=== PATIENT | male | born 1970 | race African-American/Black ===

== ENCOUNTER 2016-03-27 07:00 | Emergency (ER) | payer OTHER ==
[2016-03-27 07:17] VITALS: TEMP 98.2; BMI 45.4
--- NOTE | 2016-03-27 08:16 | PDOC ---
History of Present Illness - General Chief Complaint: Edema Stated Complaint: SWOLLEN FOOT Time Seen by Provider: 03/27/16 07:53 History Source: Patient Exam Limitations: No Limitations - History of Present Illness Initial Comments: 03/27/16 08:10 Patient is a 55 year old obese male with PMH of HTN, Asthma & sleep apnea who presents to ED with complaints of right lower extremity tenderness & swelling for 2 days. Patient's mother is at bedside. He states he had a cold about a week ago and has been extremely sedentary, lying in bed for most of the day since then. The cold symptoms have improved and the patient states he started to notice increased swelling in his lower extremities up to the knee, notably his right lower extremity. The swelling was followed by tenderness to palpation from the right calf down to the plantar portion of his right foot. The region is also mildly erythematous. Denies shortness of breath, chest pain, fever or chills. Denies nausea, vomiting, diarrhea, constipation, visual changes. No recent travel or pets in the home. Past History - Travel Traveled outside of the country in the last 30 days: No Close contact w/someone who was outside of country & ill: No - Past Medical History Allergies/Adverse Reactions: Allergies Allergy/AdvReac Type Severity Reaction Status Date / Time Penicillins Allergy Verified 03/27/16 07:13 STRAWBERRY AdvReac Intermediate Uncoded 03/27/16 07:13 PEANUTS AdvReac Uncoded 03/27/16 07:13 TOMATOES AdvReac Uncoded 03/27/16 07:13 Home Medications: Ambulatory Orders Lisinopril [Prinivil -] 40 mg PO DAILY 03/27/16 Sulfamethoxazole/Trimethoprim [Bactrim Ds -] 1 tab PO BID #14 tablet 03/27/16 Asthma: Yes GI Disorders: Yes (GERD) HTN: Yes Seizures: Yes (as a child) Other medical history: sleep apnea - Surgical History Other Surgical History: 03/27/16 08:14 "sleep apnea surgery" - Family Disease History Family Disease History: Diabetes: Grandparents, Father, Mother, Heart Disease: Father, Mother - Immunization History Immunization Up to Date: Yes - Psycho/Social/Smoking Cessation Hx Anxiety: No Suicidal Ideation: No Smoking History: Former smoker Have you smoked in the past 12 months: No Number of Cigarettes Smoked Daily: 3 Information on smoking cessation initiated: No Hx Alcohol Use: No Drug/Substance Use Hx: No Substance Use Type: None Hx Substance Use Treatment: No Review of Systems - Review of Systems Able to Perform ROS?: Yes Is the patient limited Malawian proficient: No Musculoskeletal: Yes: Other (right foot tenderness) All Other Systems: Reviewed and Negative *Physical Exam - Vital Signs Last Vital Signs Temp Pulse Resp BP Pulse Ox 98.2 F 76 19 129/86 96 03/27/16 07:13 03/27/16 07:13 03/27/16 07:13 03/27/16 07:13 03/27/16 07:13 - Physical Exam General Appearance: Yes: Nourished, Appropriately Dressed, Obese HEENT: positive: EOMI, SHERON, Pharynx Normal Neck: positive: Trachea midline, Supple, Other (scar from previous surgery) Respiratory/Chest: positive: Lungs Clear, Normal Breath Sounds Cardiovascular: positive: Regular Rhythm, Regular Rate, S1, S2 Gastrointestinal/Abdominal: positive: Normal Bowel Sounds, Flat, Soft Musculoskeletal: positive: Normal Inspection Extremity: positive: Normal Inspection, Calf Tenderness (right calf moderately tender to palpation & mildly erythematous) Integumentary: positive: Dry, Warm Neurologic: positive: Fully Oriented, Alert, Normal Mood/Affect, Motor Strength 5/5 ED Treatment Course - LABORATORY CBC & Chemistry Diagram: 03/27/16 08:19 03/27/16 08:19 - RADIOLOGY Radiology Studies Ordered: Category Date Time Status DUPLEX VASCUL US-2LEGS [US] Stat Ultrasound 03/27/16 08:09 Ordered Medical Decision Making - Medical Decision Making 03/27/16 08:19 Need to rule out DVT with bilateral LE ultrasound (patient is high risk given his extremely sedentary lifestyle). Ordered CBC, CMP, BNP to assess for cardiac or cellulitic component as well. 03/27/16 09:12 US (-) for DVT in both lower extremities. BNP shows no sign of CHF. Minimally elevated WBC count at 10.4. Will send patient home on Bactrim for uncomplicated Cellulitis. Patient told to keep legs clean and followup with PCP in 2-3 days. *DC/Admit/Observation/Transfer Diagnosis at time of Disposition: Cellulitis - Discharge Dispostion Admit: No - Prescriptions Prescriptions: Sulfamethoxazole/Trimethoprim [Bactrim Ds -] 1 tab PO BID #14 tablet - Referrals Referrals: Tyrel Shepard MD [Primary Care Provider] - - Patient Instructions Printed Discharge Instructions: DI for Cellulitis -- Adult Additional Instructions: Followup with Dr Barillas within 1 week for followup visit. If pain worsens or swelling increases, return to ED IMMEDIATELY.
[2016-03-27 08:31] LABS: BASOPHIL 0.5 % (0-2.0); EOSINOPHIL 0.4 % (0-4.5); MCH 29.1 pg (25.7-33.7); MCHC 31.8 g/dl (32.0-35.9); MEAN CELL VOLUME 91.6 fl (80-96); MEAN PLT VOLUME 7.7 fl (7.5-11.1); NEUTROPHILS 81.2 % (42.8-82.8); PLATELET COUNT 225 K/MM3 (134-434); RDW 13.4 % (11.9-15.9); WHITE BLOOD COUNT 10.2 K/mm3 (4.0-10.0)
[2016-03-27 09:00] LABS: ALBUMIN 3.5 g/dl (3.4-5.0); ANION GAP 10 (8-16); BILIRUBIN,TOTAL 0.4 mg/dL (0.2-1.0); CALCIUM 8.6 mg/dL (8.5-10.1); CO2 30 mmol/L (21-32); CREATININE 1.1 mg/dL (0.7-1.3); GLUCOSE,RANDOM 95 mg/dL (74-106); SGOT/AST 16 U/L (15-37); SGPT/ALT 21 U/L (12-78)
[2016-03-27 09:03] LABS: ALK PHOS 55 U/L (45-117)
[2016-03-27 09:30] VITALS: BP 131/70; PULSE 70
== END 2016-03-27 09:30 | disposition home or self-care (01) ==
LOC: JER 07:00
DX: L03.116 Cellulitis of left lower limb (principal); L03.115 Cellulitis of right lower limb; I10 Essential (primary) hypertension; J45.909 Unspecified asthma, uncomplicated; G47.39 Other sleep apnea
CPT/HCPCS: 36415; 80053; 83880; 85025; 93970-TC; 99282-25

== ENCOUNTER 2016-10-07 21:05 | Emergency (ER) | payer OTHER ==
[2016-10-07 21:24] VITALS: BP 160/94; PULSE 95; TEMP 98.6; BMI 46.3
[2016-10-07] MEDS ORDERED: KETOROLAC TROMETHAMINE 60 MG/2 ML VIAL IM ONE (22:59)
[2016-10-07] MEDS ORDERED: KETOROLAC TROMETHAMINE 60 MG/2 ML VIAL ONE (23:05)
--- NOTE | 2016-10-07 23:16 | PDOC ---
History of Present Illness - General Chief Complaint: Chronic pain Stated Complaint: RIGHT KNEE Time Seen by Provider: 10/07/16 22:15 - History of Present Illness Initial Comments: 10/07/16 23:03 CHIEF COMPLAINT: HISTORY OF PRESENT ILLNESS: 46 yo M presents to ED with chronic R knee pain. Patient reports that he was diagnosed with a hairline fracture and that he has an orthopedic surgeon who is supposed to operate on the knee in 11 days. P No recent travel or sick contacts. PAST MEDICAL HISTORY: Denies past medical history FAMILY HISTORY: Denies SOCIAL HISTORY: Denies tobacco, alcohol, illicit drug use. SURGICAL HISTORY: Denies ALLERGIES: No known drug allergies REVIEW OF SYSTEMS General/Constitutional: Denies fever or chills. Denies weakness, weight change. HEENT: Denies change in vision. Denies ear pain or discharge. Denies sore throat. Cardiovascular: Denies chest pain or shortness of breath. Respiratory: Denies cough, wheezing, or hemoptysis. Gastrointestinal: Denies nausea, vomiting, diarrhea or constipation. Denies rectal bleeding. Genitourinary: Denies dysuria, frequency, or change in urination. Musculoskeletal: R knee pain. Denies joint or muscle swelling or pain. Denies neck or back pain. Skin and breasts: Denies rash or easy bruising. PHYSICAL EXAM General Appearance: Well-appearing, appropriately dressed. No apparent distress , no intoxication. HEENT: EOMI, PERRLA, normal ENT inspection, normal voice, TMs normal, pharynx normal. No conjunctival pallor. No photophobia, scleral icterus. Neck: Supple. Trachea midline. No tenderness, rigidity, carotid bruit, stridor , lymphadenopathy, or thyromegaly. Respiratory/Chest: Lungs CTAB. No shortness of breath, chest tenderness, respiratory distress, accessory muscle use. No crackles, rales, rhonchi, stridor , wheezing, dullness Cardiovascular: RRR. S1, S2. No JVD, murmur, bradycardia, tachycardia. Vascular Pulses: Dorsalis-Pedis (R): 2+, Dorsalis-Pedis (L): 2+ Gastrointestinal/Abdominal: Normal bowel sounds. Abdomen soft, non-distended. No tenderness or rebound tenderness. No organomegaly, pulsatile mass, guarding , hernia, hepatomegaly, splenomegaly. Lymphatic: No adenopathy, tenderness. Musculoskeletal/Extremities: Normal inspection. FROM of all extremities, normal capillary refill. Pelvis Stable. No CVA tenderness. No tenderness to extremities, pedal edema, swelling, erythema or deformity. Integumentary: Appropriate color, dry, warm. No cyanosis, erythema, jaundice or rash Neurologic: air quality engineer II-XII intact. Fully oriented, alert. Appropriate mood/affect. Motor strength 5/5. No appreciable EOM palsy, facial droop or sensory deficit. Past History - Past Medical History Allergies/Adverse Reactions: Allergies Allergy/AdvReac Type Severity Reaction Status Date / Time Penicillins Allergy Verified 10/07/16 21:23 STRAWBERRY AdvReac Intermediate Uncoded 10/07/16 21:23 PEANUTS AdvReac Uncoded 10/07/16 21:23 TOMATOES AdvReac Uncoded 10/07/16 21:23 Home Medications: Ambulatory Orders Lisinopril [Prinivil -] 40 mg PO DAILY 03/27/16 Sulfamethoxazole/Trimethoprim [Bactrim Ds -] 1 tab PO BID #14 tablet 03/27/16 Naproxen [Naprosyn -] 500 mg PO BID #14 tablet 10/07/16 Oxycodone HCl/Acetaminophen [Percocet 5-325 mg Tablet] 1 tab PO Q6H PRN #12 tablet MDD 4 10/07/16 Asthma: Yes GI Disorders: Yes (GERD) HTN: Yes Seizures: Yes (as a child) Other medical history: obesity - Family Disease History Family Disease History: Diabetes: Grandparents, Father, Mother, Heart Disease: Father, Mother - Immunization History Immunization Up to Date: Yes - Psycho/Social/Smoking Cessation Hx Anxiety: No Suicidal Ideation: No Smoking History: Former smoker Have you smoked in the past 12 months: No Number of Cigarettes Smoked Daily: 3 Information on smoking cessation initiated: No Hx Alcohol Use: No Drug/Substance Use Hx: No Substance Use Type: None Hx Substance Use Treatment: No *Physical Exam - Vital Signs Last Vital Signs Temp Pulse Resp BP Pulse Ox 98.6 F 95 H 18 160/94 100 10/07/16 21:21 10/07/16 21:21 10/07/16 21:21 10/07/16 21:21 10/07/16 21:21 *DC/Admit/Observation/Transfer Diagnosis at time of Disposition: Knee pain, right Qualifiers: Chronicity: chronic Qualified Code(s): M25.561 - Pain in right knee; G89.29 - Other chronic pain - Discharge Dispostion Disposition: HOME Condition at time of disposition: Stable Admit: No - Prescriptions Prescriptions: Naproxen [Naprosyn -] 500 mg PO BID #14 tablet Oxycodone HCl/Acetaminophen [Percocet 5-325 mg Tablet] 1 tab PO Q6H PRN #12 tablet MDD 4 PRN Reason: Pain - Referrals Referrals: Tyrel Shepard MD [Primary Care Provider] - - Patient Instructions Printed Discharge Instructions: DI for Knee Pain Additional Instructions: Please take medications as prescribed; do NOT drive or operate machinery while taking the Percocet. Please follow up with your orthopedics surgeon as planned. If you experience any numbness, tingling, or loss of sensation to your leg, worsening pain, or any new or worsening symptoms please return to the ER.
== END 2016-10-07 23:33 | disposition home or self-care (01) ==
LOC: JERFT 21:05 → JER 21:05
PROC: 3E0333Z Introduction of Anti-inflammatory into Peripheral Vein, Percutaneous Approach (ICD-10-PCS; principal; 2016-10-07)
DX: M25.561 Pain in right knee (principal); G89.29 Other chronic pain; I10 Essential (primary) hypertension; J45.909 Unspecified asthma, uncomplicated; K21.9 Gastro-esophageal reflux disease without esophagitis; Z88.0 Allergy status to penicillin; Z91.010 Allergy to peanuts; Z91.018 Allergy to other foods; Z87.891 Personal history of nicotine dependence; Z86.69 Personal history of other diseases of the nervous system and sense organs; E66.9 Obesity, unspecified; Z68.42 Body mass index [BMI] 45.0-49.9, adult
CPT/HCPCS: 99282-25

== ENCOUNTER 2016-10-31 07:52 | Inpatient (IN) | payer OTHER ==
[2016-10-23 10:39] VITALS: BMI 46.0
[2016-10-31] MEDS ORDERED: BUPIVACAINE HCL/PF 2.5 MG/ML - 30 ML VIAL IJ ONE (09:10)
[2016-10-31] MEDS ORDERED: PROPOFOL 20 ML ONE ×2 (09:39→09:45)
[2016-10-31] MEDS ORDERED: SUCCINYLCHOLINE CHLORIDE 200 MG/10 ML VIAL ONE (09:45)
[2016-10-31] MEDS ORDERED: CLINDAMYCIN PHOSPHATE 600 MG/4 ML VIAL ONE ×2 (09:56→09:57)
[2016-10-31] MEDS ORDERED: BUPIVACAINE HCL/PF 0.25% (2.5MG/ML) 10 ML VIAL IJ ONE (10:08)
[2016-10-31] MEDS ORDERED: DEXAMETHASONE SOD PHOSPHATE 4 MG/1 ML VIAL ONE (10:09)
[2016-10-31] MEDS ORDERED: ONDANSETRON 4 MG/2 ML VIAL ONE (10:09)
[2016-10-31] MEDS ORDERED: ALBUTEROL SO4 6.7 GM HFA INHALER IH ONE (10:21)
[2016-10-31] MEDS ORDERED: IPRATROPIUM BR 0.02% 0.5 MG/2.5 ML VIAL.NEB. NEB ONE (11:04)
[2016-10-31] MEDS ORDERED: ALBUTEROL SO4 0.083% IH SOL 2.5 MG/3 ML VIAL.NEB. NEB ONE (11:04)
[2016-10-31] MEDS ORDERED: ACETAMINOPHEN 1000 MG/100 ML VIAL (NON FORMULARY) IVPB ONE (11:20)
[2016-10-31] MEDS ORDERED: ONDANSETRON 4 MG/2 ML VIAL IVPUSH PRN (11:20)
[2016-10-31] MEDS ORDERED: ALBUTEROL SO4 0.083% IH SOL 2.5 MG/3 ML VIAL.NEB. NEB PRN (11:22)
[2016-10-31] MEDS ORDERED: LACTATED RINGERS SOLUTION 1,000 ML IV SCH (11:30)
[2016-10-31 17:56] LABS: ARTERIAL BLOOD GAS pH 7.36 (7.35-7.45)
[2016-10-31 17:57] LABS: ALLENS TEST POSITIVE; ART PUNCT SITE RIGHT RADIAL; ARTERIAL BLD GAS O2 SATURATION 97.4 % (90-98.9); ARTERIAL BLOOD GAS BASE EXCESS 4.5 meq/l (-2-2); ARTERIAL BLOOD GAS HCO3 31.2 meq/L (22-26); ARTERIAL BLOOD GAS PO2 99.4 mmHg (80-100); LPM/O2% 50%; PT. ON O2? YES; TYPE OF O2 BIPAP
[2016-10-31 17:58] LABS: VENT RATE 12; VT/PRESS IPAP 14/EPAP 8
[2016-10-31] MEDS ORDERED: FUROSEMIDE 40 MG/4 ML INJECTABLE VIAL IVPB ONE ×2 (19:40→19:44)
--- NOTE | 2016-10-31 19:52 | CONSULT ---
Consultation: REQUESTING PROVIDER: CONSULT REQUEST: We have been asked to medically evaluate this patient for ( pulm critical). HISTORY OF PRESENT ILLNESS: 46 y/o male with PMH of sleep apnea, asthma, GERD, HTN was sent from [facility] because of shortness of breath. Patient got right knee surgery( arthroscopy for meniscal tear) this morning under [facility]. Post op surgery patient was getting a IV fluid when he started complaining of SOB. He was started on venture mask but unable to maintain saturation than was started on BIPAP of 50% and his Spo2 increased upto 90. Now feels better but still tired. . Sleeps without pillow in home before use to sleep with 3 pillows , able to walk without shortness of breath but now due to knee problem unable to walk. Denies orthopnea and paroxysmal dyspnea. Patient denies chest pain, palpitations, diaphoresis, trauma to cheat, cough( has chronic cough but no recent change), fever, no recent travel. Denies any increase swelling in legs. Denies lightheadedness, dizziness. Patient also states that he has was supposed to use BIPAP in home but he never used it. PMH: htn, gerd, asthma, sleep apnea, obesity PSH: surgery for sleep apnea, right knee surgery Allergies : penicillin, strawberry, tomatoes, peanuts Social: former smoker stopped 2 years ago, smoked for 10 years, occasional alcoholic. REVIEW OF SYSTEMS: CONSTITUTIONAL: Absent: fever, chills, diaphoresis, generalized weakness, malaise, loss of appetite, gained weight in last one year. HEENT: Absent: rhinorrhea, nasal congestion, throat pain, throat swelling, visual changes CARDIOVASCULAR: Absent: chest pain, syncope, palpitations, irregular heart rate, lightheadedness , peripheral edema RESPIRATORY: present chronic cough Absent: shortness of breath, dyspnea with exertion, orthopnea, wheezing, stridor, hemoptysis GASTROINTESTINAL: Absent: abdominal pain, abdominal distension, nausea, vomiting, diarrhea, constipation, GENITOURINARY: Absent: dysuria, frequency, urgency, hesitancy, hematuria, flank pain, genital pain SKIN: Absent: rash, itching, pallor HEMATOLOGIC/IMMUNOLOGIC: Absent: easy bleeding, easy bruising, ENDOCRINE: Absent: weight gain, unexplained weight loss, heat intolerance, cold intolerance NEUROLOGIC: Absent: headache, focal weakness or paresthesias, dizziness, unsteady gait, seizure, mental status changes, PHYSICAL EXAMINATION Vital Signs - 24 hr 10/31/16 10/31/16 10/31/16 08:15 11:00 11:05 Temperature 98.6 F 97.8 F Pulse Rate 88 112 H 95 H Respiratory 18 24 20 Rate Blood Pressure 142/97 186/85 171/81 O2 Sat by Pulse 96 78 L 94 L Oximetry (%) 10/31/16 10/31/16 10/31/16 11:10 11:15 11:30 Temperature Pulse Rate 94 H 94 H 94 H Respiratory 20 20 18 Rate Blood Pressure 152/87 172/97 122/84 O2 Sat by Pulse 96 92 L 96 Oximetry (%) 10/31/16 10/31/16 10/31/16 11:45 12:00 12:15 Temperature Pulse Rate 91 H 93 H 93 H Respiratory 18 18 18 Rate Blood Pressure 160/99 126/74 O2 Sat by Pulse 97 93 L 95 Oximetry (%) 10/31/16 10/31/16 10/31/16 12:21 12:30 12:40 Temperature Pulse Rate 89 94 H 96 H Respiratory 18 18 Rate Blood Pressure 136/85 148/92 O2 Sat by Pulse 95 93 L 99 Oximetry (%) 10/31/16 10/31/16 10/31/16 12:41 12:55 13:00 Temperature 98.1 F Pulse Rate 96 H 90 Respiratory 18 20 Rate Blood Pressure 148/92 124/91 O2 Sat by Pulse 94 L 95 Oximetry (%) 10/31/16 10/31/16 10/31/16 13:25 13:55 14:25 Temperature Pulse Rate 86 88 92 H Respiratory 18 18 18 Rate Blood Pressure 155/92 157/90 140/94 O2 Sat by Pulse 98 98 93 L Oximetry (%) 10/31/16 10/31/16 10/31/16 14:26 14:55 15:16 Temperature Pulse Rate 90 Respiratory 16 Rate Blood Pressure 128/66 O2 Sat by Pulse 96 94 L 96 Oximetry (%) 10/31/16 10/31/16 10/31/16 16:03 17:15 18:25 Temperature Pulse Rate 91 H 94 H Respiratory 18 Rate Blood Pressure 181/104 O2 Sat by Pulse 96 97 96 Oximetry (%) 10/31/16 19:33 Temperature Pulse Rate Respiratory Rate Blood Pressure O2 Sat by Pulse 94 L Oximetry (%) GENERAL: Awake, alert, and fully oriented, HEAD: Normal with no signs of trauma. EYES: Pupils equal, round and reactive to light, extraocular movements intact, EARS, NOSE, THROAT: oropharynx clear without exudates. Moist mucous membranes. NECK: Normal range of motion, no JVD, acanthosis nigrans. LUNGS: Breath sounds equal,b/l crackles in bases, decrease air entry in bases. No accessory muscle use. no wheez, no acessory muscle use HEART: s1s2 normal regular ABDOMEN: Soft, nontender, not distended, normoactive bowel sounds, no guarding, no rebound, no masses. scar present on abdomen from fall ( no surgery) UPPER EXTREMITIES: 2+ pulses, warm, well-perfused. No cyanosis. No clubbing. LOWER EXTREMITIES: warm, No calf tenderness. No peripheral edema. SKIN: Warm, dry, Laboratory Results - last 24 hr 10/31/16 17:45 Anticoagulation Therapy Y Puncture Site Right radial ABG pH 7.36 ABG pCO2 at Pt Temp 57.2 H ABG pO2 at Pt Temp 99.4 ABG HCO3 31.2 H ABG O2 Sat (Measured) 97.4 ABG O2 Content 19.9 ABG Base Excess 4.5 H Usman Test Positive O2 Delivery Device Bipap Oxygen Flow Rate 50% Vent Mode Y Vent Rate 12 Mechanical Rate Y Pressure Support Vent Ipap 14/epap 8 Active Medications Generic Name Dose Route Start Last Admin Trade Name Freq PRN Reason Stop Dose Admin Albuterol Sulfate 1 amp 10/31/16 11:22 10/31/16 15:38 Ventolin 0.083% Nebulizer Soln - NEB 1 amp Q4H PRN Administration SHORT OF BREATH/WHEEZING Chlorhexidine Gluconate 1 applic 10/31/16 22:00 Hibiclens For Decolonization - TP HS ARABELLA Enoxaparin Sodium 40 mg 11/01/16 10:00 Lovenox - SQ DAILY ARABELLA Furosemide 40 mg 10/31/16 19:44 Lasix Injection - IVPB 10/31/16 19:45 ONCE ONE Lactated Ringer's 1,000 mls @ 75 mls/hr 10/31/16 11:30 Lactated Ringers Solution IV ASDIR ARABELLA Lisinopril 40 mg 11/01/16 10:00 Prinivil PO DAILY ARABELLA Mupirocin 1 applic 10/31/16 22:00 Bactroban Ointment (For Decolonization) - NS 11/05/16 21:59 BID ARABELLA Pantoprazole Sodium 40 mg 10/31/16 22:00 Protonix - PO BID ARABELLA ECHO 10/16: normal LV function 10/16 normal myocardial perfusian scan ASSESSMENT/PLAN: Post op hypoxic with hypercapnic respiratory failure continue with bipap on I/e 13/10 rr14 fio2 50. keep spo2>90 CXr looks congested with b/l crackels at base, Lasix 40 mg IV once. Repeat CXR in morning. daily weight monitor intake and output low salt diet. ECHO from 10/16: normal LV function keep head end elevated. repeat abg cardiac monitoring EKG avoid opioid for pain for now. HTN continue with lisinopril monitor bp GERD continue with omeprazol 40mg bid h/o Asthma not active on prn albuterol in home. continue with duoneb prn chronic Sleep apnea keep on bipap keep head end elevated keep spo2>90 previous sleep studies show restrictive lung ds Fluid: avoid IV fluid electrolytes: labs pending nutrition: start low salt diet from morning, once conscious level improves GI pro: on omeprazole DVt pro : on lovenox Dispo: We will continue to follow the patient. Thank you for this consultative opportunity. Visit type - Emergency Visit Emergency Visit: No - New Patient This patient is new to me today: Yes Date on this admission: 10/31/16 - Critical Care Critical Care patient: Yes Total Critical Care Time (in minutes): 45 Critical Care Statement: The care of this patient involved high complexity decision making to prevent further life threatening deterioration of the patient 's condition and/or to evaluate & treat vital organ system(s) failure or risk of failure.
--- NOTE | 2016-10-31 19:52 | HP ---
<Chuck Cardona - Last Filed: 10/31/16 19:52> CHIEF COMPLAINT: PCP: HISTORY OF PRESENT ILLNESS: ER course was notable for: (1) (2) (3) Recent Travel: PAST MEDICAL HISTORY: PAST SURGICAL HISTORY: Social History: Smoking: Alcohol: Drugs: Family History: Allergies Penicillins Allergy (Severe, Verified 10/23/16 10:40) SWELLING,HIVES STRAWBERRY Allergy (Intermediate, Uncoded 10/23/16 10:40) SWELLING,HIVES TOMATOES Allergy (Intermediate, Uncoded 10/23/16 10:40) SWELLING , HIVES PEANUTS Adverse Reaction (Intermediate, Uncoded 10/23/16 10:40) SWELLING, HIVES HOME MEDICATIONS: Home Medications Medication Instructions Recorded Lisinopril [Prinivil -] 40 mg PO DAILY 03/27/16 Naproxen [Naprosyn -] 500 mg PO BID #14 tablet 10/07/16 Oxycodone HCl/Acetaminophen 1 tab PO Q6H PRN #12 tablet MDD 4 10/07/16 [Percocet 5-325 mg Tablet] Multivitamins [Tab-A-Vit -] 1 tab PO DAILY 10/23/16 Omeprazole 40 mg PO BID 10/23/16 REVIEW OF SYSTEMS CONSTITUTIONAL: Absent: fever, chills, diaphoresis, generalized weakness, malaise, loss of appetite, weight change HEENT: Absent: rhinorrhea, nasal congestion, throat pain, throat swelling, difficulty swallowing, mouth swelling, ear pain, eye pain, visual changes CARDIOVASCULAR: Absent: chest pain, syncope, palpitations, irregular heart rate, lightheadedness , peripheral edema RESPIRATORY: Absent: cough, shortness of breath, dyspnea with exertion, orthopnea, wheezing, stridor, hemoptysis GASTROINTESTINAL: Absent: abdominal pain, abdominal distension, nausea, vomiting, diarrhea, constipation, melena, hematochezia GENITOURINARY: Absent: dysuria, frequency, urgency, hesitancy, hematuria, flank pain, genital pain MUSCULOSKELETAL: Absent: myalgia, arthralgia, joint swelling, back pain, neck pain SKIN: Absent: rash, itching, pallor HEMATOLOGIC/IMMUNOLOGIC: Absent: easy bleeding, easy bruising, lymphadenopathy, frequent infections ENDOCRINE: Absent: unexplained weight gain, unexplained weight loss, heat intolerance, cold intolerance NEUROLOGIC: Absent: headache, focal weakness or paresthesias, dizziness, unsteady gait, seizure, mental status changes, bladder or bowel incontinence PSYCHIATRIC: Absent: anxiety, depression, suicidal or homicidal ideation, hallucinations. PHYSICAL EXAMINATION Vital Signs - 24 hr 10/31/16 10/31/16 10/31/16 08:15 11:00 11:05 Temperature 98.6 F 97.8 F Pulse Rate 88 112 H 95 H Respiratory 18 24 20 Rate Blood Pressure 142/97 186/85 171/81 O2 Sat by Pulse 96 78 L 94 L Oximetry (%) 10/31/16 10/31/16 10/31/16 11:10 11:15 11:30 Temperature Pulse Rate 94 H 94 H 94 H Respiratory 20 20 18 Rate Blood Pressure 152/87 172/97 122/84 O2 Sat by Pulse 96 92 L 96 Oximetry (%) 10/31/16 10/31/16 10/31/16 11:45 12:00 12:15 Temperature Pulse Rate 91 H 93 H 93 H Respiratory 18 18 18 Rate Blood Pressure 160/99 126/74 O2 Sat by Pulse 97 93 L 95 Oximetry (%) 10/31/16 10/31/16 10/31/16 12:21 12:30 12:40 Temperature Pulse Rate 89 94 H 96 H Respiratory 18 18 Rate Blood Pressure 136/85 148/92 O2 Sat by Pulse 95 93 L 99 Oximetry (%) 10/31/16 10/31/16 10/31/16 12:41 12:55 13:00 Temperature 98.1 F Pulse Rate 96 H 90 Respiratory 18 20 Rate Blood Pressure 148/92 124/91 O2 Sat by Pulse 94 L 95 Oximetry (%) 10/31/16 10/31/16 10/31/16 13:25 13:55 14:25 Temperature Pulse Rate 86 88 92 H Respiratory 18 18 18 Rate Blood Pressure 155/92 157/90 140/94 O2 Sat by Pulse 98 98 93 L Oximetry (%) 10/31/16 10/31/16 10/31/16 14:26 14:55 15:16 Temperature Pulse Rate 90 Respiratory 16 Rate Blood Pressure 128/66 O2 Sat by Pulse 96 94 L 96 Oximetry (%) 10/31/16 10/31/16 10/31/16 16:03 17:15 18:25 Temperature Pulse Rate 91 H 94 H Respiratory 18 Rate Blood Pressure 181/104 O2 Sat by Pulse 96 97 96 Oximetry (%) 10/31/16 19:33 Temperature Pulse Rate Respiratory Rate Blood Pressure O2 Sat by Pulse 94 L Oximetry (%) GENERAL: Awake, alert, and fully oriented, in no acute distress. HEAD: Normal with no signs of trauma. EYES: Pupils equal, round and reactive to light, extraocular movements intact, sclera anicteric, conjunctiva clear. No lid lag. EARS, NOSE, THROAT: Ears normal, nares patent, oropharynx clear without exudates. Moist mucous membranes. NECK: Normal range of motion, supple without lymphadenopathy, JVD, or masses. LUNGS: Breath sounds equal, clear to auscultation bilaterally. No wheezes, and no crackles. No accessory muscle use. HEART: Regular rate and rhythm, normal S1 and S2 without murmur, rub or gallop. ABDOMEN: Soft, nontender, not distended, normoactive bowel sounds, no guarding, no rebound, no masses. No hepatomegaly or splenomegaly. MUSCULOSKELETAL: Normal range of motion at all joints. No bony deformities or tenderness. No CVA tenderness. UPPER EXTREMITIES: 2+ pulses, warm, well-perfused. No cyanosis. No clubbing. No peripheral edema. LOWER EXTREMITIES: 2+ pulses, warm, well-perfused. No calf tenderness. No peripheral edema. NEUROLOGICAL: Cranial nerves II-XII intact. Normal speech. Normal gait. PSYCHIATRIC: Cooperative. Good eye contact. Appropriate mood and affect. SKIN: Warm, dry, normal turgor, no rashes or lesions noted, normal capillary refill. Laboratory Results - last 24 hr 10/31/16 17:45 Anticoagulation Therapy Y Puncture Site Right radial ABG pH 7.36 ABG pCO2 at Pt Temp 57.2 H ABG pO2 at Pt Temp 99.4 ABG HCO3 31.2 H ABG O2 Sat (Measured) 97.4 ABG O2 Content 19.9 ABG Base Excess 4.5 H Usman Test Positive O2 Delivery Device Bipap Oxygen Flow Rate 50% Vent Mode Y Vent Rate 12 Mechanical Rate Y Pressure Support Vent Ipap 14/epap 8 ASSESSMENT/PLAN: <Vazquez Leyva - Last Filed: 11/01/16 07:27> CHIEF COMPLAINT:Shortness of breath PCP:Eran HISTORY OF PRESENT ILLNESS: 46M history of obstructive sleep apnea, asthma, HTN, GERD, and morbid obesity who presents to the ICU for admission s/p right knee arthroscopy. Patient had a right knee meniscus tear and presented for ambulatory surgery. Post-operatively patient was in the PACU receiving IVF and started to complain of shortness of breath. He was then placed on venti mask 50% but his saturation remained around 90%. Patient was then placed on BiPAP and was saturating well. He denies nausea vomiting fevers chills chest pain or shortness of breath at this time. He denies pain. He denies travel or recent sick contacts. Denies any urinary symptoms or change in bowel habits. Patient had an Echo and stress test which did not show any abnormalities. He sees Dr. Fox for pulmonology. Denies orthopnea or recent change in exercise tolerance. Patient has had difficulty ambulating lately due to knee pain. Patient was somnolent during interview. History given by mother who is a retired telemetry nurse. Patient has had a surgery for some kind of stenting in the neck for obstructive sleep apnea. Suppoed to be sleeping with CPAP machine but is not compliant with it. Recent Travel:Denies PAST MEDICAL HISTORY:As above PAST SURGICAL HISTORY:as above Social History: Smoking:former smoker quit 2 years ago Alcohol:socially Drugs: denies Family History:Father has diabetes and HTN mother has borderline HTN Allergies Penicillins Allergy (Severe, Verified 10/23/16 10:40) SWELLING,HIVES STRAWBERRY Allergy (Intermediate, Uncoded 10/23/16 10:40) SWELLING,HIVES TOMATOES Allergy (Intermediate, Uncoded 10/23/16 10:40) SWELLING , HIVES PEANUTS Adverse Reaction (Intermediate, Uncoded 10/23/16 10:40) SWELLING, HIVES HOME MEDICATIONS: Home Medications Medication Instructions Recorded Lisinopril [Prinivil -] 40 mg PO DAILY 03/27/16 Naproxen [Naprosyn -] 500 mg PO BID #14 tablet 10/07/16 Oxycodone HCl/Acetaminophen 1 tab PO Q6H PRN #12 tablet MDD 4 10/07/16 [Percocet 5-325 mg Tablet] Multivitamins [Tab-A-Vit -] 1 tab PO DAILY 10/23/16 Omeprazole 40 mg PO BID 10/23/16 REVIEW OF SYSTEMS CONSTITUTIONAL: Absent: fever, chills, diaphoresis, generalized weakness, malaise, loss of appetite, weight change HEENT: Absent: rhinorrhea, nasal congestion, throat pain, throat swelling, difficulty swallowing, mouth swelling, ear pain, eye pain, visual changes CARDIOVASCULAR: Absent: chest pain, syncope, palpitations, irregular heart rate, lightheadedness , peripheral edema RESPIRATORY: Absent: , dyspnea with exertion, orthopnea, wheezing, stridor, hemoptysis Present: chronic cough from GERD, shortness of breath GASTROINTESTINAL: Absent: abdominal pain, abdominal distension, nausea, vomiting, diarrhea, constipation, melena, hematochezia GENITOURINARY: Absent: dysuria, frequency, urgency, hesitancy, hematuria, flank pain, genital pain MUSCULOSKELETAL: Absent: myalgia, arthralgia, joint swelling, back pain, neck pain Present: Knee pain SKIN: Absent: rash, itching, pallor HEMATOLOGIC/IMMUNOLOGIC: Absent: easy bleeding, easy bruising, lymphadenopathy, frequent infections ENDOCRINE: Absent: unexplained weight gain, unexplained weight loss, heat intolerance, cold intolerance NEUROLOGIC: Absent: headache, focal weakness or paresthesias, dizziness, unsteady gait, seizure, mental status changes, bladder or bowel incontinence PSYCHIATRIC: Absent: anxiety, depression, suicidal or homicidal ideation, hallucinations. PHYSICAL EXAMINATION Vital Signs - 24 hr 10/31/16 10/31/16 10/31/16 08:15 11:00 11:05 Temperature 98.6 F 97.8 F Pulse Rate 88 112 H 95 H Respiratory 18 24 20 Rate Blood Pressure 142/97 186/85 171/81 O2 Sat by Pulse 96 78 L 94 L Oximetry (%) 10/31/16 10/31/16 10/31/16 11:10 11:15 11:30 Temperature Pulse Rate 94 H 94 H 94 H Respiratory 20 20 18 Rate Blood Pressure 152/87 172/97 122/84 O2 Sat by Pulse 96 92 L 96 Oximetry (%) 10/31/16 10/31/16 10/31/16 11:45 12:00 12:15 Temperature Pulse Rate 91 H 93 H 93 H Respiratory 18 18 18 Rate Blood Pressure 160/99 126/74 O2 Sat by Pulse 97 93 L 95 Oximetry (%) 10/31/16 10/31/16 10/31/16 12:21 12:30 12:40 Temperature Pulse Rate 89 94 H 96 H Respiratory 18 18 Rate Blood Pressure 136/85 148/92 O2 Sat by Pulse 95 93 L 99 Oximetry (%) 10/31/16 10/31/16 10/31/16 12:41 12:55 13:00 Temperature 98.1 F Pulse Rate 96 H 90 Respiratory 18 20 Rate Blood Pressure 148/92 124/91 O2 Sat by Pulse 94 L 95 Oximetry (%) 10/31/16 10/31/16 10/31/16 13:25 13:55 14:25 Temperature Pulse Rate 86 88 92 H Respiratory 18 18 18 Rate Blood Pressure 155/92 157/90 140/94 O2 Sat by Pulse 98 98 93 L Oximetry (%) 10/31/16 10/31/16 10/31/16 14:26 14:55 15:16 Temperature Pulse Rate 90 Respiratory 16 Rate Blood Pressure 128/66 O2 Sat by Pulse 96 94 L 96 Oximetry (%) 10/31/16 10/31/16 10/31/16 16:03 17:15 18:25 Temperature Pulse Rate 91 H 94 H Respiratory 18 Rate Blood Pressure 181/104 O2 Sat by Pulse 96 97 96 Oximetry (%) 10/31/16 19:33 Temperature Pulse Rate Respiratory Rate Blood Pressure O2 Sat by Pulse 94 L Oximetry (%) GENERAL: Awake but somnolent. Responds to voice HEAD: Normal with no signs of trauma. EYES: Pupils equal, round and reactive to light, extraocular movements intact, sclera anicteric, conjunctiva clear. No lid lag. EARS, NOSE, THROAT: Moist mucous membranes. NECK:no JVD LUNGS: on BiPAP. Bibasilar fine crackles. no wheezing. No accessory muscle use. HEART: Regular rate and rhythm, normal S1 and S2 without murmur ABDOMEN: Soft, obese, nontender, not distended, normoactive bowel sounds, no guarding, no rebound UPPER EXTREMITIES: 2+ pulses, warm, well-perfused. No cyanosis. No clubbing. No peripheral edema. LOWER EXTREMITIES: 2+ DP pulses bilaterally, warm, well-perfused. No calf tenderness. No peripheral edema. right knee wrapped dressing C/D/I NEUROLOGICAL: Cranial nerves II-XII intact. Laboratory Results - last 24 hr 10/31/16 17:45 Anticoagulation Therapy Y Puncture Site Right radial ABG pH 7.36 ABG pCO2 at Pt Temp 57.2 H ABG pO2 at Pt Temp 99.4 ABG HCO3 31.2 H ABG O2 Sat (Measured) 97.4 ABG O2 Content 19.9 ABG Base Excess 4.5 H Usman Test Positive O2 Delivery Device Bipap Oxygen Flow Rate 50% Vent Mode Y Vent Rate 12 Mechanical Rate Y Pressure Support Vent Ipap 14/epap 8 Echo: from 10/16/16 Left and right ventricle WNL Nuclear stress test: from 10/16/16 WNL CXR: increase pulmonary vascular markings when compared to prior CXR ASSESSMENT/PLAN: 46M with history of [place] asthma GERD HTN and morbid obesity presents to the ICU from [facility] for shortness of breath. Acute hypoxic hypercarbic respiratory failure: acute CHF exacerbation vs exacerbation of [employer] vs asthma vs pulmonary embolism Patient has an expected A-a gradient of 15 and measured is 186. Admit to ICU bronchodilators BiPAP wean off BiPAP as tolerated Lasix 40mg IV push now STAT ABG CXR in AM EKG STAT labs CBC CMP Mg Phos Coags troponins D-Dimer would not be useful at this time due to recent surgery Will consider CTA of chest if he does not improve with lasix Hold narcotics keep HOB >45 degrees patient already had recent echo and stress test less than 2 weeks ago HTN: Restart home dose of lisinopril 40mg po daily Trend BP Currently well controlled GERD: Restart PPI Protonix 40mg PO BID Obstructive sleep apnea: Counselled patient on importance of sleeping with cpap at home outpatient follow up with Dr. Fox-pulmonology Morbid obesity: Counselled on weight loss and diet will consider outpatient bariatric follow up for possible surgery FEN: No IVF STAT labs and replete electrolytes PRN sodium conbtrolled diet when off BiPAP PPx: Lovenox protonix PT consult ICU care CCTime 50min Visit type - Emergency Visit Emergency Visit: No - New Patient This patient is new to me today: Yes Date on this admission: 11/01/16 - Critical Care Critical Care patient: Yes Total Critical Care Time (in minutes): 50 Critical Care Statement: The care of this patient involved high complexity decision making to prevent further life threatening deterioration of the patient 's condition and/or to evaluate & treat vital organ system(s) failure or risk of failure. <Prema Craig - Last Filed: 11/06/16 14:00>
--- NOTE | 2016-10-31 20:03 | PN ---
Teaching Attending Note Name of Resident: Vazquez Leyva ATTENDING PHYSICIAN STATEMENT I saw and evaluated the patient. I reviewed the resident's note and discussed the case with the resident. I agree with the resident's findings and plan as documented. SUBJECTIVE: 46-year-old maleS/p Right meniscus tear arthroscopy, referred for ICU admission after episode of desaturation postoperatively. Despite bala% Ventimask ated 90%, and therefore was placed on BiPAP. OBJECTIVE: Gen.: Arousable to verbal stimuli HEENT: NC, PERRLA, EOMI, MMM, no JVD Respiratory: On BiPAP, bibasilar crackles, no wheezing. CVS: RRR, S1, S2,no M/R/G Extremities: Right knee dressing status post surgery, equal bilater pulses appreciated Laboratory Results - last 24 hr 10/31/16 17:45 Anticoagulation Therapy Y Puncture Site Right radial ABG pH 7.36 ABG pCO2 at Pt Temp 57.2 H ABG pO2 at Pt Temp 99.4 ABG HCO3 31.2 H ABG O2 Sat (Measured) 97.4 ABG O2 Content 19.9 ABG Base Excess 4.5 H Usman Test Positive O2 Delivery Device Bipap Oxygen Flow Rate 50% Vent Mode Y Vent Rate 12 Mechanical Rate Y Pressure Support Vent Ipap 14/epap 8 ASSESSMENT AND PLAN: Somnolent secondary to Acute hypercapneic respiratory failure, with Acute respiratory acidosis, continue BiPAP Lasix given stat ,repeat ABG, repeat all labs and chest x-ray in morning. Intensivists consult.consider pulmonary consult. DVT prophylaxis Critical Care Total Critical Care Time (in minutes): 50 Critical Care Statement: The care of this patient involved high complexity decision making to prevent further life threatening deterioration of the patient 's condition and/or to evaluate & treat vital organ system(s) failure or risk of failure.
[2016-10-31 20:34] LABS: MCH 29.1 pg (25.7-33.7); MCHC 31.4 g/dl (32.0-35.9); MEAN CELL VOLUME 92.8 fl (80-96); MEAN PLT VOLUME 8.5 fl (7.5-11.1); PLATELET COUNT 234 K/MM3 (134-434); RDW 13.2 % (11.9-15.9); WHITE BLOOD COUNT 13.7 K/mm3 (4.0-10.0)
[2016-10-31 20:49] LABS: INR 1.13 (0.82-1.09); PROTHROMBIN TIME (PATIENT) 12.5 SEC (9.98-11.88)
[2016-10-31 21:04] LABS: ALBUMIN 3.3 g/dl (3.4-5.0); ANION GAP 9 (8-16); CO2 31 mmol/L (21-32); CREATININE 1.2 mg/dL (0.7-1.3); GLUCOSE,RANDOM 140 mg/dL (74-106); MAGNESIUM 1.9 mg/dL (1.8-2.4); SGOT/AST 16 U/L (15-37); SGPT/ALT 21 U/L (12-78)
[2016-10-31 21:08] LABS: ALK PHOS 62 U/L (45-117); BILIRUBIN,TOTAL 0.5 mg/dL (0.2-1.0); CPK 282 IU/L (39-308); TOT PROT 7.3 g/dl (6.4-8.2); TROPONIN I 0.06 ng/ml (0.00-0.05)
--- NOTE | 2016-10-31 21:46 | CONSULT ---
Consult Consult Specialty:: PULMONARY / CRITICAL CARE Referred by:: Dr Craig Reason for Consultation:: hypercapnic respiratory failure - History of Present Illness Chief Complaint: SOB History of Present Illness: 46 mobility obese male (BMI 46) with GERD, HTN, asthma and severe [place] documented by a sleep study. He underwent an ENT procedure in 2012 to help relieve obstruction. He was Rx a CPAP, but is non-compliant - unable to tolerate the full face mask. He also gained about 90lbs over the last 2 years after a in the family. He had a negative stress test this year, a recent echo that showed normal LV and RV function. He had PFTs recently (which wasn't a great study), but showed moderate restrictive disease (likely from obesity). He had a known stress fx of R knee and had a recent fall prompting the need for an arthroscopic procedure today. He was taken to the OR and placed under general anesthesia. A LMA was attempted but ventilation remained difficult so he was orally intubated with a glide scope. He was not given any NMBAs and only 100mcg of Fentanyl. After the procedure he was extubated and sent to recovery. In the PACU he was receiving IVFs, became SOB and more somnolent. He was given lasix and placed on NIPPV. An ABG was done showing acute on chronic respiratory failure - 7.. He was admitted to the ICU. - History Source History Provided By: Patient, Family Member, Transfer Record Limitations to Obtaining History: No Limitations - Past Medical History Cardio/Vascular: Yes: HTN Pulmonary: Yes: Asthma, Sleep Apnea - Past Surgical History Past Surgical History: Yes: Arthrosocopy, Tonsillectomy - Alcohol/Substance Use Hx Alcohol Use: No - Smoking History Smoking history: Former smoker Have you smoked in the past 12 months: No Aproximately how many cigarettes per day: 3 If you are a former smoker, when did you quit?: 2016 Home Medications - Allergies Allergies/Adverse Reactions: Allergies Allergy/AdvReac Type Severity Reaction Status Date / Time Penicillins Allergy Severe SWELLING,HI Verified 10/23/16 10:40 VES STRAWBERRY Allergy Intermediate SWELLING,HI Uncoded 10/23/16 10:40 VES TOMATOES Allergy Intermediate SWELLING , Uncoded 10/23/16 10:40 HIVES PEANUTS AdvReac Intermediate SWELLING, Uncoded 10/23/16 10:40 HIVES - Home Medications Home Medications: Ambulatory Orders Lisinopril [Prinivil -] 40 mg PO DAILY 03/27/16 Naproxen [Naprosyn -] 500 mg PO BID #14 tablet 10/07/16 Oxycodone HCl/Acetaminophen [Percocet 5-325 mg Tablet] 1 tab PO Q6H PRN #12 tablet MDD 4 10/07/16 Multivitamins [Tab-A-Vit -] 1 tab PO DAILY 10/23/16 Omeprazole 40 mg PO BID 10/23/16 Review of Systems - Review of Systems Constitutional: reports: No Symptoms Eyes: reports: No Symptoms HENT: reports: No Symptoms Neck: reports: No Symptoms Cardiovascular: reports: No Symptoms Respiratory: reports: No Symptoms Gastrointestinal: reports: No Symptoms Genitourinary: reports: No Symptoms Breasts: reports: No Symptoms Reported Musculoskeletal: reports: Joint Pain Integumentary: reports: No Symptoms Neurological: reports: No Symptoms Endocrine: reports: No Symptoms Hematology/Lymphatic: reports: No Symptoms Psychiatric: reports: No Symptoms Physical Exam Vital Signs: Vital Signs Temperature 98.1 F 10/31/16 12:55 Pulse Rate 88 10/31/16 19:21 Respiratory Rate 18 10/31/16 19:21 Blood Pressure 119/86 10/31/16 19:21 O2 Sat by Pulse Oximetry (%) 100 10/31/16 20:24 Constitutional: Yes: No Distress, Calm Eyes: Yes: WNL HENT: Yes: WNL Cardiovascular: Yes: WNL Respiratory: Yes: On BiPap Gastrointestinal: Yes: Abdomen, Obese Musculoskeletal: Yes: Joint Swelling Extremities: Yes: WNL Edema: No Peripheral Pulses WNL: Yes Integumentary: Yes: WNL Neurological: Yes: WNL ...Motor Strength: WNL Labs: CBC, BMP 10/31/16 20:00 10/31/16 20:00 Imaging - Results Chest X-ray: Report Reviewed, Image Reviewed Problem List - Problems (1) Acute hypercapnic respiratory failure due to obstructive sleep apnea Code(s): J96.02 - ACUTE RESPIRATORY FAILURE WITH HYPERCAPNIA G47.33 - OBSTRUCTIVE SLEEP APNEA (ADULT) (PEDIATRIC) (2) Hypertension Code(s): I10 - ESSENTIAL (PRIMARY) HYPERTENSION (3) GERD (gastroesophageal reflux disease) Code(s): K21.9 - GASTRO-ESOPHAGEAL REFLUX DISEASE WITHOUT ESOPHAGITIS (4) H/O arthroscopic knee surgery Code(s): Z98.890 - OTHER SPECIFIED POSTPROCEDURAL STATES Assessment/Plan Acute hypercapnic respiratory failure on chronic hypercapnia [place]/OSH HTN GERD s/p R knee arthroscopy -Continue NIPPV tonight - can lower settings to 10/5 -Follow mental status - no need to repeat ABG unless mental status changes -Avoid narcotics -Consider LE dopplers -Needs pulm outpatient follow up Transfer to the floor or home tomorrow. Thank you for this interesting consult Antonio Fierro Pulm/Critical Care [employer]OP[employer]
[2016-10-31] MEDS ORDERED: MUPIROCIN 2% TOPICAL OINTMENT FOR DECOLONIZATION NS SCH (22:00)
[2016-10-31] MEDS ORDERED: CHLORHEXIDINE GLUCONATE 4% CLEANSER FOR DECOLONIZATION TP SCH ×2 (22:00)
[2016-10-31] MEDS: MUPIROCIN 2% TOPICAL OINTMENT FOR DECOLONIZATION NS SCH (22:25)
[2016-10-31] MEDS: PANTOPRAZOLE 40 MG TABLET (FP) PO SCH (22:26)
[2016-10-31 22:39] LABS: PLATELET ESTIMATE ADEQUATE (NORMAL); TOTAL CELLS COUNTED 100
[2016-10-31 23:24] LABS: ALLENS TEST POSITIVE; ART PUNCT SITE RIGHT RADIAL; ARTERIAL BLD GAS O2 SATURATION 94.4 % (90-98.9); ARTERIAL BLOOD GAS BASE EXCESS 6.4 meq/l (-2-2); ARTERIAL BLOOD GAS HCO3 33.1 meq/L (22-26); ARTERIAL BLOOD GAS PO2 75.2 mmHg (80-100); ARTERIAL BLOOD GAS pH 7.37 (7.35-7.45); LPM/O2% 50; PT. ON O2? YES; TYPE OF O2 BIPAP
[2016-10-31 23:25] LABS: VENT RATE 14; VT/PRESS 14/8
[2016-11-01 06:50] LABS: MCH 28.9 pg (25.7-33.7); MCHC 31.2 g/dl (32.0-35.9); MEAN CELL VOLUME 92.8 fl (80-96); MEAN PLT VOLUME 8.5 fl (7.5-11.1); NEUTROPHILS 90.8 % (42.8-82.8); PLATELET COUNT 244 K/MM3 (134-434); RDW 13.4 % (11.9-15.9); WHITE BLOOD COUNT 14.4 K/mm3 (4.0-10.0)
[2016-11-01 07:11] LABS: ANION GAP 8 (8-16); CALCIUM 9.3 mg/dL (8.5-10.1); CO2 36 mmol/L (21-32); CREATININE 1.1 mg/dL (0.7-1.3); GLUCOSE,RANDOM 107 mg/dL (74-106); MAGNESIUM 2.1 mg/dL (1.8-2.4); PHOSPHOROUS 6.3 mg/dL (2.5-4.9)
[2016-11-01 07:20] LABS: TROPONIN I 0.07 ng/ml (0.00-0.05)
--- NOTE | 2016-11-01 09:26 | PN ---
Physical Exam: SUBJECTIVE: Patient seen and examined in ICU Patient is feeling better, with no acute distress. No shortness of breath, no nausea or vomiting. No headache.No fever or chills. Has hx of sleep apnea diagnosed as an outpatient. OBJECTIVE: Vital Signs Temperature 99 F 11/01/16 03:41 Pulse Rate 82 11/01/16 05:00 Respiratory Rate 22 11/01/16 05:00 Blood Pressure 135/81 11/01/16 05:00 O2 Sat by Pulse Oximetry (%) 93 L 11/01/16 06:45 GENERAL: The patient is awake, alert, and fully oriented, in no acute distress. HEAD: Normal with no signs of trauma. EYES: PERRL, extraocular movements intact, sclera anicteric, conjunctiva clear. ENT: Ears normal, oropharynx clear without exudates, moist mucous membranes. NECK: Trachea midline, full range of motion, supple. LUNGS: decreased Breath sounds at bases, otherwise clear to auscultation bilaterally, no wheezes, no crackles, no accessory muscle use. HEART: Regular rate and rhythm, S1, S2 without murmur, rub or gallop. ABDOMEN: Soft, nontender, large abdomen, normoactive bowel sounds, no rebound, no hepatosplenomegaly, no masses. EXTREMITIES: 2+ pulses, warm, well-perfused, Right knee arthroscopy, ice pack applied. positive for edema 1 plus bl. NEUROLOGICAL: Cranial nerves II through XII grossly intact. Normal speech, gait not observed. PSYCH: Normal mood, normal affect. SKIN: Warm, dry, normal turgor, no rashes or lesions noted CBCD WBC 14.4 K/mm3 (4.0-10.0) H 11/01/16 05:38 RBC 4.95 M/mm3 (4.00-5.60) 11/01/16 05:38 Hgb 14.3 GM/dL (11.7-16.9) 11/01/16 05:38 Hct 45.9 % (35.4-49) 11/01/16 05:38 MCV 92.8 fl (80-96) 11/01/16 05:38 MCHC 31.2 g/dl (32.0-35.9) L 11/01/16 05:38 RDW 13.4 % (11.9-15.9) 11/01/16 05:38 Plt Count 244 K/MM3 (134-434) 11/01/16 05:38 MPV 8.5 fl (7.5-11.1) 11/01/16 05:38 CMP Sodium 142 mmol/L (136-145) 11/01/16 05:38 Potassium 4.2 mmol/L (3.5-5.1) 11/01/16 05:38 Chloride 98 mmol/L (98-107) 11/01/16 05:38 Carbon Dioxide 36 mmol/L (21-32) H 11/01/16 05:38 Anion Gap 8 (8-16) 11/01/16 05:38 BUN 13 mg/dL (7-18) 11/01/16 05:38 Creatinine 1.1 mg/dL (0.7-1.3) 11/01/16 05:38 Creat Clearance w eGFR > 60 (>60) 10/31/16 20:00 Random Glucose 107 mg/dL (74-106) H D 11/01/16 05:38 Calcium 9.3 mg/dL (8.5-10.1) 11/01/16 05:38 Total Bilirubin 0.5 mg/dL (0.2-1.0) D 10/31/16 20:00 AST 16 U/L (15-37) 10/31/16 20:00 ALT 21 U/L (12-78) 10/31/16 20:00 Alkaline Phosphatase 62 U/L (45-117) 10/31/16 20:00 Total Protein 7.3 g/dl (6.4-8.2) 10/31/16 20:00 Albumin 3.3 g/dl (3.4-5.0) L 10/31/16 20:00 CARDIAC ENZYMES Creatine Kinase 326 IU/L (39-308) H 11/01/16 05:38 Troponin I 0.07 ng/ml (0.00-0.05) H 11/01/16 05:38 Active Medications Generic Name Dose Route Start Last Admin Trade Name Freq PRN Reason Stop Dose Admin Albuterol Sulfate 1 amp 10/31/16 11:22 10/31/16 15:38 Ventolin 0.083% Nebulizer Soln - NEB 1 amp Q4H PRN Administration SHORT OF BREATH/WHEEZING Chlorhexidine Gluconate 1 applic 10/31/16 22:00 10/31/16 22:26 Hibiclens For Decolonization - TP 1 applic HS ARABELLA Administration Enoxaparin Sodium 40 mg 11/01/16 10:00 Lovenox - SQ DAILY ARABELLA Lisinopril 40 mg 11/01/16 10:00 Prinivil PO DAILY ARABELLA Mupirocin 1 applic 10/31/16 22:00 10/31/16 22:25 Bactroban Ointment (For Decolonization) - NS 11/05/16 21:59 1 applic BID ARABELLA Administration Pantoprazole Sodium 40 mg 10/31/16 22:00 10/31/16 22:26 Protonix - PO 40 mg BID ARABELLA Administration Home Medications Medication Instructions Recorded Lisinopril [Prinivil -] 40 mg PO DAILY 03/27/16 Naproxen [Naprosyn -] 500 mg PO BID #14 tablet 10/07/16 Oxycodone HCl/Acetaminophen 1 tab PO Q6H PRN #12 tablet MDD 4 10/07/16 [Percocet 5-325 mg Tablet] Multivitamins [Tab-A-Vit -] 1 tab PO DAILY 10/23/16 Omeprazole 40 mg PO BID 10/23/16 Echo: from 10/16/16 Left and right ventricle WNL Nuclear stress test: from 10/16/16 WNL CXR: increase pulmonary vascular markings when compared to prior CXR ASSESSMENT/PLAN: Patient is a 46M with PMHx of [place],asthma,GERD, HTN and morbid obesity presents to the ICU from [facility] after having right knee arthroscopy due to having shortness of breath, with difficulty extubation. # Acute hypoxic hypercarbic respiratory failure: with hx of [place] and asthma, off Bipap now, on 2 liter NC, continue neb.tx prn, pulmonary on the case. # acute CHF exacerbation given one dose of Lasix as an outpatient, will give another 20mg of Lasix today , his teaching artist for consult. on Jaime- I continue. # Hx of HTN: On lisinopril 40mg po daily continue # hx Of GERD: continue his home PPI Protonix 40mg PO BID # Obstructive sleep apnea: will follow up with Pulmonary as an outpatient for Cpap #Morbid obesity: counselled on weight loss and diet and patient is considering outpatient bariatric surgery DVT PPx: Lovenox GI PX: protonix PT consult Tx to telemetry Visit type - Emergency Visit Emergency Visit: Yes ED Registration Date: 10/31/16 Care time: The patient presented to the Emergency Department on the above date and was hospitalized for further evaluation of their emergent condition. - New Patient This patient is new to me today: Yes Date on this admission: 11/01/16 - Critical Care Critical Care patient: No - Discharge Referral Referred to [facility] Med [facility] No
[2016-11-01] MEDS: MUPIROCIN 2% TOPICAL OINTMENT FOR DECOLONIZATION NS SCH (10:00)
[2016-11-01] MEDS ORDERED: ENOXAPARIN NA (PORCINE) 40 MG/0.4 ML DISP.SYRIN SQ SCH (10:00)
[2016-11-01] MEDS ORDERED: LISINOPRIL 20 MG TABLET (FP) PO SCH (10:00)
--- NOTE | 2016-11-01 10:02 | PN ---
Progress Note (short form) - Note Progress Note: PULMONARY/CCM Pt seen and examined in the ICU. Uneventful night. Denies shortness of breath or chest pain. c/o knee pain. Last Vital Signs Temp Pulse Resp BP Pulse Ox 99 F 82 22 135/81 93 L 11/01/16 03:41 11/01/16 05:00 11/01/16 05:00 11/01/16 05:00 11/01/16 06:45 Intake & Output 10/29/16 10/30/16 10/31/16 11/01/16 23:59 23:59 23:59 23:59 Intake Total 1150 400 Output Total 1500 Balance -350 400 Weight 294 lb 282 lb 3.067 oz Gen: NAD at rest Heart: RRR Lung: decreased breath sounds at the bases Abd: soft, nontender Ext: no edema CBC, BMP 11/01/16 05:38 11/01/16 05:38 Active Medications Albuterol Sulfate (Ventolin 0.083% Nebulizer Soln -) 1 amp NEB Q4H PRN PRN Reason: SHORT OF BREATH/WHEEZING Last Admin: 10/31/16 15:38 Dose: 1 amp Chlorhexidine Gluconate (Hibiclens For Decolonization -) 1 applic TP HS ARABELLA Last Admin: 10/31/16 22:26 Dose: 1 applic Enoxaparin Sodium (Lovenox -) 40 mg SQ DAILY ARABELLA Lisinopril (Prinivil) 40 mg PO DAILY ARABELLA Mupirocin (Bactroban Ointment (For Decolonization) -) 1 applic NS BID ARABELLA Stop: 11/05/16 21:59 Last Admin: 10/31/16 22:25 Dose: 1 applic Pantoprazole Sodium (Protonix -) 40 mg PO BID ARABELLA Last Admin: 10/31/16 22:26 Dose: 40 mg A/P Acute on Chronic Hypercapneic Respiratory Failure [place]/OSH HTN GERD s/p R knee arthroscopy - continue PAP at night - will need outpt CPAP titration study - outpt PFTs - encouraged weight loss - DVT prophylaxis - can monitor on floor
[2016-11-01] MEDS ORDERED: FUROSEMIDE 40 MG/4 ML INJECTABLE VIAL IVPB ONE (10:46)
[2016-11-01] MEDS: PANTOPRAZOLE 40 MG TABLET (FP) PO SCH ×2 (10:53→22:51)
--- NOTE | 2016-11-01 12:21 | EKG ---
Test Reason : Blood Pressure : / mmHG Vent. Rate : 090 BPM Atrial Rate : 090 BPM P-R Int : 174 ms QRS Dur : 102 ms QT Int : 370 ms P-R-T Axes : 041 010 043 degrees QTc Int : 452 ms SINUS RHYTHM WITH PREMATURE ATRIAL COMPLEXES OTHERWISE NORMAL ECG WHEN COMPARED WITH ECG OF 08-SEP-2016 12:18, PREMATURE ATRIAL COMPLEXES ARE NOW PRESENT NONSPECIFIC T WAVE ABNORMALITY HAS REPLACED INVERTED T WAVES IN LATERAL LEADS Confirmed by MARIA ELENA CARRERO MD ([id number]) on 11/01/2016 12:20:48 PM Referred By: Obdulio Grover Confirmed By:MARIA ELENA CARRERO MD
--- NOTE | 2016-11-01 13:56 | PN ---
Progress Note (short form) - Note Progress Note: Anesthesiology Post-op/Pain Management POD#1 s/p right knee arthroscopy under GA at [facility]. Pt. was transferred to [facility] yesterday, post-op for BiPAP therapy and monitoring due to hypercarbic respiratory failure in the setting of severe [place] and asthma. This afternoon he is OOB in chair,awake with nasal cannula. He c/o pain in the operative knee. Per RN he has only been receiving acetaminophen since he was quite somnolent since he arrived to the ICU. Today he is much more awake. I have ordered small doses of PO Oxycodone and d/w RN to call if she feels dose is inadequate. I did attempt to discuss with pt. the importance of trying to stay awake and OOB as much as possible during the day. Family present at bedside understands. Pt. is in for transfer to a monitored floor and will continue with BiPAP overnight and whenever supine/resting.
[2016-11-01] MEDS: oxyCODONE HCL 5 MG TABLET PO PRN ×2 (14:35→22:00)
[2016-11-01] MEDS: ACETAMINOPHEN 325 MG TABLET (FP) PO SCH (14:56)
[2016-11-01] MEDS ORDERED: ALBUTEROL SO4 0.083% IH SOL 2.5 MG/3 ML VIAL.NEB. NEB PRN (19:53)
[2016-11-02] MEDS: oxyCODONE HCL 5 MG TABLET PO PRN (05:56)
--- NOTE | 2016-11-02 09:31 | CON.CARD ---
Cardiology Consult (text) - Consultation Consultation Note: cc: here for elective knee surgery hpi: 46 m hx htn, kylah, asthma, gerd here for elective knee surgery. Had knee surgery then post op with resp distress likely from ivfs. Given lasix and now feeling better. No cp, sob, palps, dizzy, loc, pnd, orthopnea, le edema. No hx chf. Sees me for cardio. pmh: per hpi psh: knee surgery social: ex tob fam: no premature cad/scd ros: per hpi; no fever, nvd, cough, an, vision changes, rash, gib, hematuria, dysuria meds: Home Medications Medication Instructions Recorded Lisinopril [Prinivil -] 40 mg PO DAILY 03/27/16 Naproxen [Naprosyn -] 500 mg PO BID #14 tablet 10/07/16 Oxycodone HCl/Acetaminophen 1 tab PO Q6H PRN #12 tablet MDD 4 10/07/16 [Percocet 5-325 mg Tablet] Multivitamins [Tab-A-Vit -] 1 tab PO DAILY 10/23/16 Omeprazole 40 mg PO BID 10/23/16 pe: Vital Signs Period Temp Pulse Resp BP Sys/Ramon Pulse Ox Last 24 Hr 98 F-98.6 F 90-95 18-22 99-147/50-94 95-99 nad no jvd rrr s1s2 no mrg cta bl nl eff aaox3 no le e/c/c abd nt nd pos bs no jaundice diaphoresis +dp pt, no carotid bruits Laboratory Last Values WBC 14.4 K/mm3 (4.0-10.0) H 11/01/16 05:38 RBC 4.95 M/mm3 (4.00-5.60) 11/01/16 05:38 Hgb 14.3 GM/dL (11.7-16.9) 11/01/16 05:38 Hct 45.9 % (35.4-49) 11/01/16 05:38 MCV 92.8 fl (80-96) 11/01/16 05:38 MCH 28.9 pg (25.7-33.7) 11/01/16 05:38 MCHC 31.2 g/dl (32.0-35.9) L 11/01/16 05:38 RDW 13.4 % (11.9-15.9) 11/01/16 05:38 Plt Count 244 K/MM3 (134-434) 11/01/16 05:38 MPV 8.5 fl (7.5-11.1) 11/01/16 05:38 Total Counted 100 10/31/16 20:00 Neutrophils % 90.8 % (42.8-82.8) H 11/01/16 05:38 Neutrophils % (Manual) 98 % (42.8-82.8) H* 10/31/16 20:00 Lymphocytes % 4.3 % (8-40) L D 11/01/16 05:38 Lymphocytes % (Manual) 1 % (8-40) L 10/31/16 20:00 Monocytes % 4.9 % (3.8-10.2) 11/01/16 05:38 Monocytes % (Manual) 1 % (3.8-10.2) L 10/31/16 20:00 Eosinophils % 0.0 % (0-4.5) D 11/01/16 05:38 Basophils % 0.0 % (0-2.0) 11/01/16 05:38 Platelet Estimate Adequate (NORMAL) 10/31/16 20:00 RBC Morphology Appears normal 10/31/16 20:00 INR 1.13 (0.82-1.09) 10/31/16 20:00 Anticoagulation Therapy Y 10/31/16 23:00 Puncture Site Right radial 10/31/16 23:00 ABG pH 7.37 (7.35-7.45) 10/31/16 23:00 ABG pCO2 at Pt Temp 58.1 mmHg (35-45) H 10/31/16 23:00 ABG pO2 at Pt Temp 75.2 mmHg (80-100) L 10/31/16 23:00 ABG HCO3 33.1 meq/L (22-26) H 10/31/16 23:00 ABG O2 Sat (Measured) 94.4 % (90-98.9) 10/31/16 23:00 ABG O2 Content 18.7 % vol (15-22) 10/31/16 23:00 ABG Base Excess 6.4 meq/l (-2-2) H 10/31/16 23:00 Usman Test Positive 10/31/16 23:00 O2 Delivery Device Bipap 10/31/16 23:00 Oxygen Flow Rate 50 10/31/16 23:00 Vent Mode Y 10/31/16 23:00 Vent Rate 14 10/31/16 23:00 Mechanical Rate Y 10/31/16 23:00 PEEP 0.0 cmH2O 10/31/16 23:00 Pressure Support Vent 14/8 10/31/16 23:00 Sodium 142 mmol/L (136-145) 11/01/16 05:38 Potassium 4.2 mmol/L (3.5-5.1) 11/01/16 05:38 Chloride 98 mmol/L (98-107) 11/01/16 05:38 Carbon Dioxide 36 mmol/L (21-32) H 11/01/16 05:38 Anion Gap 8 (8-16) 11/01/16 05:38 BUN 13 mg/dL (7-18) 11/01/16 05:38 Creatinine 1.1 mg/dL (0.7-1.3) 11/01/16 05:38 Creat Clearance w eGFR > 60 (>60) 10/31/16 20:00 POC Glucometer 98 UNITS (()) 11/02/16 05:48 Random Glucose 107 mg/dL (74-106) H D 11/01/16 05:38 Hemoglobin A1c % 6.0 % (4.8-6.0) 11/01/16 05:38 Lactic Acid 2.5 mmol/L (0.4-2.0) H* 10/31/16 20:00 Calcium 9.3 mg/dL (8.5-10.1) 11/01/16 05:38 Phosphorus 6.3 mg/dL (2.5-4.9) H D 11/01/16 05:38 Magnesium 2.1 mg/dL (1.8-2.4) 11/01/16 05:38 Total Bilirubin 0.5 mg/dL (0.2-1.0) D 10/31/16 20:00 AST 16 U/L (15-37) 10/31/16 20:00 ALT 21 U/L (12-78) 10/31/16 20:00 Alkaline Phosphatase 62 U/L (45-117) 10/31/16 20:00 Creatine Kinase 326 IU/L (39-308) H 11/01/16 05:38 Creatine Kinase Index 1.0 % (0.0-5.0) 11/01/16 05:38 CK-MB (CK-2) 3.440 ng/mL (0.5-3.6) 11/01/16 05:38 Troponin I 0.07 ng/ml (0.00-0.05) H 11/01/16 05:38 B-Natriuretic Peptide 15.66 pg/ml (5-125) 10/31/16 20:00 Total Protein 7.3 g/dl (6.4-8.2) 10/31/16 20:00 Albumin 3.3 g/dl (3.4-5.0) L 10/31/16 20:00 cxr: congestive changes tele: sr, pvcs echo 09/2016: nl lv/rv, no sig valve path mibi 09/2016: nl mpi ecg 11/01/16: sr, nl intervals, no ischemic changes, pac a/p: 46 m hx htn, kylah, asthma, gerd here for elective knee surgery. resp distress, acute diastolic chf 2/2 ivfs: -pt has no hx chf, recent echo/mibi wnl. Likely developed pulm edema 2/2 ivfs in periop setting. After some iv lasix pt feeling better. Monitor for now off diuretic. -no signs acs, ce's unremarkable x2, ecg benign htn: -cont concha-i kylah: -on cpap
[2016-11-02] MEDS: PANTOPRAZOLE 40 MG TABLET (FP) PO SCH ×2 (09:52→22:04)
[2016-11-02] MEDS: LISINOPRIL 20 MG TABLET (FP) PO SCH (09:52)
[2016-11-02] MEDS: ENOXAPARIN NA (PORCINE) 40 MG/0.4 ML DISP.SYRIN SQ SCH (09:52)
--- NOTE | 2016-11-02 12:39 | PN ---
Progress Note (short form) - Note Progress Note: PULMONARY Denies shortness of breath or chest pain. c/o knee pain. Last Vital Signs Temp Pulse Resp BP Pulse Ox 98 F 95 H 20 117/64 100 11/02/16 06:00 11/02/16 06:00 11/02/16 06:00 11/02/16 06:00 11/02/16 11:27 Gen: NAD at rest Heart: RRR Lung: decreased breath sounds at the bases Abd: soft, nontender Ext: no edema CBC, BMP 11/01/16 05:38 11/01/16 05:38 Active Medications Acetaminophen (Tylenol -) 650 mg PO Q6H [facility] Stop: 11/04/16 13:44 Last Admin: 11/01/16 14:56 Dose: Not Given Albuterol Sulfate (Ventolin 0.083% Nebulizer Soln -) 1 amp NEB Q4H PRN PRN Reason: SHORT OF BREATH/WHEEZING Last Admin: 11/02/16 11:26 Dose: 1 amp Enoxaparin Sodium (Lovenox -) 40 mg SQ DAILY [facility] Last Admin: 11/02/16 09:52 Dose: 40 mg Lisinopril (Prinivil) 40 mg PO DAILY [facility] Last Admin: 11/02/16 09:52 Dose: 40 mg Oxycodone HCl (Roxicodone -) 5 mg PO Q3H PRN PRN Reason: PAIN LEVEL 1-5 Last Admin: 11/02/16 05:56 Dose: 5 mg Pantoprazole Sodium (Protonix -) 40 mg PO BID [facility] Last Admin: 11/02/16 09:52 Dose: 40 mg A/P Acute on Chronic Hypercapneic Respiratory Failure improving [place]/OSH HTN GERD s/p R knee arthroscopy - continue PAP at night while inpatient - will need outpt CPAP titration study - outpt PFTs - minimize narcotics for pain especially at night - check ABG to see if pt will qualify for BiPAP at home without sleep study - encouraged weight loss - DVT prophylaxis
[2016-11-02 13:26] LABS: ARTERIAL BLD GAS O2 SATURATION 97.6 % (90-98.9); ARTERIAL BLOOD GAS BASE EXCESS 5.2 meq/l (-2-2); ARTERIAL BLOOD GAS HCO3 32.2 meq/L (22-26); ARTERIAL BLOOD GAS PO2 98.6 mmHg (80-100); ARTERIAL BLOOD GAS pH 7.35 (7.35-7.45)
[2016-11-02 13:32] LABS: ALLENS TEST POSITIVE; ART PUNCT SITE RIGHT RADIAL
[2016-11-02 13:33] LABS: LPM/O2% 5L; PT. ON O2? YES; TYPE OF O2 NASAL
--- NOTE | 2016-11-02 13:49 | PN ---
Teaching Attending Note Name of Resident: Husam Lomax ATTENDING PHYSICIAN STATEMENT I saw and evaluated the patient. I reviewed the resident's note and discussed the case with the resident. I agree with the resident's findings and plan as documented. SUBJECTIVE: o2 sat. 87-88% on rm air. His Pco2 on Bipap 60.1. Patient sitting on the chair, falls asleep while talking to you. OBJECTIVE: Vital Signs Temperature 98 F 11/02/16 06:00 Pulse Rate 95 H 11/02/16 06:00 Respiratory Rate 20 11/02/16 06:00 Blood Pressure 117/64 11/02/16 06:00 O2 Sat by Pulse Oximetry (%) 100 11/02/16 11:27 CBCD WBC 14.4 K/mm3 (4.0-10.0) H 11/01/16 05:38 RBC 4.95 M/mm3 (4.00-5.60) 11/01/16 05:38 Hgb 14.3 GM/dL (11.7-16.9) 11/01/16 05:38 Hct 45.9 % (35.4-49) 11/01/16 05:38 MCV 92.8 fl (80-96) 11/01/16 05:38 MCHC 31.2 g/dl (32.0-35.9) L 11/01/16 05:38 RDW 13.4 % (11.9-15.9) 11/01/16 05:38 Plt Count 244 K/MM3 (134-434) 11/01/16 05:38 MPV 8.5 fl (7.5-11.1) 11/01/16 05:38 CMP Sodium 142 mmol/L (136-145) 11/01/16 05:38 Potassium 4.2 mmol/L (3.5-5.1) 11/01/16 05:38 Chloride 98 mmol/L (98-107) 11/01/16 05:38 Carbon Dioxide 36 mmol/L (21-32) H 11/01/16 05:38 Anion Gap 8 (8-16) 11/01/16 05:38 BUN 13 mg/dL (7-18) 11/01/16 05:38 Creatinine 1.1 mg/dL (0.7-1.3) 11/01/16 05:38 Creat Clearance w eGFR > 60 (>60) 10/31/16 20:00 Random Glucose 107 mg/dL (74-106) H D 11/01/16 05:38 Calcium 9.3 mg/dL (8.5-10.1) 11/01/16 05:38 Total Bilirubin 0.5 mg/dL (0.2-1.0) D 10/31/16 20:00 AST 16 U/L (15-37) 10/31/16 20:00 ALT 21 U/L (12-78) 10/31/16 20:00 Alkaline Phosphatase 62 U/L (45-117) 10/31/16 20:00 Total Protein 7.3 g/dl (6.4-8.2) 10/31/16 20:00 Albumin 3.3 g/dl (3.4-5.0) L 10/31/16 20:00 CARDIAC ENZYMES Creatine Kinase 326 IU/L (39-308) H 11/01/16 05:38 Troponin I 0.07 ng/ml (0.00-0.05) H 11/01/16 05:38 Current Medications Generic Name Dose Route Start Last Admin Trade Name Freq PRN Reason Stop Dose Admin Acetaminophen 650 mg 11/01/16 13:45 11/01/16 14:56 Tylenol - PO 11/04/16 13:44 Not Given Q6H ARABELLA Albuterol Sulfate 1 amp 11/01/16 19:53 11/02/16 11:26 Ventolin 0.083% Nebulizer Soln - NEB 1 amp Q4H PRN Administration SHORT OF BREATH/WHEEZING Enoxaparin Sodium 40 mg 11/02/16 10:00 11/02/16 09:52 Lovenox - SQ 40 mg DAILY ARABELLA Administration Lisinopril 40 mg 11/02/16 10:00 11/02/16 09:52 Prinivil PO 40 mg DAILY ARABELLA Administration Oxycodone HCl 5 mg 11/01/16 13:43 11/02/16 05:56 Roxicodone - PO 5 mg Q3H PRN Administration PAIN LEVEL 1-5 Pantoprazole Sodium 40 mg 11/01/16 22:00 11/02/16 09:52 Protonix - PO 40 mg BID ARABELLA Administration Home Medications Medication Instructions Recorded Lisinopril [Prinivil -] 40 mg PO DAILY 03/27/16 Naproxen [Naprosyn -] 500 mg PO BID #14 tablet 10/07/16 Oxycodone HCl/Acetaminophen 1 tab PO Q6H PRN #12 tablet MDD 4 10/07/16 [Percocet 5-325 mg Tablet] Multivitamins [Tab-A-Vit -] 1 tab PO DAILY 10/23/16 Omeprazole 40 mg PO BID 10/23/16 ABG Results ABG pH 7.35 (7.35-7.45) 11/02/16 13:15 ABG pCO2 at Pt Temp 60.1 mmHg (35-45) H* 11/02/16 13:15 ABG pO2 at Pt Temp 98.6 mmHg (80-100) D 11/02/16 13:15 ABG HCO3 32.2 meq/L (22-26) H 11/02/16 13:15 ABG O2 Sat (Measured) 97.6 % (90-98.9) 11/02/16 13:15 ABG O2 Content 18.3 % vol (15-22) 11/02/16 13:15 ABG Base Excess 5.2 meq/l (-2-2) H 11/02/16 13:15 PE: per resident's note Echo: from 10/16/16 Left and right ventricle WNL Nuclear stress test: from 10/16/16 WNL CXR: increase pulmonary vascular markings when compared to prior CXR ASSESSMENT/PLAN: Patient is a 46M with PMHx of [place],asthma,GERD, HTN and morbid obesity presents to the ICU from [facility] after having right knee arthroscopy due to having shortness of breath, with difficulty extubation. # Acute hypoxic hypercarbic respiratory failure: with hx of [place] and asthma, on Bipap , patient needs bipap has pco2 of 60.1 , patient needs bipap machine prior to discharging him, since falls asleep so easily and while speaking to you . Continue neb.tx prn, pulmonary on the case, discussed with , patient qualifies for Bipap since PCO2 is above 60 on ABG. #Acute CHF exacerbation given one dose of Lasix as an outpatient, will give another 20mg of Lasix today , consulted on Jaime-I and on Lasix continue. # Hx of HTN: On lisinopril 40mg po daily continue # hx Of GERD: continue his home PPI Protonix 40mg PO BID # Obstructive sleep apnea: will follow up with Pulmonary as an outpatient for sleep study #Morbid obesity: counselled on weight loss and diet and patient is considering outpatient bariatric surgery DVT PPx: Lovenox GI PX: protonix PT consult
--- NOTE | 2016-11-02 17:06 | PN ---
Physical Exam: SUBJECTIVE: Patient seen and examined. He is complaining of SOB and OBJECTIVE: Vital Signs Period Temp Pulse Resp BP Sys/Ramon Pulse Ox Last 24 Hr 98 F-98.6 F 71-95 18-22 99-130/50-65 86-100 GENERAL: The patient is awake, alert, and oriented, in no acute distress. HEAD: Normal with no signs of trauma. EYES: PERRL, extraocular movements intact, sclera anicteric, conjunctiva clear. No ptosis. NECK: supple. LUNGS: decreased breath sounds on lower bases b/l, wheezing HEART: Regular rate and rhythm, S1, S2 without murmur, rub or gallop. ABDOMEN: Soft, nontender, nondistended, normoactive bowel sounds, no guarding, no rebound, no hepatosplenomegaly, no masses. EXTREMITIES: 2+ pulses, warm, well-perfused, no edema. SKIN: Warm, dry, normal turgor, no rashes or lesions noted Laboratory Results - last 24 hr 11/01/16 11/02/16 11/02/16 15:54 05:48 13:15 Puncture Site Right radial ABG pH 7.35 ABG pCO2 at Pt Temp 60.1 H* ABG pO2 at Pt Temp 98.6 D ABG HCO3 32.2 H ABG O2 Sat (Measured) 97.6 ABG O2 Content 18.3 ABG Base Excess 5.2 H Usman Test Positive O2 Delivery Device Nasal Oxygen Flow Rate 5l PEEP 0.0 POC Glucometer [id number] 98 Active Medications Generic Name Dose Route Start Last Admin Trade Name Freq PRN Reason Stop Dose Admin Acetaminophen 650 mg 11/01/16 13:45 11/01/16 14:56 Tylenol - PO 11/04/16 13:44 Not Given Q6H ARABELLA Albuterol Sulfate 1 amp 11/01/16 19:53 11/02/16 11:26 Ventolin 0.083% Nebulizer Soln - NEB 1 amp Q4H PRN Administration SHORT OF BREATH/WHEEZING Enoxaparin Sodium 40 mg 11/02/16 10:00 11/02/16 09:52 Lovenox - SQ 40 mg DAILY ARABELLA Administration Lisinopril 40 mg 11/02/16 10:00 11/02/16 09:52 Prinivil PO 40 mg DAILY ARABELLA Administration Oxycodone HCl 5 mg 11/01/16 13:43 11/02/16 05:56 Roxicodone - PO 5 mg Q3H PRN Administration PAIN LEVEL 1-5 Pantoprazole Sodium 40 mg 11/01/16 22:00 11/02/16 09:52 Protonix - PO 40 mg BID ARABELLA Administration Echo: from 10/16/16 Left and right ventricle WNL Nuclear stress test: from 10/16/16 WNL CXR: increase pulmonary vascular markings when compared to prior CXR ASSESSMENT/PLAN: Patient is a 46M with PMHx of [place],asthma,GERD, HTN and morbid obesity presents to the ICU from [facility] after having right knee arthroscopy due to having shortness of breath, with difficulty extubation. #Acute Hypoxic hypercarbic respiratory failure: -Continue bi-pap - 2L NC - Patient qualifies for Bipap since PCO2 is above 60 on ABG as per Pulmonary -Continue Nebulizer prn -Pulmonary on board # Acute CHF exacerbation: -Given 1 dose of Lasix 20mg today -Consulted Dr. Adams -Continue Jaime-I #Obstructive sleep Apnea: - will follow up with Pulmonary outpatient for C-PAP #Morbid Obesity: counselled on weight loss and diet #Hx of HTN: Restart home dose of lisinopril 40mg po daily Trend BP Currently well controlled #Hx of GERD: -Restart PPI Protonix 40mg PO BID FEN: No IVF STAT labs and replete electrolytes PRN sodium conbtrolled diet when off BiPAP PPx: Lovenox 40mg GI: Protonix PT Consult Visit type - Emergency Visit Emergency Visit: Yes ED Registration Date: 10/31/16 Care time: The patient presented to the Emergency Department on the above date and was hospitalized for further evaluation of their emergent condition. - New Patient This patient is new to me today: Yes Date on this admission: 11/02/16 - Critical Care Critical Care patient: No
[2016-11-02] MEDS: ACETAMINOPHEN 325 MG TABLET (FP) PO SCH (22:02)
[2016-11-03] MEDS: ACETAMINOPHEN 325 MG TABLET (FP) PO SCH ×7 (02:00→21:25)
--- NOTE | 2016-11-03 09:29 | PN ---
Progress Note (short form) - Note Progress Note: s: no cp sob palps dizzy o: Vital Signs Period Temp Pulse Resp BP Sys/Ramon Pulse Ox Last 24 Hr 98.2 F-98.9 F 49-86 20-20 98-133/49-78 86-100 nad no jvd rrr s1s2 no mrg cta bl nl eff aaox3 no le e/c/c abd nt nd pos bs no jaundice diaphoresis Current Medications Generic Name Dose Route Start Last Admin Trade Name Freq PRN Reason Stop Dose Admin Acetaminophen 650 mg 11/01/16 13:45 11/03/16 02:40 Tylenol - PO 11/04/16 13:44 650 mg Q6H ARABELLA Administration Albuterol Sulfate 1 amp 11/01/16 19:53 11/02/16 11:26 Ventolin 0.083% Nebulizer Soln - NEB 1 amp Q4H PRN Administration SHORT OF BREATH/WHEEZING Enoxaparin Sodium 40 mg 11/02/16 10:00 11/02/16 09:52 Lovenox - SQ 40 mg DAILY ARABELLA Administration Lisinopril 40 mg 11/02/16 10:00 11/02/16 09:52 Prinivil PO 40 mg DAILY ARABELLA Administration Oxycodone HCl 5 mg 11/01/16 13:43 11/02/16 05:56 Roxicodone - PO 5 mg Q3H PRN Administration PAIN LEVEL 1-5 Pantoprazole Sodium 40 mg 11/01/16 22:00 11/02/16 22:04 Protonix - PO 40 mg BID ARABELLA Administration CBC, BMP 11/01/16 05:38 11/01/16 05:38 tele: sr, pvcs echo 09/2016: nl lv/rv, no sig valve path mibi 09/2016: nl mpi ecg 11/01/16: sr, nl intervals, no ischemic changes, pac a/p: 46 m hx htn, kylah, asthma, gerd here for elective knee surgery. resp distress, acute diastolic chf 2/2 ivfs: -pt has no hx chf, recent echo/mibi wnl. Likely developed pulm edema 2/2 ivfs in periop setting. After some iv lasix pt feeling better. Monitor for now off diuretic, symptoms resolved. -no signs acs, ce's unremarkable x2, ecg benign htn: -cont concha-i kylah: -on cpap
[2016-11-03] MEDS: LISINOPRIL 20 MG TABLET (FP) PO SCH (09:47)
[2016-11-03] MEDS: ENOXAPARIN NA (PORCINE) 40 MG/0.4 ML DISP.SYRIN SQ SCH (09:48)
[2016-11-03] MEDS: PANTOPRAZOLE 40 MG TABLET (FP) PO SCH ×2 (09:48→21:24)
--- NOTE | 2016-11-03 10:10 | PN ---
Progress Note, Physician History of Present Illness: PULMONARY ALERT,OOB-CHAIR,-SOB,-COUGH,-CP - Current Medication List Current Medications: Active Medications Acetaminophen (Tylenol -) 650 mg PO Q6H [facility] Stop: 11/04/16 13:44 Last Admin: 11/03/16 10:00 Dose: 650 mg Albuterol Sulfate (Ventolin 0.083% Nebulizer Soln -) 1 amp NEB Q4H PRN PRN Reason: SHORT OF BREATH/WHEEZING Last Admin: 11/02/16 11:26 Dose: 1 amp Enoxaparin Sodium (Lovenox -) 40 mg SQ DAILY [facility] Last Admin: 11/03/16 09:48 Dose: 40 mg Lisinopril (Prinivil) 40 mg PO DAILY [facility] Last Admin: 11/03/16 09:47 Dose: 40 mg Oxycodone HCl (Roxicodone -) 5 mg PO Q3H PRN PRN Reason: PAIN LEVEL 1-5 Last Admin: 11/02/16 05:56 Dose: 5 mg Pantoprazole Sodium (Protonix -) 40 mg PO BID [facility] Last Admin: 11/03/16 09:48 Dose: 40 mg - Objective Vital Signs: Vital Signs Temperature 98.8 F 11/03/16 06:00 Pulse Rate 77 11/03/16 06:38 Respiratory Rate 20 11/03/16 06:00 Blood Pressure 98/56 11/03/16 06:00 O2 Sat by Pulse Oximetry (%) 98 11/03/16 06:38 Constitutional: Yes: Calm, Obese Eyes: Yes: WNL HENT: Yes: WNL Neck: Yes: WNL Cardiovascular: Yes: Regular Rate and Rhythm, S1, S2 Respiratory: Yes: Diminished Gastrointestinal: Yes: Normal Bowel Sounds, Soft Extremities: Yes: WNL Edema: Yes Labs: CBC, BMP Laboratory Tests 11/02/16 13:15 ABG pH 7.35 ABG pCO2 at Pt Temp 60.1 H* ABG pO2 at Pt Temp 98.6 D ABG HCO3 32.2 H ABG O2 Sat (Measured) 97.6 Oxygen Flow Rate 5l Problem List - Problems (1) Acute hypercapnic respiratory failure due to obstructive sleep apnea Code(s): J96.02 - ACUTE RESPIRATORY FAILURE WITH HYPERCAPNIA G47.33 - OBSTRUCTIVE SLEEP APNEA (ADULT) (PEDIATRIC) (2) GERD (gastroesophageal reflux disease) Code(s): K21.9 - GASTRO-ESOPHAGEAL REFLUX DISEASE WITHOUT ESOPHAGITIS (3) H/O arthroscopic knee surgery Code(s): Z98.890 - OTHER SPECIFIED POSTPROCEDURAL STATES (4) Acute on chronic respiratory failure with hypoxia and hypercapnia Code(s): J96.21 - ACUTE AND CHRONIC RESPIRATORY FAILURE WITH HYPOXIA J96.22 - ACUTE AND CHRONIC RESPIRATORY FAILURE WITH HYPERCAPNIA (5) Morbid (severe) obesity due to excess calories Code(s): E66.01 - MORBID (SEVERE) OBESITY DUE TO EXCESS CALORIES Assessment/Plan A/P Acute on Chronic Hypercapneic Respiratory Failure improving [place]/OSH HTN GERD s/p R knee arthroscopy - continue PAP at night while inpatient - outpt CPAP titration study - minimize narcotics for pain especially at night - encouraged weight loss - DVT prophylaxis DR GARCIA
--- NOTE | 2016-11-03 12:06 | OP ---
DATE OF OPERATION: 10/31/2016 LOCATION: [facility]. SURGEON: Azucena Wood MD ANALYSIS MANAGER: XIMENA Sims PREOPERATIVE DIAGNOSES: 1. Right knee medial and lateral meniscal tear. 2. Right knee cartilage injury. 3. Right knee synovitis. POSTOPERATIVE DIAGNOSES: 1. Right knee medial and lateral meniscal tear. 2. Right knee cartilage injury. 3. Right knee synovitis. PROCEDURE: 1. Right knee arthroscopy with partial meniscectomy, medial and lateral meniscus. 2. Right knee arthroscopy with chondroplasty and abrasion-plasty. 3. Right knee arthroscopy with synovectomy (major). CPT CODES: 15577, 87957, 33455. FINDINGS: 1. Medial meniscus body and posterior horn tear. 2. Lateral meniscus anterior horn tear. 3. Synovitis, patellofemoral, medial and lateral notch area. 4. Grade 2 to 3 cartilage injury, medial femoral condyle, and grade 3 changes diffusely, medial tibial plateau. 5. ACL and PCL intact. 6. Central grade 4 cartilage injury, lateral femoral condyle. 7. Grade 1 to 2 changes, lateral tibial plateau. 8. Central grade 2 to 4 cartilage injury, patellofemoral trochlea and patellofemoral joint. PROCEDURE: Informed consent was obtained. The patient was taken to the operating room where the right lower extremity was prepped and draped in a sterile fashion. A tourniquet was placed on the right upper thigh but not inflated. Using standard arthroscopic technique, a lateral incision and portal were made which allowed for introduction of the camera into the suprapatellar bursa. This was then taken to the medial joint line where under direct visualization, a medial incision and portal were made. Excessive synovium noted in the medial, lateral, patellofemoral and notch area was removed by the up-biting shaver and Bovie cautery. This was found to bring inflammatory tissue into the joint surface, a source of joint pain and dysfunction. Probing of the medial and lateral meniscus found tears described in the findings. These were removed with an up-biting shaver and taken back to a stable rim. Grade 2-3 degenerative changes were treated with chondroplasty, removing all flaking surfaces with low setting Bovie used along the periphery. Grade 4 changes were treated with abrasion-plasty. All areas of the knee were once again re-examined. The knee was then drained. A single suture was placed on all portals. Sterile dressing was placed. The patient was transferred to the recovery room. ADDENDUM: Please note that grade 4 changes were treated with microfracture along the lateral femoral condyle, and the grade 4 changes along the patellofemoral trochlea were treated with abrasion-plasty, creating a bleeding surface. AZUCENA WOOD M.D. [id number]
--- NOTE | 2016-11-03 17:22 | PN ---
Progress Note (short form) - Note Progress Note: Vital Signs Temperature 99.0 F 11/03/16 14:00 Pulse Rate 91 H 11/03/16 14:00 Respiratory Rate 20 11/03/16 14:00 Blood Pressure 116/64 11/03/16 14:00 O2 Sat by Pulse Oximetry (%) 100 11/03/16 14:40 GENERAL: The patient is awake, alert, and fully oriented, in no acute distress. HEAD: Normal with no signs of trauma. EYES: PERRL, extraocular movements intact, sclera anicteric, conjunctiva clear. ENT: Ears normal, oropharynx clear without exudates, moist mucous membranes. NECK: Trachea midline, full range of motion, supple. LUNGS: decreased Breath sounds at bases, otherwise clear to auscultation bilaterally, no wheezes, no crackles, no accessory muscle use. HEART: Regular rate and rhythm, S1, S2 without murmur, rub or gallop. ABDOMEN: Soft, nontender, large abdomen, normoactive bowel sounds, no rebound, no hepatosplenomegaly, no masses. EXTREMITIES: 2+ pulses, warm, well-perfused, Right knee arthroscopy, ice pack applied. positive for edema 1 plus bl. NEUROLOGICAL: Cranial nerves II through XII grossly intact. Normal speech, gait not observed. PSYCH: Normal mood, normal affect. SKIN: Warm, dry, normal turgor, no rashes or lesions noted CBCD WBC 14.4 K/mm3 (4.0-10.0) H 11/01/16 05:38 RBC 4.95 M/mm3 (4.00-5.60) 11/01/16 05:38 Hgb 14.3 GM/dL (11.7-16.9) 11/01/16 05:38 Hct 45.9 % (35.4-49) 11/01/16 05:38 MCV 92.8 fl (80-96) 11/01/16 05:38 MCHC 31.2 g/dl (32.0-35.9) L 11/01/16 05:38 RDW 13.4 % (11.9-15.9) 11/01/16 05:38 Plt Count 244 K/MM3 (134-434) 11/01/16 05:38 MPV 8.5 fl (7.5-11.1) 11/01/16 05:38 CMP Sodium 142 mmol/L (136-145) 11/01/16 05:38 Potassium 4.2 mmol/L (3.5-5.1) 11/01/16 05:38 Chloride 98 mmol/L (98-107) 11/01/16 05:38 Carbon Dioxide 36 mmol/L (21-32) H 11/01/16 05:38 Anion Gap 8 (8-16) 11/01/16 05:38 BUN 13 mg/dL (7-18) 11/01/16 05:38 Creatinine 1.1 mg/dL (0.7-1.3) 11/01/16 05:38 Creat Clearance w eGFR > 60 (>60) 10/31/16 20:00 Random Glucose 107 mg/dL (74-106) H D 11/01/16 05:38 Calcium 9.3 mg/dL (8.5-10.1) 11/01/16 05:38 Total Bilirubin 0.5 mg/dL (0.2-1.0) D 10/31/16 20:00 AST 16 U/L (15-37) 10/31/16 20:00 ALT 21 U/L (12-78) 10/31/16 20:00 Alkaline Phosphatase 62 U/L (45-117) 10/31/16 20:00 Total Protein 7.3 g/dl (6.4-8.2) 10/31/16 20:00 Albumin 3.3 g/dl (3.4-5.0) L 10/31/16 20:00 CARDIAC ENZYMES Creatine Kinase 326 IU/L (39-308) H 11/01/16 05:38 Troponin I 0.07 ng/ml (0.00-0.05) H 11/01/16 05:38 Home Medications Medication Instructions Recorded Lisinopril [Prinivil -] 40 mg PO DAILY 03/27/16 Naproxen [Naprosyn -] 500 mg PO BID #14 tablet 10/07/16 Oxycodone HCl/Acetaminophen 1 tab PO Q6H PRN #12 tablet MDD 4 10/07/16 [Percocet 5-325 mg Tablet] Multivitamins [Tab-A-Vit -] 1 tab PO DAILY 10/23/16 Omeprazole 40 mg PO BID 10/23/16 Current Medications Generic Name Dose Route Start Last Admin Trade Name Freq PRN Reason Stop Dose Admin Acetaminophen 650 mg 11/01/16 13:45 11/03/16 13:30 Tylenol - PO 11/04/16 13:44 650 mg Q6H ARABELLA Administration Albuterol Sulfate 1 amp 11/01/16 19:53 11/02/16 11:26 Ventolin 0.083% Nebulizer Soln - NEB 1 amp Q4H PRN Administration SHORT OF BREATH/WHEEZING Enoxaparin Sodium 40 mg 11/02/16 10:00 11/03/16 09:48 Lovenox - SQ 40 mg DAILY ARABELLA Administration Lisinopril 40 mg 11/02/16 10:00 11/03/16 09:47 Prinivil PO 40 mg DAILY ARABELLA Administration Oxycodone HCl 5 mg 11/01/16 13:43 11/02/16 05:56 Roxicodone - PO 5 mg Q3H PRN Administration PAIN LEVEL 1-5 Pantoprazole Sodium 40 mg 11/01/16 22:00 11/03/16 09:48 Protonix - PO 40 mg BID ARABELLA Administration Echo: from 10/16/16 Left and right ventricle WNL Nuclear stress test: from 10/16/16 WNL CXR: increase pulmonary vascular markings when compared to prior CXR ASSESSMENT/PLAN: Patient is a 46M with PMHx of [place],asthma,GERD, HTN and morbid obesity presents to the ICU from [facility] after having right knee arthroscopy due to having shortness of breath, with difficulty extubation. # Acute hypoxic hypercarbic respiratory failure: with hx of [place] and asthma, on Bipap, continue Bipap now ,will need to go home with Autopap machine as per pulmonary in am since pco2 is 60.1. Continue neb.tx prn, pulmonary on the case , discussed with , patient qualifies for Bipap since PCO2 is above 60 on ABG. #Acute diastolic CHF exacerbation on Lasix a, concha-I continue , cardio. on the case. # Hx of HTN: On lisinopril 40mg po daily continue # hx Of GERD: continue his home PPI Protonix 40mg PO BID # Obstructive sleep apnea: will follow up with Pulmonary as an outpatient for sleep study #Morbid obesity: counselled on weight loss and diet and patient is considering outpatient bariatric surgery DVT PPx: Lovenox GI PX: protonix PT consult Visit type - Emergency Visit Emergency Visit: Yes ED Registration Date: 10/31/16 Care time: The patient presented to the Emergency Department on the above date and was hospitalized for further evaluation of their emergent condition. - New Patient This patient is new to me today: No - Critical Care Critical Care patient: No
[2016-11-03] MEDS: oxyCODONE HCL 5 MG TABLET PO PRN (21:28)
[2016-11-03] MEDS ORDERED: DOCUSATE SODIUM 100 MG CAPSULE (FP) PO ONE (21:39)
[2016-11-03] MEDS ORDERED: SENNOSIDES 8.6MG TABLET (FP) PO ONE (21:39)
[2016-11-04] MEDS ORDERED: DOCUSATE SODIUM 100 MG CAPSULE (FP) PO ONE (01:15)
[2016-11-04] MEDS ORDERED: SENNOSIDES 8.6MG TABLET (FP) PO ONE (01:15)
[2016-11-04] MEDS: ACETAMINOPHEN 325 MG TABLET (FP) PO SCH (02:28)
[2016-11-04] MEDS: oxyCODONE HCL 5 MG TABLET PO PRN (02:28)
[2016-11-04] MEDS: LISINOPRIL 20 MG TABLET (FP) PO SCH (09:20)
[2016-11-04] MEDS: PANTOPRAZOLE 40 MG TABLET (FP) PO SCH (09:20)
[2016-11-04] MEDS: ENOXAPARIN NA (PORCINE) 40 MG/0.4 ML DISP.SYRIN SQ SCH (09:20)
[2016-11-04 10:03] VITALS: BP 113/45; TEMP 98.2
--- NOTE | 2016-11-04 10:21 | PN ---
Progress Note, Physician History of Present Illness: pulmonary alert,nad,-resp distress,+ 02 o2 desaturation with exercise 82% on O2 3L - Current Medication List Current Medications: Active Medications Acetaminophen (Tylenol -) 650 mg PO Q6H COUNTS INCLUDE 234 BEDS AT THE [facility] Stop: 11/04/16 13:44 Last Admin: 11/04/16 02:28 Dose: 650 mg Albuterol Sulfate (Ventolin 0.083% Nebulizer Soln -) 1 amp NEB Q4H PRN PRN Reason: SHORT OF BREATH/WHEEZING Last Admin: 11/02/16 11:26 Dose: 1 amp Enoxaparin Sodium (Lovenox -) 40 mg SQ DAILY COUNTS INCLUDE 234 BEDS AT THE [facility] Last Admin: 11/04/16 09:20 Dose: 40 mg Lisinopril (Prinivil) 40 mg PO DAILY COUNTS INCLUDE 234 BEDS AT THE [facility] Last Admin: 11/04/16 09:20 Dose: 40 mg Oxycodone HCl (Roxicodone -) 5 mg PO Q3H PRN PRN Reason: PAIN LEVEL 1-5 Last Admin: 11/04/16 02:28 Dose: 5 mg Pantoprazole Sodium (Protonix -) 40 mg PO BID COUNTS INCLUDE 234 BEDS AT THE [facility] Last Admin: 11/04/16 09:20 Dose: 40 mg - Objective Vital Signs: Vital Signs Temperature 98.2 F 11/04/16 09:00 Pulse Rate 84 11/04/16 09:00 Respiratory Rate 20 11/04/16 09:00 Blood Pressure 113/45 11/04/16 09:00 O2 Sat by Pulse Oximetry (%) 95 11/04/16 09:00 Constitutional: Yes: Calm, Obese Eyes: Yes: WNL HENT: Yes: WNL Neck: Yes: WNL Cardiovascular: Yes: Regular Rate and Rhythm, S1, S2 Respiratory: Yes: Diminished Gastrointestinal: Yes: Normal Bowel Sounds, Soft Extremities: Yes: WNL Edema: Yes Labs: CBC, BMP Problem List - Problems (1) Acute hypercapnic respiratory failure due to obstructive sleep apnea Code(s): J96.02 - ACUTE RESPIRATORY FAILURE WITH HYPERCAPNIA G47.33 - OBSTRUCTIVE SLEEP APNEA (ADULT) (PEDIATRIC) (2) GERD (gastroesophageal reflux disease) Code(s): K21.9 - GASTRO-ESOPHAGEAL REFLUX DISEASE WITHOUT ESOPHAGITIS (3) H/O arthroscopic knee surgery Code(s): Z98.890 - OTHER SPECIFIED POSTPROCEDURAL STATES (4) Acute on chronic respiratory failure with hypoxia and hypercapnia Code(s): J96.21 - ACUTE AND CHRONIC RESPIRATORY FAILURE WITH HYPOXIA J96.22 - ACUTE AND CHRONIC RESPIRATORY FAILURE WITH HYPERCAPNIA (5) Morbid (severe) obesity due to excess calories Code(s): E66.01 - MORBID (SEVERE) OBESITY DUE TO EXCESS CALORIES Assessment/Plan A/P Acute on Chronic Hypercapneic Respiratory Failure improving [place]/OSH HTN GERD s/p R knee arthroscopy - continue PAP at night and prn - outpt CPAP titration study - minimize narcotics for pain especially at night - encouraged weight loss - DVT prophylaxis - incentive spirometer DR GARCIA
--- NOTE | 2016-11-04 10:55 | PN ---
Physical Exam: SUBJECTIVE: Patient seen and examined OBJECTIVE: Vital Signs Period Temp Pulse Resp BP Sys/Ramon Pulse Ox Last 24 Hr 97.6 F-99.1 F 50-91 20-20 107-138/45-76 95-100 GENERAL: The patient is awake, alert, and oriented, in no acute distress. HEAD: Normal with no signs of trauma. EYES: PERRL, extraocular movements intact, sclera anicteric, conjunctiva clear. No ptosis. NECK: supple. LUNGS: decreased breath sounds on lower bases b/l, wheezing HEART: Regular rate and rhythm, S1, S2 without murmur, rub or gallop. ABDOMEN: Soft, nontender, nondistended, normoactive bowel sounds, no guarding, no rebound, no hepatosplenomegaly, no masses. EXTREMITIES: 2+ pulses, warm, well-perfused, no edema. SKIN: Warm, dry, normal turgor, no rashes or lesions noted Laboratory Results - last 24 hr 11/04/16 05:57 POC Glucometer 97 Active Medications Generic Name Dose Route Start Last Admin Trade Name Freq PRN Reason Stop Dose Admin Acetaminophen 650 mg 11/01/16 13:45 11/04/16 02:28 Tylenol - PO 11/04/16 13:44 650 mg Q6H ARABELLA Administration Albuterol Sulfate 1 amp 11/01/16 19:53 11/02/16 11:26 Ventolin 0.083% Nebulizer Soln - NEB 1 amp Q4H PRN Administration SHORT OF BREATH/WHEEZING Enoxaparin Sodium 40 mg 11/02/16 10:00 11/04/16 09:20 Lovenox - SQ 40 mg DAILY ARABELLA Administration Lisinopril 40 mg 11/02/16 10:00 11/04/16 09:20 Prinivil PO 40 mg DAILY ARABELLA Administration Oxycodone HCl 5 mg 11/01/16 13:43 11/04/16 02:28 Roxicodone - PO 5 mg Q3H PRN Administration PAIN LEVEL 1-5 Pantoprazole Sodium 40 mg 11/01/16 22:00 11/04/16 09:20 Protonix - PO 40 mg BID ARABELLA Administration ASSESSMENT/PLAN: Patient is a 46M with PMHx of [place],asthma,GERD, HTN and morbid obesity presents to the ICU from [facility] after having right knee arthroscopy due to having shortness of breath, with difficulty extubation. # Acute on hypoxic hypercarbic respiratory failure: with hx of [place] and asthma, continue bipap. will need to go home with Autopap machine as per pulmonary in am since Continue neb.tx prn, pulmonary on the case, discussed with , patient qualifies for Bipap since PCO2 is above 60 on ABG. - Pco2 is 60.1. Patient has worsening conditions due to chronic respiratory failure as a consequence of COPD along with lack of gas exchange. Patient requires ventilation via ventilator. Bipap no longer effective in treatment and if left untreated it may result in harm to the patient. After further review bipap has been ruled ineffective due to patients acute on chronic respiratory failure as a consequence of COPD. Patient will require non invasive home ventilator to help decrease the work of breathing and improve pulmonary status. If left untreated, it may cause harm to patient or . #Acute diastolic CHF exacerbation on Lasix a, concha-I continue , cardio. on the case. # Hx of HTN: On lisinopril 40mg po daily continue # hx Of GERD: continue his home PPI Protonix 40mg PO BID # Obstructive sleep apnea: will follow up with Pulmonary as an outpatient for sleep study #Morbid obesity: counselled on weight loss and diet and patient is considering outpatient bariatric surgery DVT PPx: Lovenox GI PX: protonix PT consult
--- NOTE | 2016-11-04 11:33 | DS ---
Physical Exam: SUBJECTIVE: Patient seen and examined OBJECTIVE: Vital Signs Temperature 98.2 F 11/04/16 09:00 Pulse Rate 87 11/04/16 10:45 Respiratory Rate 20 11/04/16 09:00 Blood Pressure 113/45 11/04/16 09:00 O2 Sat by Pulse Oximetry (%) 98 11/04/16 10:45 PHYSICAL EXAM GENERAL: The patient is awake, alert, and oriented, in no acute distress. HEAD: Normal with no signs of trauma. EYES: PERRL, extraocular movements intact, sclera anicteric, conjunctiva clear. No ptosis. NECK: supple. LUNGS: decreased breath sounds on lower bases b/l, wheezing HEART: Regular rate and rhythm, S1, S2 without murmur, rub or gallop. ABDOMEN: Soft, nontender, nondistended, normoactive bowel sounds, no guarding, no rebound, no hepatosplenomegaly, no masses. EXTREMITIES: 2+ pulses, warm, well-perfused, no edema. SKIN: Warm, dry, normal turgor, no rashes or lesions noted LABS CBCD WBC 14.4 K/mm3 (4.0-10.0) H 11/01/16 05:38 RBC 4.95 M/mm3 (4.00-5.60) 11/01/16 05:38 Hgb 14.3 GM/dL (11.7-16.9) 11/01/16 05:38 Hct 45.9 % (35.4-49) 11/01/16 05:38 MCV 92.8 fl (80-96) 11/01/16 05:38 MCHC 31.2 g/dl (32.0-35.9) L 11/01/16 05:38 RDW 13.4 % (11.9-15.9) 11/01/16 05:38 Plt Count 244 K/MM3 (134-434) 11/01/16 05:38 MPV 8.5 fl (7.5-11.1) 11/01/16 05:38 CMP Sodium 142 mmol/L (136-145) 11/01/16 05:38 Potassium 4.2 mmol/L (3.5-5.1) 11/01/16 05:38 Chloride 98 mmol/L (98-107) 11/01/16 05:38 Carbon Dioxide 36 mmol/L (21-32) H 11/01/16 05:38 Anion Gap 8 (8-16) 11/01/16 05:38 BUN 13 mg/dL (7-18) 11/01/16 05:38 Creatinine 1.1 mg/dL (0.7-1.3) 11/01/16 05:38 Creat Clearance w eGFR > 60 (>60) 10/31/16 20:00 Random Glucose 107 mg/dL (74-106) H D 11/01/16 05:38 Calcium 9.3 mg/dL (8.5-10.1) 11/01/16 05:38 Total Bilirubin 0.5 mg/dL (0.2-1.0) D 10/31/16 20:00 AST 16 U/L (15-37) 10/31/16 20:00 ALT 21 U/L (12-78) 10/31/16 20:00 Alkaline Phosphatase 62 U/L (45-117) 10/31/16 20:00 Total Protein 7.3 g/dl (6.4-8.2) 10/31/16 20:00 Albumin 3.3 g/dl (3.4-5.0) L 10/31/16 20:00 CARDIAC ENZYMES Creatine Kinase 326 IU/L (39-308) H 11/01/16 05:38 Troponin I 0.07 ng/ml (0.00-0.05) H 11/01/16 05:38 Laboratory Results - last 24 hr 11/04/16 05:57 POC Glucometer 97 Current Medications Generic Name Dose Route Start Last Admin Trade Name Sampsonq PRN Reason Stop Dose Admin Acetaminophen 650 mg 11/01/16 13:45 11/04/16 02:28 Tylenol - PO 11/04/16 13:44 650 mg Q6H ARABELLA Administration Albuterol Sulfate 1 amp 11/01/16 19:53 11/02/16 11:26 Ventolin 0.083% Nebulizer Soln - NEB 1 amp Q4H PRN Administration SHORT OF BREATH/WHEEZING Enoxaparin Sodium 40 mg 11/02/16 10:00 11/04/16 09:20 Lovenox - SQ 40 mg DAILY ARABELLA Administration Lisinopril 40 mg 11/02/16 10:00 11/04/16 09:20 Prinivil PO 40 mg DAILY ARABELLA Administration Oxycodone HCl 5 mg 11/01/16 13:43 11/04/16 02:28 Roxicodone - PO 5 mg Q3H PRN Administration PAIN LEVEL 1-5 Pantoprazole Sodium 40 mg 11/01/16 22:00 11/04/16 09:20 Protonix - PO 40 mg BID ARABELLA Administration Home Medications Medication Instructions Recorded Lisinopril [Prinivil -] 40 mg PO DAILY 03/27/16 Naproxen [Naprosyn -] 500 mg PO BID #14 tablet 10/07/16 Oxycodone HCl/Acetaminophen 1 tab PO Q6H PRN #12 tablet MDD 4 10/07/16 [Percocet 5-325 mg Tablet] Multivitamins [Tab-A-Vit -] 1 tab PO DAILY 10/23/16 Omeprazole 40 mg PO BID 10/23/16 HOSPITAL COURSE: Date of Admission:10/31/16 Date of Discharge: 11/04/16 Patient is a 46M with PMHx of [place],asthma,GERD, HTN and morbid obesity presents to the ICU from [facility] after having right knee arthroscopy due to having shortness of breath, with difficulty extubation. Patient was placed on Bipap in the hospital with improvement but ABG was done, he was PCO2 was above 60. He was on room air in 86-88% O2 sat. Patient was ordered noninvasive ventilator at home and oxygen at home. He was recommended not to use pain medications. # Acute on chronic hypoxic hypercarpnic respiratory failure with hx of [place] and asthma/copd: Patient needs autopap as per Pulmonary recommendation, Dr.Wu warren needs to go home since the patient's PCO2 is above 60 on ABG . Patient has worsening conditions due acute to on chronic respiratory failure as a consequence of COPD along with lack of gas exchange. Patient requires non invasive ventilator at home. If patient left untreated it may result in harm to the patient even , due to hypercapneic coma as a consequence of COPD. As per Respiratory therapist: Patient was unable to tolerate Pre & Post. Patient saturation was inadequate in continue exercise. #Acute diastolic CHF exacerbation on Lasix a, concha-I continue , cardio. on the case. # Hx of HTN: On lisinopril 40mg po daily continue # hx Of GERD: continue his home PPI Protonix 40mg PO BID # Obstructive sleep apnea: will follow up with Pulmonary as an outpatient for sleep study #Morbid obesity: counselled on weight loss and diet and patient is considering outpatient bariatric surgery Minutes to complete discharge: 60 Discharge Summary Reason For Visit: RIGHT KNEE MENISCUS TEAR Current Active Problems Acute hypercapnic respiratory failure due to obstructive sleep apnea (Acute) Acute on chronic respiratory failure with hypoxia and hypercapnia (Acute) GERD (gastroesophageal reflux disease) (Acute) H/O arthroscopic knee surgery (Acute) Hypertension (Acute) Morbid (severe) obesity due to excess calories (Acute) Condition: Stable - Instructions Diet, Activity, Other Instructions: Activities as per orthopedic doctor, Dr. Grover. Please call him for any questions. Follow up with Dr. Fox in 2 days for further work-up and sleep studies needs to be arranged by Dr. Fox. Referrals: Filiberto Barnhart MD [Staff Physician] - 2 Weeks (referred by Dr. Vazquez Leyva for bariatric evaluation ) Mo Fox MD [Staff Physician] - 1 Week (11/06/2016) Obdulio Grover MD [Staff Physician] - 1 Week Disposition: HOME - Home Medications Comprehensive Discharge Medication List: Ambulatory Orders Lisinopril [Prinivil -] 40 mg PO DAILY 03/27/16 Naproxen [Naprosyn -] 500 mg PO BID #14 tablet 10/07/16 Oxycodone HCl/Acetaminophen [Percocet 5-325 mg Tablet] 1 tab PO Q6H PRN #12 tablet MDD 4 10/07/16 Multivitamins [Tab-A-Vit -] 1 tab PO DAILY 10/23/16 Omeprazole 40 mg PO BID 10/23/16 This patient is new to me today: No Emergency Visit: Yes ED Registration Date: 10/31/16 Care time: The patient presented to the Emergency Department on the above date and was hospitalized for further evaluation of their emergent condition. Critical Care patient: No - Discharge Referral Referred to [facility] No
[2016-11-04 11:36] VITALS: PULSE 94
--- NOTE | 2016-11-04 16:55 | PN ---
Teaching Attending Note Name of Resident: Husam Lomax ATTENDING PHYSICIAN STATEMENT I saw and evaluated the patient. I reviewed the resident's note and discussed the case with the resident. I agree with the resident's findings and plan as documented. SUBJECTIVE: OBJECTIVE: Vital Signs Temperature 98.2 F 11/04/16 09:00 Pulse Rate 94 H 11/04/16 11:30 Respiratory Rate 20 11/04/16 09:00 Blood Pressure 113/45 11/04/16 09:00 O2 Sat by Pulse Oximetry (%) 87 L 11/04/16 11:30 CBCD WBC 14.4 K/mm3 (4.0-10.0) H 11/01/16 05:38 RBC 4.95 M/mm3 (4.00-5.60) 11/01/16 05:38 Hgb 14.3 GM/dL (11.7-16.9) 11/01/16 05:38 Hct 45.9 % (35.4-49) 11/01/16 05:38 MCV 92.8 fl (80-96) 11/01/16 05:38 MCHC 31.2 g/dl (32.0-35.9) L 11/01/16 05:38 RDW 13.4 % (11.9-15.9) 11/01/16 05:38 Plt Count 244 K/MM3 (134-434) 11/01/16 05:38 MPV 8.5 fl (7.5-11.1) 11/01/16 05:38 CMP Sodium 142 mmol/L (136-145) 11/01/16 05:38 Potassium 4.2 mmol/L (3.5-5.1) 11/01/16 05:38 Chloride 98 mmol/L (98-107) 11/01/16 05:38 Carbon Dioxide 36 mmol/L (21-32) H 11/01/16 05:38 Anion Gap 8 (8-16) 11/01/16 05:38 BUN 13 mg/dL (7-18) 11/01/16 05:38 Creatinine 1.1 mg/dL (0.7-1.3) 11/01/16 05:38 Creat Clearance w eGFR > 60 (>60) 10/31/16 20:00 Random Glucose 107 mg/dL (74-106) H D 11/01/16 05:38 Calcium 9.3 mg/dL (8.5-10.1) 11/01/16 05:38 Total Bilirubin 0.5 mg/dL (0.2-1.0) D 10/31/16 20:00 AST 16 U/L (15-37) 10/31/16 20:00 ALT 21 U/L (12-78) 10/31/16 20:00 Alkaline Phosphatase 62 U/L (45-117) 10/31/16 20:00 Total Protein 7.3 g/dl (6.4-8.2) 10/31/16 20:00 Albumin 3.3 g/dl (3.4-5.0) L 10/31/16 20:00 CARDIAC ENZYMES Creatine Kinase 326 IU/L (39-308) H 11/01/16 05:38 Troponin I 0.07 ng/ml (0.00-0.05) H 11/01/16 05:38 Home Medications Medication Instructions Recorded Lisinopril [Prinivil -] 40 mg PO DAILY 03/27/16 Omeprazole 40 mg PO BID 10/23/16 Acetaminophen [Tylenol .Regular 650 mg PO Q6H tablet 11/04/16 Strength -] Albuterol 0.083% Nebulizer Soledad 1 amp NEB Q4H PRN #0 amp 11/04/16 [Ventolin 0.083% Nebulizer Soln -] Echo: from 10/16/16 Left and right ventricle WNL Nuclear stress test: from 10/16/16 WNL CXR: increase pulmonary vascular markings when compared to prior CXR ASSESSMENT/PLAN: Patient is a 46M with PMHx of [place],asthma,GERD, HTN and morbid obesity presents to the ICU from [facility] after having right knee arthroscopy due to having shortness of breath, with difficulty extubation. # Acute hypoxic hypercarbic respiratory failure: with hx of [place] and asthma, on Bipap, continue Bipap now ,will need to go home with Autopap machine as per pulmonary in am since pco2 is 60.1. Continue neb.tx prn, pulmonary on the case , discussed with , patient qualifies for Bipap since PCO2 is above 60 on ABG. #Acute diastolic CHF exacerbation on Lasix a, concha-I continue , cardio. on the case. # Hx of HTN: On lisinopril 40mg po daily continue # hx Of GERD: continue his home PPI Protonix 40mg PO BID # Obstructive sleep apnea: will follow up with Pulmonary as an outpatient for sleep study #Morbid obesity: counselled on weight loss and diet and patient is considering outpatient bariatric surgery DVT PPx: Lovenox GI PX: protonix PT consult
--- NOTE | 2016-11-04 16:59 | PATH ---
Surgical Pathology Report Patient Name: RICKEY CUTLER Med. Rec. #: [id number] /Age/Gender: 1970 (Age: 46) / M Account: [id number] Location: 4 TELEMETRY U Taken: 10/31/2016 Received: 10/31/2016 Reported: 11/04/2016 Physicians: Obdulio Grover M.D. Specimen(s) Received RIGHT KNEE SHAVINGS Clinical History Right knee meniscus tear Final Diagnosis KNEE, RIGHT, ARTHROSCOPIC SHAVINGS: CARTILAGE AND FIBROSYNOVIAL TISSUE. Electronically Signed Lexi Carlton M.D. Gross Description Received in formalin, labeled "right knee shavings," is a 4.2 x 3.7 x 0.4 cm. aggregate of mcgee-yellow soft tissue fragments. A real estate representative portion is submitted in one cassette. /10/31/2016 saudi10/31/2016
== END 2016-11-04 15:11 | disposition home or self-care (01) | DRG 951 ==
LOC: SUATTDRO 07:52 → FASU 07:52 → JICU 07:53 → J4W 11-01 19:47
PROVIDERS: ADMIT Internal Medicine; ATTEND Internal Medicine
PROC: 0SBC4ZZ Excision of Right Knee Joint, Percutaneous Endoscopic Approach (ICD-10-PCS; 2016-10-31)
PROC: 5A09457 Assistance with Respiratory Ventilation, 24-96 Consecutive Hours, Continuous Positive Airway Pressure (ICD-10-PCS; 2016-10-31)
PROC: 5A09357 Assistance with Respiratory Ventilation, Less than 24 Consecutive Hours, Continuous Positive Airway Pressure (ICD-10-PCS; 2016-10-31)
PROC: 0SBC4ZZ Excision of Right Knee Joint, Percutaneous Endoscopic Approach (ICD-10-PCS; principal; 2016-10-31 10:04)
DX: J95.822 Acute and chronic postprocedural respiratory failure (principal); S83.241A Other tear of medial meniscus, current injury, right knee, initial encounter; S83.281A Other tear of lateral meniscus, current injury, right knee, initial encounter; I50.31 Acute diastolic (congestive) heart failure; I10 Essential (primary) hypertension; G47.33 Obstructive sleep apnea (adult) (pediatric); K21.9 Gastro-esophageal reflux disease without esophagitis; E66.01 Morbid (severe) obesity due to excess calories; Z68.42 Body mass index [BMI] 45.0-49.9, adult; J99 Respiratory disorders in diseases classified elsewhere; M65.9 Synovitis and tenosynovitis, unspecified; Z87.891 Personal history of nicotine dependence; E87.2 Acidosis; Z91.14 Patient's other noncompliance with medication regimen; Z99.89 Dependence on other enabling machines and devices; Y93.89 Activity, other specified; Y92.89 Other specified places as the place of occurrence of the external cause; Y99.8 Other external cause status
CPT/HCPCS: 36415; 36600; 71010-TC; 80048; 80053; 82553; 82803; 83036; 83605; 83735; 83880; 84100; 84484; 85025; 85610; 88304-TC; 93005; 93010; 93970-TC; 94010; 94640; 94660; 94760; 94761; 97116-GP; 97161-GP

== ENCOUNTER 2017-03-04 08:05 | Emergency (ER) | payer OTHER ==
[2017-03-04 08:18] VITALS: TEMP 98.8; BMI 47.2
[2017-03-04 09:00] VITALS: BP 152/86; PULSE 82
--- NOTE | 2017-03-04 09:38 | PDOC ---
History of Present Illness - General History Source: Patient Exam Limitations: No Limitations - History of Present Illness Initial Comments: 03/04/17 10:29 The patient is a 46 year old male with a significant PMH of obstructive sleep apnea, asthma, GERD, HTN, acute diastolic CHF, and morbid obesity who presents to the emergency department with a cough, sore throat, and shortness of breath beginning approximately 3 days ago. The patient describes his cough as productive of yellow sputum and notes it exacerbates his shortness of breath. The patient also notes slight wheezing within the past 3 days but denies chest pain. He reports using his nebulizer to minimal relief. The patient reports driving back from [place] earlier this week after which all of his symptoms started. The patient denies chest pain, headache and dizziness. Denies fever, chills, nausea, vomit, diarrhea and constipation. Denies dysuria, frequency, urgency and hematuria. Allergies: Penicillins. Past surgical history: None reported. Social history: Former smoker. No reported alcohol or drug use. PCP: Dr. Shepard <Marquis Drake - Last Filed: 03/04/17 10:28> - General History Source: Patient, Family Exam Limitations: No Limitations <Teresa Narayan - Last Filed: 03/05/17 14:21> - General Chief Complaint: Sore Throat Stated Complaint: THROAT PAIN Time Seen by Provider: 03/04/17 08:33 Past History <Marquis Drake - Last Filed: 03/04/17 10:28> - Past Medical History Anemia: No Asthma: Yes (DX ADULT) Cancer: No Cardiac Disorders: No CVA: No COPD: No CHF: No Dementia: No Diabetes: No GI Disorders: Yes (GERD) Disorders: No HTN: Yes Hypercholesterolemia: No Liver Disease: No Seizures: Yes ( A CHILD) Thyroid Disease: No Other medical history: SLEEP APNEA - Surgical History Abdominal Surgery: No Appendectomy: No Cardiac Surgery: No Cholecystectomy: No Lung Surgery: No Neurologic Surgery: No Orthopedic Surgery: No - Family Disease History Family Disease History: Diabetes: Grandparents, Father, Mother, Heart Disease: Father, Mother - Immunization History Immunization Up to Date: Yes - Suicide/Smoking/Psychosocial Hx Smoking History: Never smoked Have you smoked in the past 12 months: No Number of Cigarettes Smoked Daily: 3 If you are a former smoker, when did you quit?: 2016 Hx Alcohol Use: No Drug/Substance Use Hx: No Substance Use Type: None Hx Substance Use Treatment: No <Teresa Narayan - Last Filed: 03/05/17 14:21> - Past Medical History Allergies/Adverse Reactions: Allergies Allergy/AdvReac Type Severity Reaction Status Date / Time Penicillins Allergy Severe SWELLING,HI Verified 03/04/17 08:18 VES STRAWBERRY Allergy Intermediate SWELLING,HI Uncoded 03/04/17 08:18 VES TOMATOES Allergy Intermediate SWELLING , Uncoded 03/04/17 08:18 HIVES PEANUTS AdvReac Intermediate SWELLING, Uncoded 03/04/17 08:18 HIVES Home Medications: Ambulatory Orders Lisinopril [Prinivil -] 40 mg PO DAILY 03/27/16 Omeprazole 40 mg PO BID 10/23/16 Review of Systems - Review of Systems Able to Perform ROS?: Yes Comments:: 03/04/17 10:29 GENERAL/CONSTITUTIONAL: No fever or chills. No weakness. HEAD, EYES, EARS, NOSE AND THROAT: No change in vision. No ear pain or discharge. No sore throat. CARDIOVASCULAR: (+) Shortness of breath. No chest pain. RESPIRATORY: (+) Productive cough, yellow sputum. (+) Slight wheezing. No hemoptysis. GASTROINTESTINAL: No nausea, vomiting, diarrhea or constipation. GENITOURINARY: No dysuria, frequency, or change in urination. MUSCULOSKELETAL: No joint or muscle swelling or pain. No neck or back pain. SKIN: No rash NEUROLOGIC: No headache, vertigo, loss of consciousness, or change in strength/ sensation. ENDOCRINE: No increased thirst. No abnormal weight change. HEMATOLOGIC/LYMPHATIC: No anemia, easy bleeding, or history of blood clots. ALLERGIC/IMMUNOLOGIC: No hives or skin allergy. <Marquis Drake - Last Filed: 03/04/17 10:28> *Physical Exam - Vital Signs Last Vital Signs Temp Pulse Resp BP Pulse Ox 98.8 F 82 24 152/86 91 L 03/04/17 08:13 03/04/17 08:54 03/04/17 08:13 03/04/17 08:54 03/04/17 09:16 - Physical Exam Comments: 03/04/17 10:29 GENERAL: (+) Morbidly obese. (+) Intermittently sleeping during exam. The patient is in no acute distress. HEAD: Normal with no signs of trauma. EYES: PERRLA, EOMI, sclera anicteric, conjunctiva clear. ENT: (+) Dry mucous membranes. Ears normal, nares patent, oropharynx clear without exudates. NECK: Normal range of motion, supple without lymphadenopathy, JVD, or masses. LUNGS: (+) Decreased breath sounds. Breath sounds equal, clear to auscultation bilaterally. No wheezes, and no crackles. HEART:Regular rate and rhythm, normal S1 and S2 without murmur, rub or gallop. ABDOMEN: Soft, nontender, normoactive bowel sounds. No guarding, no rebound. No masses palpable. EXTREMITIES: (+) +1 pitting edema bilaterally in lower extremities. Normal range of motion, no edema. No clubbing or cyanosis. No erythema, or tenderness. NEUROLOGICAL: Cranial nerves II through XII grossly intact. Normal speech. No focal neurological deficits. MUSCULOSKELETAL: Back non-tender to palpation, no CVA tenderness SKIN: Warm, Dry, normal turgor, no rashes or lesions noted. <Marquis Drake - Last Filed: 03/04/17 10:28> - Vital Signs Last Vital Signs Temp Pulse Resp BP Pulse Ox 98.8 F 82 24 152/86 91 L 03/04/17 08:13 03/04/17 08:54 03/04/17 08:13 03/04/17 08:54 03/04/17 09:16 <Teresa Narayan - Last Filed: 03/05/17 14:21> Medical Decision Making - Medical Decision Making 03/04/17 10:01 THis is a 46 yo M who presents to the ER with a complaint of cough, shortness of breath, sore throat He has a history of [place], Morbid obesity, acute on chronic hypoxic/hypercapnic respiratory failure He states he has had symptoms for the past 3 days no fevers or chills No chest pain No palpitations Most recently travelled to [place] Pt states he was unable to go to sleep last night because he was so short of breath No nausea, no vomiting, no diarrhea 03/04/17 10:02 On examination: Dry mucous membranes RRR Poor air entry Decreased breath sounds at the bases No abd distention, tenderness Lower extremities 1+ edema 03/04/17 10:03 DD: Pneumonia, COPD/Asthma, CO2 retention, CHF, less likely PE Will do: labs, xray, abg, nebs, re assess 03/04/17 10:14 cXR: non pneumonia, CHF, effusion Unclear where this patient went Pt nurse attempted to get his labs and start therapy Pt could not be found Bathrooms checked This patient has eloped from the ER <Teresa Narayan - Last Filed: 03/05/17 14:21> *DC/Admit/Observation/Transfer - Attestations Scribe Attestion: 03/04/17 10:29 Documentation prepared by Marquis Drake, acting as medical technologist prn for Teresa Narayan MD. <Marquis Drake - Last Filed: 03/04/17 10:28> <Teresa Narayan - Last Filed: 03/05/17 14:21> Diagnosis at time of Disposition: Eloped - Discharge Dispostion Disposition: ELOPED Condition at time of disposition: Unchanged/Unknown - Referrals Referrals: Tyrel Shepard MD [Primary Care Provider] - - Patient Instructions - Post Discharge Activity
[2017-03-04] MEDS ORDERED: ALBUTEROL SO4 2.5/IPRATROPIUM 0.5 INH SOL 3 ML VIAL.NEB. NEB STA (10:03)
== END 2017-03-04 10:41 | disposition home or self-care (01) ==
LOC: JER 08:05 → JERFT 08:05 → JER 10:41
DX: Z53.21 Procedure and treatment not carried out due to patient leaving prior to being seen by health care provider (principal); I10 Essential (primary) hypertension; K21.9 Gastro-esophageal reflux disease without esophagitis; J45.909 Unspecified asthma, uncomplicated; E66.01 Morbid (severe) obesity due to excess calories; Z68.42 Body mass index [BMI] 45.0-49.9, adult
CPT/HCPCS: 71046-TC; 99281-25

== ENCOUNTER 2018-12-30 20:23 | Inpatient (IN) | payer OTHER ==
--- NOTE | 2018-12-30 20:39 | PDOC ---
Rapid Medical Evaluation Time Seen by Provider: 12/30/18 20:39 Medical Evaluation: Allergies Allergy/AdvReac Type Severity Reaction Status Date / Time Penicillins Allergy Severe SWELLING,HI Verified 03/04/17 08:18 VES STRAWBERRY Allergy Intermediate SWELLING,HI Uncoded 03/04/17 08:18 VES TOMATOES Allergy Intermediate SWELLING , Uncoded 03/04/17 08:18 HIVES PEANUTS AdvReac Intermediate SWELLING, Uncoded 03/04/17 08:18 HIVES 12/30/18 20:39 I have performed a brief in-person evaluation of this patient. The patient presents with a chief complaint of: BP 223/111 at home. Patient with hx of HTN compliant with meds. Chest pain+ SOB x 2 days. On home O2 and bipap for sleep apnea/asthma. gave 2 lisinopril at home. Pertinent physical exam findings: Somnolent, STREET, obese. Pulses 2+ b/l. O2 88% . Right BP 107/75, Left 108/76 I have ordered the following: ACS workup The patient will proceed to the ED for further evaluation. Discharge Disposition - Diagnosis Chest pain - Referrals - Patient Instructions - Post Discharge Activity
[2018-12-30] MEDS ORDERED: ASPIRIN 81 MG CHEWABLE TABLETS PO ONE (20:44)
[2018-12-30] MEDS ORDERED: ASPIRIN 81 MG CHEWABLE TABLETS ONE (21:25)
--- NOTE | 2018-12-30 22:23 | PDOC ---
History of Present Illness - General Chief Complaint: Chest Pain Stated Complaint: HYPERTENSION Time Seen by Provider: 12/30/18 20:39 History Source: Patient, Family Exam Limitations: Clinical Condition (dyspnea) - History of Present Illness Initial Comments: 01/02/19 07:19 HPI: 48M PMH HTN [place] presenting w/ 5 days of SOB and 2-3 days of nonproductive cough. Pt unable to provide full hx 2/2 dyspnea. Was brought in today w/ elevated home BP readings on both arms (200/100), family states BP cuff may have been the wrong size. Family at bedside gave 80 lisinopril before proceeding to ED. Endorses on/off chest pain for months. Endorses SOB for months. Has prn home O2 and bipap (noncompliant). Has esophageal stricture? being cared for under GI Dr. Bernal. Past History - Past Medical History Allergies/Adverse Reactions: Allergies Allergy/AdvReac Type Severity Reaction Status Date / Time Penicillins Allergy Severe SWELLING,HI Verified 12/30/18 20:47 VES STRAWBERRY Allergy Intermediate SWELLING,HI Uncoded 12/30/18 20:47 VES TOMATOES Allergy Intermediate SWELLING , Uncoded 12/30/18 20:47 HIVES PEANUTS AdvReac Intermediate SWELLING, Uncoded 12/30/18 20:47 HIVES Home Medications: Ambulatory Orders Lisinopril [Prinivil -] 40 mg PO DAILY 03/27/16 Clotrimazole/Betamet Diprop [Lotrisone -] 1 applic ID BID 12/31/18 Furosemide Oral Solution [Lasix Oral Solution -] 4 ml PO BID 12/31/18 Potassium Chloride [Potassium Chloride Oral Liquid] 20 meq PO BID 12/31/18 Anemia: No Asthma: Yes (DX ADULT) Cancer: No Cardiac Disorders: No CVA: No COPD: No CHF: No Dementia: No Diabetes: No GI Disorders: Yes (GERD) Disorders: No HTN: Yes Hypercholesterolemia: No Liver Disease: No Seizures: Yes ( A CHILD) Thyroid Disease: No - Surgical History Abdominal Surgery: No Appendectomy: No Cardiac Surgery: No Cholecystectomy: No Lung Surgery: No Neurologic Surgery: No Orthopedic Surgery: No - Immunization History Immunization Up to Date: Yes - Psycho Social/Smoking Cessation Hx Smoking History: Never smoked Have you smoked in the past 12 months: No Number of Cigarettes Smoked Daily: 3 If you are a former smoker, when did you quit?: 2016 Hx Alcohol Use: No Drug/Substance Use Hx: No Substance Use Type: None Hx Substance Use Treatment: No Review of Systems - Review of Systems Able to Perform ROS?: Yes Comments:: 01/02/19 07:19 ROS: CONSTITUTIONAL: Denies F / C HEENT: Denies sore throat, rhinorrhea. RESP: Endorses worsening SOB and nonproductive cough CARD: Endorses chronic on/off chest pain GI: Denies n/v, abdominal pain, diarrhea : Denies dysuria, frequency Is the patient limited Icelandic proficient: No *Physical Exam - Vital Signs Last Vital Signs Temp Pulse Resp BP Pulse Ox 98.3 F 107 H 24 H 108/76 88 L 12/30/18 20:38 12/30/18 20:38 12/30/18 20:38 12/30/18 20:38 12/30/18 20:38 - Physical Exam Comments: 01/02/19 07:19 PE: VS reviewed - SBP 140s at bedside GEN: Dyspnic, mildly lethargic, morbid obesity HEENT: NC/AT. No facial asymmetry. Moist mucous membranes, no exudates, no erythema of the oropharynx. Normal voice. CV: S1/S2, RRR, no m/r/g LUNG: Poor air movement, expiratory wheezes GI: obese, soft, ndnt, +BS, no guarding, no rebound EXTREMITIES: 1+ pitting LE edema. No obvious deformities of all extremities. SKIN: warm, dry, normal turgor PSYCH: normal mood and affect NEURO: Moving all extremities well ED Treatment Course - LABORATORY CBC & Chemistry Diagram: 01/01/19 06:30 01/01/19 06:30 - RADIOLOGY Radiology Studies Ordered: Category Date Time Status CXRPORT [CHEST X-RAY PORTABLE*] [RAD] Stat Radiology 12/30/18 22:08 Ordered - Medications Given in the ED: ED Medications Discontinued Medications Generic Name Dose Route Start Last Admin Trade Name Freq PRN Reason Stop Dose Admin Aspirin 162 mg 12/30/18 20:44 12/30/18 21:39 Asa - PO 12/30/18 20:45 162 mg ONCE ONE Administration Medical Decision Making - Medical Decision Making 12/30/18 22:22 HPI: 48M PMH HTN [place] presenting w/ 5 days of SOB and 2-3 days of nonproductive cough. Pt unable to provide full hx 2/2 dyspnea. Was brought in today w/ elevated home BP readings on both arms (200/100), family states BP cuff may have been the wrong size. Family at bedside gave 80 lisinopril before proceeding to ED. Endorses on/off chest pain for months. Endorses SOB for months. Has prn home O2 and bipap (noncompliant). Has esophageal stricture? being cared for under GI Dr. Bernal. ROS: CONSTITUTIONAL: Denies F / C HEENT: Denies sore throat, rhinorrhea. RESP: Endorses worsening SOB and nonproductive cough CARD: Endorses chronic on/off chest pain GI: Denies n/v, abdominal pain, diarrhea : Denies dysuria, frequency PE: VS reviewed - SBP 140s at bedside GEN: Dyspnic, mildly lethargic, morbid obesity HEENT: NC/AT. No facial asymmetry. Moist mucous membranes, no exudates, no erythema of the oropharynx. Normal voice. CV: S1/S2, RRR, no m/r/g LUNG: Poor air movement, expiratory wheezes GI: obese, soft, ndnt, +BS, no guarding, no rebound EXTREMITIES: 1+ pitting LE edema. No obvious deformities of all extremities. SKIN: warm, dry, normal turgor PSYCH: normal mood and affect NEURO: Moving all extremities well MDM: 48M HTN [place] c/o cough, SOB, and elevated home BP. SBP here in the 140s. Lethargic, dyspnic, and poor air movement w/ wheezes DDx - PNA, COPD? / Asthma, ACS - CBC, CMP, Cardiac, Lactate, Coags - CXR, EKG - consider CT - ABG - Bipap - Duoneb - Lasix ABG showing elevated PCO2 pre-BiPaP CXR is of poor quality but possible infiltrate on the RLL EKG 12/30/18 23:34 HR 95 MD 162 QRS 98 QTc 464 sinus rhythm Admit 12/31/18 00:31 labs reviewed slightly elevated troponin 12/31/18 00:41 Discussed patient w/ ICU resident - rpt ABG now that pt has been on bipap for 1 + hours. placement pending abg Admitted telemetry Discharge - Discharge Information Problems reviewed: Yes Clinical Impression/Diagnosis: Acute hypercapnic respiratory failure due to obstructive sleep apnea Chest pain Qualifiers: Chest pain type: unspecified Qualified Code(s): R07.9 - Chest pain, unspecified Condition: Guarded - Follow up/Referral - Patient Discharge Instructions - Post Discharge Activity
[2018-12-30] MEDS ORDERED: ALBUTEROL SO4 2.5/IPRATROPIUM 0.5 INH SOL 3 ML VIAL.NEB. NEB ONE ×2 (22:24→22:51)
[2018-12-30 22:39] LABS: ARTERIAL BLD GAS O2 SATURATION 94.7 % (95-98); ARTERIAL BLOOD GAS BASE EXCESS 7.6 meq/l (-2-2); ARTERIAL BLOOD GAS pH 7.29 (7.35-7.45)
[2018-12-30 22:41] LABS: ALLENS TEST POSITIVE
[2018-12-30 22:44] LABS: ARTERIAL BLOOD GAS PCO2 80.1 mmHg (35-45)
[2018-12-30] MEDS ORDERED: methylPREDNISolone NA SUCC 125 MG/2 ML VIAL IVPUSH ONE (22:49)
[2018-12-30] MEDS ORDERED: methylPREDNISolone NA SUCC 125 MG/2 ML VIAL ONE (22:50)
[2018-12-30] MEDS ORDERED: FUROSEMIDE 40 MG/4 ML INJECTABLE VIAL IVPUSH ONE (23:13)
--- NOTE | 2018-12-30 23:17 | PDOC ---
Documentation entered by Leonel Guan SCRIBE, acting as scribe for Teresa Narayan MD. Teresa Narayan MD: This documentation has been prepared by the Roge angel Xhesika, SCRIBE, under my direction and personally reviewed by me in its entirety. I confirm that the documentation accurately reflects all work, treatment, procedures, and medical decision making performed by me. Attending Attestation - Resident Resident Name: RodríguezShailesh - ED Attending Attestation I have performed the following: I have examined & evaluated the patient, The case was reviewed & discussed with the resident, I agree w/resident's findings & plan, Exceptions are as noted - HPI HPI: 12/30/18 22:38 The patient is a 48 year old male with a significant PMH of obstructive sleep apnea, asthma, GERD, HTN (compliant with meds), acute diastolic CHF, and morbid obesity who presents to the emergency department for 5 days of SOB and nonproductive cough. Patient's mother has been taking his blood pressure throughout the day because he had complained of a headache, and he has been noticeably coughing quite a bit. Per mother, he was noticably winded today. This morning the blood pressure was elevated. Patient's mother has been taking his blood pressure throughout the day. This evening he was noted to have a blood pressure of 223/111 This blood pressure was taken twice, and in both arms and was similarly elevated. Patient's mom if him to lisinopril tablets. He reported complaints of chest pain yesterday and the day prior The patient denies headache and dizziness. Denies fever, chills, cough, nausea, vomiting, diarrhea and constipation. Denies dysuria, frequency, urgency and hematuria. Allergies: Penicillins, peanuts, strawberries, tomatoes Social history: Former smoker. No reported alcohol or drug use. PCP: Dr. Shepard 12/30/18 23:01 12/30/18 23:02 12/30/18 23:14 - Physicial Exam PE: 12/30/18 22:38 Upon assessment Pt noted to be on 7 L NC This was decreased immediately GENERAL: The patient is somnolent HEAD: Normal EYES: PERRLA, EOMI, sclera anicteric, conjunctiva clear. ENT: Dry mucous membranes. NECK: Normal range of motion, supple LUNGS: Breath sounds equal, clear to auscultation bilaterally. No wheezes, and no crackles. HEART: Regular rate and rhythm, normal S1 and S2 without murmur, rub or gallop. ABDOMEN: Soft, nontender, normoactive bowel sounds. EXTREMITIES: Normal range of motion, (+) edema. NEUROLOGICAL: Cranial nerves II through XII grossly intact. Normal speech. No focal neurological deficits. SKIN: Warm, Dry, normal turgor, no rashes or lesions noted. 12/30/18 23:15 12/30/18 23:59 - Critical Care Time Total Critical Care Time: 120 Critical Care Statement: The care of this patient involved high complexity decision making to prevent further life threatening deterioration of the patient 's condition and/or to evaluate & treat vital organ system(s) failure or risk of failure. - Medical Decision Making 12/30/18 23:00 Patient appears somnolent Concerning for CO2 narcosis BiPAP started 12/30/18 23:01 Laboratory Tests 12/30/18 22:30 ABG pH 7.29 L ABG pCO2 at Pt Temp 80.1 H* ABG pO2 at Pt Temp 85.0 ABG HCO3 37.4 H ABG O2 Sat (Measured) 94.7 L 12/30/18 23:14 Pt placed on BiPAP remains arousable to verbal stimuli Lasix 40 mg IV ordered - pt ran out of this several days ago 12/30/18 23:16 DD includes: CHF, COPD/Asthma, CO2 Narcosis, Pneumonia Will do: Labs CXR BiPAP Admit CXR: appears to show fluid overloading Neb given through BiPAP, solumedrol ordered 12/30/18 23:58 EKG: Normal sinus rhythm, rate of 95 bpm, axis is normal, intervals are normal, no ST elevation, left atrial enlargement, PACs, 12/31/18 00:06 Call placed to ICU resident Pt may be best served in the ICU given his tenuous respiratory status Pt has voided 500 cc clear urine s/p Lasix 12/31/18 00:08 12/31/18 00:11 Laboratory Tests 12/30/18 23:10 Sodium 141 Potassium 4.4 Chloride 100 Carbon Dioxide 36 H BUN 10.0 Creatinine 1.0 Random Glucose 89 Creatine Kinase 446 H Troponin I 0.07 H Will admit 12/31/18 00:40 Pt seen in the ER by ICU resident. He recommends repeat ABG If CO2 the same or lower, patient can be sent to telemetry If CO2 higher, patient should be admitted to the ICU 12/31/18 00:41 12/31/18 00:45 Additional 500 cc urine output blood tinged Will send UA/UCx Pt denies flank pain, suprapubic pain No cathether was placed in this patient, he is voiding freely Clinical impression: 12/31/18 01:01 Laboratory Tests 12/31/18 00:40 ABG pH 7.29 L ABG pCO2 at Pt Temp 75.1 H* ABG pO2 at Pt Temp 89.7 ABG HCO3 35.0 H ABG O2 Sat (Measured) 95.3 ABG O2 Content 20.6 Discharge - Discharge Information Problems reviewed: Yes Clinical Impression/Diagnosis: Acute hypercapnic respiratory failure due to obstructive sleep apnea Chest pain Qualifiers: Chest pain type: unspecified Qualified Code(s): R07.9 - Chest pain, unspecified Condition: Guarded - Admission Yes - Follow up/Referral - Patient Discharge Instructions - Post Discharge Activity
[2018-12-30 23:21] LABS: BASO % 0.5 % (0-2.0); EOS % 0.3 % (0-4.5); HEMATOCRIT 47.7 % (35.4-49); HEMOGLOBIN 15.1 GM/dL (11.7-16.9); LYMPH % 6.8 % (8-40); MCH 29.2 pg (25.7-33.7); MCHC 31.6 g/dl (32.0-35.9); MEAN CELL VOLUME 92.3 fl (80-96); MEAN PLT VOLUME 8.7 fl (7.5-11.1); MONO % 7.2 % (3.8-10.2); NEUT % 85.2 % (42.8-82.8); PLATELET COUNT 264 K/MM3 (134-434); RBC 5.17 M/mm3 (4.00-5.60); RDW 16.6 % (11.9-15.9); WHITE BLOOD COUNT 9.4 K/mm3 (4.0-10.0)
[2018-12-30] MEDS ORDERED: FUROSEMIDE 40 MG/4 ML INJECTABLE VIAL ONE (23:30)
[2018-12-31 00:10] LABS: ALBUMIN 3.3 g/dl (3.4-5.0); BILIRUBIN,TOTAL 0.4 mg/dL (0.2-1); CALCIUM 8.3 mg/dL (8.5-10.1); MAGNESIUM 2.1 mg/dL (1.8-2.4); POTASSIUM 4.4 mmol/L (3.5-5.1); TOT PROT 7.5 g/dl (6.4-8.2)
[2018-12-31 00:45] LABS: PROTHROMBIN TIME (PATIENT) 11.8 SEC (9.7-13.0)
--- NOTE | 2018-12-31 00:48 | PN ---
Teaching Attending Note Name of Resident: Ysabel Garcia ATTENDING PHYSICIAN STATEMENT I saw and evaluated the patient. I reviewed the resident's note and discussed the case with the resident. I agree with the resident's findings and plan as documented. SUBJECTIVE: 48-year-old male with hypertension, [place], morbid obesity, esophageal stricture presenting with 5 days of worsening shortness of breath and about 3 days of nonproductive cough. Patient has as needed home oxygen and BiPAP device with which he is believed to be noncompliant. He denied any recent travels or sick contacts. Patient noted to have PFTs performed and had restricted and obstructive component.In the emergency room received methylprednisolone and bronchodilator. OBJECTIVE: Last Vital Signs Temp Pulse Resp BP Pulse Ox 98.3 F 107 H 24 H 108/76 98 12/30/18 20:38 12/30/18 20:38 12/30/18 20:38 12/30/18 20:38 12/30/18 23:00 GENERAL: Well developed, well nourished. Morbidly obese HEENT: Normocephalic, atraumatic. PERRLA, EOMI. No conjunctival pallor. Sclera are non- icteric. Moist mucous membranes. Oropharynx is clear. NECK: Supple. Full ROM. No JVD. Carotid pulses 2+ and symmetric, without bruits. No thyromegaly. No lymphadenopathy. CARDIOVASCULAR: Regular rate and rhythm. No murmurs, rubs, or gallops. Distal pulses are 2+ and symmetric. PULMONARY: Bilateral air entry noted on auscultation no significant wheezing, crackles, rhonchi. ABDOMINAL: Obese Non-tender. Non-distended. No rebound or guarding. No organomegaly. Normoactive bowel sounds. MUSCULOSKELETAL Normal range of motion at all joints. No bony deformities or tenderness. No CVA tenderness. EXTREMITIES: No cyanosis. No clubbing. No edema. No calf tenderness. SKIN: Warm and dry. Normal capillary refill. No rashes. No jaundice. ies and lower extremities. Normoreflexic in the upper and lower extremities. Normal speech. Toes are down-going bilaterally. Gait is normal without ataxia. PSYCHIATRIC: Cooperative. Good eye contact. Appropriate mood and affect. Mentating well oriented to person place and time Abnormal Lab Results 12/30/18 12/30/18 12/30/18 22:30 23:10 23:10 MCHC 31.6 L RDW 16.6 H Neutrophils % 85.2 H Lymphocytes % 6.8 L D ABG pH 7.29 L ABG pCO2 at Pt Temp 80.1 H* ABG HCO3 37.4 H ABG O2 Sat (Measured) 94.7 L ABG Base Excess 7.6 H Carbon Dioxide 36 H Anion Gap 5 L Calcium 8.3 L Creatine Kinase 446 H Troponin I 0.07 H Albumin 3.3 L Imaging reviewed ASSESSMENT AND PLAN: 48-year-old male with hypoxemic, hypercapnic respiratory failure, Acute on chronic. Acute respiratory acidosis is noted. Severe hypercapnia. Suspect that may be secondary to obesity hypoventilation syndrome Versus [place]. Mentating well and do not suspect CO2 narcosis at this time. There may also be a component of CHF as patient was noted to have bilateral pedal edema and appears to have orthostatic features. Admit to telemetry Maintain on BiPAP Repeat ABGs to ensure CO2 is decreasing Trend troponin Dual nebs as needed Supplemental oxygen as needed Pulmonary evaluation Advised weight loss as long-term solution to respiratory issues Transthoracic echo IV furosemide 40 mg twice daily Monitor I's and O's Daily weights Salt restriction Lower extremity duplex to rule out DVT Heparin subcutaneously for DVT prophylaxis
[2018-12-31 00:56] LABS: ARTERIAL BLD GAS O2 SATURATION 95.3 % (95-98); ARTERIAL BLOOD GAS BASE EXCESS 5.5 meq/l (-2-2); ARTERIAL BLOOD GAS PO2 89.7 mmHg (80-100); ARTERIAL BLOOD GAS pH 7.29 (7.35-7.45); CARBOXYHEMOGLOBIN 1.7 % (0-2)
[2018-12-31 00:58] LABS: ALLENS TEST POSITIVE
[2018-12-31 01:00] LABS: ARTERIAL BLOOD GAS PCO2 75.1 mmHg (35-45)
--- NOTE | 2018-12-31 01:28 | CONSULT ---
Consultation: REQUESTING PROVIDER: Dr. Narayan CONSULT REQUEST: We have been asked to medically evaluate this patient for ICU admission for acute hypoxic, hypercapnic respiratory failure. HISTORY OF PRESENT ILLNESS: Patient is a 48 year old male with history of obstructive sleep apnea ( intermittently uses CPAP at home), morbid obesity, mild intermittent asthma, hypertension, gastroesophageal reflux presents with complaint of shortness of breath. Patient endorses worsening dyspnea over past 4 days, with productive yellow cough and sore throat. Denies sick contacts. Has not yet received influenza vaccine. Patient also endorses chest pain, described as sharp, right sided, worsened with coughing that has also been ongoing for past four days. Noted that patient has had pulmonary function testing in 2017 suggestive of moderate restrictive process, and mild obstructive airway disease. Patient last saw primary care physician earlier last month and was started on Furosemide for worsening bilateral lower extremity edema. Patient admits that he ran out of medication few days ago. Per his mother at bedside, patient was noted to have elevated blood pressure (systolic 200s/ diastolic 100s) earlier today. Patient took Lisinopril 40mg x2 per instruction of primary care physician. In ED, patient is sleepy however easily arousable to voice. He is communicative , answering questions by nodding, and short sentences. Currently denies any chest pain or shortness of breath. Chest radiograph revealed bilateral alveolar infiltrates. He received Lasix 40mg IV, with subsequent 500+cc urine output. Initial ABG revealed respiratory acidosis with pH 7.29, PaCO2 80.1, PaO2 85, HCO3 37.4. Patient placed on BiLevel ventilation; admits his breathing is more comfortable with BiLevel ventilation. REVIEW OF SYSTEMS: CONSTITUTIONAL: Absent: fever, chills, diaphoresis, generalized weakness, malaise, loss of appetite, weight change HEENT: Absent: rhinorrhea, nasal congestion, throat pain, throat swelling, difficulty swallowing, mouth swelling, ear pain, eye pain, visual changes CARDIOVASCULAR: admits chest pain, peripheral edema. Absent: syncope, palpitations, irregular heart rate, lightheadedness RESPIRATORY: admits shortness of breath, cough, dyspnea with exertion, wheezing. Absent: stridor, hemoptysis GASTROINTESTINAL: Absent: abdominal pain, abdominal distension, nausea, vomiting, diarrhea, constipation, melena, hematochezia GENITOURINARY: Absent: dysuria, frequency, urgency, hesitancy, hematuria, flank pain, genital pain MUSCULOSKELETAL: Absent: myalgia, arthralgia, joint swelling, back pain, neck pain SKIN: Absent: rash, itching, pallor HEMATOLOGIC/IMMUNOLOGIC: Absent: easy bleeding, easy bruising, lymphadenopathy, frequent infections ENDOCRINE: Absent: unexplained weight gain, unexplained weight loss, heat intolerance, cold intolerance NEUROLOGIC: Absent: headache, focal weakness or paresthesias, dizziness, unsteady gait, seizure, mental status changes, bladder or bowel incontinence PSYCHIATRIC: Absent: anxiety, depression, suicidal or homicidal ideation, hallucinations. PHYSICAL EXAMINATION Vital Signs - 24 hr 12/30/18 12/30/18 20:38 23:00 Temperature 98.3 F Pulse Rate 107 H Respiratory 24 H Rate Blood Pressure 108/76 O2 Sat by Pulse 88 L 98 Oximetry (%) GENERAL: The patient is sleepy, arousable to voice, oriented, in no acute distress. HEAD: Normocephalic, atraumatic. EYES: PERRL, extraocular movements intact, sclera anicteric, conjunctiva clear. ENT: Oropharynx clear, without erythema or exudates. Moist mucous membranes. NECK: Trachea midline, full range of motion. Supple without lymphadenopathy. Negative stridor. LUNGS: Bilevel ventilation. Poor air entry bilaterally with scattered wheezing. Faint crackles auscultated at bases. No accessory muscle use. HEART: Regular rate and rhythm, S1, S2 without murmur, rub or gallop. Chest pain reproducible upon palpation. ABDOMEN: Obese abdomen. Distended. Soft, nontender to light and deep palpation x4 quadrants, no rebound tenderness, no guarding. Hypoactive bowel sounds x4 quadrants. Negative hepatosplenomegaly, no masses appreciated. EXTREMITIES: 2+ radial, 1+ dorsalis pedis pulses bilaterally. Warm, well- perfused. 2+ lower extremity edema bilaterally. NEUROLOGICAL: Cranial nerves II through XII grossly intact. Freely moves all four extremities, no gross focal deficits. SKIN: Warm, dry. Stasis dermatitis bilateral lower extremities. Laboratory Results - last 24 hr 12/30/18 12/30/18 12/30/18 22:30 23:10 23:10 WBC 9.4 RBC 5.17 Hgb 15.1 Hct 47.7 MCV 92.3 MCH 29.2 MCHC 31.6 L RDW 16.6 H Plt Count 264 MPV 8.7 Absolute Neuts (auto) 8.0 Neutrophils % 85.2 H Lymphocytes % 6.8 L D Monocytes % 7.2 Eosinophils % 0.3 D Basophils % 0.5 D Nucleated RBC % 0 PT with INR INR PTT (Actin FS) Anticoagulation Therapy No Result Required. Puncture Site Left radial ABG pH 7.29 L ABG pCO2 at Pt Temp 80.1 H* ABG pO2 at Pt Temp 85.0 ABG HCO3 37.4 H ABG O2 Sat (Measured) 94.7 L ABG O2 Content 19.6 ABG Base Excess 7.6 H Usman Test Positive Carboxyhemoglobin Methemoglobin O2 Delivery Device No Result Required. Oxygen Flow Rate No Result Required. Vent Mode No Result Required. Vent Rate No Result Required. Mechanical Rate No Result Required. Pressure Support Vent No Result Required. Sodium 141 Potassium 4.4 Chloride 100 Carbon Dioxide 36 H Anion Gap 5 L BUN 10.0 Creatinine 1.0 Est GFR (CKD-EPI)AfAm 104.15 Est GFR (CKD-EPI)NonAf 89.86 Random Glucose 89 Calcium 8.3 L Magnesium 2.1 Total Bilirubin 0.4 AST 27 ALT 34 Alkaline Phosphatase 73 Creatine Kinase 446 H Troponin I 0.07 H Total Protein 7.5 Albumin 3.3 L 12/31/18 12/31/18 12/31/18 00:10 00:10 00:40 WBC RBC Hgb Hct MCV MCH MCHC RDW Plt Count MPV Absolute Neuts (auto) Neutrophils % Lymphocytes % Monocytes % Eosinophils % Basophils % Nucleated RBC % PT with INR 11.80 INR 1.00 PTT (Actin FS) 34.6 Anticoagulation Therapy Puncture Site Left radial ABG pH 7.29 L ABG pCO2 at Pt Temp 75.1 H* ABG pO2 at Pt Temp 89.7 ABG HCO3 35.0 H ABG O2 Sat (Measured) 95.3 ABG O2 Content 20.6 ABG Base Excess 5.5 H Usman Test Positive Carboxyhemoglobin 1.7 Methemoglobin < 1.0 O2 Delivery Device Bipap Oxygen Flow Rate 40% Vent Mode 20 Vent Rate Mechanical Rate Pressure Support Vent 14 Sodium Potassium Chloride Carbon Dioxide Anion Gap BUN Creatinine Est GFR (CKD-EPI)AfAm Est GFR (CKD-EPI)NonAf Random Glucose Calcium Magnesium Total Bilirubin AST ALT Alkaline Phosphatase Creatine Kinase Troponin I Total Protein Albumin ASSESSMENT/PLAN: Acute hypoxic, hypercapnic respiratory failure Obstructive sleep apnea Suspect obesity hyperventilation syndrome Persistent asthma Hypertension Gastroesophageal reflux Morbid obesity Neurologic -Patient is sleepy, however easily arousable to voice. -Follow ABG, for CO2 narcosis -Monitor for signs of mental status change. Pulmonary -Chest radiograph reveals bilateral congestive changes, not observed in prior study from 2017. Noted history of restrictive process and mild obstructive airways disease. However, given physical exam findings of bilateral crackles, and new onset of lower extremity edema on Lasix from primary care physician, suspect component of heart failure. -ABG reveals respiratory acidosis with pH 7.29, PaCO2 80.1, PaO2 85, HCO3 37.4. Likely chronic component of hypercarbia with elevation of bicarbonate. -Currently on BiLevel ventillation; 14/ 5 FiO2 40%, rate 20. Recommend increasing rate to 22BPM, in setting of hypercarbia. Follow repeat ABG. -Duonebs standing and PRN Cardiovascular -EKG reveals sinus tachycardia, PACs at 95BPM. Negative ischemic changes. -Troponin 0.07 (at baseline levels from 2017). Likely demand; will trend. -Continue Lasix -Monitor intake and output. -Cardiac transthoracic ECHO -Duplex bilateral lower extremities -Follow BNP -Cardiac monitoring -Continue home Lisinopril 40mg PO daily Gastrointestinal History of achalasia; patient follows with Dr. Bernal. -NPO while on BiLevel Nephrologic Hematuria reported by ED. No pereira catheter. Patient denies dysuria. -Follow UA FEN -No IV fluids indicated -Follow BMP, replete as necessary -NPO while on BiLevel ventillation Prophylaxis -Lovenox 40mg subq daily Disposition Patient does not require ICU level of care at this time. ABG after initiation of BiLevel ventilation improving of respiratory acidosis. Patient is communicative, and following commands. Recommend Telemetry monitoring with continuous pulse oximetry monitoring. Follow repeat ABG. Please re-consult if any change in patient's clinical status. Thank you for this consultive opportunity. Visit type - Emergency Visit Emergency Visit: Yes ED Registration Date: 12/31/18 Care time: The patient presented to the Emergency Department on the above date and was hospitalized for further evaluation of their emergent condition. - New Patient This patient is new to me today: Yes Date on this admission: 12/31/18 - Critical Care Critical Care patient: Yes Total Critical Care Time (in minutes): 35 Critical Care Statement: The care of this patient involved high complexity decision making to prevent further life threatening deterioration of the patient 's condition and/or to evaluate & treat vital organ system(s) failure or risk of failure. ATTENDING PHYSICIAN STATEMENT I saw and evaluated the patient. I reviewed the resident's note and discussed the case with the resident. I agree with the resident's findings and plan as documented. SUBJECTIVE: OBJECTIVE: ASSESSMENT AND PLAN:
[2018-12-31 03:02] LABS: EPI CELLS 0.1 /HPF (0-5/HPF); HYALINE CASTS 1 /lpf (0-8); URINE APPEARANCE CLEAR; URINE BACTERIA 1.4 /hpf (NEGATIVE); URINE BILIRUBIN NEGATIVE (NEGATIVE); URINE COLOR YELLOW; URINE GLUCOSE (UA) NEGATIVE (NEGATIVE); URINE KETONE NEGATIVE (NEGATIVE); URINE LEUK ESTERASE NEGATIVE (NEGATIVE); URINE NITRITE NEGATIVE (NEGATIVE); URINE PROTEIN NEGATIVE (NEGATIVE); URINE RBC 223 /hpf (0-4); URINE UROBILINOGEN 0.2 mg/dL (0.2-1.0); URINE WBC 0 /hpf (0-5)
[2018-12-31 03:15] LABS: N-TERMINAL BNP 294.9 pg/ml (5-125)
[2018-12-31] MEDS ORDERED: FUROSEMIDE 40 MG/4 ML INJECTABLE VIAL IVPUSH ONE (04:36)
--- NOTE | 2018-12-31 05:18 | HP ---
CHIEF COMPLAINT: HTN to 215/100, and low PO2 PCP: Dr. Shepard HISTORY OF PRESENT ILLNESS: Patient is a 48 year old male with history of obstructive sleep apnea ( intermittently uses CPAP at home), morbid obesity, mild intermittent asthma, hypertension, gastroesophageal reflux presents with complaint of shortness of breath and HTN. Per patient's mother, she normally takes his blood pressure every morning and today she noted it was 225/100. She stated it stayed the same throughout the day. The mother stated that she noticed the patient looking more lethargic than normal. Patient endorses worsening dyspnea over past 4 days, and denies coughing however his mother reports he had a productive yellow cough in the preceding days. Patient also endorses chest pain, described as sharp, right sided, worsened with coughing that has also been ongoing for past four days. Noted that patient has had pulmonary function testing in 2017 suggestive of moderate restrictive process, and mild obstructive airway disease. Patient last saw primary care physician earlier last month and was started on Furosemide for worsening bilateral lower extremity edema. Patient admits that he ran out of medication few days ago. In ED, patient is sleepy however easily arousable to voice. He is communicative , answering questions by nodding, and short sentences. Currently denies any chest pain or shortness of breath. Chest radiograph revealed bilateral alveolar infiltrates. He received Lasix 40mg IV, with subsequent 500cc urine output. Initial ABG revealed respiratory acidosis with pH 7.29, PaCO2 80.1, PaO2 85, HCO3 37.4. Patient placed on BiLevel ventilation; admits his breathing is more comfortable with BiLevel ventilation. The patient has a bipap (2-5L) at home which he uses intermittently, he states he uses it once every 2-3 days. The patient states he is independent in his ADLs and is able to ambulate on his own with a cane. He denies headache, fever, chills, changes in vision, nausea or vomiting. He has no history of recent travel. Recent Travel: denies PAST MEDICAL HISTORY: hypertension, sleep apnea, per patient's mother he has esophageal strictures esophageal diverticuli (?), arthritis of the knees and morbid obesity PAST SURGICAL HISTORY: stent placed for esophageal stricture? Social History: Smoking: denies Alcohol: denies Drugs: denies Allergies Penicillins Allergy (Severe, Verified 12/30/18 20:47) SWELLING,HIVES STRAWBERRY Allergy (Intermediate, Uncoded 12/30/18 20:47) SWELLING,HIVES TOMATOES Allergy (Intermediate, Uncoded 12/30/18 20:47) SWELLING , HIVES PEANUTS Adverse Reaction (Intermediate, Uncoded 12/30/18 20:47) SWELLING, HIVES HOME MEDICATIONS: Home Medications Medication Instructions Recorded Lisinopril [Prinivil -] 40 mg PO DAILY 03/27/16 Omeprazole 40 mg PO BID 10/23/16 Furosemide 1 tablet PO DAILY 12/31/18 Potassium Chloride 1 tablet PO DAILY 12/31/18 Potassium Chloride [Potassium 5 ml PO DAILY 12/31/18 Chloride Oral Liquid] REVIEW OF SYSTEMS CONSTITUTIONAL: Absent: fever, chills, diaphoresis, generalized weakness, malaise, loss of appetite, weight change HEENT: Absent: rhinorrhea, nasal congestion, throat pain, throat swelling, difficulty swallowing, mouth swelling, ear pain, eye pain, visual changes CARDIOVASCULAR: chest pain, peripheral edema Absent: syncope, palpitations, irregular heart rate, lightheadedness, RESPIRATORY: dyspnea with exertion, shortness of breath Absent: cough, orthopnea, wheezing, stridor, hemoptysis GASTROINTESTINAL: Absent: abdominal pain, abdominal distension, nausea, vomiting, diarrhea, constipation, melena, hematochezia GENITOURINARY: Absent: dysuria, frequency, urgency, hesitancy, hematuria, flank pain, genital pain MUSCULOSKELETAL: Absent: myalgia, arthralgia, joint swelling, back pain, neck pain SKIN: Absent: rash, itching, pallor HEMATOLOGIC/IMMUNOLOGIC: Absent: easy bleeding, easy bruising, lymphadenopathy, frequent infections ENDOCRINE: Absent: unexplained weight gain, unexplained weight loss, heat intolerance, cold intolerance NEUROLOGIC: Absent: headache, focal weakness or paresthesias, dizziness, unsteady gait, seizure, mental status changes, bladder or bowel incontinence PSYCHIATRIC: Absent: anxiety, depression, suicidal or homicidal ideation, hallucinations. PHYSICAL EXAMINATION Vital Signs - 24 hr 12/30/18 12/30/18 12/31/18 20:38 23:00 03:03 Temperature 98.3 F Pulse Rate 107 H Pulse Rate [ 93 H Apical] Respiratory 24 H 20 Rate Blood Pressure 108/76 Blood Pressure 157/80 [Left Arm] O2 Sat by Pulse 88 L 98 95 Oximetry (%) GENERAL: The patient is sleepy, arousable to voice, oriented, in no acute distress. HEAD: Normocephalic, atraumatic. EYES: PERRL, extraocular movements intact, sclera anicteric, conjunctiva clear. ENT: Oropharynx clear, without erythema or exudates. Moist mucous membranes. NECK: Trachea midline, full range of motion. Supple without lymphadenopathy. Negative stridor. LUNGS: On BiPAP. Poor air entry bilaterally with scattered wheezing. Faint crackles auscultated at bases. No accessory muscle use. HEART: Regular rate and rhythm, S1, S2 without murmur, rub or gallop. Chest pain reproducible upon palpation. ABDOMEN: Obese abdomen. Distended. Soft, nontender to light and deep palpation x4 quadrants, no rebound tenderness, no guarding. Hypoactive bowel sounds x4 quadrants. Negative hepatosplenomegaly, no masses appreciated. EXTREMITIES: 2+ radial, 1+ dorsalis pedis pulses bilaterally. Warm, well- perfused. 2+ lower extremity edema bilaterally. NEUROLOGICAL: Cranial nerves II through XII grossly intact. Freely moves all four extremities, no gross focal deficits. SKIN: Warm, dry. Stasis dermatitis bilateral lower extremities. Laboratory Results - last 24 hr 12/30/18 12/30/18 12/30/18 02:32 22:30 23:10 WBC RBC Hgb Hct MCV MCH MCHC RDW Plt Count MPV Absolute Neuts (auto) Neutrophils % Lymphocytes % Monocytes % Eosinophils % Basophils % Nucleated RBC % PT with INR INR PTT (Actin FS) Anticoagulation Therapy No Result Required. Puncture Site Left radial ABG pH 7.29 L ABG pCO2 at Pt Temp 80.1 H* ABG pO2 at Pt Temp 85.0 ABG HCO3 37.4 H ABG O2 Sat (Measured) 94.7 L ABG O2 Content 19.6 ABG Base Excess 7.6 H Usman Test Positive Carboxyhemoglobin Methemoglobin O2 Delivery Device No Result Required. Oxygen Flow Rate No Result Required. Vent Mode No Result Required. Vent Rate No Result Required. Mechanical Rate No Result Required. Pressure Support Vent No Result Required. Sodium 141 Potassium 4.4 Chloride 100 Carbon Dioxide 36 H Anion Gap 5 L BUN 10.0 Creatinine 1.0 Est GFR (CKD-EPI)AfAm 104.15 Est GFR (CKD-EPI)NonAf 89.86 Random Glucose 89 Lactic Acid Calcium 8.3 L Magnesium 2.1 Total Bilirubin 0.4 AST 27 ALT 34 Alkaline Phosphatase 73 Creatine Kinase 446 H Creatine Kinase Index 1.3 CK-MB (CK-2) 6.0 H Troponin I 0.07 H B-Natriuretic Peptide 294.9 H Total Protein 7.5 Albumin 3.3 L Urine Color Yellow Urine Appearance Clear Urine pH 5.0 Ur Specific Randolph 1.007 L Urine Protein Negative Urine Glucose (UA) Negative Urine Ketones Negative Urine Blood 3+ H Urine Nitrite Negative Urine Bilirubin Negative Urine Urobilinogen 0.2 Ur Leukocyte Esterase Negative Urine WBC (Auto) 0 Urine RBC (Auto) 223 Urine Casts (Auto) 1 U Epithel Cells (Auto) 0.1 Urine Bacteria (Auto) 1.4 12/30/18 12/31/18 12/31/18 23:10 00:10 00:10 WBC 9.4 RBC 5.17 Hgb 15.1 Hct 47.7 MCV 92.3 MCH 29.2 MCHC 31.6 L RDW 16.6 H Plt Count 264 MPV 8.7 Absolute Neuts (auto) 8.0 Neutrophils % 85.2 H Lymphocytes % 6.8 L D Monocytes % 7.2 Eosinophils % 0.3 D Basophils % 0.5 D Nucleated RBC % 0 PT with INR INR PTT (Actin FS) 34.6 Anticoagulation Therapy Puncture Site ABG pH ABG pCO2 at Pt Temp ABG pO2 at Pt Temp ABG HCO3 ABG O2 Sat (Measured) ABG O2 Content ABG Base Excess Usman Test Carboxyhemoglobin Methemoglobin O2 Delivery Device Oxygen Flow Rate Vent Mode Vent Rate Mechanical Rate Pressure Support Vent Sodium Potassium Chloride Carbon Dioxide Anion Gap BUN Creatinine Est GFR (CKD-EPI)AfAm Est GFR (CKD-EPI)NonAf Random Glucose Lactic Acid 0.5 Calcium Magnesium Total Bilirubin AST ALT Alkaline Phosphatase Creatine Kinase Creatine Kinase Index CK-MB (CK-2) Troponin I B-Natriuretic Peptide Total Protein Albumin Urine Color Urine Appearance Urine pH Ur Specific Randolph Urine Protein Urine Glucose (UA) Urine Ketones Urine Blood Urine Nitrite Urine Bilirubin Urine Urobilinogen Ur Leukocyte Esterase Urine WBC (Auto) Urine RBC (Auto) Urine Casts (Auto) U Epithel Cells (Auto) Urine Bacteria (Auto) 12/31/18 12/31/18 12/31/18 00:10 00:40 02:48 WBC RBC Hgb Hct MCV MCH MCHC RDW Plt Count MPV Absolute Neuts (auto) Neutrophils % Lymphocytes % Monocytes % Eosinophils % Basophils % Nucleated RBC % PT with INR 11.80 INR 1.00 PTT (Actin FS) Anticoagulation Therapy Puncture Site Left radial ABG pH 7.29 L ABG pCO2 at Pt Temp 75.1 H* ABG pO2 at Pt Temp 89.7 ABG HCO3 35.0 H ABG O2 Sat (Measured) 95.3 ABG O2 Content 20.6 ABG Base Excess 5.5 H Usman Test Positive Carboxyhemoglobin 1.7 Methemoglobin < 1.0 O2 Delivery Device Bipap Oxygen Flow Rate 40% Vent Mode 20 Vent Rate Mechanical Rate Pressure Support Vent 14 Sodium Potassium Chloride Carbon Dioxide Anion Gap BUN Creatinine Est GFR (CKD-EPI)AfAm Est GFR (CKD-EPI)NonAf Random Glucose Lactic Acid Calcium Magnesium Total Bilirubin AST ALT Alkaline Phosphatase Creatine Kinase Creatine Kinase Index CK-MB (CK-2) Troponin I B-Natriuretic Peptide Cancelled Total Protein Albumin Urine Color Urine Appearance Urine pH Ur Specific Randolph Urine Protein Urine Glucose (UA) Urine Ketones Urine Blood Urine Nitrite Urine Bilirubin Urine Urobilinogen Ur Leukocyte Esterase Urine WBC (Auto) Urine RBC (Auto) Urine Casts (Auto) U Epithel Cells (Auto) Urine Bacteria (Auto) 12/31/18 04:32 WBC RBC Hgb Hct MCV MCH MCHC RDW Plt Count MPV Absolute Neuts (auto) Neutrophils % Lymphocytes % Monocytes % Eosinophils % Basophils % Nucleated RBC % PT with INR INR PTT (Actin FS) Anticoagulation Therapy Puncture Site ABG pH ABG pCO2 at Pt Temp ABG pO2 at Pt Temp ABG HCO3 ABG O2 Sat (Measured) ABG O2 Content ABG Base Excess Usman Test Carboxyhemoglobin Methemoglobin O2 Delivery Device Oxygen Flow Rate Vent Mode Vent Rate Mechanical Rate Pressure Support Vent Sodium Potassium Chloride Carbon Dioxide Anion Gap BUN Creatinine Est GFR (CKD-EPI)AfAm Est GFR (CKD-EPI)NonAf Random Glucose Lactic Acid Calcium Magnesium Total Bilirubin AST ALT Alkaline Phosphatase Creatine Kinase Creatine Kinase Index CK-MB (CK-2) Troponin I 0.05 B-Natriuretic Peptide Total Protein Albumin Urine Color Urine Appearance Urine pH Ur Specific Randolph Urine Protein Urine Glucose (UA) Urine Ketones Urine Blood Urine Nitrite Urine Bilirubin Urine Urobilinogen Ur Leukocyte Esterase Urine WBC (Auto) Urine RBC (Auto) Urine Casts (Auto) U Epithel Cells (Auto) Urine Bacteria (Auto) ASSESSMENT/PLAN: Patient is a 48 year old male with history of obstructive sleep apnea ( intermittently uses CPAP at home), morbid obesity, mild intermittent asthma, hypertension, gastroesophageal reflux presents with complaint of shortness of breath. # Acute on chronic hypercapneic, hypoxic respiratory failure- Acute respiratory acidosis is noted on ABG, improving with BiPAP. Severe hypercapnia may be 2/2 obesity hypoventilation syndrome Versus [place]. Mentating well, no suspicion of CO2 narcosis at this time. Although patient denies carrying CHF dx, this may also be contributing. Patient was noted to have bilateral pedal edema and CXR with new congestive changes. Pt previously had PFTs in 2017 showing both restrictive and obstructive pattern. - Admit to tele - BiPAP PRN - NPO while on BiPAP and 2 hours before to reduce risk of aspiration - f/u repeat ABGs to ensure CO2 is decreasing - trend trops, may have been elevated 2/2 demand - F/U BNP - Duonebs PRN - TTE- to evaluate for heart failure - IV Lasix 40 BID - Strict Is/Os - Daily weights - LE doppler to r/o DVTs - Salt restriction - Fluid restriction # HTN - continue home meds when clinically appropriate #FEN - none, actively diuresing - replete PRN - Na restricted diet #PPx Heparin subcutaneously for DVT prophylaxis #Dispo- admit to tele, full code Visit type - Emergency Visit Emergency Visit: Yes ED Registration Date: 12/31/18 Care time: The patient presented to the Emergency Department on the above date and was hospitalized for further evaluation of their emergent condition. - New Patient This patient is new to me today: Yes Date on this admission: 12/31/18 - Critical Care Critical Care patient: No ATTENDING PHYSICIAN STATEMENT I saw and evaluated the patient. I reviewed the resident's note and discussed the case with the resident. I agree with the resident's findings and plan as documented. SUBJECTIVE: OBJECTIVE: ASSESSMENT AND PLAN:
[2018-12-31 08:37] LABS: ALBUMIN 3.5 g/dl (3.4-5.0); BILIRUBIN,TOTAL 0.6 mg/dL (0.2-1); BLOOD UREA NITROGEN 10.5 mg/dL (7-18); CALCIUM 8.7 mg/dL (8.5-10.1); CREATININE 1.2 mg/dL (0.55-1.3); HEMATOCRIT 50.9 % (35.4-49); HEMOGLOBIN 15.8 GM/dL (11.7-16.9); LYMPH % 3.2 % (8-40); MCH 28.8 pg (25.7-33.7); MCHC 31.1 g/dl (32.0-35.9); MEAN CELL VOLUME 92.6 fl (80-96); MEAN PLT VOLUME 8.6 fl (7.5-11.1); MONO % 1.1 % (3.8-10.2); N-TERMINAL BNP 273.9 pg/ml (5-125); NEUT % 95.7 % (42.8-82.8); PHOSPHOROUS 5.8 mg/dL (2.5-4.9); PLATELET COUNT 243 K/MM3 (134-434); POTASSIUM 4.7 mmol/L (3.5-5.1); RDW 16.6 % (11.9-15.9); TOT PROT 8.2 g/dl (6.4-8.2); WHITE BLOOD COUNT 10.1 K/mm3 (4.0-10.0)
[2018-12-31] MEDS ORDERED: FUROSEMIDE 40 MG/4 ML INJECTABLE VIAL IVPUSH SCH (10:00)
[2018-12-31] MEDS ORDERED: FLU VACCINE QUAD 60 MCG/0.5 ML (MDV 19-20) IM ONE (10:00)
[2018-12-31 11:22] LABS: ANISOCYTOSIS 1+; MACROCYTOSIS 0; PLATELET ESTIMATE NORMAL; TARGET CELLS 1+; TEAR DROP CELLS 1+; TOXIC GRANULATION 1+
--- NOTE | 2018-12-31 13:25 | CON.CARD ---
Consult Consult Specialty:: Cardiology Referred by:: Hospitalist Medicine Reason for Consultation:: STREET, chest pain, HTN urgency - History of Present Illness Chief Complaint: TSREET, chest pain History of Present Illness: 48-year-old male with hypertension, [place], morbid obesity, achalasia presenting with 5 days of worsening shortness of breath, nonproductive cough. Patient has as needed home oxygen and BiPAP device with which he is believed to be noncompliant. He also admits to medication noncompliance, but denies diet noncompliance or NSAID use. Patient noted to have PFTs performed and had restricted and obstructive component. In the emergency room received methylprednisolone, Lasix and bronchodilator with relief. Last saw Dr. Adams 2 years ago for post-TKR CV evaluation, mother requests f/u with us. - History Source History Provided By: Patient Limitations to Obtaining History: No Limitations - Past Medical History Cardio/Vascular: Yes: HTN Pulmonary: Yes: Asthma, Sleep Apnea - Past Surgical History Past Surgical History: Yes: Arthrosocopy, Tonsillectomy - Alcohol/Substance Use Hx Alcohol Use: No - Smoking History Smoking history: Never smoked Have you smoked in the past 12 months: No Aproximately how many cigarettes per day: 3 If you are a former smoker, when did you quit?: 2016 Home Medications - Allergies Allergies/Adverse Reactions: Allergies Allergy/AdvReac Type Severity Reaction Status Date / Time Penicillins Allergy Severe SWELLING,HI Verified 12/30/18 20:47 VES STRAWBERRY Allergy Intermediate SWELLING,HI Uncoded 12/30/18 20:47 VES TOMATOES Allergy Intermediate SWELLING , Uncoded 12/30/18 20:47 HIVES PEANUTS AdvReac Intermediate SWELLING, Uncoded 12/30/18 20:47 HIVES - Home Medications Home Medications: Ambulatory Orders Lisinopril [Prinivil -] 40 mg PO DAILY 03/27/16 Clotrimazole/Betamet Diprop [Lotrisone -] 1 applic ID BID 12/31/18 Furosemide Oral Solution [Lasix Oral Solution -] 4 ml PO BID 12/31/18 Potassium Chloride [Potassium Chloride Oral Liquid] 20 meq PO BID 12/31/18 Review of Systems - Review of Systems Cardiovascular: reports: Chest Pain Respiratory: reports: Cough, Exercise Intolerance, SOB on Exertion Vital Signs: Vital Signs Temperature 98.7 F 12/31/18 12:00 Pulse Rate 96 H 12/31/18 12:00 Respiratory Rate 20 12/31/18 12:00 Blood Pressure 118/85 12/31/18 12:00 O2 Sat by Pulse Oximetry (%) 95 12/31/18 09:00 Constitutional: Yes: No Distress, Calm Neck: Yes: Supple Respiratory: Yes: Regular, Diminished Gastrointestinal: Yes: Normal Bowel Sounds, Soft, Abdomen, Obese Cardiovascular: Yes: Regular Rate and Rhythm JVD: No Carotid Bruit: No Heart Sounds: Yes: S1, S2 Edema: Yes Edema: LLE: 1+, RLE: 1+ - Other Data Labs, Other Data: CBC, BMP 12/31/18 06:55 12/31/18 06:55 INR, PTT INR 1.00 (0.83-1.09) 12/31/18 00:10 Troponin, BNP 12/30/18 12/31/18 12/31/18 23:10 02:48 04:32 Troponin I 0.07 H 0.05 B-Natriuretic Peptide 294.9 H Cancelled 12/31/18 06:55 Troponin I B-Natriuretic Peptide 273.9 H Troponin, BNP 12/30/18 12/31/18 12/31/18 23:10 02:48 04:32 Troponin I 0.07 H 0.05 B-Natriuretic Peptide 294.9 H Cancelled 12/31/18 06:55 Troponin I B-Natriuretic Peptide 273.9 H NSR @ 5 LAE, PAC Echo: Report Reviewed Ejection Fraction %: LVEF > or = 40 % Imaging - Results Chest X-ray: Report Reviewed (NAD) Ultrasound: Report Reviewed (No DVT bilaterally) Problem List - Problems (1) Acute hypercapnic respiratory failure due to obstructive sleep apnea Code(s): J96.02 - ACUTE RESPIRATORY FAILURE WITH HYPERCAPNIA; G47.33 - OBSTRUCTIVE SLEEP APNEA (ADULT) (PEDIATRIC) (2) Chest pain Code(s): R07.9 - CHEST PAIN, UNSPECIFIED Qualifiers: Chest pain type: unspecified Qualified Code(s): R07.9 - Chest pain, unspecified (3) Hypertension Code(s): I10 - ESSENTIAL (PRIMARY) HYPERTENSION Qualifiers: Hypertension type: essential hypertension Qualified Code(s): I10 - Essential (primary) hypertension (4) Morbid (severe) obesity due to excess calories Code(s): E66.01 - MORBID (SEVERE) OBESITY DUE TO EXCESS CALORIES Assessment/Plan Echo: 12/31/2018 Normal LV size and fxn, mild cLVH [id number]%, abnl LV compliance, normal RV size and fxn, mild MR echo 09/2016: Nl LV/V size and fxn, tr TR P-myoview 09/2016: nl mpi, normal LVEF ecg 11/01/16: sr, nl intervals, no ischemic changes, pac 1. Acute on chronic hypercapneic respiratory failure 2. Acute exacerbation of asthma 3. Diastolic dysfunctiuon w/ h/o failure 4. OSAS/OHS noncompliant with cpap 5. Hypertensive urgency 2/2 med noncompliance improved 6. Achalasia P:1. Decrease IV diuresis with monitor diuretic response, renal fxn and electrolytes 2. BD, O2, NIPPV as needed to maintain saO2>90% 3. F/u repeat echocardiogram 4. Continue lisinopril 40 qd 5. DVT and GI prophylaxis 6. Thank you for consultative opportunity
[2018-12-31] MEDS: ENOXAPARIN NA (PORCINE) 40 MG/0.4 ML DISP.SYRIN SQ SCH (13:26)
--- NOTE | 2018-12-31 14:00 | ECHO ---
Name: RICKEY CUTLER Exam:Adult Echocardiogram Study Date: 12/31/2018 11:11 AM Age: 48 yrs Reason For Study: EVALUATE LVF Height: 67 in Weight: 323 lb BSA: 2.5 m2 MMode/2D Measurements & Calculations IVSd: 1.1 cm Ao root diam: 3.6 cm LVIDd: 5.4 cm LA dimension: 3.5 cm LVIDs: 3.4 cm LVPWd: 1.1 cm EDV(Teich): 142.0 ml LVOT diam: 2.2 cm ESV(Teich): 46.3 ml Doppler Measurements & Calculations MV E max john: 53.1 cm/sec Ao V2 max: 166.8 cm/sec MV A max john: 68.4 cm/sec Ao max P.1 mmHg MV E/A: 0.78 MV dec time: 0.19 sec JOHN(V,D): 3.3 cm2 LV V1 max P.1 mmHg TR max john: 300.0 cm/sec LV V1 max: 142.5 cm/sec TR max P.0 mmHg Med Peak E' John: 4.2 cm/sec Med E/e': 12.6 Lat Peak E' John: 7.2 cm/sec Lat E/e': 7.4 Procedure The study was technically difficult with many images being suboptimal in quality. Left Ventricle There is mild concentric left ventricular hypertrophy. Left ventricular systolic function is normal. Ejection Fraction = 55-60%. The transmitral spectral Doppler flow pattern is suggestive of impaired LV relaxat ion. Regional wall motion abnormalities cannot be excluded due to limited visualization. Right Ventricle The right ventricle is not well visualized. The right ventricle is grossly normal size. The right shmuel tricular systolic function is grossly normal. Atria Normal left and right atrial size and function. Mitral Valve The mitral valve is normal in structure and function. There is no mitral valve stenosis. There is mil d mitral regurgitation. Tricuspid Valve The tricuspid valve is normal in structure and function. There is trace tricuspid regurgitation. Aortic Valve The aortic valve opens well. No hemodynamically significant valvular aortic stenosis. No aortic regur gitation is present. Pulmonic Valve The pulmonic valve is not well seen, but is grossly normal. There is no pulmonic valvular stenosis. M ild pulmonic valvular regurgitation. Great Vessels Borderline aortic root dilatation. Pericardium/Pleura Trivial pericardial effusion not hemodynamically significant. Interpretation Summary The study was technically difficult with many images being suboptimal in quality. Regional wall motion abnormalities cannot be excluded due to limited visualization. Left ventricular systolic function is normal. Ejection Fraction = 55-60%. There is mild concentric left ventricular hypertrophy. The transmitral spectral Doppler flow pattern is suggestive of impaired LV relaxation. The right ventricle is not well visualized. The right ventricle is grossly normal size. The right ventricular systolic function is grossly normal. There is mild mitral regurgitation. Borderline aortic root dilatation. Trivial pericardial effusion not hemodynamically significant MD Adonis Chua 12/31/2018 01:59 PM
--- NOTE | 2018-12-31 14:30 | EKG ---
Test Reason : Blood Pressure : / mmHG Vent. Rate : 095 BPM Atrial Rate : 095 BPM P-R Int : 162 ms QRS Dur : 098 ms QT Int : 370 ms P-R-T Axes : 037 007 036 degrees QTc Int : 464 ms SINUS RHYTHM WITH PREMATURE ATRIAL COMPLEXES POSSIBLE LEFT ATRIAL ENLARGEMENT NONSPECIFIC INTRAVENTRICULAR CONDUCTION DEFECT Confirmed by ZEINAB ALVAREZ MD ([id number]) on 12/31/2018 2:29:49 PM Referred By: Confirmed By:ZEINAB ALVAREZ MD
[2018-12-31 15:35] LABS: HYALINE CASTS 17 /lpf (0-8); URINE APPEARANCE CLEAR; URINE BACTERIA 1.7 /hpf (NEGATIVE); URINE BILIRUBIN NEGATIVE (NEGATIVE); URINE COLOR YELLOW; URINE GLUCOSE (UA) NEGATIVE (NEGATIVE); URINE KETONE NEGATIVE (NEGATIVE); URINE LEUK ESTERASE NEGATIVE (NEGATIVE); URINE NITRITE NEGATIVE (NEGATIVE); URINE PROTEIN NEGATIVE (NEGATIVE); URINE RBC 21 /hpf (0-4); URINE WBC 1 /hpf (0-5)
[2018-12-31] MEDS: ALBUTEROL SO4 2.5/IPRATROPIUM 0.5 INH SOL 3 ML VIAL.NEB. NEB PRN ×2 (16:30→20:20)
--- NOTE | 2018-12-31 18:11 | PN ---
Physical Exam: SUBJECTIVE: Patient seen and examined Patient is a 48 year old male with history of [place], morbid obesity, mild intermittent asthma, hypertension, gastroesophageal reflux presents with complaint of shortness of breath of 1 week duration and elevated blood pressure of one day duration. Currently, pts symptoms have improved. However, pt stll c/ o of difficulty speaking and becoming short of breath with exertion. Pt is on oxygen and is saturating well. Pt is afebrile, normotensive and currently has no c/o. Denies f/c/n/v/d, chest pain, recent contact with sick individuals. OBJECTIVE: Vital Signs Last Vital Signs Temp Pulse Resp BP Pulse Ox 98.7 F 90 20 110/60 96 12/31/18 17:00 12/31/18 17:00 12/31/18 17:00 12/31/18 17:00 12/31/18 16:31 GENERAL: The patient is awake, alert, and fully oriented, in no acute distress. Morbidly obese EYES: PERRL, extraocular movements intact, ENT: moist mucous membranes. NECK: upple. LUNGS: Breath sounds equal, no wheezes, crackles appreciated, HEART: Regular rate and Irregular rhythm- likely pauses, no S1, S2 without murmur, rub or gallop. ABDOMEN: Soft, nontender, nondistended, normoactive bowel sounds, no guarding, no rebound, EXTREMITIES: 2+ pulses, warm, b/l Edema. NEUROLOGICAL: Cranial nerves II through XII grossly intact. SKIN: Warm, dry, Laboratory Results - last 24 hr CBC,CMP WBC 10.1 K/mm3 (4.0-10.0) H 12/31/18 06:55 RBC 5.50 M/mm3 (4.00-5.60) 12/31/18 06:55 Hgb 15.8 GM/dL (11.7-16.9) 12/31/18 06:55 Hct 50.9 % (35.4-49) H 12/31/18 06:55 MCV 92.6 fl (80-96) 12/31/18 06:55 MCH 28.8 pg (25.7-33.7) 12/31/18 06:55 MCHC 31.1 g/dl (32.0-35.9) L 12/31/18 06:55 RDW 16.6 % (11.9-15.9) H 12/31/18 06:55 Plt Count 243 K/MM3 (134-434) 12/31/18 06:55 MPV 8.6 fl (7.5-11.1) 12/31/18 06:55 Absolute Neuts (auto) 9.7 K/mm3 (1.5-8.0) H 12/31/18 06:55 Neutrophils % 95.7 % (42.8-82.8) H 12/31/18 06:55 Neutrophils % (Manual) 94.0 % (42.8-82.8) H 12/31/18 06:55 Band Neutrophils % 0.0 % 12/31/18 06:55 Lymphocytes % 3.2 % (8-40) L D 12/31/18 06:55 Lymphocytes % (Manual) 3.0 % (8-40) L D 12/31/18 06:55 Monocytes % 1.1 % (3.8-10.2) L D 12/31/18 06:55 Monocytes % (Manual) 0 % (3.8-10.2) L D 12/31/18 06:55 Eosinophils % 0.0 % (0-4.5) D 12/31/18 06:55 Eosinophils % (Manual) 0.0 % (0-4.5) 12/31/18 06:55 Basophils % 0.0 % (0-2.0) 12/31/18 06:55 Basophils % (Manual) 0.0 % (0-2.0) 12/31/18 06:55 Myelocytes % (Man) 0 % (0-2) 12/31/18 06:55 Promyelocytes % (Man) 0 % (0-2) 12/31/18 06:55 Blast Cells % (Manual) 0 % (0-0) 12/31/18 06:55 Nucleated RBC % 0 % (0-0) 12/31/18 06:55 Metamyelocytes 0 % (0-2) 12/31/18 06:55 Hypochromia 0 12/31/18 06:55 Toxic Granulation 1+ 12/31/18 06:55 Platelet Estimate Normal 12/31/18 06:55 Platelet Comment Present 12/31/18 06:55 Polychromasia 1+ 12/31/18 06:55 Poikilocytosis 1+ 12/31/18 06:55 Anisocytosis 1+ 12/31/18 06:55 Microcytosis 1+ 12/31/18 06:55 Macrocytosis 0 12/31/18 06:55 Spherocytes 1+ 12/31/18 06:55 Target Cells 1+ 12/31/18 06:55 Tear Drop Cells 1+ 12/31/18 06:55 Stomatocytes 1+ 12/31/18 06:55 Sodium 138 mmol/L (136-145) 12/31/18 06:55 Potassium 4.7 mmol/L (3.5-5.1) 12/31/18 06:55 Chloride 94 mmol/L (98-107) L 12/31/18 06:55 Carbon Dioxide 39 mmol/L (21-32) H 12/31/18 06:55 Anion Gap 5 MMOL/L (8-16) L 12/31/18 06:55 BUN 10.5 mg/dL (7-18) 12/31/18 06:55 Creatinine 1.2 mg/dL (0.55-1.3) 12/31/18 06:55 Est GFR (CKD-EPI)AfAm 83.54 12/31/18 06:55 Est GFR (CKD-EPI)NonAf 72.08 12/31/18 06:55 Random Glucose 147 mg/dL (74-106) H 12/31/18 06:55 Lactic Acid 0.5 mmol/L (0.4-2.0) 12/31/18 00:10 Calcium 8.7 mg/dL (8.5-10.1) 12/31/18 06:55 Phosphorus 5.8 mg/dL (2.5-4.9) H 12/31/18 06:55 Magnesium 2.0 mg/dL (1.8-2.4) 12/31/18 06:55 Total Bilirubin 0.6 mg/dL (0.2-1) 12/31/18 06:55 AST 21 U/L (15-37) 12/31/18 06:55 ALT 34 U/L (13-61) 12/31/18 06:55 Alkaline Phosphatase 85 U/L (45-117) 12/31/18 06:55 Creatine Kinase 446 U/L (26-308) H 12/30/18 23:10 Creatine Kinase Index 1.3 % (0.0-5.0) 12/30/18 23:10 CK-MB (CK-2) 6.0 ng/mL (0.5-3.6) H 12/30/18 23:10 Troponin I 0.05 ng/ml (0.00-0.05) 12/31/18 04:32 B-Natriuretic Peptide 273.9 pg/ml (5-125) H 12/31/18 06:55 Total Protein 8.2 g/dl (6.4-8.2) 12/31/18 06:55 Albumin 3.5 g/dl (3.4-5.0) 12/31/18 06:55 Active Medications Home Medications Medication Instructions Recorded Lisinopril [Prinivil -] 40 mg PO DAILY 03/27/16 Clotrimazole/Betamet Diprop 1 applic ID BID 12/31/18 [Lotrisone -] Furosemide Oral Solution [Lasix 4 ml PO BID 12/31/18 Oral Solution -] Potassium Chloride [Potassium 20 meq PO BID 12/31/18 Chloride Oral Liquid] Current Medications Albuterol/Ipratropium (Duoneb -) 1 amp NEB Q4H PRN PRN Reason: SHORTNESS OF BREATH Last Admin: 12/31/18 16:30 Dose: 1 amp Clotrimazole (Lotrisone Cream (Small Tube)) 1 applic NR BID [facility] Enoxaparin Sodium (Lovenox -) 40 mg SQ DAILY [facility] Last Admin: 12/31/18 13:26 Dose: 40 mg Furosemide (Lasix Injection -) 40 mg IVPUSH DAILY [facility] Lisinopril (Prinivil) 40 mg PO DAILY [facility] ASSESSMENT/PLAN: Patient is a 48 year old male with history of [place], morbid obesity, mild intermittent asthma, hypertension, gastroesophageal reflux presents with SOB and elevated BP # Acute on chronic hypercapneic, hypoxic respiratory failure vs acute asthma exacerbation ABG is evident for respiratory acidosis PFTs in 2017 showing both restrictive and obstructive pattern. monitor on tele BiPAP PRN currently on NC O2 NPO while on BiPAP and 2 hours before to reduce risk of aspiration r/p ABGs BNP-273.9 Duonebs PRN IV Lasix 40 daily as per Cardio Strict Is/Os LE doppler to r/o DVTs ECHO: mild LVH, EF normal Cardio consult appreciated # HTN - continue home meds #FEN - Lasiks 40 daily - Na restricted diet #PPx Heparin sq #Dispo- monitor on tele, symptomatic management Visit type - Emergency Visit Emergency Visit: Yes ED Registration Date: 12/31/18 Care time: The patient presented to the Emergency Department on the above date and was hospitalized for further evaluation of their emergent condition. - New Patient This patient is new to me today: Yes Date on this admission: 12/31/18 - Critical Care Critical Care patient: No - Discharge Referral Referred to [facility] Med P.C.: No ATTENDING PHYSICIAN STATEMENT I saw and evaluated the patient. I reviewed the resident's note and discussed the case with the resident. I agree with the resident's findings and plan as documented. SUBJECTIVE: OBJECTIVE: ASSESSMENT AND PLAN:
--- NOTE | 2018-12-31 18:22 | PN ---
Teaching Attending Note Name of Resident: Parvin Kaminski ATTENDING PHYSICIAN STATEMENT I saw and evaluated the patient. I reviewed the resident's note and discussed the case with the resident. I agree with the resident's findings and plan as documented. SUBJECTIVE:seen at 12 pm SOB is better after lasix. has no fever or chills. dry cough , no CP.reported sore throat OBJECTIVE: NAD, awake, alert, cooperative HEENt: erythematous oropharynx, no uvula , no thrush. No LAP in neck CV: RRR, No JVD Lungs: minimal wheezing LE edema 1+ on LE ASSESSMENT AND PLAN: 48 y/o man with h/o diastolic CHF , [place], HTN, obesity, esophageal stricture, asthma ( last episode many years ago) , GERD, on Home O2, and CPAP who presented with SOB and was found to have acute hypoxic hypercapnic resp failure 1- Acute hypoxic resp failure, probably due to acute diastolic CHF. doubt asthma exacerbation . No evidence of PNA . [place] and obesity hypoventilation are contributing - cont lasix 40 Iv daily - cont lisinorpil - cont BIPAP at night , and O2 supplementation - order flu swab - strict I&O and weight - ABG in am - tele 2- Hematuria: No urinary sx. mom report trauma during urine collection . No signs of UTI - will repeat UA in am 3- HTN : lisinopril DVT PX : lovenox HLOC
[2018-12-31] MEDS: CLOTRIMAZOLE/BETAMET DIPROP 15 GM TUBE NR SCH (21:46)
[2018-12-31] MEDS ORDERED: FUROSEMIDE 40 MG/5 ML UNIT-DOSE CUP PO SCH (22:00)
[2019-01-01 07:40] LABS: BASO % 0.2 % (0-2.0); EOS % 0.2 % (0-4.5); HEMATOCRIT 49.4 % (35.4-49); HEMOGLOBIN 15.2 GM/dL (11.7-16.9); LYMPH % 10.5 % (8-40); MCH 28.5 pg (25.7-33.7); MCHC 30.7 g/dl (32.0-35.9); MEAN CELL VOLUME 92.8 fl (80-96); MEAN PLT VOLUME 8.7 fl (7.5-11.1); NEUT % 80.1 % (42.8-82.8); PLATELET COUNT 242 K/MM3 (134-434); RBC 5.33 M/mm3 (4.00-5.60); RDW 16.8 % (11.9-15.9); WHITE BLOOD COUNT 8.5 K/mm3 (4.0-10.0)
[2019-01-01 08:11] LABS: ALBUMIN 3.2 g/dl (3.4-5.0); BILIRUBIN,TOTAL 0.5 mg/dL (0.2-1); BLOOD UREA NITROGEN 19.5 mg/dL (7-18); CALCIUM 8.7 mg/dL (8.5-10.1); CREATININE 1.1 mg/dL (0.55-1.3); POTASSIUM 4.2 mmol/L (3.5-5.1); TOT PROT 7.6 g/dl (6.4-8.2)
[2019-01-01] MEDS: FUROSEMIDE 40 MG/4 ML INJECTABLE VIAL IVPUSH SCH (10:22)
[2019-01-01] MEDS: ENOXAPARIN NA (PORCINE) 40 MG/0.4 ML DISP.SYRIN SQ SCH (10:22)
[2019-01-01] MEDS: LISINOPRIL 20 MG TABLET (FP) PO SCH (10:28)
[2019-01-01] MEDS ORDERED: FLU VACCINE QUAD 60 MCG/0.5 ML (MDV 19-20) IM ONE (12:42)
--- NOTE | 2019-01-01 12:52 | PN ---
Physical Exam: SUBJECTIVE: Patient seen and examined Patient is a 48 year old male with history of [place], morbid obesity, mild intermittent asthma, hypertension, gastroesophageal reflux presented with complaint of shortness of breath of 1 week duration and elevated blood pressure is admitted for acute on chronic hypercapneic, hypoxic respiratory failure. Today pts symptoms have improved. Pt is on BiPAP and is saturating well. Pt is afebrile, normotensive and currently has no c/o. Denies f/c/n/v/d, chest pain, recent contact with sick individuals. OBJECTIVE: Vital Signs Last Vital Signs Temp Pulse Resp BP Pulse Ox 98.1 F 95 H 22 H 92/50 L 94 L 01/01/19 10:00 01/01/19 10:00 01/01/19 10:00 01/01/19 10:00 01/01/19 09:00 GENERAL: The patient is awake, alert, and fully oriented, in no acute distress. Morbidly obese EYES: PERRL, extraocular movements intact, ENT: moist mucous membranes. NECK: upple. LUNGS: Breath sounds equal, no wheezes, crackles appreciated, HEART: Regular rate and Irregular rhythm- likely pauses, no S1, S2 without murmur, rub or gallop. ABDOMEN: Soft, nontender, nondistended, normoactive bowel sounds, no guarding, no rebound, EXTREMITIES: 2+ pulses, warm, b/l Edema. NEUROLOGICAL: Cranial nerves II through XII grossly intact. SKIN: Warm, dry, Laboratory Results - last 24 hr CBC,CMP WBC 8.5 K/mm3 (4.0-10.0) 01/01/19 06:30 RBC 5.33 M/mm3 (4.00-5.60) 01/01/19 06:30 Hgb 15.2 GM/dL (11.7-16.9) 01/01/19 06:30 Hct 49.4 % (35.4-49) H 01/01/19 06:30 MCV 92.8 fl (80-96) 01/01/19 06:30 MCH 28.5 pg (25.7-33.7) 01/01/19 06:30 MCHC 30.7 g/dl (32.0-35.9) L 01/01/19 06:30 RDW 16.8 % (11.9-15.9) H 01/01/19 06:30 Plt Count 242 K/MM3 (134-434) 01/01/19 06:30 MPV 8.7 fl (7.5-11.1) 01/01/19 06:30 Absolute Neuts (auto) 6.8 K/mm3 (1.5-8.0) 01/01/19 06:30 Neutrophils % 80.1 % (42.8-82.8) 01/01/19 06:30 Neutrophils % (Manual) 94.0 % (42.8-82.8) H 12/31/18 06:55 Band Neutrophils % 0.0 % 12/31/18 06:55 Lymphocytes % 10.5 % (8-40) D 01/01/19 06:30 Lymphocytes % (Manual) 3.0 % (8-40) L D 12/31/18 06:55 Monocytes % 9.0 % (3.8-10.2) D 01/01/19 06:30 Monocytes % (Manual) 0 % (3.8-10.2) L D 12/31/18 06:55 Eosinophils % 0.2 % (0-4.5) D 01/01/19 06:30 Eosinophils % (Manual) 0.0 % (0-4.5) 12/31/18 06:55 Basophils % 0.2 % (0-2.0) D 01/01/19 06:30 Basophils % (Manual) 0.0 % (0-2.0) 12/31/18 06:55 Myelocytes % (Man) 0 % (0-2) 12/31/18 06:55 Promyelocytes % (Man) 0 % (0-2) 12/31/18 06:55 Blast Cells % (Manual) 0 % (0-0) 12/31/18 06:55 Nucleated RBC % 0 % (0-0) 01/01/19 06:30 Metamyelocytes 0 % (0-2) 12/31/18 06:55 Hypochromia 0 12/31/18 06:55 Toxic Granulation 1+ 12/31/18 06:55 Platelet Estimate Normal 12/31/18 06:55 Platelet Comment Present 12/31/18 06:55 Polychromasia 1+ 12/31/18 06:55 Poikilocytosis 1+ 12/31/18 06:55 Anisocytosis 1+ 12/31/18 06:55 Microcytosis 1+ 12/31/18 06:55 Macrocytosis 0 12/31/18 06:55 Spherocytes 1+ 12/31/18 06:55 Target Cells 1+ 12/31/18 06:55 Tear Drop Cells 1+ 12/31/18 06:55 Stomatocytes 1+ 12/31/18 06:55 Sodium 141 mmol/L (136-145) 01/01/19 06:30 Potassium 4.2 mmol/L (3.5-5.1) 01/01/19 06:30 Chloride 96 mmol/L (98-107) L 01/01/19 06:30 Carbon Dioxide 40 mmol/L (21-32) H 01/01/19 06:30 Anion Gap 5 MMOL/L (8-16) L 01/01/19 06:30 BUN 19.5 mg/dL (7-18) H 01/01/19 06:30 Creatinine 1.1 mg/dL (0.55-1.3) 01/01/19 06:30 Est GFR (CKD-EPI)AfAm 92.81 01/01/19 06:30 Est GFR (CKD-EPI)NonAf 80.08 01/01/19 06:30 Random Glucose 88 mg/dL (74-106) 01/01/19 06:30 Lactic Acid 0.5 mmol/L (0.4-2.0) 12/31/18 00:10 Calcium 8.7 mg/dL (8.5-10.1) 01/01/19 06:30 Phosphorus 5.8 mg/dL (2.5-4.9) H 12/31/18 06:55 Magnesium 2.0 mg/dL (1.8-2.4) 12/31/18 06:55 Total Bilirubin 0.5 mg/dL (0.2-1) 01/01/19 06:30 AST 19 U/L (15-37) 01/01/19 06:30 ALT 29 U/L (13-61) 01/01/19 06:30 Alkaline Phosphatase 77 U/L (45-117) 01/01/19 06:30 Creatine Kinase 446 U/L (26-308) H 12/30/18 23:10 Creatine Kinase Index 1.3 % (0.0-5.0) 12/30/18 23:10 CK-MB (CK-2) 6.0 ng/mL (0.5-3.6) H 12/30/18 23:10 Troponin I 0.05 ng/ml (0.00-0.05) 12/31/18 04:32 B-Natriuretic Peptide 273.9 pg/ml (5-125) H 12/31/18 06:55 Total Protein 7.6 g/dl (6.4-8.2) 01/01/19 06:30 Albumin 3.2 g/dl (3.4-5.0) L 01/01/19 06:30 Active Medications Current Medications Albuterol/Ipratropium (Duoneb -) 1 amp NEB Q4H PRN PRN Reason: SHORTNESS OF BREATH Last Admin: 12/31/18 20:20 Dose: 1 amp Clotrimazole (Lotrisone Cream (Small Tube)) 1 applic NR BID [facility] Last Admin: 12/31/18 21:46 Dose: 1 applic Enoxaparin Sodium (Lovenox -) 40 mg SQ DAILY [facility] Last Admin: 01/01/19 10:22 Dose: 40 mg Furosemide (Lasix Injection -) 40 mg IVPUSH DAILY [facility] Last Admin: 01/01/19 10:22 Dose: 40 mg Influenza Virus Vaccine Quadrival (Flulaval Quad [id number]) 60 mcg IM .ONCE ONE Stop: 01/01/19 12:43 Lisinopril (Prinivil) 40 mg PO DAILY [facility] Last Admin: 01/01/19 10:28 Dose: Not Given Home Medications Medication Instructions Recorded Lisinopril [Prinivil -] 40 mg PO DAILY 03/27/16 Clotrimazole/Betamet Diprop 1 applic ID BID 12/31/18 [Lotrisone -] Furosemide Oral Solution [Lasix 4 ml PO BID 12/31/18 Oral Solution -] Potassium Chloride [Potassium 20 meq PO BID 12/31/18 Chloride Oral Liquid] ASSESSMENT/PLAN: ASSESSMENT/PLAN: Patient is a 48 year old male with history of [place], morbid obesity, mild intermittent asthma, hypertension, gastroesophageal reflux presents with SOB and elevated BP #Acute on chronic hypercapneic, hypoxic respiratory failure vs acute asthma exacerbation ABG is evident for respiratory acidosis monitor on tele BiPAP PRN NPO while on BiPAP and 2 hours before to reduce risk of aspiration ABG- remains in resp acidosis Duonebs PRN Cont IV Lasix 40 daily as per Cardio Strict Is/Os and weight LE doppler- negative for DVT ECHO: mild LVH, EF normal Cardio consult appreciated flu swab negative #Hematuria UCx- negative No evidence of UTI Will monitor UA # HTN continue home meds- cont lisinopril #FEN Lasiks 40 daily Na restricted diet #PPx Heparin sq #Dispo- monitor on tele, symptomatic management, monitor I&O and daily weights Visit type - Emergency Visit Emergency Visit: Yes ED Registration Date: 12/31/18 Care time: The patient presented to the Emergency Department on the above date and was hospitalized for further evaluation of their emergent condition. - New Patient This patient is new to me today: Yes Date on this admission: 01/03/19 - Critical Care Critical Care patient: No - Discharge Referral Referred to [facility] Med P.C.: No ATTENDING PHYSICIAN STATEMENT I saw and evaluated the patient. I reviewed the resident's note and discussed the case with the resident. I agree with the resident's findings and plan as documented. SUBJECTIVE: OBJECTIVE: ASSESSMENT AND PLAN:
--- NOTE | 2019-01-01 13:07 | PN ---
Progress Note, Physician Chief Complaint: Events noted Dyspnea improving History of Present Illness: Patient was seen and examined. Awake and alert. Chart was reviewed Denies chest pain or palpitations Less SOB - Current Medication List Current Medications: Active Medications Albuterol/Ipratropium (Duoneb -) 1 amp NEB Q4H PRN PRN Reason: SHORTNESS OF BREATH Last Admin: 12/31/18 20:20 Dose: 1 amp Clotrimazole (Lotrisone Cream (Small Tube)) 1 applic NR BID [facility] Last Admin: 12/31/18 21:46 Dose: 1 applic Enoxaparin Sodium (Lovenox -) 40 mg SQ DAILY [facility] Last Admin: 01/01/19 10:22 Dose: 40 mg Furosemide (Lasix Injection -) 40 mg IVPUSH DAILY [facility] Last Admin: 01/01/19 10:22 Dose: 40 mg Lisinopril (Prinivil) 40 mg PO DAILY [facility] Last Admin: 01/01/19 10:28 Dose: Not Given - Objective Vital Signs: Vital Signs Temperature 98.1 F 01/01/19 10:00 Pulse Rate 95 H 01/01/19 10:00 Respiratory Rate 22 H 01/01/19 10:00 Blood Pressure 92/50 L 01/01/19 10:00 O2 Sat by Pulse Oximetry (%) 94 L 01/01/19 09:00 Eyes: Yes: PERRL HENT: Yes: Atraumatic Neck: Yes: Supple Cardiovascular: Yes: Regular Rate and Rhythm, Murmur (Soft SM), S1, S2 Respiratory: Yes: Diminished, SOB Gastrointestinal: Yes: Normal Bowel Sounds, Soft, Abdomen, Obese. No: Tenderness Edema: Yes Additional Findings/Remarks: - Review of Systems Constitutional: denies: Chills, Fever Cardiovascular: (+) Shortness of Breath. denies: Chest Pain, Palpitations Respiratory: denies Cough, (+) SOB, SOB on Exertion. denies: Hemoptysis, Orthopnea, PND Gastrointestinal: denies: Abdominal Pain, Constipation, Diarrhea, Melena, Nausea , Rectal Bleeding, Vomiting Genitourinary: denies: Dysuria, Hematuria Musculoskeletal: denies: Back Pain, Joint Pain Neurological: denies: Dizziness, Headache, Seizure, Syncope Labs: CBC, BMP 01/01/19 06:30 01/01/19 06:30 INR, PTT INR 1.00 (0.83-1.09) 12/31/18 00:10 Problem List - Problems (1) Acute hypercapnic respiratory failure due to obstructive sleep apnea Code(s): J96.02 - ACUTE RESPIRATORY FAILURE WITH HYPERCAPNIA; G47.33 - OBSTRUCTIVE SLEEP APNEA (ADULT) (PEDIATRIC) (2) Acute on chronic respiratory failure with hypoxia and hypercapnia Code(s): J96.21 - ACUTE AND CHRONIC RESPIRATORY FAILURE WITH HYPOXIA; J96.22 - ACUTE AND CHRONIC RESPIRATORY FAILURE WITH HYPERCAPNIA (3) GERD (gastroesophageal reflux disease) Code(s): K21.9 - GASTRO-ESOPHAGEAL REFLUX DISEASE WITHOUT ESOPHAGITIS (4) Hypertension Code(s): I10 - ESSENTIAL (PRIMARY) HYPERTENSION Qualifiers: Hypertension type: essential hypertension Qualified Code(s): I10 - Essential (primary) hypertension Assessment/Plan 1. Acute on chronic hypercapneic respiratory failure 2. Acute exacerbation of asthma 3. Diastolic dysfunction with history of failure 4. OSAS noncompliant with CPAP 5. Hypertensive urgency due to medication noncompliance 6. Achalasia PLAN: 1. IV diuresis (Lasix 40 mg IV) with monitoring renal function and electrolytes 2. Bronchodilator, O2 and NIPPV as needed 3. Echocardiography report reviewed 4. Continue Lisinopril 40 mg QD 5. DVT and GI prophylaxis Ismael Frausto MD
--- NOTE | 2019-01-01 13:31 | CON.PULM ---
Consult Consult Specialty:: PULMONARY Referred by:: SOLEDAD Reason for Consultation:: SOB/OSAS/OHS - History of Present Illness Chief Complaint: SOB History of Present Illness: Patient is a 48 year old male with history of obstructive sleep apnea ( intermittently uses CPAP at home), morbid obesity, mild intermittent asthma, hypertension, gastroesophageal reflux presents with complaint of shortness of breath. Patient states worsening dyspnea over past 4 days, with productive yellow cough and sore throat. Denies sick contacts. Has not yet received influenza vaccine. Patient also endorses chest pain, described as sharp, right sided, worsened with coughing that has also been ongoing for past four days. Noted that patient has had pulmonary function testing in 2017 suggestive of moderate restrictive process, and mild obstructive airway disease. Patient last saw primary care physician earlier last month and was started on Furosemide for worsening bilateral lower extremity edema. 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 No: AFIB Pulmonary: Yes: Asthma, COPD, Sleep Apnea Gastrointestinal: No: Ascites Hepatobiliary: No: Cirrhosis Renal/: No: Renal Failure Heme/Onc: No: Anemia - Past Surgical History Past Surgical History: Yes: Arthrosocopy, Tonsillectomy - Alcohol/Substance Use Hx Alcohol Use: No - Smoking History Smoking history: Never smoked Have you smoked in the past 12 months: No Aproximately how many cigarettes per day: 3 If you are a former smoker, when did you quit?: 2016 Home Medications - Allergies Allergies/Adverse Reactions: Allergies Allergy/AdvReac Type Severity Reaction Status Date / Time Penicillins Allergy Severe SWELLING,HI Verified 12/30/18 20:47 VES STRAWBERRY Allergy Intermediate SWELLING,HI Uncoded 12/30/18 20:47 VES TOMATOES Allergy Intermediate SWELLING , Uncoded 12/30/18 20:47 HIVES PEANUTS AdvReac Intermediate SWELLING, Uncoded 12/30/18 20:47 HIVES - Home Medications Home Medications: Ambulatory Orders Lisinopril [Prinivil -] 40 mg PO DAILY 03/27/16 Clotrimazole/Betamet Diprop [Lotrisone -] 1 applic ID BID 12/31/18 Furosemide Oral Solution [Lasix Oral Solution -] 4 ml PO BID 12/31/18 Potassium Chloride [Potassium Chloride Oral Liquid] 20 meq PO BID 12/31/18 Family Medical History Family History: Unremarkable Review of Systems - Review of Systems Constitutional: reports: Lethargy Eyes: denies: Double Vision HENT: denies: Ear Discharge Neck: denies: Lumps Cardiovascular: reports: Shortness of Breath Respiratory: reports: Cough, Exercise Intolerance, Orthopnea, Snoring, SOB. denies: Hemoptysis Gastrointestinal: denies: Abdominal Pain Genitourinary: denies: Burning Breasts: reports: No Symptoms Reported Musculoskeletal: reports: No Symptoms Physical Exam Vital Sings: Vital Signs Temperature 98.1 F 01/01/19 10:00 Pulse Rate 95 H 01/01/19 10:00 Respiratory Rate 22 H 01/01/19 10:00 Blood Pressure 92/50 L 01/01/19 10:00 O2 Sat by Pulse Oximetry (%) 94 L 01/01/19 09:00 Constitutional: Yes: Calm Eyes: Yes: EOM Intact HENT: Yes: Normocephalic Neck: Yes: Trachea Midline Cardiovascular: Yes: Regular Rate and Rhythm Respiratory: Yes: Diminished Edema: LLE: 2+, RLE: 2+ Integumentary: Yes: WNL Neurological: Yes: Lethargy Psychiatric: Yes: Alert Labs: CBC, BMP 01/01/19 06:30 01/01/19 06:30 ABG Results ABG pH 7.29 (7.35-7.45) L 12/31/18 00:40 ABG pCO2 at Pt Temp 75.1 mmHg (35-45) H* 12/31/18 00:40 ABG pO2 at Pt Temp 89.7 mmHg (80-100) 12/31/18 00:40 ABG HCO3 35.0 mmol/L (22-27) H 12/31/18 00:40 ABG O2 Sat (Measured) 95.3 % (95-98) 12/31/18 00:40 ABG O2 Content 20.6 % vol 12/31/18 00:40 ABG Base Excess 5.5 meq/l (-2-2) H 12/31/18 00:40 rest reviewed Imaging - Results Chest X-ray: Report Reviewed, Image Reviewed EKG: Report Reviewed, Image Reviewed Problem List - Problems (1) Acute hypercapnic respiratory failure due to obstructive sleep apnea Code(s): J96.02 - ACUTE RESPIRATORY FAILURE WITH HYPERCAPNIA; G47.33 - OBSTRUCTIVE SLEEP APNEA (ADULT) (PEDIATRIC) (2) Chest pain Code(s): R07.9 - CHEST PAIN, UNSPECIFIED Qualifiers: Chest pain type: unspecified Qualified Code(s): R07.9 - Chest pain, unspecified (3) Acute on chronic respiratory failure with hypoxia and hypercapnia Code(s): J96.21 - ACUTE AND CHRONIC RESPIRATORY FAILURE WITH HYPOXIA; J96.22 - ACUTE AND CHRONIC RESPIRATORY FAILURE WITH HYPERCAPNIA (4) GERD (gastroesophageal reflux disease) Code(s): K21.9 - GASTRO-ESOPHAGEAL REFLUX DISEASE WITHOUT ESOPHAGITIS (5) Hypertension Code(s): I10 - ESSENTIAL (PRIMARY) HYPERTENSION Qualifiers: Hypertension type: essential hypertension Qualified Code(s): I10 - Essential (primary) hypertension (6) Morbid (severe) obesity due to excess calories Code(s): E66.01 - MORBID (SEVERE) OBESITY DUE TO EXCESS CALORIES Assessment/Plan OSAS/OHS NON-COMPLIANT WITH NIPPV MORBIDLY OBESE HTN URGENCY OBSTRUCTIVE/RESTRICTIVE VENTILATORY DEFECT ACHALASIA DIASTOLIC HF NEEDS PAP HS AND PRN DAYTIME FAMILY WILL BRING HOME BIPAP MACHINE AGREE WITH BRONCHODILATORS ? ANTIBIOTICS CAUTIOUS USE OF DIURETICS PER CARDIOLOY WOULD TRY SHORT COURSE STEROIDS NEEDS CLOSE FOLLOW UP OUTPATIENT ? BARIATRIC SURGICAL CANDIDIATE WILL FOLLOW Marci CALDWELL MD
[2019-01-01] MEDS ORDERED: PT OWN MED DRAWER 7, Y5N ONE (13:37)
[2019-01-01] MEDS: CLOTRIMAZOLE/BETAMET DIPROP 15 GM TUBE NR SCH ×2 (13:39→21:29)
[2019-01-01 15:00] VITALS: BMI 49.3
--- NOTE | 2019-01-01 16:06 | PN ---
Teaching Attending Note Name of Resident: Rambo Sandra ATTENDING PHYSICIAN STATEMENT I saw and evaluated the patient. I reviewed the resident's note and discussed the case with the resident. I agree with the resident's findings and plan as documented. SUBJECTIVE: patient declined interview and exam. per resident evaluation , patient feels much better today ASSESSMENT AND PLAN: 48 y/o man with h/o diastolic CHF , [place], HTN, obesity, esophageal stricture, asthma ( last episode many years ago) , GERD, on Home O2, and CPAP who presented with SOB and was found to have acute hypoxic hypercapnic resp failure 1- Acute hypoxic resp failure, probably due to acute diastolic CHF. [place] and obesity hypoventilation are contributing - cont lasix 40 Iv daily - cont lisinorpil - cont BIPAP at night , and O2 supplementation . Mom will bring his own machine - flu swab neg - strict I&O and weight - he declined ABG in am , will reorder - tele reviewed. no events - appreciate Pulm Recs 2- Hematuria: No urinary sx. mom report trauma during urine collection . No signs of UTI - repeat UA with decreased RBC in urine. will need repeat UA as out pt in 1-2 weeks 3- HTN: lisinopril DVT PX HLOC
[2019-01-01 17:11] LABS: ARTERIAL BLD GAS O2 SATURATION 94.5 % (95-98); ARTERIAL BLOOD GAS BASE EXCESS 11.2 meq/l (-2-2); ARTERIAL BLOOD GAS PCO2 59.8 mmHg (35-45); ARTERIAL BLOOD GAS PO2 71.8 mmHg (80-100); ARTERIAL BLOOD GAS pH 7.42 (7.35-7.45)
[2019-01-01 17:18] LABS: ALLENS TEST POSITIVE
[2019-01-01] MEDS: ALBUTEROL SO4 2.5/IPRATROPIUM 0.5 INH SOL 3 ML VIAL.NEB. NEB PRN (21:05)
[2019-01-02 06:44] LABS: BASO % 0.4 % (0-2.0); EOS % 0.4 % (0-4.5); HEMATOCRIT 48.9 % (35.4-49); HEMOGLOBIN 15.7 GM/dL (11.7-16.9); LYMPH % 12.1 % (8-40); MCH 29.9 pg (25.7-33.7); MCHC 32.2 g/dl (32.0-35.9); MEAN CELL VOLUME 92.9 fl (80-96); MEAN PLT VOLUME 8.8 fl (7.5-11.1); MONO % 9.7 % (3.8-10.2); NEUT % 77.4 % (42.8-82.8); PLATELET COUNT 255 K/MM3 (134-434); RBC 5.27 M/mm3 (4.00-5.60); RDW 16.7 % (11.9-15.9); WHITE BLOOD COUNT 9.2 K/mm3 (4.0-10.0)
[2019-01-02 07:41] LABS: ALBUMIN 3.2 g/dl (3.4-5.0); BILIRUBIN,TOTAL 0.7 mg/dL (0.2-1); BLOOD UREA NITROGEN 16.8 mg/dL (7-18); CALCIUM 8.9 mg/dL (8.5-10.1); CREATININE 1.1 mg/dL (0.55-1.3); POTASSIUM 4.4 mmol/L (3.5-5.1); TOT PROT 7.2 g/dl (6.4-8.2)
[2019-01-02] MEDS: CLOTRIMAZOLE/BETAMET DIPROP 15 GM TUBE NR SCH ×2 (10:23→21:18)
[2019-01-02] MEDS: ENOXAPARIN NA (PORCINE) 40 MG/0.4 ML DISP.SYRIN SQ SCH (10:23)
[2019-01-02] MEDS: LISINOPRIL 20 MG TABLET (FP) PO SCH (10:23)
[2019-01-02] MEDS: FUROSEMIDE 40 MG/4 ML INJECTABLE VIAL IVPUSH SCH (10:23)
--- NOTE | 2019-01-02 10:24 | PN ---
Progress Note, Physician Chief Complaint: Events noted Dyspnea improving History of Present Illness: Patient was seen and examined. Awake and alert. Chart was reviewed Denies chest pain or palpitations Less SOB - Current Medication List Current Medications: Active Medications Albuterol/Ipratropium (Duoneb -) 1 amp NEB Q4H PRN PRN Reason: SHORTNESS OF BREATH Last Admin: 01/01/19 21:05 Dose: 1 amp Clotrimazole (Lotrisone Cream (Small Tube)) 1 applic NR BID [facility] Last Admin: 01/01/19 21:29 Dose: 1 applic Enoxaparin Sodium (Lovenox -) 40 mg SQ DAILY [facility] Last Admin: 01/01/19 10:22 Dose: 40 mg Furosemide (Lasix Injection -) 40 mg IVPUSH DAILY [facility] Last Admin: 01/01/19 10:22 Dose: 40 mg Lisinopril (Prinivil) 40 mg PO DAILY [facility] Last Admin: 01/01/19 10:28 Dose: Not Given - Objective Vital Signs: Vital Signs Temperature 98.8 F 01/02/19 09:00 Pulse Rate 92 H 01/02/19 09:00 Respiratory Rate 20 01/02/19 09:00 Blood Pressure 114/72 01/02/19 09:00 O2 Sat by Pulse Oximetry (%) 96 01/02/19 09:00 Eyes: Yes: PERRL HENT: Yes: Atraumatic Neck: Yes: Supple Cardiovascular: Yes: Pulse Irregular, S1, S2 Respiratory: Yes: Diminished Gastrointestinal: Yes: Normal Bowel Sounds, Soft, Abdomen, Obese. No: Tenderness Edema: Yes Additional Findings/Remarks: - Review of Systems Constitutional: denies: Chills, Fever Cardiovascular: (+) Shortness of Breath. denies: Chest Pain, Palpitations Respiratory: denies Cough, (+) SOB, SOB on Exertion. denies: Hemoptysis, Orthopnea, PND Gastrointestinal: denies: Abdominal Pain, Constipation, Diarrhea, Melena, Nausea , Rectal Bleeding, Vomiting Genitourinary: denies: Dysuria, Hematuria Musculoskeletal: denies: Back Pain, Joint Pain Neurological: denies: Dizziness, Headache, Seizure, Syncope Labs: CBC, BMP 01/02/19 05:20 01/02/19 05:20 Problem List - Problems (1) Acute hypercapnic respiratory failure due to obstructive sleep apnea Code(s): J96.02 - ACUTE RESPIRATORY FAILURE WITH HYPERCAPNIA; G47.33 - OBSTRUCTIVE SLEEP APNEA (ADULT) (PEDIATRIC) (2) Acute on chronic respiratory failure with hypoxia and hypercapnia Code(s): J96.21 - ACUTE AND CHRONIC RESPIRATORY FAILURE WITH HYPOXIA; J96.22 - ACUTE AND CHRONIC RESPIRATORY FAILURE WITH HYPERCAPNIA (3) GERD (gastroesophageal reflux disease) Code(s): K21.9 - GASTRO-ESOPHAGEAL REFLUX DISEASE WITHOUT ESOPHAGITIS (4) Hypertension Code(s): I10 - ESSENTIAL (PRIMARY) HYPERTENSION Qualifiers: Hypertension type: essential hypertension Qualified Code(s): I10 - Essential (primary) hypertension Assessment/Plan 1. Acute on chronic hypercapneic respiratory failure 2. Acute exacerbation of asthma 3. Diastolic dysfunction with history of failure 4. OSAS noncompliant with CPAP 5. Hypertensive urgency due to medication noncompliance 6. Achalasia PLAN: 1. IV diuresis (Lasix 40 mg IV) with monitoring renal function and electrolytes 2. Bronchodilator, O2 and NIPPV as needed 3. Continue Lisinopril 40 mg QD 4. DVT and GI prophylaxis Ismael Frausto MD
--- NOTE | 2019-01-02 12:10 | PN ---
Progress Note (short form) - Note Progress Note: PULMONARY SUBJECTIVE IMPROVEMENT SITTING IN SOLARIUM/MOTHER IS PRESENT APPEARS STABLE VSS/AFEBRILE ANICTERIC DIMINISHED B/L POSTERIOR BREATH SOUNDS S1S2 OBESE SOFT NONTENDER LESS EDEMA LABS/MEDS/NOTES/MICRO REVIEWED OSAS/OHS NON-COMPLIANT WITH NIPPV MORBIDLY OBESE HTN URGENCY OBSTRUCTIVE/RESTRICTIVE VENTILATORY DEFECT ACHALASIA DIASTOLIC HF NEEDS PAP HS AND PRN DAYTIME FAMILY HAS BROUGHT HOME BIPAP MACHINE AGREE WITH BRONCHODILATORS ? ANTIBIOTICS CAUTIOUS USE OF DIURETICS PER CARDIOLOY WOULD TRY SHORT COURSE STEROIDS NEEDS CLOSE FOLLOW UP OUTPATIENT ? BARIATRIC SURGICAL CANDIDZAIN CALDWELL MD Problem List - Problems (1) Acute hypercapnic respiratory failure due to obstructive sleep apnea Code(s): J96.02 - ACUTE RESPIRATORY FAILURE WITH HYPERCAPNIA; G47.33 - OBSTRUCTIVE SLEEP APNEA (ADULT) (PEDIATRIC) (2) Chest pain Code(s): R07.9 - CHEST PAIN, UNSPECIFIED Qualifiers: Chest pain type: unspecified Qualified Code(s): R07.9 - Chest pain, unspecified (3) Acute on chronic respiratory failure with hypoxia and hypercapnia Code(s): J96.21 - ACUTE AND CHRONIC RESPIRATORY FAILURE WITH HYPOXIA; J96.22 - ACUTE AND CHRONIC RESPIRATORY FAILURE WITH HYPERCAPNIA (4) GERD (gastroesophageal reflux disease) Code(s): K21.9 - GASTRO-ESOPHAGEAL REFLUX DISEASE WITHOUT ESOPHAGITIS (5) Hypertension Code(s): I10 - ESSENTIAL (PRIMARY) HYPERTENSION Qualifiers: Hypertension type: essential hypertension Qualified Code(s): I10 - Essential (primary) hypertension (6) Morbid (severe) obesity due to excess calories Code(s): E66.01 - MORBID (SEVERE) OBESITY DUE TO EXCESS CALORIES
[2019-01-02] MEDS ORDERED: POLYETHYLENE GLYCOL 3350 119 GM BTL PO ONE (14:16)
[2019-01-02] MEDS ORDERED: DOCUSATE SODIUM 100 MG CAPSULE (FP) PO PRN (14:16)
[2019-01-02] MEDS ORDERED: POLYETHYLENE GLYCOL 3350 119 GM BTL PO PRN (14:16)
--- NOTE | 2019-01-02 14:22 | PN ---
Progress Note (short form) - Note Progress Note: Subjective: no SOB , he feels much better . no pain Objective: Vital Signs: Last Vital Signs Temp Pulse Resp BP Pulse Ox 99 F 88 20 131/88 96 01/02/19 14:00 01/02/19 14:00 01/02/19 14:00 01/02/19 14:00 01/02/19 09:00 Laboratory Results - last 24 hr 01/01/19 01/02/19 01/02/19 16:45 05:20 05:20 WBC 9.2 RBC 5.27 Hgb 15.7 Hct 48.9 MCV 92.9 MCH 29.9 MCHC 32.2 RDW 16.7 H Plt Count 255 MPV 8.8 Absolute Neuts (auto) 7.1 Neutrophils % 77.4 Lymphocytes % 12.1 Monocytes % 9.7 Eosinophils % 0.4 D Basophils % 0.4 Nucleated RBC % 0 Anticoagulation Therapy No Result Required. Puncture Site Right radial ABG pH 7.42 ABG pCO2 at Pt Temp 59.8 H ABG pO2 at Pt Temp 71.8 L ABG HCO3 38.3 H ABG O2 Sat (Measured) 94.5 L ABG O2 Content 20.8 ABG Base Excess 11.2 H Usman Test Positive O2 Delivery Device Room air Oxygen Flow Rate 21% Vent Mode No Result Required. Vent Rate No Result Required. Mechanical Rate No Result Required. Pressure Support Vent No Result Required. Sodium 139 Potassium 4.4 Chloride 96 L Carbon Dioxide 37 H Anion Gap 5 L BUN 16.8 Creatinine 1.1 Est GFR (CKD-EPI)AfAm 92.81 Est GFR (CKD-EPI)NonAf 80.08 Random Glucose 95 Calcium 8.9 Total Bilirubin 0.7 AST 18 ALT 26 Alkaline Phosphatase 69 Total Protein 7.2 Albumin 3.2 L Physical Exam: NAD CV: RRR, no MRG Lungs; CTAB, decreased breath sounds at upper lobs Ext : improved pitting edema on legs . No erythema A/P 48 y/o man with h/o diastolic CHF , [place], HTN, obesity, esophageal stricture, asthma ( last episode many years ago) , GERD, on Home O2, and CPAP who presented with SOB and was found to have acute hypoxic hypercapnic resp failure 1- Acute hypoxic resp failure, probably due to acute diastolic CHF. [place] and obesity hypoventilation are contributing . - Improved . ABG improved with normal PH now, still signs of chronic resp failrue with renal compensation - cont lasix 40 Iv daily . will probably switch to po lasix tomorrow - cont lisinorpil - cont BIPAP at night, and O2 supplementation . Mom brought his own - strict I&O and weight - tele reviewed. no events - appreciate Pulm Recs 2- Hematuria: .due to trauma. No signs of UTI - will need repeat UA as out pt in 1-2 weeks 3- HTN: lisinopril DVT PX Possible dc tomorrow Visit type - Emergency Visit Emergency Visit: Yes ED Registration Date: 12/31/18 Care time: The patient presented to the Emergency Department on the above date and was hospitalized for further evaluation of their emergent condition. - New Patient This patient is new to me today: No - Critical Care Critical Care patient: No - Discharge Referral Referred to [facility] No
[2019-01-03 07:11] LABS: BLOOD UREA NITROGEN 18.8 mg/dL (7-18); CALCIUM 8.9 mg/dL (8.5-10.1); POTASSIUM 4.2 mmol/L (3.5-5.1)
--- NOTE | 2019-01-03 09:08 | PN ---
Progress Note, Physician History of Present Illness: Denies chest pain or palpitations, SOB improved to baseline. - Current Medication List Current Medications: Active Medications Albuterol/Ipratropium (Duoneb -) 1 amp NEB Q4H PRN PRN Reason: SHORTNESS OF BREATH Last Admin: 01/01/19 21:05 Dose: 1 amp Clotrimazole (Lotrisone Cream (Small Tube)) 1 applic NR BID [facility] Last Admin: 01/02/19 21:18 Dose: 1 applic Docusate Sodium (Colace -) 100 mg PO BID PRN PRN Reason: CONSTIPATION Last Admin: 01/02/19 21:15 Dose: 100 mg Enoxaparin Sodium (Lovenox -) 40 mg SQ DAILY [facility] Last Admin: 01/02/19 10:23 Dose: 40 mg Furosemide (Lasix Injection -) 40 mg IVPUSH DAILY [facility] Last Admin: 01/02/19 10:23 Dose: 40 mg Lisinopril (Prinivil) 40 mg PO DAILY [facility] Last Admin: 01/02/19 10:23 Dose: 40 mg Polyethylene Glycol (Miralax (For Daily Use) -) 17 gm PO DAILY PRN PRN Reason: CONSTIPATION - Objective Vital Signs: Vital Signs Temperature 98.8 F 01/03/19 05:00 Pulse Rate 78 01/03/19 05:00 Respiratory Rate 20 01/03/19 05:00 Blood Pressure 115/71 01/03/19 05:00 O2 Sat by Pulse Oximetry (%) 96 01/02/19 20:28 Constitutional: Yes: No Distress, Calm Neck: Yes: Supple Cardiovascular: Yes: Regular Rate and Rhythm Respiratory: Yes: Regular, Diminished Gastrointestinal: Yes: Normal Bowel Sounds, Soft, Abdomen, Obese Edema: Yes Edema: LLE: Trace, RLE: Trace Labs: CBC, BMP 01/02/19 05:20 01/03/19 05:10 INR, PTT INR 1.00 (0.83-1.09) 12/31/18 00:10 - ....Imaging EKG: Report Reviewed (Tele: SR w/ PAC) Problem List - Problems (1) Acute hypercapnic respiratory failure due to obstructive sleep apnea Code(s): J96.02 - ACUTE RESPIRATORY FAILURE WITH HYPERCAPNIA; G47.33 - OBSTRUCTIVE SLEEP APNEA (ADULT) (PEDIATRIC) (2) Chest pain Code(s): R07.9 - CHEST PAIN, UNSPECIFIED Qualifiers: Chest pain type: unspecified Qualified Code(s): R07.9 - Chest pain, unspecified (3) Hypertension Code(s): I10 - ESSENTIAL (PRIMARY) HYPERTENSION Qualifiers: Hypertension type: essential hypertension Qualified Code(s): I10 - Essential (primary) hypertension (4) Morbid (severe) obesity due to excess calories Code(s): E66.01 - MORBID (SEVERE) OBESITY DUE TO EXCESS CALORIES Assessment/Plan Echo: 12/31/2018 Normal LV size and fxn, mild cLVH [id number]%, abnl LV compliance, normal RV size and fxn, mild MR echo 09/2016: Nl LV/V size and fxn, tr TR P-myoview 09/2016: nl mpi, normal LVEF ecg 11/01/16: sr, nl intervals, no ischemic changes, pac 1. Acute on chronic hypercapneic respiratory failure 2. Acute exacerbation of asthma 3. Diastolic dysfunction with history of failure 4. OSAS noncompliant with CPAP 5. Hypertensive urgency due to medication noncompliance 6. Achalasia PLAN: 1. Oral diuresis (Lasix 40 mg bid - home dose) with monitoring renal function and electrolytes 2. Bronchodilator, O2 and NIPPV as needed, emphasized importance of compliance 3. Continue Lisinopril 40 mg QD 4. DVT and GI prophylaxis 5. D/c planning with f/u in office
[2019-01-03] MEDS: FUROSEMIDE 40 MG/4 ML INJECTABLE VIAL IVPUSH SCH (09:38)
[2019-01-03] MEDS: ENOXAPARIN NA (PORCINE) 40 MG/0.4 ML DISP.SYRIN SQ SCH (09:39)
[2019-01-03] MEDS: LISINOPRIL 20 MG TABLET (FP) PO SCH (09:39)
[2019-01-03] MEDS: CLOTRIMAZOLE/BETAMET DIPROP 15 GM TUBE NR SCH (09:39)
[2019-01-03 10:47] VITALS: BP 90/65; TEMP 98.2
--- NOTE | 2019-01-03 10:52 | PN ---
Teaching Attending Note Name of Resident: Parvin Kaminski ATTENDING PHYSICIAN STATEMENT I saw and evaluated the patient. I reviewed the resident's note and discussed the case with the resident. I agree with the resident's findings and plan as documented. SUBJECTIVE: No fever or chills. No SOB .No cough. used BIPAP over night. He feels much better and ready to go home OBJECTIVE: NAD CV: RRR, no MRG Lungs; CTAB, decreased breath sounds at upper lobs Ext : improved pitting edema on legs . No erythema A/P 48 y/o man with h/o diastolic CHF , [place], HTN, obesity, esophageal stricture, asthma ( last episode many years ago) , GERD, on Home O2, and CPAP who presented with SOB and was found to have acute hypoxic hypercapnic resp failure 1- Acute hypoxic resp failure, due to acute diastolic heart failure in the setting of [place] and obesity hypoventilation: much improved. - change lasix to po . 40 mg bid - cont ACEI - cont BIPAP at night. - He was told by his doctor to use O2 as needed during the day. Now, at rest his sats are 96%. will perform pre and post to evaluate need of O2 with exertion - tele reviewed. no events 2- Hematuria:due to trauma. No signs of UTI - will need repeat UA as out pt in 1-2 weeks 3- HTN: lisinopril will dc home today.
--- NOTE | 2019-01-03 11:42 | PN ---
Progress Note, Physician History of Present Illness: PULMONARY ALERT,COMFORTABLE,SOB IMPROVED,-CP,-COUGH - Current Medication List Current Medications: Active Medications Albuterol/Ipratropium (Duoneb -) 1 amp NEB Q4H PRN PRN Reason: SHORTNESS OF BREATH Last Admin: 01/01/19 21:05 Dose: 1 amp Clotrimazole (Lotrisone Cream (Small Tube)) 1 applic NR BID [facility] Last Admin: 01/03/19 09:39 Dose: 1 applic Docusate Sodium (Colace -) 100 mg PO BID PRN PRN Reason: CONSTIPATION Last Admin: 01/02/19 21:15 Dose: 100 mg Enoxaparin Sodium (Lovenox -) 40 mg SQ DAILY [facility] Last Admin: 01/03/19 09:39 Dose: 40 mg Furosemide (Lasix -) 40 mg PO BID@0600,1400 ARABELLA Lisinopril (Prinivil) 40 mg PO DAILY [facility] Last Admin: 01/03/19 09:39 Dose: Not Given Polyethylene Glycol (Miralax (For Daily Use) -) 17 gm PO DAILY PRN PRN Reason: CONSTIPATION - Objective Vital Signs: Vital Signs Temperature 98.2 F 01/03/19 09:00 Pulse Rate 79 01/03/19 09:00 Respiratory Rate 20 01/03/19 09:00 Blood Pressure 90/65 01/03/19 09:00 O2 Sat by Pulse Oximetry (%) 97 01/03/19 09:00 Constitutional: Yes: Calm, Obese Eyes: Yes: WNL HENT: Yes: WNL Neck: Yes: WNL Cardiovascular: Yes: Regular Rate and Rhythm, S1, S2 Respiratory: Yes: Diminished Gastrointestinal: Yes: Normal Bowel Sounds, Soft Extremities: Yes: WNL Edema: Yes Labs: CBC, BMP 01/03/19 05:10 INR, PTT INR 1.00 (0.83-1.09) 12/31/18 00:10 Assessment/Plan Problem List - Problems (1) Acute hypercapnic respiratory failure due to obstructive sleep apnea Code(s): J96.02 - ACUTE RESPIRATORY FAILURE WITH HYPERCAPNIA; G47.33 - OBSTRUCTIVE SLEEP APNEA (ADULT) (PEDIATRIC) (2) Chest pain Code(s): R07.9 - CHEST PAIN, UNSPECIFIED Qualifiers: Chest pain type: unspecified Qualified Code(s): R07.9 - Chest pain, unspecified (3) Acute on chronic respiratory failure with hypoxia and hypercapnia Code(s): J96.21 - ACUTE AND CHRONIC RESPIRATORY FAILURE WITH HYPOXIA; J96.22 - ACUTE AND CHRONIC RESPIRATORY FAILURE WITH HYPERCAPNIA (4) GERD (gastroesophageal reflux disease) Code(s): K21.9 - GASTRO-ESOPHAGEAL REFLUX DISEASE WITHOUT ESOPHAGITIS (5) Hypertension Code(s): I10 - ESSENTIAL (PRIMARY) HYPERTENSION Qualifiers: Hypertension type: essential hypertension Qualified Code(s): I10 - Essential (primary) hypertension (6) Morbid (severe) obesity due to excess calories Code(s): E66.01 - MORBID (SEVERE) OBESITY DUE TO EXCESS CALORIES Assessment/Plan OSAS/OHS NON-COMPLIANT WITH NIPPV MORBIDLY OBESE HTN URGENCY OBSTRUCTIVE/RESTRICTIVE VENTILATORY DEFECT ACHALASIA DIASTOLIC HF COMPLIANCE WITH BIPAP BRONCHODILATORS BARIATRIC SURGICAL CONSULT OUTPATIENT PFTS HOME O2 DR GARCIA
[2019-01-03 11:52] VITALS: PULSE 109
--- NOTE | 2019-01-03 13:44 | DS ---
Physical Exam: SUBJECTIVE: Patient seen and examined. Pt has improved significantly. Breath has improved. Asymptomatic and afebrile. Doing well on 3-2L of oxygen. Denies f/ c/n/v/d/ shortness of breath, chest pain. OBJECTIVE: Vital Signs Period Temp Pulse Resp BP Sys/Ramon Pulse Ox Last 24 Hr 98.2 F-99.2 F 78-109 20-20 90-136/54-88 93-97 PHYSICAL EXAM GENERAL: The patient is awake, alert, and fully oriented, in no acute distress. Morbidly obese EYES: PERRL, extraocular movements intact, ENT: moist mucous membranes. NECK: supple. LUNGS: Breath sounds equal, mild wheezing appreciated, no crackles. HEART: Regular rate and Irregular rhythm- likely pauses, no S1, S2 without murmur, rub or gallop. ABDOMEN: Soft, nontender, nondistended, normoactive bowel sounds, no guarding, no rebound EXTREMITIES: 2+ pulses, warm, no ankle edema today b/l NEUROLOGICAL: Cranial nerves II through XII grossly intact. SKIN: Warm, dry, LABS Laboratory Results - last 24 hr CBC,CMP WBC 9.2 K/mm3 (4.0-10.0) 01/02/19 05:20 RBC 5.27 M/mm3 (4.00-5.60) 01/02/19 05:20 Hgb 15.7 GM/dL (11.7-16.9) 01/02/19 05:20 Hct 48.9 % (35.4-49) 01/02/19 05:20 MCV 92.9 fl (80-96) 01/02/19 05:20 MCH 29.9 pg (25.7-33.7) 01/02/19 05:20 MCHC 32.2 g/dl (32.0-35.9) 01/02/19 05:20 RDW 16.7 % (11.9-15.9) H 01/02/19 05:20 Plt Count 255 K/MM3 (134-434) 01/02/19 05:20 MPV 8.8 fl (7.5-11.1) 01/02/19 05:20 Absolute Neuts (auto) 7.1 K/mm3 (1.5-8.0) 01/02/19 05:20 Neutrophils % 77.4 % (42.8-82.8) 01/02/19 05:20 Neutrophils % (Manual) 94.0 % (42.8-82.8) H 12/31/18 06:55 Band Neutrophils % 0.0 % 12/31/18 06:55 Lymphocytes % 12.1 % (8-40) 01/02/19 05:20 Lymphocytes % (Manual) 3.0 % (8-40) L D 12/31/18 06:55 Monocytes % 9.7 % (3.8-10.2) 01/02/19 05:20 Monocytes % (Manual) 0 % (3.8-10.2) L D 12/31/18 06:55 Eosinophils % 0.4 % (0-4.5) D 01/02/19 05:20 Eosinophils % (Manual) 0.0 % (0-4.5) 12/31/18 06:55 Basophils % 0.4 % (0-2.0) 01/02/19 05:20 Basophils % (Manual) 0.0 % (0-2.0) 12/31/18 06:55 Myelocytes % (Man) 0 % (0-2) 12/31/18 06:55 Promyelocytes % (Man) 0 % (0-2) 12/31/18 06:55 Blast Cells % (Manual) 0 % (0-0) 12/31/18 06:55 Nucleated RBC % 0 % (0-0) 01/02/19 05:20 Metamyelocytes 0 % (0-2) 12/31/18 06:55 Hypochromia 0 12/31/18 06:55 Toxic Granulation 1+ 12/31/18 06:55 Platelet Estimate Normal 12/31/18 06:55 Platelet Comment Present 12/31/18 06:55 Polychromasia 1+ 12/31/18 06:55 Poikilocytosis 1+ 12/31/18 06:55 Anisocytosis 1+ 12/31/18 06:55 Microcytosis 1+ 12/31/18 06:55 Macrocytosis 0 12/31/18 06:55 Spherocytes 1+ 12/31/18 06:55 Target Cells 1+ 12/31/18 06:55 Tear Drop Cells 1+ 12/31/18 06:55 Stomatocytes 1+ 12/31/18 06:55 Sodium 138 mmol/L (136-145) 01/03/19 05:10 Potassium 4.2 mmol/L (3.5-5.1) 01/03/19 05:10 Chloride 96 mmol/L (98-107) L 01/03/19 05:10 Carbon Dioxide 37 mmol/L (21-32) H 01/03/19 05:10 Anion Gap 5 MMOL/L (8-16) L 01/03/19 05:10 BUN 18.8 mg/dL (7-18) H 01/03/19 05:10 Creatinine 1.0 mg/dL (0.55-1.3) 01/03/19 05:10 Est GFR (CKD-EPI)AfAm 104.15 01/03/19 05:10 Est GFR (CKD-EPI)NonAf 89.86 01/03/19 05:10 Random Glucose 91 mg/dL (74-106) 01/03/19 05:10 Lactic Acid 0.5 mmol/L (0.4-2.0) 12/31/18 00:10 Calcium 8.9 mg/dL (8.5-10.1) 01/03/19 05:10 Phosphorus 5.8 mg/dL (2.5-4.9) H 12/31/18 06:55 Magnesium 2.0 mg/dL (1.8-2.4) 12/31/18 06:55 Total Bilirubin 0.7 mg/dL (0.2-1) 01/02/19 05:20 AST 18 U/L (15-37) 01/02/19 05:20 ALT 26 U/L (13-61) 01/02/19 05:20 Alkaline Phosphatase 69 U/L (45-117) 01/02/19 05:20 Creatine Kinase 446 U/L (26-308) H 12/30/18 23:10 Creatine Kinase Index 1.3 % (0.0-5.0) 12/30/18 23:10 CK-MB (CK-2) 6.0 ng/mL (0.5-3.6) H 12/30/18 23:10 Troponin I 0.05 ng/ml (0.00-0.05) 12/31/18 04:32 B-Natriuretic Peptide 273.9 pg/ml (5-125) H 12/31/18 06:55 Total Protein 7.2 g/dl (6.4-8.2) 01/02/19 05:20 Albumin 3.2 g/dl (3.4-5.0) L 01/02/19 05:20 Current Medications Albuterol/Ipratropium (Duoneb -) 1 amp NEB Q4H PRN PRN Reason: SHORTNESS OF BREATH Last Admin: 01/01/19 21:05 Dose: 1 amp Clotrimazole (Lotrisone Cream (Small Tube)) 1 applic NR BID [facility] Last Admin: 01/03/19 09:39 Dose: 1 applic Docusate Sodium (Colace -) 100 mg PO BID PRN PRN Reason: CONSTIPATION Last Admin: 01/02/19 21:15 Dose: 100 mg Enoxaparin Sodium (Lovenox -) 40 mg SQ DAILY [facility] Last Admin: 01/03/19 09:39 Dose: 40 mg Furosemide (Lasix -) 40 mg PO BID@0600,1400 [facility] Lisinopril (Prinivil) 40 mg PO DAILY [facility] Last Admin: 01/03/19 09:39 Dose: Not Given Polyethylene Glycol (Miralax (For Daily Use) -) 17 gm PO DAILY PRN PRN Reason: CONSTIPATION Home Medications Medication Instructions Recorded Lisinopril [Prinivil -] 40 mg PO DAILY 03/27/16 Clotrimazole/Betamet Diprop 1 applic ID BID 12/31/18 [Lotrisone -] Potassium Chloride [Potassium 20 meq PO BID 12/31/18 Chloride Oral Liquid] Albuterol Sulfate Inhaler - 1 puff IH Q4H PRN #1 inhaler 01/03/19 [Ventolin HFA Inhaler -] Furosemide Oral Solution [Lasix 5 ml PO BID #60 5ml 01/03/19 Oral Solution -] Microbiology 12/30/18 02:32 Urine - Urine Clean Catch Urine Culture - Final NO GROWTH OBTAINED HOSPITAL COURSE: Date of Admission:12/31/18 Patient is a 48 year old male with history of [place], morbid obesity, mild intermittent asthma, hypertension, gastroesophageal reflux presented with difficulty breathing and elevated BP likely 2/2 CHF exacerbation vs asthma exacerbation. Pt was worked up for CHF and had an Echo with a EF of 60%, LVH and impaired LV relaxation. EKGs were NSR w// Pacs and vascular studies of the leg found no DVTs. CXR was evident for new prominent enlargement of the mediastenum and congestive changes compared to older CXR. ABG's came back evident for respiratory acidosis which resolved after treatment. He remained chronically in resp acidosis with renal compensation with a normalized pH. Pt was started on oxygen, dounebs, lasix 40mg and BiPAP. Pt improved significantly and was discharged home on Lasix 5 ml oral solution and lisinopril 40. ECHO: normal EF EKG: NSR w/ PACs CXR: new prominent enlargement of the mediastenum and congestive changes Vascular studies- No DVT Date of Discharge: 01/03/19 Minutes to complete discharge: 35 Discharge Summary Problems reviewed: Yes Reason For Visit: CONGESTIVE HEART FAILURE, ACUTE HYPERCAPNIC Current Active Problems Acute diastolic (congestive) heart failure (Acute) Condition: Improved - Instructions Diet, Activity, Other Instructions: You were admitted for difficulty breathing and high blood pressure. You were diagnosed with acute heart failure While you were in the hospital, we evaluated you with lab work, blood work, and imaging including Chest x ray, EKG and echocardiograms. We treated you with medications, oxygen and breathing devices including inhalers, nebulizers and BiPAP machine. After treatment your symptoms improved significantly. Make sure to use 2L at rest and 3 L of oxygen with ambulation. It is very important that you make sure you are using your CPAP machine every night to prevent worsening of your symptoms. For treatment of your Congestive hear Failure you will now take: Liquid Lasix 5 ml by mouth, two times a day ( dose of 40 mg twice a day) Please take all your medications as prescribed Follow up with our primary care physician in 1 week Return to the emergency room if your symptoms worsen, if you experience chest pain, shortness of breath, nausea, vomiting and worsening of your condition. please follow up with your doctors regarding your esophageal stricture. continue the diet recommended to you by them as per your preadmission routine. Avoid steak and chicken in big pieces to avoid food getting stuck in your esophagus you need repeat urinalysis in 1-2 weeks to evaluate fro blood in urine Referrals: Jerardo Kam MD [Staff Physician] - Tyrel Shepard MD [Primary Care Provider] - 1 Week Portillo Mcginnis MD [Staff Physician] - Ismael Frausto MD [Staff Physician] - Disposition: VNS/HOME HEALTH CARE - Home Medications Comprehensive Discharge Medication List: Ambulatory Orders Lisinopril [Prinivil -] 40 mg PO DAILY 03/27/16 Clotrimazole/Betamet Diprop [Lotrisone -] 1 applic ID BID 12/31/18 Potassium Chloride [Potassium Chloride Oral Liquid] 20 meq PO BID 12/31/18 Albuterol Sulfate Inhaler - [Ventolin HFA Inhaler -] 1 puff IH Q4H PRN #1 inhaler 01/03/19 Furosemide Oral Solution [Lasix Oral Solution -] 5 ml PO BID #60 5ml 01/03/19 This patient is new to me today: Yes Date on this admission: 01/03/19 Emergency Visit: Yes ED Registration Date: 12/31/18 Care time: The patient presented to the Emergency Department on the above date and was hospitalized for further evaluation of their emergent condition. Critical Care patient: No - Discharge Referral Referred to [facility] Med P.C.: No ATTENDING PHYSICIAN STATEMENT I saw and evaluated the patient. I reviewed the resident's note and discussed the case with the resident. I agree with the resident's findings and plan as documented. SUBJECTIVE: OBJECTIVE: ASSESSMENT AND PLAN:
[2019-01-03] MEDS ORDERED: FUROSEMIDE 40 MG TABLET (FP) PO SCH (14:00)
== END 2019-01-03 14:15 | disposition home health service (06) | DRG 194 ==
LOC: JER 20:23 → JERBED 12-31 00:28 → J4W 12-31 05:36
PROVIDERS: ADMIT Internal Medicine; ATTEND Internal Medicine
DX: I11.0 Hypertensive heart disease with heart failure (principal); I50.33 Acute on chronic diastolic (congestive) heart failure; G47.33 Obstructive sleep apnea (adult) (pediatric); E66.01 Morbid (severe) obesity due to excess calories; Z68.42 Body mass index [BMI] 45.0-49.9, adult; K21.9 Gastro-esophageal reflux disease without esophagitis; E87.2 Acidosis; J96.21 Acute and chronic respiratory failure with hypoxia; J96.22 Acute and chronic respiratory failure with hypercapnia; I16.0 Hypertensive urgency; Z91.19 Patient's noncompliance with other medical treatment and regimen; J45.901 Unspecified asthma with (acute) exacerbation; J45.31 Mild persistent asthma with (acute) exacerbation; R31.9 Hematuria, unspecified; K22.0 Achalasia of cardia; Z88.0 Allergy status to penicillin; Z99.81 Dependence on supplemental oxygen
CPT/HCPCS: 36415; 36600; 71045-TC-FY; 80048; 80053; 81003; 82375; 82550; 82553; 82803; 83050; 83605; 83735; 83880; 84100; 84484; 85025; 85610; 85730; 87086; 87804; 93005; 93010; 93306-TC; 93970-TC; 94640; 94660; 94761; 99285-25; Q2036

== ENCOUNTER 2019-08-19 16:29 | Inpatient (IN) | payer OTHER ==
--- NOTE | 2019-08-19 16:36 | PDOC ---
History of Present Illness - General Chief Complaint: Shortness of Breath Stated Complaint: DIFFICULTY BREATHING Time Seen by Provider: 08/19/19 16:30 History Source: Patient Exam Limitations: Clinical Condition - History of Present Illness Initial Comments: 49 year old male with PMH HTN, HLD, [place], CHF presented to ED for SOB + LE swelling x4 days. Pt has been poorly compliant with both CPAP at home and home meds. Pt reported chest pain. EMS reported pt was satting 75% on RA in the field, 100% on 15L, could not get the CPAP mask to fit his face properly. Denied hx nicotine use. Mother - July [facility] - [phone] -[place] - [phone] PCP: Tyrel Shepard MD ROS General: admitted to generalized weakness. denied fever, chills. HEENT: denied sore throat, rhinorrhea, ear pain. Cardiovascular: admitted to chest pain. denied palpitations, syncope, diaphoresis. Respiratory: admitted to shortness of breath, STREET. denied cough, sputum production, hemoptysis. Gastrointestinal: denied abdominal pain, nausea, vomiting, diarrhea, constipation, blood in stool. Genitourinary: denied dysuria, increased urinary frequency, hematuria, urinary incontinence, flank pain. Back: denied back pain. Musculoskeletal: denied joint pain, muscle pain, joint swelling. Neurological: denied headache, dizziness, numbness, tingling, weakness. Integumentary: denied rash, laceration, abrasion. Hematologic/Lymphatic: denied bruising or bleeding. PE Constitutional: Well-nourished, Well-developed, appearing stated age. morbidly obese. somnolent. HEENT: head is normocephalic, atraumatic. EOMI. PERRLA. Neck: supple. Full ROM. Cardiovascular: regular heart rhythm. Normal S1 and S2. no murmurs. no pericardial friction rub. Respiratory: clear to auscultation bilaterally. decreased air movement bilaterally. speaking 1 word sentences. bibasilar crackles. no rhonchi or wheezing. no stridor. Gastrointestinal: soft, flat, nontender. normal bowel sounds. no rebound, guarding, or masses. Extremities: peripheral pulses intact and equal. 2+ pitting edema to jon bilaterally. Neurological: CN 2-12 grossly intact. moves all four extremities. Psych: awake, somnolent, arousable to voice, oriented x3. follows commands. answers questions appropriately. Past History - Medical History Allergies/Adverse Reactions: Allergies Allergy/AdvReac Type Severity Reaction Status Date / Time Penicillins Allergy Severe SWELLING,HI Verified 08/19/19 16:57 VES STRAWBERRY Allergy Intermediate SWELLING,HI Uncoded 08/19/19 16:57 VES TOMATOES Allergy Intermediate SWELLING , Uncoded 08/19/19 16:57 HIVES PEANUTS AdvReac Intermediate SWELLING, Uncoded 08/19/19 16:57 HIVES Home Medications: Ambulatory Orders Lisinopril [Prinivil -] 40 mg PO DAILY 03/27/16 Clotrimazole/Betamet Diprop [Lotrisone -] 1 applic ID BID 12/31/18 Potassium Chloride [Potassium Chloride Oral Liquid] 20 meq PO BID 12/31/18 Albuterol Sulfate Inhaler - [Ventolin HFA Inhaler -] 1 puff IH Q4H PRN #1 inhaler 01/03/19 Furosemide Oral Solution [Lasix Oral Solution -] 5 ml PO BID #60 5ml 01/03/19 ED Treatment Course - LABORATORY CBC & Chemistry Diagram: 08/19/19 16:35 08/19/19 16:35 - RADIOLOGY Radiology Studies Ordered: Category Date Time Status CHEST X-RAY PORTABLE* [RAD] Stat Radiology 08/19/19 16:33 Ordered Medical Decision Making - Medical Decision Making 49 year old male with above PMH BIBA to ED on 15L NC for SOB, hypoxia of 75% on room air. Pt placed on BIPAP. Initial Vital Signs Temp Pulse Resp BP Pulse Ox 99.1 F 83 22 H 128/79 100 08/19/19 16:30 08/19/19 16:30 08/19/19 16:30 08/19/19 16:30 08/19/19 16:30 CXR shows bilateral patchy infiltrates, increased pulmonary vascular congestion, cardiomegaly. -Pending official report -Pt only on Lasix 5 mg BID -Concerning for COVID-19 infection -Pt is not stable for CT chest at this time, very tenuous respiratory status 08/19/19 17:59 Laboratory Last Values WBC 13.6 K/mm3 (4.0-10.0) H 08/19/19 16:35 RBC 5.73 M/mm3 (4.00-5.60) H 08/19/19 16:35 Hgb 14.9 GM/dL (11.7-16.9) 08/19/19 16:35 Hct 52.8 % (35.4-49) H 08/19/19 16:35 MCV 92.3 fl (80-96) 08/19/19 16:35 MCH 26.0 pg (25.7-33.7) D 08/19/19 16:35 MCHC 28.2 g/dl (32.0-35.9) L 08/19/19 16:35 RDW 20.7 % (11.9-15.9) H 08/19/19 16:35 Plt Count 237 K/MM3 (134-434) 08/19/19 16:35 MPV 8.1 fl (7.5-11.1) 08/19/19 16:35 Absolute Neuts (auto) 11.9 K/mm3 (1.5-8.0) H 08/19/19 16:35 Neutrophils % 88.1 % (42.8-82.8) H 08/19/19 16:35 Lymphocytes % 4.7 % (8-40) L D 08/19/19 16:35 Monocytes % 6.6 % (3.8-10.2) 08/19/19 16:35 Eosinophils % 0.0 % (0-4.5) D 08/19/19 16:35 Basophils % 0.6 % (0-2.0) 08/19/19 16:35 Nucleated RBC % 2 % (0-0) H 08/19/19 16:35 PT with INR Cancelled 08/19/19 16:35 INR Cancelled 08/19/19 16:35 PTT (Actin FS) Cancelled 08/19/19 16:35 Sodium 138 mmol/L (136-145) 08/19/19 16:35 Potassium 5.4 mmol/L (3.5-5.1) H 08/19/19 16:35 Chloride 96 mmol/L (98-107) L 08/19/19 16:35 Carbon Dioxide 32 mmol/L (21-32) 08/19/19 16:35 Anion Gap 10 MMOL/L (8-16) 08/19/19 16:35 BUN 29.4 mg/dL (7-18) H 08/19/19 16:35 Creatinine 2.4 mg/dL (0.55-1.3) H 08/19/19 16:35 Est GFR (CKD-EPI)AfAm 35.89 08/19/19 16:35 Est GFR (CKD-EPI)NonAf 30.96 08/19/19 16:35 Random Glucose 132 mg/dL (74-106) H 08/19/19 16:35 Calcium 8.8 mg/dL (8.5-10.1) 08/19/19 16:35 Magnesium 2.3 mg/dL (1.8-2.4) 08/19/19 16:35 Ferritin 287.5 ng/ml (8-388) 08/19/19 17:00 Total Bilirubin 0.4 mg/dL (0.2-1) 08/19/19 16:35 AST 116 U/L (15-37) H 08/19/19 16:35 ALT 116 U/L (13-61) H 08/19/19 16:35 Alkaline Phosphatase 91 U/L (45-117) 08/19/19 16:35 LD Total 524 U/L (87-246) H 08/19/19 17:00 Creatine Kinase 556 U/L (26-308) H 08/19/19 16:35 Troponin I 0.46 ng/ml (0.00-0.05) H 08/19/19 16:35 C-Reactive Protein 2.1 MG/DL (0.00-0.3) H 08/19/19 17:00 B-Natriuretic Peptide 8035.7 pg/ml (5-125) H 08/19/19 16:35 Total Protein 8.3 g/dl (6.4-8.2) H 08/19/19 16:35 Albumin 3.4 g/dl (3.4-5.0) 08/19/19 16:35 Blood Type O POSITIVE 08/19/19 16:35 Antibody Screen Negative 08/19/19 16:35 Alena consulted - does not advise Lasix at this time. Advised Lokelma, pt cannot tolerate PO at this time. THOMAS Transaminitis LDH elevated CRP elevated BNP elevated Troponin elevated -No EKG ST changes -Suspect demand Labs concerning for COVID-19 infections. Solumedrol ordered Heparin gtt and bolus ordered 08/19/19 18:31 Pt evaluated by ICU team. Mother called, updated with results. 08/19/19 18:44 Laboratory Tests 08/19/19 08/19/19 18:00 18:00 PT with INR 13.30 H INR 1.13 H PTT (Actin FS) 21.5 L D-Dimer 2070 H Elevated d-dimer -Consistent with COVID -Heparin ordered Discharge - Discharge Information Problems reviewed: Yes Clinical Impression/Diagnosis: Acute respiratory failure with hypoxia, History of morbid obesity, History of obstructive sleep apnea, History of medication noncompliance, Suspected COVID-19 virus infection, Hyperkalemia, THOMAS (acute kidney injury), Transaminitis Condition: Critical - Admission Yes - Follow up/Referral - Patient Discharge Instructions - Post Discharge Activity
[2019-08-19 17:13] LABS: BASO % 0.6 % (0-2.0); HEMATOCRIT 52.8 % (35.4-49); HEMOGLOBIN 14.9 GM/dL (11.7-16.9); LYMPH % 4.7 % (8-40); MCHC 28.2 g/dl (32.0-35.9); MEAN CELL VOLUME 92.3 fl (80-96); MEAN PLT VOLUME 8.1 fl (7.5-11.1); MONO % 6.6 % (3.8-10.2); NEUT % 88.1 % (42.8-82.8); PLATELET COUNT 237 K/MM3 (134-434); RBC 5.73 M/mm3 (4.00-5.60); RDW 20.7 % (11.9-15.9); WHITE BLOOD COUNT 13.6 K/mm3 (4.0-10.0)
--- NOTE | 2019-08-19 17:32 | PDOC ---
Attending Attestation - Resident Resident Name: Valeri Pavon - ED Attending Attestation I have performed the following: I have examined & evaluated the patient, The case was reviewed & discussed with the resident, I agree w/resident's findings & plan, Exceptions are as noted - HPI HPI: 49 yo M history HTN, HL, [place], CHF, morbid obesity presents with cp, SOB, leg swelling for past 4 days. Poorly compliant with meds and CPAP. As per EMS, ellen hernandez was hypoxic to 75% on RA, improved to 100% with NRB. Limited history secondary to resp distress. - Physicial Exam PE: GENERAL: Awake, alert. Morbidly obese. +Resp distress- tachypnea, unable to speak full sentences. HEAD: No signs of trauma EYES: PERRLA, EOMI, sclera anicteric, conjunctiva clear ENT: Auricles normal inspection, hearing grossly normal, nares patent, oropharynx clear without exudates. Moist mucosa NECK: Normal ROM, supple, no lymphadenopathy, JVD, or masses LUNGS: Tachypneic with dec breath sounds B/L HEART: Regular rate and rhythm, normal S1 and S2, no murmurs, rubs or gallops ABDOMEN: Soft, nontender, normoactive bowel sounds. No guarding, no rebound. No masses EXTREMITIES: Normal range of motion, 3+ pitting edema to knees B/L. No clubbing or cyanosis. No cords, erythema, or tenderness NEUROLOGICAL: Cranial nerves II through XII grossly intact. Motor and sensation intact SKIN: Warm, dry, normal turgor, no rashes or lesions noted. - Medical Decision Making Pt with suspected COVID, possibly complicated by CHF. Last echo shows normal EF, however, based on clinical appearance, there may be a component of CHF. Given the distant lung sounds, hypoxia on NRB in ED requiring BiPAP, and CXR findings, high suspicion for COVID-19. In light of his body habitus, will put effort into maintaining noninvasive ventilation, as he will have difficulty if placed on a vent. Satting well on BiPAP and comfortable. Found to have labs that would suggest COVID. +Renal failure- will discuss with Dr. Carvajal. Admit to ICU. Discharge - Discharge Information Problems reviewed: Yes Clinical Impression/Diagnosis: Acute respiratory failure with hypoxia, History of morbid obesity, History of obstructive sleep apnea, History of medication noncompliance, Suspected COVID-19 virus infection, Hyperkalemia, THOMAS (acute kidney injury), Transaminitis Condition: Critical - Follow up/Referral - Patient Discharge Instructions - Post Discharge Activity
[2019-08-19 17:40] LABS: ALBUMIN 3.4 g/dl (3.4-5.0); ALK PHOS 91 U/L (45-117); ANION GAP 10 MMOL/L (8-16); BILIRUBIN,TOTAL 0.4 mg/dL (0.2-1); BLOOD UREA NITROGEN 29.4 mg/dL (7-18); CALCIUM 8.8 mg/dL (8.5-10.1); CHLORIDE 96 mmol/L (98-107); CO2 32 mmol/L (21-32); CREATININE 2.4 mg/dL (0.55-1.3); GLUCOSE,RANDOM 132 mg/dL (74-106); MAGNESIUM 2.3 mg/dL (1.8-2.4); N-TERMINAL BNP 8035.7 pg/ml (5-125); POTASSIUM 5.4 mmol/L (3.5-5.1); SGOT/AST 116 U/L (15-37); SGPT/ALT 116 U/L (13-61); SODIUM 138 mmol/L (136-145); TOT PROT 8.3 g/dl (6.4-8.2)
[2019-08-19] MEDS ORDERED: INSULIN REGULAR HUMAN 100 UNITS/ML *VIAL IVPUSH ONE (17:43)
[2019-08-19] MEDS ORDERED: DEXTROSE 50%-WATER - 25 GM/50 ML VIAL IVPUSH ONE (17:43)
[2019-08-19] MEDS ORDERED: DEXTROSE 50%-WATER 25 GM/50 ML DISP.SYRIN ONE (17:45)
[2019-08-19] MEDS ORDERED: SODIUM ZIRCONIUM CYCLOSILICATE (LOKELMA) 5 GM PACKET PO ONE (18:00)
[2019-08-19] MEDS ORDERED: HEPARIN NA (PORCINE) 5,000 UNITS/ML 1ML VIAL IVPUSH PRN ×2 (18:11)
[2019-08-19] MEDS ORDERED: HEPARIN NA (PORCINE) 5,000 UNITS/ML 1ML VIAL IVPUSH ONE (18:12)
[2019-08-19] MEDS ORDERED: methylPREDNISolone NA SUCC 125 MG/2 ML VIAL IVPUSH ONE (18:22)
[2019-08-19 18:25] LABS: INR 1.13 (0.83-1.09); PROTHROMBIN TIME (PATIENT) 13.3 SEC (9.7-13.0)
[2019-08-19] MEDS ORDERED: HEPARIN NA (PORCINE) 5,000 UNITS/ML 1ML VIAL ONE (18:26)
[2019-08-19 18:27] LABS: ACTIVATED PTT 21.5 SECONDS (25.2-36.5)
[2019-08-19] MEDS ORDERED: methylPREDNISolone NA SUCC 125 MG/2 ML VIAL ONE (18:27)
[2019-08-19] MEDS ORDERED: HEPARIN INFUSION - 25,000 UNITS/500 ML INFUS.BAG IVPB ONE (18:27)
[2019-08-19] MEDS ORDERED: FUROSEMIDE 40 MG/4 ML INJECTABLE VIAL IVPUSH ONE (18:41)
[2019-08-19 18:44] LABS: ANISOCYTOSIS 2+
[2019-08-19 18:45] LABS: PLATELET ESTIMATE ADEQUATE
[2019-08-19] MEDS: HEPARIN - 25,000 UNIT in SODIUM CHLORIDE 495 ML IV SCH (18:47)
[2019-08-19] MEDS ORDERED: FUROSEMIDE 40 MG/4 ML INJECTABLE VIAL ONE (19:10)
[2019-08-19 19:20] LABS: ARTERIAL BLD GAS O2 SATURATION 98.7 mmHg (95-98); ARTERIAL BLOOD GAS BASE EXCESS 0 mmol/L (-2-2); ARTERIAL BLOOD GAS PO2 166.9 mmHg (80-100)
[2019-08-19 19:22] LABS: ALLENS TEST POSITIVE; VENT RATE 12
[2019-08-19 19:23] LABS: ARTERIAL BLOOD GAS pH 7.196 (7.350-7.450)
--- NOTE | 2019-08-19 20:07 | CONSULT ---
Consultation: REQUESTING PROVIDER: ED CONSULT REQUEST: We have been asked to medically evaluate this patient for (Acute hypoxic resp failure). HISTORY OF PRESENT ILLNESS: Patient is a 48 year old male with history of [place], morbid obesity, mild intermittent asthma, hypertension, gastroesophageal reflux presented with difficulty breathing and LE swelling x4 days. Pt has been poorly compliant with both CPAP at home and home meds. Pt reported chest pain. EMS reported pt was sating 75% on RA in the field, 100% on 15L, could not get the CPAP mask to fit his face properly. Pt was worked up for CHF in the past and had an Echo with a EF of 60%, LVH and impaired LV relaxation. ICU was consulted due to AMS, somn olence, worsening respiratory status on BiPaP. REVIEW OF SYSTEMS: Unable to obtain due to somnolence PHYSICAL EXAMINATION Vital Signs - 24 hr 08/19/19 08/19/19 08/19/19 16:30 16:55 17:09 Temperature 99.1 F Pulse Rate 83 Pulse Rate [ 84 Apical] Respiratory 26 H 28 H Rate Blood Pressure 128/79 Blood Pressure 103/68 [Right Arm] O2 Sat by Pulse 100 95 98 Oximetry (%) GENERAL: minimaly response, no response to painful stimuli, pt appears to be in moderate-severe distress on BiPaP EYES: Pupils equal, round and reactive to light, extraocular movements intact, sclera anicteric, conjunctiva clear. Remains closed EARS, NOSE, THROAT: Moist mucous membranes. NECK: JVD noted LUNGS: difficult to appreciate due to body habitus HEART: Increased rate and regular rhythm, normal S1 and S2 without murmur, rub or gallop. ABDOMEN: Soft, nontender, not distended, normoactive bowel sounds, no guarding, no rebound, no masses. UPPER EXTREMITIES: 2+ pulses, warm, well-perfused. B/l 3+ pitting peripheral edema. LOWER EXTREMITIES: 2+ pulses, warm, well-perfused. B/l 3+ pitting edema. NEUROLOGICAL: somnolent Skin: increased skin turgor Laboratory Results - last 24 hr 08/19/19 08/19/19 08/19/19 14:45 16:35 16:35 WBC 13.6 H RBC 5.73 H Hgb 14.9 Hct 52.8 H MCV 92.3 MCH 26.0 D MCHC 28.2 L RDW 20.7 H Plt Count 237 MPV 8.1 Absolute Neuts (auto) 11.9 H Neutrophils % 88.1 H Lymphocytes % 4.7 L D Monocytes % 6.6 Eosinophils % 0.0 D Basophils % 0.6 Nucleated RBC % 2 H Platelet Estimate Adequate Platelet Comment Large platelets Anisocytosis 2+ Microcytosis 1+ PT with INR Cancelled INR Cancelled PTT (Actin FS) Cancelled D-Dimer Anticoagulation Therapy No Result Required. Puncture Site Right radial Patient Temperature No Result Required. ABG pH 7.196 L* ABG pCO2 82.00 H* ABG pO2 166.9 H ABG HCO3 31.0 H ABG O2 Sat (Measured) 98.7 H ABG O2 Content No Result Required. ABG Base Excess 0 Usman Test Positive Patient On Oxygen No Result Required. O2 Delivery Device Bipap Oxygen Flow Rate 50 Vent Mode No Result Required. Vent Rate 12 Mechanical Rate No Result Required. PEEP No Result Required. Pressure Support Vent No Result Required. Sodium Potassium Chloride Carbon Dioxide Anion Gap BUN Creatinine Est GFR (CKD-EPI)AfAm Est GFR (CKD-EPI)NonAf Random Glucose Calcium Magnesium Ferritin Total Bilirubin AST ALT Alkaline Phosphatase LD Total Creatine Kinase Creatine Kinase Index CK-MB (CK-2) Troponin I C-Reactive Protein B-Natriuretic Peptide Total Protein Albumin Blood Type Antibody Screen 08/19/19 08/19/19 08/19/19 16:35 16:35 17:00 WBC RBC Hgb Hct MCV MCH MCHC RDW Plt Count MPV Absolute Neuts (auto) Neutrophils % Lymphocytes % Monocytes % Eosinophils % Basophils % Nucleated RBC % Platelet Estimate Platelet Comment Anisocytosis Microcytosis PT with INR INR PTT (Actin FS) D-Dimer Anticoagulation Therapy Puncture Site Patient Temperature ABG pH ABG pCO2 ABG pO2 ABG HCO3 ABG O2 Sat (Measured) ABG O2 Content ABG Base Excess Usman Test Patient On Oxygen O2 Delivery Device Oxygen Flow Rate Vent Mode Vent Rate Mechanical Rate PEEP Pressure Support Vent Sodium 138 Potassium 5.4 H Chloride 96 L Carbon Dioxide 32 Anion Gap 10 BUN 29.4 H Creatinine 2.4 H Est GFR (CKD-EPI)AfAm 35.89 Est GFR (CKD-EPI)NonAf 30.96 Random Glucose 132 H Calcium 8.8 Magnesium 2.3 Ferritin 287.5 Total Bilirubin 0.4 AST 116 H ALT 116 H Alkaline Phosphatase 91 LD Total 524 H Creatine Kinase 556 H Creatine Kinase Index No Result Required. CK-MB (CK-2) Troponin I 0.46 H C-Reactive Protein 2.1 H B-Natriuretic Peptide 8035.7 H Total Protein 8.3 H Albumin 3.4 Blood Type O POSITIVE Antibody Screen Negative Active Medications Generic Name Dose Route Start Last Admin Trade Name Freq PRN Reason Stop Dose Admin Chlorhexidine Gluconate 1 applic 08/19/19 22:00 Hibiclens For Decolonization - TP HS ARABELLA Heparin Sodium (Porcine) 1,000 unit 08/19/19 18:11 Heparin - IVPUSH PRN PRN Heparin Heparin Sodium (Porcine) 5,000 unit 08/19/19 18:11 Heparin - IVPUSH PRN PRN Heparin Heparin Sodium (Porcine) 25, 500 mls @ 20 mls/hr 08/19/19 18:15 08/19/19 18:47 000 unit/ Sodium Chloride IV 1,000 unit/hr TITR ARABELLA 20 mls/hr Administration Protocol 1,000 UNIT/HR Insulin Aspart 1 vial 08/19/19 22:00 Novolog Vial Sliding Scale - SQ ACHS ARABELLA Protocol Mupirocin 1 applic 08/19/19 22:00 Bactroban Ointment (For Decolonization) - NS 08/24/19 21:59 BID ARABELLA ASSESSMENT/PLAN: Patient is a 48 year old male with history of [place], morbid obesity, mild intermittent asthma, hypertension, gastroesophageal reflux presented with difficulty breathing and LE swelling x4 days, ICU consulted due to AMS, somnolence, worsening respiratory status on BiPaP and pt is being admitted to ICU for worsening Acute hypoxic hypercapenic respiratory failure likely 2/2 to CHF exacerbation vs COVID pneumonia #Neuro somnolent, minimally responsive, no response to sternal rub/pain stimuli neuro checks Q2 aspiration precaution can consider CT head if pt doesnt improve after resolving hypercapnia #Pulmonary Acute Hypoxic Hypercapneic Respiratory failure likely 2/2 to CHF exacerbation vs COVID pneumonia Pt placed on BiPAP- IPAP 14 EPAP 6, Rate 20, will titrate up to max of 20 IPAP Increasing ventilation will improve acidosis and increasing EPAP will decreased preload/afterload R/p ABG for 11 pm Lasix 80 given now, will monitor for response, suspected pulmonary edema 2/2 to CHF exacerbation Stricts Is&O's, daily wts Dubose inserted started on steriods by ED if pt deteriorates, will need to intubate COVID test pending ED started Heparin drip- D-dimers elevated but pt too unstable and large for CTA Wells score 1.5, PE unlikely #Cardio Acute Hypoxic Hypercapneic Respiratory failure likely 2/2 to CHF exacerbation vs COVID pneumonia b/l pitting edema, JVD, BNP elevated CXR: showing b/l pleural effusion, left>right- could also indicate infiltrates- will r/o COVID Cont Lasix 80 for now, monitor output, if improves, cont lasix daily Home dose lasix is 40 BID pt been admitted for CHF exacerbation several times in the past BNP elevated- will r/p and monitor Troponemia likely 2/2 to demand ischemia, will r/p and trend #GI Transamnitis- mild-moderate likely 2/2 to Congestive Hepatopathy/hepatic congestion from CHF exacerbation will monitor for now, r/p CMP for midnight #Renal THOMAS likely prerenal will monitor for now cont Lasix to correct Hyperkalemia as well #ID covid pending CRP, Ferritin, LDH monitor WBC mildly elevated, will cont to trend consider UA + UCx pt afebrile #DVT ppx heparin drip #GI ppx protonix FEN fluid restriction NPO monitor lytes Dispo: We will continue to follow the patient. Thank you for this consultative opportunity. Visit type - Emergency Visit Emergency Visit: Yes ED Registration Date: 08/19/19 Care time: The patient presented to the Emergency Department on the above date and was hospitalized for further evaluation of their emergent condition. - New Patient This patient is new to me today: Yes Date on this admission: 08/20/19 - Critical Care Critical Care patient: No ATTENDING PHYSICIAN STATEMENT I saw and evaluated the patient. I reviewed the resident's note and discussed the case with the resident. I agree with the resident's findings and plan as documented. SUBJECTIVE: OBJECTIVE: ASSESSMENT AND PLAN:
[2019-08-19] MEDS: PANTOPRAZOLE SODIUM 40 MG VIAL IVPUSH SCH (21:00)
[2019-08-19] MEDS ORDERED: PROPOFOL 200 MG/20 ML VIAL IVPUSH ONE (21:03)
[2019-08-19] MEDS ORDERED: RAPID SEQUENCE INTUBATION KIT NR ONE (21:04)
[2019-08-19] MEDS ORDERED: SUCCINYLCHOLINE CHLORIDE 200 MG/10 ML SYRINGE IVPUSH ONE (21:06)
[2019-08-19 21:15] LABS: ARTERIAL BLOOD GAS PO2 63.3 mmHg (80-100)
[2019-08-19] MEDS ORDERED: PROPOFOL 1,000,000 MCG/100 ML VIAL IVPB SCH (21:15)
[2019-08-19 21:17] LABS: ALLENS TEST POSITIVE; PT'S TEMP 98.6
[2019-08-19 21:18] LABS: VENT RATE 26
[2019-08-19 21:22] LABS: ARTERIAL BLOOD GAS pH 6.772 (7.350-7.450)
--- NOTE | 2019-08-19 21:27 | PROC ---
Intubation - Intubation Reason for Intubation: Airway Protection Time of Intubation: 21:20 Intubation Method: orotracheal Blade used: Glidescope Tube Size (cm): 8.0 Tube position @ lip (cm): 24 Tube position confirmed by: Direct visualization, CO2 detector Breath Sounds after Intubation: equal Post Intubation Xray: Yes (pending)
[2019-08-19] MEDS ORDERED: SODIUM BICARBONATE 8.4% 50 MEQ/50 ML DISP.SYRIN IVPUSH ONE (21:30)
[2019-08-19] MEDS: VASOPRESSIN 40 UNITS in SODIUM CHLORIDE 98 ML IVPB SCH (21:30)
[2019-08-19] MEDS ORDERED: VASOPRESSIN 20 UNITS/ML VIAL IV ONE (21:37)
[2019-08-19] MEDS ORDERED: VECURONIUM BROMIDE 10 MG/10 ML VIAL IVPUSH ONE (21:46)
[2019-08-19] MEDS ORDERED: VECURONIUM BROMIDE 10 MG/10 ML VIAL ONE (21:49)
--- NOTE | 2019-08-19 22:30 | PROC ---
Central Line Insertion Indication: Vasopressor Risks and Benefits Explained: No (emergent ) Central Line: Triple Lumen Catheter Anesthesia: 1% Lidocaine Sterile Technique: Yes Ultrasound Guided Assistance: Yes Position: Right Internal Jugular Post Insertion: Yes: Chest X-Ray Ordered Sterile Dressing Applied: Yes
[2019-08-19] MEDS ORDERED: FENTANYL IVPB 500 MCG/100 ML BAG IVPB SCH (22:45)
[2019-08-19 23:17] LABS: ARTERIAL BLD GAS O2 SATURATION 69.9 mmHg (95-98); ARTERIAL BLOOD GAS pH 7.245 (7.350-7.450)
[2019-08-19 23:18] LABS: ALLENS TEST POSITIVE; PT'S TEMP 98.6
[2019-08-19 23:19] LABS: VENT MODE A/C; VENT RATE 24
[2019-08-19 23:21] LABS: ARTERIAL BLOOD GAS PO2 < 46.9 mmHg (80-100)
[2019-08-20] MEDS: MIDAZOLAM IN 0.9 % SOD.CHLORID 100 MG/100 ML PLAST..BAG IVPB SCH ×3 (00:41→21:47)
[2019-08-20] MEDS: CHLORHEXIDINE GLUCONATE 4% CLEANSER FOR DECOLONIZATION TP SCH ×2 (00:45→21:18)
[2019-08-20] MEDS: MUPIROCIN 2% TOPICAL OINTMENT FOR DECOLONIZATION NS SCH ×3 (00:45→21:18)
[2019-08-20 01:01] LABS: ALBUMIN 3.1 g/dl (3.4-5.0); BILIRUBIN,TOTAL 0.5 mg/dL (0.2-1); BLOOD UREA NITROGEN 34.3 mg/dL (7-18); CALCIUM 8.2 mg/dL (8.5-10.1); CREATININE 2.6 mg/dL (0.55-1.3); POTASSIUM 5.5 mmol/L (3.5-5.1); TOT PROT 7.4 g/dl (6.4-8.2)
[2019-08-20] MEDS: INSULIN SLIDING SCALE (NOVOLOG) 1 VIAL SQ SCH ×5 (01:43→21:49)
[2019-08-20 06:12] LABS: ARTERIAL BLOOD GAS BASE EXCESS 7.6 mmol/L (-2-2); ARTERIAL BLOOD GAS PO2 150.4 mmHg (80-100); ARTERIAL BLOOD GAS pH 7.436 (7.350-7.450)
[2019-08-20 06:14] LABS: ALLENS TEST POSITIVE
[2019-08-20] MEDS: FUROSEMIDE 40 MG/4 ML INJECTABLE VIAL IVPUSH SCH ×2 (06:14→15:00)
[2019-08-20 06:16] LABS: VENT MODE A/C; VENT RATE 24
[2019-08-20 07:04] LABS: BASO % 0.1 % (0-2.0); HEMATOCRIT 47.7 % (35.4-49); HEMOGLOBIN 14.1 GM/dL (11.7-16.9); LYMPH % 2.2 % (8-40); MCH 26.2 pg (25.7-33.7); MCHC 29.4 g/dl (32.0-35.9); MEAN CELL VOLUME 88.8 fl (80-96); MEAN PLT VOLUME 8.4 fl (7.5-11.1); MONO % 5.4 % (3.8-10.2); NEUT % 92.3 % (42.8-82.8); PLATELET COUNT 204 K/MM3 (134-434); RBC 5.38 M/mm3 (4.00-5.60); RDW 20.5 % (11.9-15.9); WHITE BLOOD COUNT 16.3 K/mm3 (4.0-10.0)
[2019-08-20 07:15] LABS: INR 1.27 (0.83-1.09)
[2019-08-20 07:30] LABS: BILIRUBIN,TOTAL 0.7 mg/dL (0.2-1); BLOOD UREA NITROGEN 43.5 mg/dL (7-18); CALCIUM 8.4 mg/dL (8.5-10.1); CREATININE 2.4 mg/dL (0.55-1.3); MAGNESIUM 2.1 mg/dL (1.8-2.4); N-TERMINAL BNP 3662.3 pg/ml (5-125); PHOSPHOROUS 3.7 mg/dL (2.5-4.9); POTASSIUM 5.1 mmol/L (3.5-5.1); TOT PROT 7.4 g/dl (6.4-8.2)
--- NOTE | 2019-08-20 08:18 | PN ---
Progress Note (short form) - Note Progress Note: HD#2 BRIEF HPI Patient is a 48 year old male with history of [place], morbid obesity, mild intermittent asthma, hypertension, gastroesophageal reflux presented with difficulty breathing and LE swelling x4 days. Pt has been poorly compliant with both CPAP at home and home meds. Pt reported chest pain. EMS reported pt was sating 75% on RA in the field, 100% on 15L, could not get the CPAP mask to fit his face properly. Pt was worked up for CHF in the past and had an Echo with a EF of 60%, LVH and impaired LV relaxation. ICU was consulted due to AMS, somnolence, worsening respiratory status on BiPaP. OVERNIGHT EVENTS Respiratory failure, became somnolent, RSI by Anesthesia in the ICU, RIJ CVC placed, started pressors and sedative + paralytic. Possible COVID-19. OBJECTIVE Vital Signs Temp 98.6 F 08/19/19 22:00 Pulse 88 08/20/19 05:00 Resp 24 H 08/20/19 05:00 BP 127/88 08/20/19 05:00 Pulse Ox 100 08/20/19 04:31 Intake & Output 08/19/19 08/19/19 08/20/19 11:59 23:59 11:59 Intake Total 575 Output Total 250 900 Balance -250 -325 Weight 165.561 kg Intake: IV 575 Heparin - 25,000 Unit In 200 Normal Saline - 495 ml @ 1,000 UNIT/HR 20 mls/hr IV TITR ARABELLA Rx#: [id number] MIDAZOLAM 100MG/100ML-0.9 300 %NACL 100 mg In 100 ml @ 1 MG/HR 1 mls/hr IVPB TITR ARABELLA Rx#:[id number] Pitressin - 40 Units In 40 Normal Saline - 98 ml @ 2 UNITS/HR 5 mls/hr IVPB ASDIR ARABELLA Rx#:[id number] SUBLIMAZE IVPB 500 mcg In 35 100 ml @ 1 MCG/KG/HR 33. 112 mls/hr IVPB TITR ARABELLA Rx#:[id number] Output: Urine 250 900 Dubose 250 900 Other: Voiding Method Indwelling Catheter Bowel Movement No Height 5 ft 7 in Body Mass Index (BMI) 57.2 LINES: RAC 18g PIV (placed 08/18), RIJ TLC (placed 08/18) TUBES: ETT (placed 08/18) DRAINS: Dubose (placed 08/18) EXAM GENERAL: sedated, intubated, on ventilator HEENT: ETT in place, no e/o facial or head trauma, no blood from ETT, no NGT or OGT placed yet, no acute oropharyngeal ulcerations NECK/BACK: no obvious neck hematoma or other trauma CARDIOVASCULAR: on pressor ggt, LUNGS/RESPIRATORY: breath sounds coarse but no focal area of decreased sounds GI/ABDOMEN: symmetric, atraumatic outwardly, obese, protuberant but non- distended, no midline pulsatile masses : Dubose in place, normal external appearance MSK/EXTREMITIES: no evidence of acute trauma DERM/SKIN: dry, no jaundice, no rash, no pathologic-appearing bruising NEUROLOGICAL: unable to assess A/O, +brainstem reflexes, PERRL, occasional twitch of all 4 extremities and facial muscles, patient is otherwise unable to participate in exam DRIPS: ANTI-INFECTIVES: None Laboratory Last Values WBC 16.3 K/mm3 (4.0-10.0) H 08/20/19 05:00 RBC 5.38 M/mm3 (4.00-5.60) 08/20/19 05:00 Hgb 14.1 GM/dL (11.7-16.9) 08/20/19 05:00 Hct 47.7 % (35.4-49) 08/20/19 05:00 MCV 88.8 fl (80-96) 08/20/19 05:00 MCH 26.2 pg (25.7-33.7) 08/20/19 05:00 MCHC 29.4 g/dl (32.0-35.9) L 08/20/19 05:00 RDW 20.5 % (11.9-15.9) H 08/20/19 05:00 Plt Count 204 K/MM3 (134-434) 08/20/19 05:00 MPV 8.4 fl (7.5-11.1) 08/20/19 05:00 Absolute Neuts (auto) 15.1 K/mm3 (1.5-8.0) H 08/20/19 05:00 Neutrophils % 92.3 % (42.8-82.8) H 08/20/19 05:00 Lymphocytes % 2.2 % (8-40) L D 08/20/19 05:00 Monocytes % 5.4 % (3.8-10.2) 08/20/19 05:00 Eosinophils % 0.0 % (0-4.5) 08/20/19 05:00 Basophils % 0.1 % (0-2.0) 08/20/19 05:00 Nucleated RBC % 4 % (0-0) H 08/20/19 05:00 Platelet Estimate Adequate 08/19/19 16:35 Platelet Comment Large platelets 08/19/19 16:35 Anisocytosis 2+ 08/19/19 16:35 Microcytosis 1+ 08/19/19 16:35 PT with INR 15.00 SEC (9.7-13.0) H 08/20/19 05:00 INR 1.27 (0.83-1.09) H 08/20/19 05:00 PTT (Actin FS) 21.5 SECONDS (25.2-36.5) L 08/19/19 18:00 D-Dimer 2070 ng/ml (0-500) H 08/19/19 18:00 Anticoagulation Therapy No Result Required. 08/20/19 05:55 Puncture Site Right radial 08/20/19 05:55 Patient Temperature No Result Required. 08/20/19 05:55 ABG pH 7.436 (7.350-7.450) 08/20/19 05:55 ABG pCO2 50.90 mmHg (35-45) H 08/20/19 05:55 ABG pO2 150.4 mmHg (80-100) H 08/20/19 05:55 ABG HCO3 33.5 mmol/L (22-27) H 08/20/19 05:55 ABG O2 Sat (Measured) 99.0 mmHg (95-98) H 08/20/19 05:55 ABG O2 Content No Result Required. 08/20/19 05:55 ABG Base Excess 7.6 mmol/L (-2-2) H 08/20/19 05:55 Usman Test Positive 08/20/19 05:55 Patient On Oxygen Yes 08/20/19 05:55 O2 Delivery Device Vent 08/20/19 05:55 Oxygen Flow Rate 100% 08/20/19 05:55 Vent Mode A/c 08/20/19 05:55 Vent Rate 24 08/20/19 05:55 Mechanical Rate No Result Required. 08/20/19 05:55 PEEP 15.0 cmH2O 08/20/19 05:55 Pressure Support Vent 450 08/20/19 05:55 Sodium 138 mmol/L (136-145) 08/20/19 05:00 Potassium 5.1 mmol/L (3.5-5.1) 08/20/19 05:00 Chloride 97 mmol/L (98-107) L 08/20/19 05:00 Carbon Dioxide 33 mmol/L (21-32) H 08/20/19 05:00 Anion Gap 8 MMOL/L (8-16) 08/20/19 05:00 BUN 43.5 mg/dL (7-18) H 08/20/19 05:00 Creatinine 2.4 mg/dL (0.55-1.3) H 08/20/19 05:00 Est GFR (CKD-EPI)AfAm 35.89 08/20/19 05:00 Est GFR (CKD-EPI)NonAf 30.96 08/20/19 05:00 Random Glucose 157 mg/dL (74-106) H 08/20/19 05:00 Calcium 8.4 mg/dL (8.5-10.1) L 08/20/19 05:00 Phosphorus 3.7 mg/dL (2.5-4.9) 08/20/19 05:00 Magnesium 2.1 mg/dL (1.8-2.4) 08/20/19 05:00 Ferritin 287.5 ng/ml (8-388) 08/19/19 17:00 Total Bilirubin 0.7 mg/dL (0.2-1) 08/20/19 05:00 AST 102 U/L (15-37) H 08/20/19 05:00 ALT 109 U/L (13-61) H 08/20/19 05:00 Alkaline Phosphatase 77 U/L (45-117) 08/20/19 05:00 LD Total 524 U/L (87-246) H 08/19/19 17:00 Creatine Kinase 556 U/L (26-308) H 08/19/19 16:35 Creatine Kinase Index No Result Required. 08/19/19 16:35 CK-MB (CK-2) ng/mL (0.5-3.6) 08/19/19 16:35 Troponin I 0.94 ng/ml (0.00-0.05) H* 08/20/19 00:30 C-Reactive Protein 2.1 MG/DL (0.00-0.3) H 08/19/19 17:00 B-Natriuretic Peptide 3662.3 pg/ml (5-125) H 08/20/19 05:00 Total Protein 7.4 g/dl (6.4-8.2) 08/20/19 05:00 Albumin 3.0 g/dl (3.4-5.0) L 08/20/19 05:00 Blood Type O POSITIVE 08/19/19 16:35 Antibody Screen Negative 08/19/19 16:35 ABG 7.436/50.9/33.5/150 @ VENT SETTINGS: VAC, rate 24, TV 450, I-time 0.8, PEEP 15, FiO2 100%, Pplat 27 ASSESSMENT/PLAN: 48YOM with h/o CHF (on home 40 mg Lasix bid), [place], morbid obesity, mild intermittent asthma, HTN, and GERD who presented to the ED with difficulty breathing and BLE swelling. Was admitted to ICU for AMS, somnolence, and worsening respiratory status on BiPAP, soon after admission required RSI and CVC placement. Underlying cause likely CHF exacerbation and obesity hypoventilation +/- COVID-19 infection +/- superimposed LLL bacterial pneumonia. NEURO/PSYCH: Altered mental status (somnolent, minimally responsive, no response to sternal rub/pain stimuli) -Maintain on sedation for ETT/vent -Consider CT head if continued AMS after extubation or while on sedation vacations ENDOCRINE: No concerns at this time. -Continue to monitor CV: CHF exacerbation, troponinemia most likely 2/2 demand ischemia -Trend troponin -Lasix 80 mg IV push daily -Strict I/O and daily weights -Dubose COVID test pending ED started Heparin drip- D-dimers elevated but pt too unstable and large for CTA Wells score 1.5, PE unlikely RESP: hypoxic hypercapneic respiratory failure, CHF exacerbation, possible COVID-19 infection, possible PNA, d-dimer elevated possible PE -Repeat ABG in late afternoon -SoluMedrol 125 mg daily -Monitor for e/o core pulmonale -Continue heparin ggt GI: Elevated transaminases, likely 2/2 to congestive hepatopathy from CHF -Monitor CMP RENAL/: THOMAS, likely prerenal -Renal consulted, appreciate recs -Monitor lytes HEME: No concerns at this time. -Continue to monitor ID: Possible COVID-19 infection, LLL PNA -Levofloxacin 750 mg daily (patient likely CAP and has severe PCN allergy) -F/U COVID-19 testing -Droplet & contact iso -Recheck CRP, Ferritin, LDH in AM -F/U UCx -F/U hepatitis panel MSK: No concerns at this time. -Continue to monitor -PT when able DERM: No concerns at this time. -Continue to monitor FEN -HOLD IVF given CHF and volume overload -Monitor chemistries PPX - DVT: Heparin ggt given elevated d-dimer - GI: Protonix, tube feeds via OGT per Dietary/Nutrition CODE STATUS: Full code DISPO PLAN: Further ICU level of care Discussed patient with ICU Attending. Kathi Schreiber MD ICU Consult Service Problem List - Problems (1) THOMAS (acute kidney injury) Code(s): N17.9 - ACUTE KIDNEY FAILURE, UNSPECIFIED (2) History of medication noncompliance Code(s): Z91.14 - PATIENT'S OTHER NONCOMPLIANCE WITH MEDICATION REGIMEN (3) History of obstructive sleep apnea Code(s): Z86.69 - PERSONAL HISTORY OF DIS OF THE NERVOUS SYS AND SENSE ORGANS (4) Suspected COVID-19 virus infection Code(s): Z20.828 - CONTACT W AND EXPOSURE TO OTH VIRAL COMMUNICABLE DISEASES (5) Transaminitis Code(s): R74.0 - NONSPEC ELEV OF LEVELS OF TRANSAMNS & LACTIC ACID DEHYDRGNSE (6) Acute diastolic (congestive) heart failure Code(s): I50.31 - ACUTE DIASTOLIC (CONGESTIVE) HEART FAILURE (7) Morbid (severe) obesity due to excess calories Code(s): E66.01 - MORBID (SEVERE) OBESITY DUE TO EXCESS CALORIES (8) Acute on chronic respiratory failure with hypoxia and hypercapnia Code(s): J96.21 - ACUTE AND CHRONIC RESPIRATORY FAILURE WITH HYPOXIA; J96.22 - ACUTE AND CHRONIC RESPIRATORY FAILURE WITH HYPERCAPNIA
[2019-08-20] MEDS: NOREPINEPHRINE BITARTRATE 8,000 MCG/500 ML BAG IVPB SCH (08:28)
[2019-08-20 09:01] LABS: EPI CELLS 24 /uL (0-25.1); HYALINE CASTS 11 /uL (0-3.1); URINE APPEARANCE CLEAR; URINE BACTERIA 14 /uL (0-1359); URINE BILIRUBIN NEGATIVE (NEGATIVE); URINE COLOR YELLOW; URINE GLUCOSE (UA) NEGATIVE (NEGATIVE); URINE KETONE NEGATIVE (NEGATIVE); URINE LEUK ESTERASE NEGATIVE (NEGATIVE); URINE NITRITE NEGATIVE (NEGATIVE); URINE PROTEIN TRACE (NEGATIVE); URINE RBC 1011 /uL (0-23.9); URINE UROBILINOGEN 0.2 mg/dL (0.2-1.0); URINE WBC 35 /uL (0-25.8)
[2019-08-20] MEDS ORDERED: AZITHROMYCIN IVPB 500 MG/250 ML BAG IVPB SCH (10:30)
[2019-08-20] MEDS ORDERED: CEFTRIAXONE 1,000 MG in DEXTROSE 5%-WATER - 50 ML IVPB SCH (10:45)
[2019-08-20] MEDS: PANTOPRAZOLE SODIUM 40 MG VIAL IVPUSH SCH (11:00)
[2019-08-20 11:50] LABS: ANISOCYTOSIS 2+; MACROCYTOSIS 1+; PLATELET ESTIMATE NORMAL
--- NOTE | 2019-08-20 12:32 | CON.NEP ---
Consult Consult Specialty:: nephrology Referred by:: chrissy Reason for Consultation:: thomas - History of Present Illness Chief Complaint: sob, resp failure History of Present Illness: 49 year old male with PMH HTN, HLD, [place], CHF presented to ED for SOB + LE swelling x4 days. Pt has been poorly compliant with both CPAP at home and home meds. Pt reported chest pain. EMS reported pt was satting 75% on RA in the field, 100% on 15L, could not get the CPAP mask to fit his face properly. Denied hx nicotine use. Mother - July Parham - [phone] -House - [phone] PCP: Tyrel Shepard MD - History Source History Provided By: Medical Record Limitations to Obtaining History: Clinical Condition - Past Medical History Cardio/Vascular: Yes: HTN. No: AFIB Pulmonary: Yes: Asthma, COPD, Sleep Apnea - Past Surgical History Past Surgical History: Yes: Arthrosocopy, Tonsillectomy - Alcohol/Substance Use Hx Alcohol Use: No - Smoking History Smoking history: Former smoker Have you smoked in the past 12 months: No Aproximately how many cigarettes per day: 3 If you are a former smoker, when did you quit?: 2016 Home Medications - Allergies Allergies/Adverse Reactions: Allergies Allergy/AdvReac Type Severity Reaction Status Date / Time Penicillins Allergy Severe SWELLING,HI Verified 08/19/19 16:57 VES STRAWBERRY Allergy Intermediate SWELLING,HI Uncoded 08/19/19 16:57 VES TOMATOES Allergy Intermediate SWELLING , Uncoded 08/19/19 16:57 HIVES PEANUTS AdvReac Intermediate SWELLING, Uncoded 08/19/19 16:57 HIVES - Home Medications Home Medications: Ambulatory Orders Lisinopril [Prinivil -] 40 mg PO DAILY 03/27/16 Clotrimazole/Betamet Diprop [Lotrisone -] 1 applic ID BID 12/31/18 Potassium Chloride [Potassium Chloride Oral Liquid] 20 meq PO BID 12/31/18 Albuterol Sulfate Inhaler - [Ventolin HFA Inhaler -] 1 puff IH Q4H PRN #1 inhaler 01/03/19 Furosemide Oral Solution [Lasix Oral Solution -] 5 ml PO BID #60 5ml 01/03/19 Nephrology Consult - Height Height: 5 ft 7 in - Weight Weight: 365 lb - BMI Body Mass Index (BMI): 57.2 - Lab Results CBC,BMP: CBC, BMP 08/20/19 05:00 08/20/19 05:00 Anion Gap: Anion Gap Anion Gap 8 MMOL/L (8-16) 08/20/19 05:00 - Physical Examination Vital Signs: Vital Signs Temperature 98.8 F 08/20/19 08:00 Pulse Rate 97 H 08/20/19 09:00 Respiratory Rate 24 H 08/20/19 12:24 Blood Pressure 129/86 08/20/19 09:00 O2 Sat by Pulse Oximetry (%) 99 08/20/19 12:24 Assessment/Plan #THOMAS probably prerenal R/O ATN will monitor urine output for now cont Lasix to correct Hyperkalemia as well altered mental status somnolent, minimally responsive, no response to sternal rub/pain stimuli neuro checks Q2 aspiration precaution can consider CT head if pt doesnt improve after resolving hypercapnia Acute Respiratory Failure HF Transamnitis- likely 2/2 to Congestive Hepatopathy/hepatic congestion from CHF exacerbation will monitor for now, r/p CMP for midnight covid pending #R/O DVT ppx
--- NOTE | 2019-08-20 13:32 | PN ---
Teaching Attending Note Name of Resident: Kathi Schreiber ATTENDING PHYSICIAN STATEMENT I saw and evaluated the patient. I reviewed the resident's note and discussed the case with the resident. I agree with the resident's findings and plan as documented. SUBJECTIVE: Patient sen and examined in the ICU. Intubated and sedated on AC Mode of vent. Failed NIPPV overnight. Acute hypoxic and hypercapneic failure. No pressors. PPlat : 29 Intake & Output 08/17/19 08/18/19 08/19/19 08/20/19 23:59 23:59 23:59 23:59 Intake Total 575 Output Total 250 1900 Balance -250 -1325 Weight 365 lb 365 lb Last Vital Signs Temp Pulse Resp BP Pulse Ox 98.8 F 97 H 24 H 129/86 99 08/20/19 08:00 08/20/19 09:00 08/20/19 12:24 08/20/19 09:00 08/20/19 12:24 Active Medications Chlorhexidine Gluconate (Hibiclens For Decolonization -) 1 applic TP HS ARABELLA Last Admin: 08/20/19 00:45 Dose: 1 applic Documented by: Furosemide (Lasix Injection -) 60 mg IVPUSH BID@0600,1400 ARABELLA Last Admin: 08/20/19 06:14 Dose: 60 mg Documented by: Heparin Sodium (Porcine) (Heparin -) 1,000 unit IVPUSH PRN PRN PRN Reason: Heparin Heparin Sodium (Porcine) (Heparin -) 5,000 unit IVPUSH PRN PRN PRN Reason: Heparin Heparin Sodium (Porcine) 25, (000 unit/ Sodium Chloride) 500 mls @ 20 mls/hr IV TITR ARABELLA; Protocol Last Admin: 08/19/19 18:47 Dose: 1,000 unit/hr, 20 mls/hr Documented by: Vasopressin 40 units/ Sodium (Chloride) 100 mls @ 5 mls/hr IVPB ASDIR ARABELLA; Protocol Last Admin: 08/19/19 21:30 Dose: 2 units/hr, 5 mls/hr Documented by: Midazolam HCl (Midazolam 100mg/100ml-0.9%Nacl) 100 mg in 100 mls @ 1 mls/hr IVPB TITR ARABELLA; Protocol Last Admin: 08/20/19 00:41 Dose: 5 mg/hr, 5 mls/hr Documented by: Norepinephrine Bitartrate (Levophed Bag) 8,000 mcg in 500 mls @ 18.75 mls/hr IVPB TITR ARABELLA; Protocol Last Admin: 08/20/19 08:28 Dose: Not Given Documented by: Fentanyl (Sublimaze Ivpb) 500 mcg in 100 mls @ 33.112 mls/hr IVPB TITR ARABELLA; Protocol Levofloxacin (Levaquin 750 Mg Premixed Ivpb -) 750 mg in 150 mls @ 100 mls/hr IVPB DAILY ARABELLA; Protocol Last Admin: 08/20/19 12:00 Dose: 100 mls/hr Documented by: Insulin Aspart (Novolog Vial Sliding Scale -) 1 vial SQ ACHS ARABELLA; Protocol Last Admin: 08/20/19 12:10 Dose: 2 units Documented by: Mupirocin (Bactroban Ointment (For Decolonization) -) 1 applic NS BID [facility] Stop: 08/24/19 21:59 Last Admin: 08/20/19 00:45 Dose: Not Given Documented by: Pantoprazole Sodium (Protonix Iv) 40 mg IVPUSH DAILY [facility] Last Admin: 08/20/19 11:00 Dose: 40 mg Documented by: EXAM GENERAL: sedated, intubated HEENT: ETT in place NECK/BACK: (-) JVD CARDIOVASCULAR: S1S2 LUNGS/RESPIRATORY: Vented, bilateral coarse breath sounds GI/ABDOMEN: obese, (+) BS, no pulsatile masses : Dubose in place MSK/EXTREMITIES: no evidence of acute trauma DERM/SKIN: dry, no jaundice, no rash, no pathologic-appearing bruising NEUROLOGICAL: sedated Laboratory Last Values WBC 16.3 K/mm3 (4.0-10.0) H 08/20/19 05:00 RBC 5.38 M/mm3 (4.00-5.60) 08/20/19 05:00 Hgb 14.1 GM/dL (11.7-16.9) 08/20/19 05:00 Hct 47.7 % (35.4-49) 08/20/19 05:00 MCV 88.8 fl (80-96) 08/20/19 05:00 MCH 26.2 pg (25.7-33.7) 08/20/19 05:00 MCHC 29.4 g/dl (32.0-35.9) L 08/20/19 05:00 RDW 20.5 % (11.9-15.9) H 08/20/19 05:00 Plt Count 204 K/MM3 (134-434) 08/20/19 05:00 MPV 8.4 fl (7.5-11.1) 08/20/19 05:00 Absolute Neuts (auto) 15.1 K/mm3 (1.5-8.0) H 08/20/19 05:00 Neutrophils % 92.3 % (42.8-82.8) H 08/20/19 05:00 Lymphocytes % 2.2 % (8-40) L D 08/20/19 05:00 Monocytes % 5.4 % (3.8-10.2) 08/20/19 05:00 Eosinophils % 0.0 % (0-4.5) 08/20/19 05:00 Basophils % 0.1 % (0-2.0) 08/20/19 05:00 Nucleated RBC % 4 % (0-0) H 08/20/19 05:00 Platelet Estimate Adequate 08/19/19 16:35 Platelet Comment Large platelets 08/19/19 16:35 Anisocytosis 2+ 08/19/19 16:35 Microcytosis 1+ 08/19/19 16:35 PT with INR 15.00 SEC (9.7-13.0) H 08/20/19 05:00 INR 1.27 (0.83-1.09) H 08/20/19 05:00 PTT (Actin FS) 21.5 SECONDS (25.2-36.5) L 08/19/19 18:00 D-Dimer 2070 ng/ml (0-500) H 08/19/19 18:00 Anticoagulation Therapy No Result Required. 08/20/19 05:55 Puncture Site Right radial 08/20/19 05:55 Patient Temperature No Result Required. 08/20/19 05:55 ABG pH 7.436 (7.350-7.450) 08/20/19 05:55 ABG pCO2 50.90 mmHg (35-45) H 08/20/19 05:55 ABG pO2 150.4 mmHg (80-100) H 08/20/19 05:55 ABG HCO3 33.5 mmol/L (22-27) H 08/20/19 05:55 ABG O2 Sat (Measured) 99.0 mmHg (95-98) H 08/20/19 05:55 ABG O2 Content No Result Required. 08/20/19 05:55 ABG Base Excess 7.6 mmol/L (-2-2) H 08/20/19 05:55 Usman Test Positive 08/20/19 05:55 Patient On Oxygen Yes 08/20/19 05:55 O2 Delivery Device Vent 08/20/19 05:55 Oxygen Flow Rate 100% 08/20/19 05:55 Vent Mode A/c 08/20/19 05:55 Vent Rate 24 08/20/19 05:55 Mechanical Rate No Result Required. 08/20/19 05:55 PEEP 15.0 cmH2O 08/20/19 05:55 Pressure Support Vent 450 08/20/19 05:55 Sodium 138 mmol/L (136-145) 08/20/19 05:00 Potassium 5.1 mmol/L (3.5-5.1) 08/20/19 05:00 Chloride 97 mmol/L (98-107) L 08/20/19 05:00 Carbon Dioxide 33 mmol/L (21-32) H 08/20/19 05:00 Anion Gap 8 MMOL/L (8-16) 08/20/19 05:00 BUN 43.5 mg/dL (7-18) H 08/20/19 05:00 Creatinine 2.4 mg/dL (0.55-1.3) H 08/20/19 05:00 Est GFR (CKD-EPI)AfAm 35.89 08/20/19 05:00 Est GFR (CKD-EPI)NonAf 30.96 08/20/19 05:00 Random Glucose 157 mg/dL (74-106) H 08/20/19 05:00 Calcium 8.4 mg/dL (8.5-10.1) L 08/20/19 05:00 Phosphorus 3.7 mg/dL (2.5-4.9) 08/20/19 05:00 Magnesium 2.1 mg/dL (1.8-2.4) 08/20/19 05:00 Ferritin 287.5 ng/ml (8-388) 08/19/19 17:00 Total Bilirubin 0.7 mg/dL (0.2-1) 08/20/19 05:00 AST 102 U/L (15-37) H 08/20/19 05:00 ALT 109 U/L (13-61) H 08/20/19 05:00 Alkaline Phosphatase 77 U/L (45-117) 08/20/19 05:00 LD Total 524 U/L (87-246) H 08/19/19 17:00 Creatine Kinase 556 U/L (26-308) H 08/19/19 16:35 Creatine Kinase Index No Result Required. 08/19/19 16:35 CK-MB (CK-2) ng/mL (0.5-3.6) 08/19/19 16:35 Troponin I 0.94 ng/ml (0.00-0.05) H* 08/20/19 00:30 C-Reactive Protein 2.1 MG/DL (0.00-0.3) H 08/19/19 17:00 B-Natriuretic Peptide 3662.3 pg/ml (5-125) H 08/20/19 05:00 Total Protein 7.4 g/dl (6.4-8.2) 08/20/19 05:00 Albumin 3.0 g/dl (3.4-5.0) L 08/20/19 05:00 Blood Type O POSITIVE 08/19/19 16:35 Antibody Screen Negative 08/19/19 16:35 Problem List - Problems (1) THOMAS (acute kidney injury) Code(s): N17.9 - ACUTE KIDNEY FAILURE, UNSPECIFIED (2) History of medication noncompliance Code(s): Z91.14 - PATIENT'S OTHER NONCOMPLIANCE WITH MEDICATION REGIMEN (3) History of obstructive sleep apnea Code(s): Z86.69 - PERSONAL HISTORY OF DIS OF THE NERVOUS SYS AND SENSE ORGANS (4) Suspected COVID-19 virus infection Code(s): Z20.828 - CONTACT W AND EXPOSURE TO OTH VIRAL COMMUNICABLE DISEASES (5) Transaminitis Code(s): R74.0 - NONSPEC ELEV OF LEVELS OF TRANSAMNS & LACTIC ACID DEHYDRGNSE (6) Acute diastolic (congestive) heart failure Code(s): I50.31 - ACUTE DIASTOLIC (CONGESTIVE) HEART FAILURE (7) Morbid (severe) obesity due to excess calories Code(s): E66.01 - MORBID (SEVERE) OBESITY DUE TO EXCESS CALORIES (8) Acute on chronic respiratory failure with hypoxia and hypercapnia Code(s): J96.21 - ACUTE AND CHRONIC RESPIRATORY FAILURE WITH HYPOXIA; J96.22 - ACUTE AND CHRONIC RESPIRATORY FAILURE WITH HYPERCAPNIA PLAN: LTTV Empiric ABX Garcia-culture Wean PEEP Strict I & O AC for now ECHO LE doppler Follow Serology Diuresis Sedate for vent synchrony Requires ICU monitoring Dr Guzman Critical care time spent in reviewing chart, evaluating patient and formulating plan - 36 minutes.
[2019-08-20] MEDS: FENTANYL IVPB 500 MCG/100 ML BAG IVPB SCH (13:36)
--- NOTE | 2019-08-20 15:38 | PN ---
Progress Note (short form) - Note Progress Note: Troponin has been trending upward, EKG showing A-fib/A-flutter without RVR, compared with ED EKG showing NSR. I spoke with Dr. Adams and consult order placed. Likely demand ischemia, patient is already getting heparin ggt. Problem List - Problems (1) THOMAS (acute kidney injury) Code(s): N17.9 - ACUTE KIDNEY FAILURE, UNSPECIFIED (2) History of medication noncompliance Code(s): Z91.14 - PATIENT'S OTHER NONCOMPLIANCE WITH MEDICATION REGIMEN (3) History of obstructive sleep apnea Code(s): Z86.69 - PERSONAL HISTORY OF DIS OF THE NERVOUS SYS AND SENSE ORGANS (4) Suspected COVID-19 virus infection Code(s): Z20.828 - CONTACT W AND EXPOSURE TO OTH VIRAL COMMUNICABLE DISEASES (5) Transaminitis Code(s): R74.0 - NONSPEC ELEV OF LEVELS OF TRANSAMNS & LACTIC ACID DEHYDRGNSE (6) Acute diastolic (congestive) heart failure Code(s): I50.31 - ACUTE DIASTOLIC (CONGESTIVE) HEART FAILURE (7) Morbid (severe) obesity due to excess calories Code(s): E66.01 - MORBID (SEVERE) OBESITY DUE TO EXCESS CALORIES
--- NOTE | 2019-08-20 17:48 | EKG ---
Test Reason : Blood Pressure : / mmHG Vent. Rate : 085 BPM Atrial Rate : 227 BPM P-R Int : 000 ms QRS Dur : 088 ms QT Int : 352 ms P-R-T Axes : 000 049 011 degrees QTc Int : 418 ms ATRIAL FIBRILLATION WITH PREMATURE VENTRICULAR OR ABERRANTLY CONDUCTED COMPLEXES ABNORMAL ECG WHEN COMPARED WITH ECG OF 19-AUG-2019 16:49, ATRIAL FIBRILLATION HAS REPLACED SINUS RHYTHM Confirmed by MD Meir, Ruddy ([id number]) on 08/20/2019 5:48:01 PM Referred By: Marci DENNIS Confirmed By:Ruddy Worley MD
--- NOTE | 2019-08-20 17:51 | EKG ---
Test Reason : Blood Pressure : / mmHG Vent. Rate : 081 BPM Atrial Rate : 081 BPM P-R Int : 156 ms QRS Dur : 082 ms QT Int : 384 ms P-R-T Axes : 042 064 012 degrees QTc Int : 446 ms NORMAL SINUS RHYTHM LEFT ATRIAL ENLARGEMENT BORDERLINE ECG WHEN COMPARED WITH ECG OF 30-DEC-2018 23:34, PREMATURE ATRIAL COMPLEXES ARE NO LONGER PRESENT QUESTIONABLE CHANGE IN QRS DURATION Confirmed by MD Meir, Ruddy ([id number]) on 08/20/2019 5:51:22 PM Referred By: Confirmed By:Ruddy Worley MD
[2019-08-20] MEDS ORDERED: PT OWN MED DRAWER 7, Y5N ONE (18:51)
[2019-08-20] MEDS: ENOXAPARIN NA (PORCINE) 80 MG/0.8 ML DISP.SYRIN SQ SCH (21:48)
[2019-08-21] MEDS: FENTANYL IVPB 500 MCG/100 ML BAG IVPB SCH ×2 (02:00→14:26)
--- NOTE | 2019-08-21 05:37 | PN ---
Physical Exam: SUBJECTIVE: Patient seen and examined at bed side inICU No fever , THOMAS improved , trop peaked Intubated and sedated on AC Mode of vent. PPlat : 28 , No pressors. ABG noted: Vent settings were adjusted. OBJECTIVE: Vital Signs Period Temp Pulse Resp BP Sys/Ramon Pulse Ox Last 24 Hr 98 F-99 F 82-106 22-24 105-131/66-92 89-99 EXAM GENERAL: sedated, intubated, on ventilator HEENT: ETT in place, no e/o facial or head trauma, no blood from ETT, no NGT or OGT placed yet, no acute oropharyngeal ulcerations NECK/BACK: no obvious neck hematoma or other trauma CARDIOVASCULAR: on pressor ggt, LUNGS/RESPIRATORY: breath sounds coarse but no focal area of decreased sounds GI/ABDOMEN: symmetric, atraumatic outwardly, obese, protuberant but non- distended, no midline pulsatile masses : Dubose in place, normal external appearance MSK/EXTREMITIES: no evidence of acute trauma DERM/SKIN: dry, no jaundice, no rash, no pathologic-appearing bruising NEUROLOGICAL: unable to assess A/O, +brainstem reflexes, PERRL, occasional twitch of all 4 extremities and facial muscles, patient is otherwise unable to participate in exam Laboratory Results - last 24 hr 08/20/19 08/20/19 08/20/19 05:00 05:00 05:00 WBC 16.3 H RBC 5.38 Hgb 14.1 Hct 47.7 MCV 88.8 MCH 26.2 MCHC 29.4 L RDW 20.5 H Plt Count 204 MPV 8.4 Absolute Neuts (auto) 15.1 H Neutrophils % 92.3 H Neutrophils % (Manual) 90.6 H Band Neutrophils % 5.2 Lymphocytes % 2.2 L D Lymphocytes % (Manual) 3.1 L Monocytes % 5.4 Monocytes % (Manual) 1 L D Eosinophils % 0.0 Eosinophils % (Manual) 0.0 Basophils % 0.1 Basophils % (Manual) 0.0 Myelocytes % (Man) 0 Promyelocytes % (Man) 0 Blast Cells % (Manual) 0 Nucleated RBC % 4 H Metamyelocytes 0 Hypochromia 0 Platelet Estimate Normal Polychromasia 2+ Poikilocytosis 0 Anisocytosis 2+ Microcytosis 1+ Macrocytosis 1+ PT with INR 15.00 H INR 1.27 H PTT (Actin FS) Anticoagulation Therapy Puncture Site Patient Temperature ABG pH ABG pCO2 ABG pO2 ABG HCO3 ABG O2 Sat (Measured) ABG O2 Content ABG Base Excess Usman Test Patient On Oxygen O2 Delivery Device Oxygen Flow Rate Vent Mode Vent Rate Mechanical Rate PEEP Pressure Support Vent Sodium 138 Potassium 5.1 Chloride 97 L Carbon Dioxide 33 H Anion Gap 8 BUN 43.5 H Creatinine 2.4 H Est GFR (CKD-EPI)AfAm 35.89 Est GFR (CKD-EPI)NonAf 30.96 POC Glucometer Random Glucose 157 H Calcium 8.4 L Phosphorus 3.7 Magnesium 2.1 Total Bilirubin 0.7 AST 102 H ALT 109 H Alkaline Phosphatase 77 Creatine Kinase Creatine Kinase Index CK-MB (CK-2) Troponin I B-Natriuretic Peptide 3662.3 H Total Protein 7.4 Albumin 3.0 L Urine Color Urine Appearance Urine pH Ur Specific [place] Urine Protein Urine Glucose (UA) Urine Ketones Urine Blood Urine Nitrite Urine Bilirubin Urine Urobilinogen Ur Leukocyte Esterase Urine WBC (Auto) Urine RBC (Auto) Urine Casts (Auto) U Epithel Cells (Auto) Urine Bacteria (Auto) 08/20/19 08/20/19 08/20/19 05:00 05:55 11:30 WBC RBC Hgb Hct MCV MCH MCHC RDW Plt Count MPV Absolute Neuts (auto) Neutrophils % Neutrophils % (Manual) Band Neutrophils % Lymphocytes % Lymphocytes % (Manual) Monocytes % Monocytes % (Manual) Eosinophils % Eosinophils % (Manual) Basophils % Basophils % (Manual) Myelocytes % (Man) Promyelocytes % (Man) Blast Cells % (Manual) Nucleated RBC % Metamyelocytes Hypochromia Platelet Estimate Polychromasia Poikilocytosis Anisocytosis Microcytosis Macrocytosis PT with INR INR PTT (Actin FS) 39.8 H Anticoagulation Therapy No Result Required. Puncture Site Right radial Patient Temperature No Result Required. ABG pH 7.436 ABG pCO2 50.90 H ABG pO2 150.4 H ABG HCO3 33.5 H ABG O2 Sat (Measured) 99.0 H ABG O2 Content No Result Required. ABG Base Excess 7.6 H Usman Test Positive Patient On Oxygen Yes O2 Delivery Device Vent Oxygen Flow Rate 100% Vent Mode A/c Vent Rate 24 Mechanical Rate No Result Required. PEEP 15.0 Pressure Support Vent 450 Sodium Potassium Chloride Carbon Dioxide Anion Gap BUN Creatinine Est GFR (CKD-EPI)AfAm Est GFR (CKD-EPI)NonAf POC Glucometer Random Glucose Calcium Phosphorus Magnesium Total Bilirubin AST ALT Alkaline Phosphatase Creatine Kinase Creatine Kinase Index CK-MB (CK-2) Troponin I B-Natriuretic Peptide Total Protein Albumin Urine Color Yellow Urine Appearance Clear Urine pH 5.0 Ur Specific [place] 1.014 Urine Protein Trace Urine Glucose (UA) Negative Urine Ketones Negative Urine Blood 3+ H Urine Nitrite Negative Urine Bilirubin Negative Urine Urobilinogen 0.2 Ur Leukocyte Esterase Negative Urine WBC (Auto) 35 Urine RBC (Auto) 1011 Urine Casts (Auto) 11 U Epithel Cells (Auto) 24 Urine Bacteria (Auto) 14 08/20/19 08/20/19 08/20/19 11:30 12:07 16:54 WBC RBC Hgb Hct MCV MCH MCHC RDW Plt Count MPV Absolute Neuts (auto) Neutrophils % Neutrophils % (Manual) Band Neutrophils % Lymphocytes % Lymphocytes % (Manual) Monocytes % Monocytes % (Manual) Eosinophils % Eosinophils % (Manual) Basophils % Basophils % (Manual) Myelocytes % (Man) Promyelocytes % (Man) Blast Cells % (Manual) Nucleated RBC % Metamyelocytes Hypochromia Platelet Estimate Polychromasia Poikilocytosis Anisocytosis Microcytosis Macrocytosis PT with INR INR PTT (Actin FS) Anticoagulation Therapy Puncture Site Patient Temperature ABG pH ABG pCO2 ABG pO2 ABG HCO3 ABG O2 Sat (Measured) ABG O2 Content ABG Base Excess Usman Test Patient On Oxygen O2 Delivery Device Oxygen Flow Rate Vent Mode Vent Rate Mechanical Rate PEEP Pressure Support Vent Sodium Potassium Chloride Carbon Dioxide Anion Gap BUN Creatinine Est GFR (CKD-EPI)AfAm Est GFR (CKD-EPI)NonAf POC Glucometer 171 174 Random Glucose Calcium Phosphorus Magnesium Total Bilirubin AST ALT Alkaline Phosphatase Creatine Kinase Creatine Kinase Index CK-MB (CK-2) Troponin I 1.26 H* B-Natriuretic Peptide Total Protein Albumin Urine Color Urine Appearance Urine pH Ur Specific [place] Urine Protein Urine Glucose (UA) Urine Ketones Urine Blood Urine Nitrite Urine Bilirubin Urine Urobilinogen Ur Leukocyte Esterase Urine WBC (Auto) Urine RBC (Auto) Urine Casts (Auto) U Epithel Cells (Auto) Urine Bacteria (Auto) 08/20/19 08/20/19 20:00 21:23 WBC RBC Hgb Hct MCV MCH MCHC RDW Plt Count MPV Absolute Neuts (auto) Neutrophils % Neutrophils % (Manual) Band Neutrophils % Lymphocytes % Lymphocytes % (Manual) Monocytes % Monocytes % (Manual) Eosinophils % Eosinophils % (Manual) Basophils % Basophils % (Manual) Myelocytes % (Man) Promyelocytes % (Man) Blast Cells % (Manual) Nucleated RBC % Metamyelocytes Hypochromia Platelet Estimate Polychromasia Poikilocytosis Anisocytosis Microcytosis Macrocytosis PT with INR INR PTT (Actin FS) Anticoagulation Therapy Puncture Site Patient Temperature ABG pH ABG pCO2 ABG pO2 ABG HCO3 ABG O2 Sat (Measured) ABG O2 Content ABG Base Excess Usman Test Patient On Oxygen O2 Delivery Device Oxygen Flow Rate Vent Mode Vent Rate Mechanical Rate PEEP Pressure Support Vent Sodium Potassium Chloride Carbon Dioxide Anion Gap BUN Creatinine Est GFR (CKD-EPI)AfAm Est GFR (CKD-EPI)NonAf POC Glucometer 154 Random Glucose Calcium Phosphorus Magnesium Total Bilirubin AST ALT Alkaline Phosphatase Creatine Kinase 253 Creatine Kinase Index 0.9 CK-MB (CK-2) 2.5 Troponin I 1.07 H* B-Natriuretic Peptide Total Protein Albumin Urine Color Urine Appearance Urine pH Ur Specific [place] Urine Protein Urine Glucose (UA) Urine Ketones Urine Blood Urine Nitrite Urine Bilirubin Urine Urobilinogen Ur Leukocyte Esterase Urine WBC (Auto) Urine RBC (Auto) Urine Casts (Auto) U Epithel Cells (Auto) Urine Bacteria (Auto) Active Medications Generic Name Dose Route Start Last Admin Trade Name Freq PRN Reason Stop Dose Admin Chlorhexidine Gluconate 1 applic 08/19/19 22:00 08/20/19 21:18 Hibiclens For Decolonization - TP 1 applic HS ARABELLA Administration Enoxaparin Sodium 160 mg 08/20/19 22:00 08/20/19 21:48 Lovenox - SQ 160 mg BID ARABELLA Administration Furosemide 60 mg 08/20/19 06:00 08/20/19 15:00 Lasix Injection - IVPUSH 60 mg BID@0600,1400 ARABELLA Administration Vasopressin 40 units/ Sodium 100 mls @ 5 mls/hr 08/19/19 21:45 08/20/19 21:48 Chloride IVPB 0 units/hr ASDIR ARABELLA 0 mls/hr Titration Protocol 2 UNITS/HR Midazolam HCl 100 mg in 100 mls @ 1 mls/hr 08/19/19 21:45 08/20/19 21:47 Midazolam 100mg/100ml-0.9%Nacl IVPB 7 mg/hr TITR ARABELLA 7 mls/hr Administration Protocol 1 MG/HR Norepinephrine Bitartrate 8,000 mcg in 500 mls @ 18.75 mls/hr 08/20/19 00:15 08/20/19 08:28 Levophed Bag IVPB Not Given TITR ARABELLA Protocol 5 MCG/MIN Fentanyl 500 mcg in 100 mls @ 33.112 mls/hr 08/20/19 06:30 08/20/19 13:36 Sublimaze Ivpb IVPB 0.3 mcg/kg/hr TITR ARABELLA 10 mls/hr Administration Protocol 1 MCG/KG/HR Levofloxacin 750 mg in 150 mls @ 100 mls/hr 08/20/19 10:42 08/20/19 12:00 Levaquin 750 Mg Premixed Ivpb - IVPB 100 mls/hr DAILY ARABELLA Administration Protocol Insulin Aspart 1 vial 08/19/19 22:00 08/20/19 21:49 Novolog Vial Sliding Scale - SQ 2 units ACHS ARABELLA Administration Protocol Mupirocin 1 applic 08/19/19 22:00 08/20/19 21:18 Bactroban Ointment (For Decolonization) - NS 08/24/19 21:59 1 applic BID ARABELLA Administration Pantoprazole Sodium 40 mg 08/19/19 20:30 08/20/19 11:00 Protonix Iv IVPUSH 40 mg DAILY ARABELLA Administration CBC, BMP 08/21/19 05:00 08/21/19 05:00 ASSESSMENT/PLAN: 48YOM with h/o CHF (on home 40 mg Lasix bid), [place], morbid obesity, mild intermittent asthma, HTN, and GERD who presented to the ED with difficulty breathing and BLE swelling. Was admitted to ICU for AMS, somnolence, and worsening respiratory status on BiPAP, soon after admission required RSI and CVC placement. Underlying cause likely CHF exacerbation and obesity hypoventilation +/- COVID-19 infection +/- superimposed LLL bacterial pneumonia. NEURO/PSYCH: Altered mental status (somnolent, minimally responsive, no response to sternal rub/pain stimuli) -Maintain on sedation for ETT/vent -Consider CT head if continued AMS after extubation or while on sedation vacations ENDOCRINE: No concerns at this time. -Continue to monitor CV: CHF exacerbation, troponinemia most likely 2/2 demand ischemia -peaked troponin -Lasix 60 BID mg IV push -Strict I/O and daily weights -Dubose COVID test pending ED started Heparin drip- D-dimers elevated but pt too unstable and large for CTA Wells score 1.5, PE unlikely RESP: hypoxic hypercapneic respiratory failure, CHF exacerbation, possible COVID-19 infection, possible PNA, d-dimer elevated possible PE -Repeat ABG in late afternoon -SoluMedrol 125 mg once -Monitor for e/o core pulmonale -Continue heparin ggt GI: Elevated transaminases, likely 2/2 to congestive hepatopathy from CHF -Monitor CMP RENAL/: THOMAS, likely prerenal -Renal consulted, appreciate recs -Monitor lytes HEME: No concerns at this time. -Continue to monitor ID: Possible COVID-19 infection, LLL PNA -Levofloxacin 750 mg daily (patient likely CAP and has severe PCN allergy) -F/U COVID-19 testing -Droplet & contact iso -Recheck CRP, Ferritin, LDH in AM -F/U UCx -F/U hepatitis panel MSK: No concerns at this time. -Continue to monitor -PT when able DERM: No concerns at this time. -Continue to monitor FEN -HOLD IVF given CHF and volume overload -Monitor chemistries PPX - DVT: Lovenox 160 BID - GI: Protonix, tube feeds via OGT per Dietary/Nutrition CODE STATUS: Full code DISPO PLAN: Further ICU level of care Visit type - Emergency Visit Emergency Visit: Yes ED Registration Date: 08/19/19 Care time: The patient presented to the Emergency Department on the above date and was hospitalized for further evaluation of their emergent condition. - New Patient This patient is new to me today: Yes Date on this admission: 08/21/19 - Critical Care Critical Care patient: Yes Total Critical Care Time (in minutes): 45 Critical Care Statement: The care of this patient involved high complexity decision making to prevent further life threatening deterioration of the patient's condition and/or to evaluate & treat vital organ system(s) failure or risk of failure. ATTENDING PHYSICIAN STATEMENT I saw and evaluated the patient. I reviewed the resident's note and discussed the case with the resident. I agree with the resident's findings and plan as documented. SUBJECTIVE: OBJECTIVE: ASSESSMENT AND PLAN:
[2019-08-21 06:00] LABS: ARTERIAL BLD GAS O2 SATURATION 95.2 mmHg (95-98); ARTERIAL BLOOD GAS BASE EXCESS 14.1 mmol/L (-2-2); ARTERIAL BLOOD GAS pH 7.519 (7.350-7.450)
[2019-08-21 06:06] LABS: ALLENS TEST POSITIVE
[2019-08-21 06:07] LABS: VENT MODE AC; VENT RATE 24
[2019-08-21] MEDS: NOREPINEPHRINE BITARTRATE 8,000 MCG/500 ML BAG IVPB SCH (06:15)
[2019-08-21] MEDS: FUROSEMIDE 40 MG/4 ML INJECTABLE VIAL IVPUSH SCH ×2 (06:21→14:25)
[2019-08-21] MEDS: INSULIN SLIDING SCALE (NOVOLOG) 1 VIAL SQ SCH ×4 (06:21→21:18)
[2019-08-21 08:03] LABS: ALBUMIN 2.5 g/dl (3.4-5.0); BILIRUBIN,TOTAL 0.9 mg/dL (0.2-1); BLOOD UREA NITROGEN 36.4 mg/dL (7-18); CALCIUM 8.7 mg/dL (8.5-10.1); CREATININE 1.5 mg/dL (0.55-1.3); MAGNESIUM 2.3 mg/dL (1.8-2.4); PHOSPHOROUS 2.4 mg/dL (2.5-4.9); POTASSIUM 3.7 mmol/L (3.5-5.1); TOT PROT 6.4 g/dl (6.4-8.2)
[2019-08-21] MEDS: HEPARIN - 25,000 UNIT in SODIUM CHLORIDE 495 ML IV SCH (08:42)
[2019-08-21] MEDS: VASOPRESSIN 40 UNITS in SODIUM CHLORIDE 98 ML IVPB SCH ×2 (08:43→21:19)
[2019-08-21] MEDS ORDERED: PT OWN MED DRAWER 7, Y5N ONE (08:48)
[2019-08-21 08:50] LABS: BASO % 0.2 % (0-2.0); HEMATOCRIT 47.5 % (35.4-49); HEMOGLOBIN 14.1 GM/dL (11.7-16.9); LYMPH % 7.6 % (8-40); MCH 26.1 pg (25.7-33.7); MCHC 29.6 g/dl (32.0-35.9); MEAN CELL VOLUME 87.9 fl (80-96); MEAN PLT VOLUME 9.1 fl (7.5-11.1); MONO % 8.2 % (3.8-10.2); PLATELET COUNT 206 K/MM3 (134-434); RDW 21.1 % (11.9-15.9); WHITE BLOOD COUNT 12.4 K/mm3 (4.0-10.0)
[2019-08-21] MEDS: MUPIROCIN 2% TOPICAL OINTMENT FOR DECOLONIZATION NS SCH ×2 (09:23→21:06)
[2019-08-21] MEDS: PANTOPRAZOLE SODIUM 40 MG VIAL IVPUSH SCH (09:24)
[2019-08-21] MEDS: ENOXAPARIN NA (PORCINE) 80 MG/0.8 ML DISP.SYRIN SQ SCH ×2 (09:24→21:11)
--- NOTE | 2019-08-21 11:51 | CON.CARD ---
Cardiology Consult (text) - Consultation Consultation Note: cc: sob, le edema pt intubated/sedated, hx from charts hpi: 49 m hx htn, kylah, asthma, gerd, dchf here with sob, le edema. Intubated for resp failure and started on pressors. Found to have chf exacerbation, new afib, ?covid. pmh: per hpi psh: knee surgery social: ex tob fam: no premature cad/scd ros: n/a 2/2 ams meds: Home Medications Medication Instructions Recorded Lisinopril [Prinivil -] 40 mg PO DAILY 03/27/16 Clotrimazole/Betamet Diprop 1 applic ID BID 12/31/18 [Lotrisone -] Potassium Chloride [Potassium 20 meq PO BID 12/31/18 Chloride Oral Liquid] Albuterol Sulfate Inhaler - 1 puff IH Q4H PRN #1 inhaler 01/03/19 [Ventolin HFA Inhaler -] Furosemide Oral Solution [Lasix 5 ml PO BID #60 5ml 01/03/19 Oral Solution -] Current Medications Generic Name Dose Route Start Last Admin Trade Name Freq PRN Reason Stop Dose Admin Chlorhexidine Gluconate 1 applic 08/19/19 22:00 08/20/19 21:18 Hibiclens For Decolonization - TP 1 applic HS ARABELLA Administration Enoxaparin Sodium 160 mg 08/20/19 22:00 08/21/19 09:24 Lovenox - SQ 160 mg BID ARABELLA Administration Furosemide 60 mg 08/20/19 06:00 08/21/19 06:21 Lasix Injection - IVPUSH 60 mg BID@0600,1400 ARABELLA Administration Vasopressin 40 units/ Sodium 100 mls @ 5 mls/hr 08/19/19 21:45 08/21/19 08:43 Chloride IVPB Not Given ASDIR ARABELLA Protocol 2 UNITS/HR Midazolam HCl 100 mg in 100 mls @ 1 mls/hr 08/19/19 21:45 08/21/19 06:48 Midazolam 100mg/100ml-0.9%Nacl IVPB 10 mg/hr TITR ARABELLA 10 mls/hr Titration Protocol 1 MG/HR Norepinephrine Bitartrate 8,000 mcg in 500 mls @ 18.75 mls/hr 08/20/19 00:15 08/21/19 06:15 Levophed Bag IVPB Not Given TITR ARABELLA Protocol 5 MCG/MIN Fentanyl 500 mcg in 100 mls @ 33.112 mls/hr 08/20/19 06:30 08/21/19 06:17 Sublimaze Ivpb IVPB 0.33 mcg/kg/hr TITR ARABELLA 11 mls/hr Titration Protocol 1 MCG/KG/HR Levofloxacin 750 mg in 150 mls @ 100 mls/hr 08/20/19 10:42 08/21/19 09:23 Levaquin 750 Mg Premixed Ivpb - IVPB 100 mls/hr DAILY ARABELLA Administration Protocol Insulin Aspart 1 vial 08/19/19 22:00 08/21/19 11:14 Novolog Vial Sliding Scale - SQ Not Given ACHS ARABELLA Protocol Mupirocin 1 applic 08/19/19 22:00 08/21/19 09:23 Bactroban Ointment (For Decolonization) - NS 08/24/19 21:59 1 applic BID ARABELLA Administration Pantoprazole Sodium 40 mg 08/19/19 20:30 08/21/19 09:24 Protonix Iv IVPUSH 40 mg DAILY ARABELLA Administration pe: Vital Signs Temp 98.5 F 08/21/19 10:00 Pulse 102 H 08/21/19 10:00 Resp 29 H 08/21/19 10:00 BP 113/68 08/21/19 10:00 Pulse Ox 97 08/21/19 08:35 Intake & Output 08/20/19 08/20/19 08/21/19 11:59 23:59 11:59 Intake Total 575 617 228 Output Total 900 3550 0280 Balance -396 -4024 -3113 Weight 365 lb 365 lb 334 lb 1.6 oz Intake: IV 575 467 228 DIPRIVAN - 1,000,000 mcg 0 In 100 ml @ 10 MCG/KG/MIN 9.934 mls/hr IVPB TITR ARABELLA Rx#:[id number] Heparin - 25,000 Unit In 200 256 42 Normal Saline - 495 ml @ 1,000 UNIT/HR 20 mls/hr IV TITR ARABELLA Rx#: [id number] LEVOPHED BAG 8,000 mcg In 0 500 ml @ 5 MCG/MIN 18.75 mls/hr IVPB TITR ARABELLA Rx# :[id number] MIDAZOLAM 100MG/100ML-0.9 300 61 71 %NACL 100 mg In 100 ml @ 1 MG/HR 1 mls/hr IVPB TITR ARABELLA Rx#:[id number] Pitressin - 40 Units In 40 30 6 Normal Saline - 98 ml @ 2 UNITS/HR 5 mls/hr IVPB ASDIR ARABELLA Rx#:[id number] SUBLIMAZE IVPB 500 mcg In 35 120 100 ml @ 1 MCG/KG/HR 33. 112 mls/hr IVPB TITR ARABELLA Rx#:[id number] SUBLIMAZE IVPB 500 mcg In 109 100 ml @ 1 MCG/KG/HR 33. 112 mls/hr IVPB TITR ARABELLA Rx#:[id number] IVPB 150 Output: Urine 900 4500 2600 Dubose 900 4500 2600 Other: Voiding Method Indwelling Catheter Indwelling Catheter Indwelling Catheter Bowel Movement No No Yes # Bowel Movements 1 Height 5 ft 7 in 5 ft 7 in Body Mass Index (BMI) 57.2 57.2 Weight Measurement Method Built in Bedscale intubated sedated iireg coarse bs bl vented +le edema no jaundice diaphoresis Laboratory Last Values WBC 12.4 K/mm3 (4.0-10.0) H 08/21/19 05:00 RBC 5.40 M/mm3 (4.00-5.60) 08/21/19 05:00 Hgb 14.1 GM/dL (11.7-16.9) 08/21/19 05:00 Hct 47.5 % (35.4-49) 08/21/19 05:00 MCV 87.9 fl (80-96) 08/21/19 05:00 MCH 26.1 pg (25.7-33.7) 08/21/19 05:00 MCHC 29.6 g/dl (32.0-35.9) L 08/21/19 05:00 RDW 21.1 % (11.9-15.9) H 08/21/19 05:00 Plt Count 206 K/MM3 (134-434) 08/21/19 05:00 MPV 9.1 fl (7.5-11.1) 08/21/19 05:00 Absolute Neuts (auto) 10.4 K/mm3 (1.5-8.0) H 08/21/19 05:00 Neutrophils % 84.0 % (42.8-82.8) H 08/21/19 05:00 Neutrophils % (Manual) 90.6 % (42.8-82.8) H 08/20/19 05:00 Band Neutrophils % 5.2 % 08/20/19 05:00 Lymphocytes % 7.6 % (8-40) L D 08/21/19 05:00 Lymphocytes % (Manual) 3.1 % (8-40) L 08/20/19 05:00 Monocytes % 8.2 % (3.8-10.2) 08/21/19 05:00 Monocytes % (Manual) 1 % (3.8-10.2) L D 08/20/19 05:00 Eosinophils % 0.0 % (0-4.5) 08/21/19 05:00 Eosinophils % (Manual) 0.0 % (0-4.5) 08/20/19 05:00 Basophils % 0.2 % (0-2.0) 08/21/19 05:00 Basophils % (Manual) 0.0 % (0-2.0) 08/20/19 05:00 Myelocytes % (Man) 0 % (0-2) 08/20/19 05:00 Promyelocytes % (Man) 0 % (0-2) 08/20/19 05:00 Blast Cells % (Manual) 0 % (0-0) 08/20/19 05:00 Nucleated RBC % 1 % (0-0) H 08/21/19 05:00 Metamyelocytes 0 % (0-2) 08/20/19 05:00 Hypochromia 0 08/20/19 05:00 Platelet Estimate Normal 08/20/19 05:00 Platelet Comment Large platelets 08/19/19 16:35 Polychromasia 2+ 08/20/19 05:00 Poikilocytosis 0 08/20/19 05:00 Anisocytosis 2+ 08/20/19 05:00 Microcytosis 1+ 08/20/19 05:00 Macrocytosis 1+ 08/20/19 05:00 PT with INR 15.00 SEC (9.7-13.0) H 08/20/19 05:00 INR 1.27 (0.83-1.09) H 08/20/19 05:00 PTT (Actin FS) 39.8 SECONDS (25.2-36.5) H 08/20/19 11:30 D-Dimer 2070 ng/ml (0-500) H 08/19/19 18:00 Anticoagulation Therapy No Result Required. 08/21/19 05:40 Puncture Site Right radial 08/21/19 05:40 Patient Temperature No Result Required. 08/21/19 05:40 ABG pH 7.519 (7.350-7.450) H 08/21/19 05:40 ABG pCO2 49.30 mmHg (35-45) H 08/21/19 05:40 ABG pO2 69.0 mmHg (80-100) L 08/21/19 05:40 ABG HCO3 39.3 mmol/L (22-27) H 08/21/19 05:40 ABG O2 Sat (Measured) 95.2 mmHg (95-98) 08/21/19 05:40 ABG O2 Content No Result Required. 08/21/19 05:40 ABG Base Excess 14.1 mmol/L (-2-2) H 08/21/19 05:40 Usman Test Positive 08/21/19 05:40 Patient On Oxygen Yes 08/21/19 05:40 O2 Delivery Device Vent 08/21/19 05:40 Oxygen Flow Rate 100% 08/21/19 05:40 Vent Mode Ac 08/21/19 05:40 Vent Rate 24 08/21/19 05:40 Mechanical Rate No Result Required. 08/21/19 05:40 PEEP 12.0 cmH2O 08/21/19 05:40 Pressure Support Vent 450 08/21/19 05:40 Sodium 142 mmol/L (136-145) 08/21/19 05:00 Potassium 3.7 mmol/L (3.5-5.1) 08/21/19 05:00 Chloride 97 mmol/L (98-107) L 08/21/19 05:00 Carbon Dioxide 38 mmol/L (21-32) H 08/21/19 05:00 Anion Gap 7 MMOL/L (8-16) L 08/21/19 05:00 BUN 36.4 mg/dL (7-18) H 08/21/19 05:00 Creatinine 1.5 mg/dL (0.55-1.3) H 08/21/19 05:00 Est GFR (CKD-EPI)AfAm 63.34 08/21/19 05:00 Est GFR (CKD-EPI)NonAf 54.65 08/21/19 05:00 POC Glucometer 150 UNITS (80-120) 08/21/19 11:08 Random Glucose 109 mg/dL (74-106) H 08/21/19 05:00 Calcium 8.7 mg/dL (8.5-10.1) 08/21/19 05:00 Phosphorus 2.4 mg/dL (2.5-4.9) L 08/21/19 05:00 Magnesium 2.3 mg/dL (1.8-2.4) 08/21/19 05:00 Ferritin 112.7 ng/ml (8-388) 08/21/19 05:00 Total Bilirubin 0.9 mg/dL (0.2-1) 08/21/19 05:00 AST 60 U/L (15-37) H 08/21/19 05:00 ALT 94 U/L (13-61) H 08/21/19 05:00 Alkaline Phosphatase 62 U/L (45-117) 08/21/19 05:00 LD Total 316 U/L (87-246) H 08/21/19 05:00 Creatine Kinase 253 U/L (26-308) 08/20/19 20:00 Creatine Kinase Index 0.9 % (0.0-5.0) 08/20/19 20:00 CK-MB (CK-2) 2.5 ng/mL (0.5-3.6) 08/20/19 20:00 Troponin I 0.85 ng/ml (0.00-0.05) H* 08/21/19 05:00 C-Reactive Protein 4.8 MG/DL (0.00-0.3) H 08/21/19 05:00 B-Natriuretic Peptide 3662.3 pg/ml (5-125) H 08/20/19 05:00 Total Protein 6.4 g/dl (6.4-8.2) 08/21/19 05:00 Albumin 2.5 g/dl (3.4-5.0) L 08/21/19 05:00 Urine Color Yellow 08/20/19 05:00 Urine Appearance Clear 08/20/19 05:00 Urine pH 5.0 (5.0-8.0) 08/20/19 05:00 Ur Specific Derry 1.014 (1.010-1.035) 08/20/19 05:00 Urine Protein Trace (NEGATIVE) 08/20/19 05:00 Urine Glucose (UA) Negative (NEGATIVE) 08/20/19 05:00 Urine Ketones Negative (NEGATIVE) 08/20/19 05:00 Urine Blood 3+ (NEGATIVE) H 08/20/19 05:00 Urine Nitrite Negative (NEGATIVE) 08/20/19 05:00 Urine Bilirubin Negative (NEGATIVE) 08/20/19 05:00 Urine Urobilinogen 0.2 mg/dL (0.2-1.0) 08/20/19 05:00 Ur Leukocyte Esterase Negative (NEGATIVE) 08/20/19 05:00 Urine WBC (Auto) 35 /uL (0-25.8) 08/20/19 05:00 Urine RBC (Auto) 1011 /uL (0-23.9) 08/20/19 05:00 Urine Casts (Auto) 11 /uL (0-3.1) 08/20/19 05:00 U Epithel Cells (Auto) 24 /uL (0-25.1) 08/20/19 05:00 Urine Bacteria (Auto) 14 /uL (0-1359) 08/20/19 05:00 Hep A IgM Ab Confirm Negative (Negative) 08/20/19 05:00 Hep Bs Antigen Negative (Negative) 08/20/19 05:00 Hep B Core IgM Ab Negative (Negative) 08/20/19 05:00 Hepatitis C Ab (EIA) 0.2 s/co ratio (0.0-0.9) 08/20/19 05:00 Blood Type O POSITIVE 08/19/19 16:35 Antibody Screen Negative 08/19/19 16:35 cxr: congestive changes tele: afib, rate ok echo 09/2016: nl lv/rv, no sig valve path echo 12/2018: nl lvef, lvh, nl rv, mild mr mibi 09/2016: nl mpi ecg: afib, rate ok, no ischemic changes, nl qtc est cct 35 mins a/p: 49 m hx htn, kylah, asthma, gerd, dchf here with sob, le edema. resp distress, acute diastolic chf: -noncompliant with meds, cpap as outpt -cont iv lasix, cxr improving -monitor daily chem7 -recent echo unremarkable -vent management per crit care -hypotensive on pressors, wean as tolerated -r/o covid positive trops: -mild trop elevation with flat trend, nl ck mb, no ischemic ecg changes, does not seem like acs, likely demand 2/2 chf, resp failure afib: -new onset here -rate ok off meds presently -monitor tele -chadsvasc warrants ac, cont lovenox -check updated echo benny: -possibly cardiorenal, cr improving, monitor with diuresis htn: -holding home meds due to hypotension on pressors now
--- NOTE | 2019-08-21 12:52 | PN ---
Teaching Attending Note Name of Resident: Reyes El ATTENDING PHYSICIAN STATEMENT I saw and evaluated the patient. I reviewed the resident's note and discussed the case with the resident. I agree with the resident's findings and plan as documented. SUBJECTIVE: Patient sen and examined in the ICU. Intubated and sedated on AC Mode of vent. PPlat : 28 No pressors. ABG noted: Vent settings were adjusted. Intake & Output 08/18/19 08/19/19 08/20/19 08/21/19 23:59 23:59 23:59 23:59 Intake Total 1192 228 Output Total 250 5400 2600 Balance -250 -4208 -2372 Weight 365 lb 365 lb 334 lb 1.6 oz Last Vital Signs Temp Pulse Resp BP Pulse Ox 98.5 F 102 H 29 H 113/68 97 08/21/19 10:00 08/21/19 10:00 08/21/19 10:00 08/21/19 10:00 08/21/19 08:35 Active Medications Chlorhexidine Gluconate (Hibiclens For Decolonization -) 1 applic TP HS ARABELLA Last Admin: 08/20/19 21:18 Dose: 1 applic Documented by: Enoxaparin Sodium (Lovenox -) 160 mg SQ BID ARABELLA Last Admin: 08/21/19 09:24 Dose: 160 mg Documented by: Furosemide (Lasix Injection -) 60 mg IVPUSH BID@0600,1400 ARABELLA Last Admin: 08/21/19 06:21 Dose: 60 mg Documented by: Vasopressin 40 units/ Sodium (Chloride) 100 mls @ 5 mls/hr IVPB ASDIR ARABELLA; Protocol Last Admin: 08/21/19 08:43 Dose: Not Given Documented by: Midazolam HCl (Midazolam 100mg/100ml-0.9%Nacl) 100 mg in 100 mls @ 1 mls/hr IVPB TITR ARABELLA; Protocol Last Titration: 08/21/19 06:48 Dose: 10 mg/hr, 10 mls/hr Documented by: Norepinephrine Bitartrate (Levophed Bag) 8,000 mcg in 500 mls @ 18.75 mls/hr IVPB TITR ARABELLA; Protocol Last Admin: 08/21/19 06:15 Dose: Not Given Documented by: Fentanyl (Sublimaze Ivpb) 500 mcg in 100 mls @ 33.112 mls/hr IVPB TITR ARABELLA; Protocol Last Titration: 08/21/19 06:17 Dose: 0.33 mcg/kg/hr, 11 mls/hr Documented by: Levofloxacin (Levaquin 750 Mg Premixed Ivpb -) 750 mg in 150 mls @ 100 mls/hr IVPB DAILY ARABELLA; Protocol Last Admin: 08/21/19 09:23 Dose: 100 mls/hr Documented by: Insulin Aspart (Novolog Vial Sliding Scale -) 1 vial SQ ACHS ARABELLA; Protocol Last Admin: 08/21/19 11:14 Dose: Not Given Documented by: Mupirocin (Bactroban Ointment (For Decolonization) -) 1 applic NS BID ARABELLA Stop: 08/24/19 21:59 Last Admin: 08/21/19 09:23 Dose: 1 applic Documented by: Pantoprazole Sodium (Protonix Iv) 40 mg IVPUSH DAILY ARABELLA Last Admin: 08/21/19 09:24 Dose: 40 mg Documented by: EXAM GENERAL: sedated, intubated HEENT: ETT in place NECK/BACK: (-) JVD CARDIOVASCULAR: S1S2 LUNGS/RESPIRATORY: Vented, bilateral coarse breath sounds GI/ABDOMEN: obese, (+) BS, no pulsatile masses : Dubose in place MSK/EXTREMITIES: no evidence of acute trauma DERM/SKIN: dry, no jaundice, no rash, no pathologic-appearing bruising NEUROLOGICAL: sedated Laboratory Results - last 24 hr 08/20/19 08/20/19 08/20/19 05:00 11:30 16:54 WBC RBC Hgb Hct MCV MCH MCHC RDW Plt Count MPV Absolute Neuts (auto) Neutrophils % Lymphocytes % Monocytes % Eosinophils % Basophils % Nucleated RBC % Anticoagulation Therapy Puncture Site Patient Temperature ABG pH ABG pCO2 ABG pO2 ABG HCO3 ABG O2 Sat (Measured) ABG O2 Content ABG Base Excess Usman Test Patient On Oxygen O2 Delivery Device Oxygen Flow Rate Vent Mode Vent Rate Mechanical Rate PEEP Pressure Support Vent Sodium Potassium Chloride Carbon Dioxide Anion Gap BUN Creatinine Est GFR (CKD-EPI)AfAm Est GFR (CKD-EPI)NonAf POC Glucometer 174 Random Glucose Calcium Phosphorus Magnesium Ferritin Total Bilirubin AST ALT Alkaline Phosphatase LD Total Creatine Kinase Creatine Kinase Index CK-MB (CK-2) Troponin I 1.26 H* C-Reactive Protein Total Protein Albumin Hep A IgM Ab Confirm Negative Hep Bs Antigen Negative Hep B Core IgM Ab Negative Hepatitis C Ab (EIA) 0.2 08/20/19 08/20/19 08/21/19 20:00 21:23 05:00 WBC RBC Hgb Hct MCV MCH MCHC RDW Plt Count MPV Absolute Neuts (auto) Neutrophils % Lymphocytes % Monocytes % Eosinophils % Basophils % Nucleated RBC % Anticoagulation Therapy Puncture Site Patient Temperature ABG pH ABG pCO2 ABG pO2 ABG HCO3 ABG O2 Sat (Measured) ABG O2 Content ABG Base Excess Usman Test Patient On Oxygen O2 Delivery Device Oxygen Flow Rate Vent Mode Vent Rate Mechanical Rate PEEP Pressure Support Vent Sodium 142 Potassium 3.7 Chloride 97 L Carbon Dioxide 38 H Anion Gap 7 L BUN 36.4 H Creatinine 1.5 H Est GFR (CKD-EPI)AfAm 63.34 Est GFR (CKD-EPI)NonAf 54.65 POC Glucometer 154 Random Glucose 109 H Calcium 8.7 Phosphorus 2.4 L Magnesium 2.3 Ferritin 112.7 Total Bilirubin 0.9 AST 60 H ALT 94 H Alkaline Phosphatase 62 LD Total 316 H Creatine Kinase 253 Creatine Kinase Index 0.9 CK-MB (CK-2) 2.5 Troponin I 1.07 H* 0.85 H* C-Reactive Protein 4.8 H Total Protein 6.4 Albumin 2.5 L Hep A IgM Ab Confirm Hep Bs Antigen Hep B Core IgM Ab Hepatitis C Ab (EIA) 08/21/19 08/21/19 08/21/19 05:00 05:40 06:05 WBC 12.4 H RBC 5.40 Hgb 14.1 Hct 47.5 MCV 87.9 MCH 26.1 MCHC 29.6 L RDW 21.1 H Plt Count 206 MPV 9.1 Absolute Neuts (auto) 10.4 H Neutrophils % 84.0 H Lymphocytes % 7.6 L D Monocytes % 8.2 Eosinophils % 0.0 Basophils % 0.2 Nucleated RBC % 1 H Anticoagulation Therapy No Result Required. Puncture Site Right radial Patient Temperature No Result Required. ABG pH 7.519 H ABG pCO2 49.30 H ABG pO2 69.0 L ABG HCO3 39.3 H ABG O2 Sat (Measured) 95.2 ABG O2 Content No Result Required. ABG Base Excess 14.1 H Usman Test Positive Patient On Oxygen Yes O2 Delivery Device Vent Oxygen Flow Rate 100% Vent Mode Ac Vent Rate 24 Mechanical Rate No Result Required. PEEP 12.0 Pressure Support Vent 450 Sodium Potassium Chloride Carbon Dioxide Anion Gap BUN Creatinine Est GFR (CKD-EPI)AfAm Est GFR (CKD-EPI)NonAf POC Glucometer 160 Random Glucose Calcium Phosphorus Magnesium Ferritin Total Bilirubin AST ALT Alkaline Phosphatase LD Total Creatine Kinase Creatine Kinase Index CK-MB (CK-2) Troponin I C-Reactive Protein Total Protein Albumin Hep A IgM Ab Confirm Hep Bs Antigen Hep B Core IgM Ab Hepatitis C Ab (EIA) 08/21/19 11:08 WBC RBC Hgb Hct MCV MCH MCHC RDW Plt Count MPV Absolute Neuts (auto) Neutrophils % Lymphocytes % Monocytes % Eosinophils % Basophils % Nucleated RBC % Anticoagulation Therapy Puncture Site Patient Temperature ABG pH ABG pCO2 ABG pO2 ABG HCO3 ABG O2 Sat (Measured) ABG O2 Content ABG Base Excess Usman Test Patient On Oxygen O2 Delivery Device Oxygen Flow Rate Vent Mode Vent Rate Mechanical Rate PEEP Pressure Support Vent Sodium Potassium Chloride Carbon Dioxide Anion Gap BUN Creatinine Est GFR (CKD-EPI)AfAm Est GFR (CKD-EPI)NonAf POC Glucometer 150 Random Glucose Calcium Phosphorus Magnesium Ferritin Total Bilirubin AST ALT Alkaline Phosphatase LD Total Creatine Kinase Creatine Kinase Index CK-MB (CK-2) Troponin I C-Reactive Protein Total Protein Albumin Hep A IgM Ab Confirm Hep Bs Antigen Hep B Core IgM Ab Hepatitis C Ab (EIA) Problem List - Problems (1) THOMAS (acute kidney injury) Code(s): N17.9 - ACUTE KIDNEY FAILURE, UNSPECIFIED (2) History of medication noncompliance Code(s): Z91.14 - PATIENT'S OTHER NONCOMPLIANCE WITH MEDICATION REGIMEN (3) History of obstructive sleep apnea Code(s): Z86.69 - PERSONAL HISTORY OF DIS OF THE NERVOUS SYS AND SENSE ORGANS (4) Suspected COVID-19 virus infection Code(s): Z20.828 - CONTACT W AND EXPOSURE TO OTH VIRAL COMMUNICABLE DISEASES (5) Transaminitis Code(s): R74.0 - NONSPEC ELEV OF LEVELS OF TRANSAMNS & LACTIC ACID DEHYDRGNSE (6) Acute diastolic (congestive) heart failure Code(s): I50.31 - ACUTE DIASTOLIC (CONGESTIVE) HEART FAILURE (7) Morbid (severe) obesity due to excess calories Code(s): E66.01 - MORBID (SEVERE) OBESITY DUE TO EXCESS CALORIES (8) Acute on chronic respiratory failure with hypoxia and hypercapnia Code(s): J96.21 - ACUTE AND CHRONIC RESPIRATORY FAILURE WITH HYPOXIA; J96.22 - ACUTE AND CHRONIC RESPIRATORY FAILURE WITH HYPERCAPNIA PLAN: LTTV Empiric ABX Follow cultures Strict I & O AC ECHO LE doppler Follow Serology Diuresis Sedate for vent synchrony Requires ICU monitoring Dr Guzman Critical care time spent in reviewing chart, evaluating patient and formulating plan - 36 minutes.
--- NOTE | 2019-08-21 13:12 | PN ---
Progress Note (short form) - Note Progress Note: #THOMAS probably prerenal R/O ATN altered mental status somnolent, minimally responsive, no response to sternal rub/pain stimuli neuro checks Q2 aspiration precaution can consider CT head if pt doesnt improve after resolving hypercapnia Acute Respiratory Failure HF will monitor urine output for now cont Lasix to correct Hyperkalemia as well Transamnitis- likely 2/2 to Congestive Hepatopathy/hepatic congestion from CHF exacerbation will monitor for now, r/p CMP for midnight Active Medications Chlorhexidine Gluconate (Hibiclens For Decolonization -) 1 applic TP HS ARABELLA Last Admin: 08/20/19 21:18 Dose: 1 applic Documented by: Enoxaparin Sodium (Lovenox -) 160 mg SQ BID ARABELLA Last Admin: 08/21/19 09:24 Dose: 160 mg Documented by: Furosemide (Lasix Injection -) 60 mg IVPUSH BID@0600,1400 ARABELLA Last Admin: 08/21/19 06:21 Dose: 60 mg Documented by: Vasopressin 40 units/ Sodium (Chloride) 100 mls @ 5 mls/hr IVPB ASDIR ARABELLA; Protocol Last Admin: 08/21/19 08:43 Dose: Not Given Documented by: Midazolam HCl (Midazolam 100mg/100ml-0.9%Nacl) 100 mg in 100 mls @ 1 mls/hr IVPB TITR ARABELLA; Protocol Last Titration: 08/21/19 06:48 Dose: 10 mg/hr, 10 mls/hr Documented by: Norepinephrine Bitartrate (Levophed Bag) 8,000 mcg in 500 mls @ 18.75 mls/hr IVPB TITR ARABELLA; Protocol Last Admin: 08/21/19 06:15 Dose: Not Given Documented by: Fentanyl (Sublimaze Ivpb) 500 mcg in 100 mls @ 33.112 mls/hr IVPB TITR ARABELLA; Protocol Last Titration: 08/21/19 06:17 Dose: 0.33 mcg/kg/hr, 11 mls/hr Documented by: Levofloxacin (Levaquin 750 Mg Premixed Ivpb -) 750 mg in 150 mls @ 100 mls/hr IVPB DAILY ARABELLA; Protocol Last Admin: 08/21/19 09:23 Dose: 100 mls/hr Documented by: Insulin Aspart (Novolog Vial Sliding Scale -) 1 vial SQ ACHS ARABELLA; Protocol Last Admin: 08/21/19 11:14 Dose: Not Given Documented by: Mupirocin (Bactroban Ointment (For Decolonization) -) 1 applic NS BID [facility] Stop: 08/24/19 21:59 Last Admin: 08/21/19 09:23 Dose: 1 applic Documented by: Pantoprazole Sodium (Protonix Iv) 40 mg IVPUSH DAILY [facility] Last Admin: 08/21/19 09:24 Dose: 40 mg Documented by: Last Vital Signs Temp Pulse Resp BP Pulse Ox 98.5 F 102 H 29 H 113/68 97 08/21/19 10:00 08/21/19 10:00 08/21/19 10:00 08/21/19 10:00 08/21/19 08:35 CBC, BMP 08/21/19 05:00 08/21/19 05:00 IMP THOMAS seems to be resolving good urine output after dose of lasix Plan- continue to replace fluids agree with increaseing feeding
[2019-08-21] MEDS: MIDAZOLAM IN 0.9 % SOD.CHLORID 100 MG/100 ML PLAST..BAG IVPB SCH (21:06)
[2019-08-21] MEDS: CHLORHEXIDINE GLUCONATE 4% CLEANSER FOR DECOLONIZATION TP SCH (21:07)
[2019-08-22] MEDS ORDERED: VASOPRESSIN 20 UNITS/ML VIAL IV ONE (05:02)
[2019-08-22] MEDS: FUROSEMIDE 40 MG/4 ML INJECTABLE VIAL IVPUSH SCH ×2 (05:27→14:56)
[2019-08-22] MEDS: VASOPRESSIN 40 UNITS in SODIUM CHLORIDE 98 ML IVPB SCH (05:28)
[2019-08-22] MEDS: NOREPINEPHRINE BITARTRATE 8,000 MCG/500 ML BAG IVPB SCH (05:29)
[2019-08-22] MEDS: INSULIN SLIDING SCALE (NOVOLOG) 1 VIAL SQ SCH ×4 (06:20→23:22)
[2019-08-22 06:32] LABS: BASO % 0.4 % (0-2.0); EOS % 0.1 % (0-4.5); HEMATOCRIT 47.2 % (35.4-49); LYMPH % 7.4 % (8-40); MCH 26.2 pg (25.7-33.7); MCHC 29.7 g/dl (32.0-35.9); MEAN CELL VOLUME 88.2 fl (80-96); MEAN PLT VOLUME 8.4 fl (7.5-11.1); NEUT % 82.1 % (42.8-82.8); PLATELET COUNT 186 K/MM3 (134-434); RBC 5.36 M/mm3 (4.00-5.60); RDW 20.7 % (11.9-15.9); WHITE BLOOD COUNT 10.1 K/mm3 (4.0-10.0)
[2019-08-22 06:51] LABS: ARTERIAL BLD GAS O2 SATURATION 94.9 mmHg (95-98); ARTERIAL BLOOD GAS BASE EXCESS 13.7 mmol/L (-2-2); ARTERIAL BLOOD GAS PO2 72.5 mmHg (80-100); ARTERIAL BLOOD GAS pH 7.456 (7.350-7.450)
[2019-08-22 07:07] LABS: ALLENS TEST POSITIVE
[2019-08-22 07:08] LABS: VENT MODE A/C; VENT RATE 18
[2019-08-22 07:10] LABS: ALBUMIN 2.5 g/dl (3.4-5.0); BLOOD UREA NITROGEN 29.4 mg/dL (7-18); CALCIUM 8.6 mg/dL (8.5-10.1); CREATININE 1.3 mg/dL (0.55-1.3); MAGNESIUM 2.3 mg/dL (1.8-2.4); PHOSPHOROUS 3.6 mg/dL (2.5-4.9); POTASSIUM 3.7 mmol/L (3.5-5.1); TOT PROT 6.4 g/dl (6.4-8.2)
[2019-08-22] MEDS: PANTOPRAZOLE SODIUM 40 MG VIAL IVPUSH SCH (09:31)
[2019-08-22] MEDS: ENOXAPARIN NA (PORCINE) 80 MG/0.8 ML DISP.SYRIN SQ SCH (09:31)
[2019-08-22] MEDS: MUPIROCIN 2% TOPICAL OINTMENT FOR DECOLONIZATION NS SCH ×2 (09:32→22:18)
[2019-08-22] MEDS: FENTANYL IVPB 500 MCG/100 ML BAG IVPB SCH ×2 (09:32)
[2019-08-22] MEDS: MIDAZOLAM IN 0.9 % SOD.CHLORID 100 MG/100 ML PLAST..BAG IVPB SCH (09:33)
--- NOTE | 2019-08-22 10:51 | PN ---
Progress Note (short form) - Note Progress Note: s: remains intubated on pressors Current Medications Generic Name Dose Route Start Last Admin Trade Name Thuan PRN Reason Stop Dose Admin Chlorhexidine Gluconate 1 applic 08/19/19 22:00 08/21/19 21:07 Hibiclens For Decolonization - TP 1 applic HS ARABELLA Administration Enoxaparin Sodium 160 mg 08/20/19 22:00 08/22/19 09:31 Lovenox - SQ 160 mg BID ARABELLA Administration Furosemide 60 mg 08/20/19 06:00 08/22/19 05:27 Lasix Injection - IVPUSH 60 mg BID@0600,1400 ARABELLA Administration Vasopressin 40 units/ Sodium 100 mls @ 5 mls/hr 08/19/19 21:45 08/22/19 09:00 Chloride IVPB 2.4 units/hr ASDIR ARABELLA 6 mls/hr Titration Protocol 2 UNITS/HR Midazolam HCl 100 mg in 100 mls @ 1 mls/hr 08/19/19 21:45 08/22/19 09:33 Midazolam 100mg/100ml-0.9%Nacl IVPB 10 mg/hr TITR ARABELLA 10 mls/hr Administration Protocol 1 MG/HR Norepinephrine Bitartrate 8,000 mcg in 500 mls @ 18.75 mls/hr 08/20/19 00:15 08/22/19 05:29 Levophed Bag IVPB Not Given TITR ARABELLA Protocol 5 MCG/MIN Fentanyl 500 mcg in 100 mls @ 33.112 mls/hr 08/20/19 06:30 08/22/19 09:32 Sublimaze Ivpb IVPB 0.6 mcg/kg/hr TITR ARABELLA 20 mls/hr Administration Protocol 1 MCG/KG/HR Levofloxacin 750 mg in 150 mls @ 100 mls/hr 08/20/19 10:42 08/22/19 09:31 Levaquin 750 Mg Premixed Ivpb - IVPB 100 mls/hr DAILY ARABELLA Administration Protocol Insulin Aspart 1 vial 08/19/19 22:00 08/22/19 06:20 Novolog Vial Sliding Scale - SQ 2 units ACHS ARABELLA Administration Protocol Mupirocin 1 applic 08/19/19 22:00 08/22/19 09:32 Bactroban Ointment (For Decolonization) - NS 08/24/19 21:59 1 applic BID ARABELLA Administration Pantoprazole Sodium 40 mg 08/19/19 20:30 08/22/19 09:31 Protonix Iv IVPUSH 40 mg DAILY ARABELLA Administration Vital Signs Temp 98.6 F 08/22/19 05:56 Pulse 83 08/22/19 09:00 Resp 18 08/22/19 09:16 BP 90/62 08/22/19 09:00 Pulse Ox 96 08/22/19 09:16 Intake & Output 08/21/19 08/21/19 08/22/19 11:59 23:59 11:59 Intake Total 228 1020 839 Output Total 2600 1999 Balance -2372 -980 -61 Weight 334 lb 1.6 oz 365 lb 326 lb 3.2 oz Intake: IV 228 270 264 Heparin - 25,000 Unit In 42 0 Normal Saline - 495 ml @ 1,000 UNIT/HR 20 mls/hr IV TITR ARABELLA Rx#: [id number] MIDAZOLAM 100MG/100ML-0.9 71 120 107 %NACL 100 mg In 100 ml @ 1 MG/HR 1 mls/hr IVPB TITR [facility] Rx#:[id number] Pitressin - 40 Units In 6 0 1 Normal Saline - 98 ml @ 2 UNITS/HR 5 mls/hr IVPB ASDIR ARABELLA Rx#:[id number] SUBLIMAZE IVPB 500 mcg In 109 150 156 100 ml @ 1 MCG/KG/HR 33. 112 mls/hr IVPB TITR ARABELLA Rx#:[id number] IVPB 150 Tube Feeding 480 460 Tube Irrigant 120 115 Output: Urine 2600 2000 900 Dubose 2600 1999 900 Other: Voiding Method Indwelling Catheter Indwelling Catheter Indwelling Catheter Bowel Movement Yes No No # Bowel Movements 1 Height 5 ft 7 in Body Mass Index (BMI) 57.2 Weight Measurement Method [facility] int[facility] sedated rrr s1s2 no mrg coarse bs bl vented +le edema no jaundice diaphoresis abd nd Laboratory Last Values WBC 10.1 K/mm3 (4.0-10.0) H 08/22/19 05:00 RBC 5.36 M/mm3 (4.00-5.60) 08/22/19 05:00 Hgb 14.0 GM/dL (11.7-16.9) 08/22/19 05:00 Hct 47.2 % (35.4-49) 08/22/19 05:00 MCV 88.2 fl (80-96) 08/22/19 05:00 MCH 26.2 pg (25.7-33.7) 08/22/19 05:00 MCHC 29.7 g/dl (32.0-35.9) L 08/22/19 05:00 RDW 20.7 % (11.9-15.9) H 08/22/19 05:00 Plt Count 186 K/MM3 (134-434) 08/22/19 05:00 MPV 8.4 fl (7.5-11.1) 08/22/19 05:00 Absolute Neuts (auto) 8.3 K/mm3 (1.5-8.0) H 08/22/19 05:00 Neutrophils % 82.1 % (42.8-82.8) 08/22/19 05:00 Neutrophils % (Manual) 90.6 % (42.8-82.8) H 08/20/19 05:00 Band Neutrophils % 5.2 % 08/20/19 05:00 Lymphocytes % 7.4 % (8-40) L 08/22/19 05:00 Lymphocytes % (Manual) 3.1 % (8-40) L 08/20/19 05:00 Monocytes % 10.0 % (3.8-10.2) 08/22/19 05:00 Monocytes % (Manual) 1 % (3.8-10.2) L D 08/20/19 05:00 Eosinophils % 0.1 % (0-4.5) D 08/22/19 05:00 Eosinophils % (Manual) 0.0 % (0-4.5) 08/20/19 05:00 Basophils % 0.4 % (0-2.0) 08/22/19 05:00 Basophils % (Manual) 0.0 % (0-2.0) 08/20/19 05:00 Myelocytes % (Man) 0 % (0-2) 08/20/19 05:00 Promyelocytes % (Man) 0 % (0-2) 08/20/19 05:00 Blast Cells % (Manual) 0 % (0-0) 08/20/19 05:00 Nucleated RBC % 1 % (0-0) H 08/22/19 05:00 Metamyelocytes 0 % (0-2) 08/20/19 05:00 Hypochromia 0 08/20/19 05:00 Platelet Estimate Normal 08/20/19 05:00 Platelet Comment Large platelets 08/19/19 16:35 Polychromasia 2+ 08/20/19 05:00 Poikilocytosis 0 08/20/19 05:00 Anisocytosis 2+ 08/20/19 05:00 Microcytosis 1+ 08/20/19 05:00 Macrocytosis 1+ 08/20/19 05:00 PT with INR 15.00 SEC (9.7-13.0) H 08/20/19 05:00 INR 1.27 (0.83-1.09) H 08/20/19 05:00 PTT (Actin FS) 39.8 SECONDS (25.2-36.5) H 08/20/19 11:30 D-Dimer 2070 ng/ml (0-500) H 08/19/19 18:00 Anticoagulation Therapy No Result Required. 08/22/19 06:00 Puncture Site Right radial 08/22/19 06:00 Patient Temperature No Result Required. 08/22/19 06:00 ABG pH 7.456 (7.350-7.450) H 08/22/19 06:00 ABG pCO2 58.90 mmHg (35-45) H 08/22/19 06:00 ABG pO2 72.5 mmHg (80-100) L 08/22/19 06:00 ABG HCO3 40.6 mmol/L (22-27) H 08/22/19 06:00 ABG O2 Sat (Measured) 94.9 mmHg (95-98) L 08/22/19 06:00 ABG O2 Content No Result Required. 08/22/19 06:00 ABG Base Excess 13.7 mmol/L (-2-2) H 08/22/19 06:00 Usman Test Positive 08/22/19 06:00 Patient On Oxygen Yes 08/22/19 06:00 O2 Delivery Device Vent 08/22/19 06:00 Oxygen Flow Rate 100% 08/22/19 06:00 Vent Mode A/c 08/22/19 06:00 Vent Rate 18 08/22/19 06:00 Mechanical Rate Yes 08/22/19 06:00 PEEP 12.0 cmH2O 08/22/19 06:00 Pressure Support Vent 450 08/22/19 06:00 Sodium 147 mmol/L (136-145) H 08/22/19 05:00 Potassium 3.7 mmol/L (3.5-5.1) 08/22/19 05:00 Chloride 100 mmol/L (98-107) 08/22/19 05:00 Carbon Dioxide 41 mmol/L (21-32) H 08/22/19 05:00 Anion Gap 6 MMOL/L (8-16) L 08/22/19 05:00 BUN 29.4 mg/dL (7-18) H 08/22/19 05:00 Creatinine 1.3 mg/dL (0.55-1.3) 08/22/19 05:00 Est GFR (CKD-EPI)AfAm 75.31 08/22/19 05:00 Est GFR (CKD-EPI)NonAf 64.98 08/22/19 05:00 POC Glucometer 165 UNITS (80-120) 08/22/19 06:17 Random Glucose 111 mg/dL (74-106) H 08/22/19 05:00 Calcium 8.6 mg/dL (8.5-10.1) 08/22/19 05:00 Phosphorus 3.6 mg/dL (2.5-4.9) 08/22/19 05:00 Magnesium 2.3 mg/dL (1.8-2.4) 08/22/19 05:00 Ferritin 112.7 ng/ml (8-388) 08/21/19 05:00 Total Bilirubin 1.0 mg/dL (0.2-1) 08/22/19 05:00 AST 36 U/L (15-37) 08/22/19 05:00 ALT 76 U/L (13-61) H 08/22/19 05:00 Alkaline Phosphatase 59 U/L (45-117) 08/22/19 05:00 LD Total 316 U/L (87-246) H 08/21/19 05:00 Creatine Kinase 253 U/L (26-308) 08/20/19 20:00 Creatine Kinase Index 0.9 % (0.0-5.0) 08/20/19 20:00 CK-MB (CK-2) 2.5 ng/mL (0.5-3.6) 08/20/19 20:00 Troponin I 0.85 ng/ml (0.00-0.05) H* 08/21/19 05:00 C-Reactive Protein 4.8 MG/DL (0.00-0.3) H 08/21/19 05:00 B-Natriuretic Peptide 3662.3 pg/ml (5-125) H 08/20/19 05:00 Total Protein 6.4 g/dl (6.4-8.2) 08/22/19 05:00 Albumin 2.5 g/dl (3.4-5.0) L 08/22/19 05:00 Urine Color Yellow 08/20/19 05:00 Urine Appearance Clear 08/20/19 05:00 Urine pH 5.0 (5.0-8.0) 08/20/19 05:00 Ur Specific Irene 1.014 (1.010-1.035) 08/20/19 05:00 Urine Protein Trace (NEGATIVE) 08/20/19 05:00 Urine Glucose (UA) Negative (NEGATIVE) 08/20/19 05:00 Urine Ketones Negative (NEGATIVE) 08/20/19 05:00 Urine Blood 3+ (NEGATIVE) H 08/20/19 05:00 Urine Nitrite Negative (NEGATIVE) 08/20/19 05:00 Urine Bilirubin Negative (NEGATIVE) 08/20/19 05:00 Urine Urobilinogen 0.2 mg/dL (0.2-1.0) 08/20/19 05:00 Ur Leukocyte Esterase Negative (NEGATIVE) 08/20/19 05:00 Urine WBC (Auto) 35 /uL (0-25.8) 08/20/19 05:00 Urine RBC (Auto) 1011 /uL (0-23.9) 08/20/19 05:00 Urine Casts (Auto) 11 /uL (0-3.1) 08/20/19 05:00 U Epithel Cells (Auto) 24 /uL (0-25.1) 08/20/19 05:00 Urine Bacteria (Auto) 14 /uL (0-1359) 08/20/19 05:00 Hep A IgM Ab Confirm Negative (Negative) 08/20/19 05:00 Hep Bs Antigen Negative (Negative) 08/20/19 05:00 Hep B Core IgM Ab Negative (Negative) 08/20/19 05:00 Hepatitis C Ab (EIA) 0.2 s/co ratio (0.0-0.9) 08/20/19 05:00 Blood Type O POSITIVE 08/19/19 16:35 Antibody Screen Negative 08/19/19 16:35 cxr: congestive changes tele: sr echo 09/2016: nl lv/rv, no sig valve path echo 12/2018: nl lvef, lvh, nl rv, mild mr mibi 09/2016: nl mpi ecg: afib, rate ok, no ischemic changes, nl qtc est cct 35 mins a/p: 49 m hx htn, kylah, asthma, gerd, dchf here with sob, le edema. resp distress, acute diastolic chf: -noncompliant with meds, cpap as outpt -cont iv lasix, cxr improving -monitor daily chem7 -recent echo unremarkable -vent management per crit care -hypotensive on pressors, wean as tolerated -r/o covid positive trops: -mild trop elevation with flat trend, nl ck mb, no ischemic ecg changes, does not seem like acs, likely demand 2/2 chf, resp failure afib: -new onset here -rate was ok off meds, presently in sr -monitor tele -chadsvasc warrants ac, cont lovenox -check updated echo benny: -possibly cardiorenal, cr improving, monitor with diuresis htn: -holding home meds due to hypotension on pressors now
--- NOTE | 2019-08-22 12:55 | PN ---
Teaching Attending Note Name of Resident: Rambo Sandra ATTENDING PHYSICIAN STATEMENT I saw and evaluated the patient. I reviewed the resident's note and discussed the case with the resident. I agree with the resident's findings and plan as documented. SUBJECTIVE: Pt seen and examined in the ICU. Remains intubated, sedated on vasopressin gtt. OBJECTIVE: Vital Signs Period Temp Pulse Resp BP Sys/Ramon Pulse Ox Last 24 Hr 98 F-98.8 F 81-102 18-24 87-115/55-77 92-96 Intake & Output 08/19/19 08/20/19 08/21/19 08/22/19 23:59 23:59 23:59 23:59 Intake Total 1192 1248 839 Output Total 250 5400 4600 900 Balance -250 -4208 -3352 -61 Weight 165.561 kg 165.561 kg 165.561 kg 147.962 kg Gen: intubated, sedated Heart: RRR Lung: decreased breath sounds at the bases Abd: soft, nontender Ext: + edema CBC, BMP 08/22/19 05:00 08/22/19 05:00 ABG Results ABG pH 7.456 (7.350-7.450) H 08/22/19 06:00 ABG HCO3 40.6 mmol/L (22-27) H 08/22/19 06:00 ABG O2 Sat (Measured) 94.9 mmHg (95-98) L 08/22/19 06:00 ABG O2 Content No Result Required. 08/22/19 06:00 ABG Base Excess 13.7 mmol/L (-2-2) H 08/22/19 06:00 Active Medications Apixaban (Eliquis -) 5 mg PO BID ARABELLA Chlorhexidine Gluconate (Hibiclens For Decolonization -) 1 applic TP HS ARABELLA Last Admin: 08/21/19 21:07 Dose: 1 applic Documented by: Furosemide (Lasix Injection -) 60 mg IVPUSH BID@0600,1400 ARABELLA Last Admin: 08/22/19 05:27 Dose: 60 mg Documented by: Vasopressin 40 units/ Sodium (Chloride) 100 mls @ 5 mls/hr IVPB ASDIR ARABELLA; Protocol Last Titration: 08/22/19 09:00 Dose: 2.4 units/hr, 6 mls/hr Documented by: Midazolam HCl (Midazolam 100mg/100ml-0.9%Nacl) 100 mg in 100 mls @ 1 mls/hr IVPB TITR ARABELLA; Protocol Last Admin: 08/22/19 09:33 Dose: 10 mg/hr, 10 mls/hr Documented by: Norepinephrine Bitartrate (Levophed Bag) 8,000 mcg in 500 mls @ 18.75 mls/hr IVPB TITR ARABELLA; Protocol Last Admin: 08/22/19 05:29 Dose: Not Given Documented by: Fentanyl (Sublimaze Ivpb) 500 mcg in 100 mls @ 33.112 mls/hr IVPB TITR ARABELLA; Protocol Last Admin: 08/22/19 09:32 Dose: 0.6 mcg/kg/hr, 20 mls/hr Documented by: Levofloxacin (Levaquin 750 Mg Premixed Ivpb -) 750 mg in 150 mls @ 100 mls/hr IVPB DAILY ARABELLA; Protocol Last Admin: 08/22/19 09:31 Dose: 100 mls/hr Documented by: Insulin Aspart (Novolog Vial Sliding Scale -) 1 vial SQ ACHS ARABELLA; Protocol Last Admin: 08/22/19 06:20 Dose: 2 units Documented by: Mupirocin (Bactroban Ointment (For Decolonization) -) [address] [facility] Stop: 08/24/19 21:59 Last Admin: 08/22/19 09:32 Dose: 1 applic Documented by: Pantoprazole Sodium (Protonix Iv) [address] [facility] Last Admin: 08/22/19 09:31 Dose: 40 mg Documented by: ASSESSMENT AND PLAN: Acute on Chronic Hypoxic and Hypercapneic Respiratory Failure Acute on Chronic Diastolic Heart Failure r/o Pneumonia +Troponins likely Demand Ischemia New Onset Atrial Fibrillation Acute Kidney Injury [place]/OHS Morbid Obesity Asthma HTN GERD - continue antibiotics - f/u cultures, serologies - continue lasix - monitor urine output, creatinine - titrate pressors to maintain MAP >65 - sedate for vent synchrony - inhaled bronchodilators - titrate FiO2, PEEP to keep SpO2 >90% - enteral feeds - DVT/GI prophylaxis - continue ICU monitoring critical care time spent in reviewing chart, evaluating patient and formulating plan 35 min
--- NOTE | 2019-08-22 13:18 | PN ---
Physical Exam: SUBJECTIVE: Patient seen and examined. Pt found to have new onset A-fib on EKG, started on AC. Afebrile overnight. No acute events. Volume status improved. OBJECTIVE: Vital Signs Period Temp Pulse Resp BP Sys/Ramon Pulse Ox Last 24 Hr 98 F-98.8 F 81-102 18-24 87-115/55-77 92-96 GENERAL: Vented, sedated EYES: Pupils equal, round and reactive to light, extraocular movements intact, sclera anicteric, conjunctiva clear. Remains closed EARS, NOSE, THROAT: Moist mucous membranes. NECK: JVD noted LUNGS: difficult to appreciate due to body habitus HEART: Increased rate and regular rhythm, normal S1 and S2 without murmur, rub or gallop. ABDOMEN: Soft, nontender, not distended, normoactive bowel sounds, no guarding, no rebound, no masses. UPPER EXTREMITIES: 2+ pulses, warm, well-perfused. LOWER EXTREMITIES: 2+ pulses, warm, well-perfused. Trace pedal edema NEUROLOGICAL: vented/sedated Laboratory Results - last 24 hr 08/21/19 08/21/19 08/22/19 17:40 21:16 05:00 WBC 10.1 H RBC 5.36 Hgb 14.0 Hct 47.2 MCV 88.2 MCH 26.2 MCHC 29.7 L RDW 20.7 H Plt Count 186 MPV 8.4 Absolute Neuts (auto) 8.3 H Neutrophils % 82.1 Lymphocytes % 7.4 L Monocytes % 10.0 Eosinophils % 0.1 D Basophils % 0.4 Nucleated RBC % 1 H Anticoagulation Therapy Puncture Site Patient Temperature ABG pH ABG pCO2 ABG pO2 ABG HCO3 ABG O2 Sat (Measured) ABG O2 Content ABG Base Excess Usman Test Patient On Oxygen O2 Delivery Device Oxygen Flow Rate Vent Mode Vent Rate Mechanical Rate PEEP Pressure Support Vent Sodium Potassium Chloride Carbon Dioxide Anion Gap BUN Creatinine Est GFR (CKD-EPI)AfAm Est GFR (CKD-EPI)NonAf POC Glucometer 181 167 Random Glucose Calcium Phosphorus Magnesium Total Bilirubin AST ALT Alkaline Phosphatase Total Protein Albumin 08/22/19 08/22/19 08/22/19 05:00 06:00 06:17 WBC RBC Hgb Hct MCV MCH MCHC RDW Plt Count MPV Absolute Neuts (auto) Neutrophils % Lymphocytes % Monocytes % Eosinophils % Basophils % Nucleated RBC % Anticoagulation Therapy No Result Required. Puncture Site Right radial Patient Temperature No Result Required. ABG pH 7.456 H ABG pCO2 58.90 H ABG pO2 72.5 L ABG HCO3 40.6 H ABG O2 Sat (Measured) 94.9 L ABG O2 Content No Result Required. ABG Base Excess 13.7 H Usman Test Positive Patient On Oxygen Yes O2 Delivery Device Vent Oxygen Flow Rate 100% Vent Mode A/c Vent Rate 18 Mechanical Rate Yes PEEP 12.0 Pressure Support Vent 450 Sodium 147 H Potassium 3.7 Chloride 100 Carbon Dioxide 41 H Anion Gap 6 L BUN 29.4 H Creatinine 1.3 Est GFR (CKD-EPI)AfAm 75.31 Est GFR (CKD-EPI)NonAf 64.98 POC Glucometer 165 Random Glucose 111 H Calcium 8.6 Phosphorus 3.6 Magnesium 2.3 Total Bilirubin 1.0 AST 36 ALT 76 H Alkaline Phosphatase 59 Total Protein 6.4 Albumin 2.5 L 08/22/19 12:18 WBC RBC Hgb Hct MCV MCH MCHC RDW Plt Count MPV Absolute Neuts (auto) Neutrophils % Lymphocytes % Monocytes % Eosinophils % Basophils % Nucleated RBC % Anticoagulation Therapy Puncture Site Patient Temperature ABG pH ABG pCO2 ABG pO2 ABG HCO3 ABG O2 Sat (Measured) ABG O2 Content ABG Base Excess Usman Test Patient On Oxygen O2 Delivery Device Oxygen Flow Rate Vent Mode Vent Rate Mechanical Rate PEEP Pressure Support Vent Sodium Potassium Chloride Carbon Dioxide Anion Gap BUN Creatinine Est GFR (CKD-EPI)AfAm Est GFR (CKD-EPI)NonAf POC Glucometer 170 Random Glucose Calcium Phosphorus Magnesium Total Bilirubin AST ALT Alkaline Phosphatase Total Protein Albumin Active Medications Generic Name Dose Route Start Last Admin Trade Name Thuan PRN Reason Stop Dose Admin Apixaban 5 mg 08/22/19 22:00 Eliquis - PO BID ARABELLA Chlorhexidine Gluconate 1 applic 08/19/19 22:00 08/21/19 21:07 Hibiclens For Decolonization - TP 1 applic HS ARABELLA Administration Furosemide 60 mg 08/20/19 06:00 08/22/19 05:27 Lasix Injection - IVPUSH 60 mg BID@0600,1400 ARABELLA Administration Vasopressin 40 units/ Sodium 100 mls @ 5 mls/hr 08/19/19 21:45 08/22/19 09:00 Chloride IVPB 2.4 units/hr ASDIR ARABELLA 6 mls/hr Titration Protocol 2 UNITS/HR Midazolam HCl 100 mg in 100 mls @ 1 mls/hr 08/19/19 21:45 08/22/19 09:33 Midazolam 100mg/100ml-0.9%Nacl IVPB 10 mg/hr TITR ARABELLA 10 mls/hr Administration Protocol 1 MG/HR Norepinephrine Bitartrate 8,000 mcg in 500 mls @ 18.75 mls/hr 08/20/19 00:15 08/22/19 05:29 Levophed Bag IVPB Not Given TITR ARABELLA Protocol 5 MCG/MIN Fentanyl 500 mcg in 100 mls @ 33.112 mls/hr 08/20/19 06:30 08/22/19 09:32 Sublimaze Ivpb IVPB 0.6 mcg/kg/hr TITR ARABELLA 20 mls/hr Administration Protocol 1 MCG/KG/HR Levofloxacin 750 mg in 150 mls @ 100 mls/hr 08/20/19 10:42 08/22/19 09:31 Levaquin 750 Mg Premixed Ivpb - IVPB 100 mls/hr DAILY ARABELLA Administration Protocol Insulin Aspart 1 vial 08/19/19 22:00 08/22/19 06:20 Novolog Vial Sliding Scale - SQ 2 units ACHS ARABELLA Administration Protocol Mupirocin 1 applic 08/19/19 22:00 08/22/19 09:32 Bactroban Ointment (For Decolonization) - NS 08/24/19 21:59 1 applic BID ARABELLA Administration Pantoprazole Sodium 40 mg 08/19/19 20:30 08/22/19 09:31 Protonix Iv IVPUSH 40 mg DAILY ARABELLA Administration ASSESSMENT/PLAN: Patient is a 48 year old male with history of [place], morbid obesity, mild inter mittent asthma, hypertension, gastroesophageal reflux presented with difficulty breathing and LE swelling x4 days, ICU consulted due to AMS, somnolence, worsening respiratory status on BiPaP and pt is being admitted to ICU for worsening Acute hypoxic hypercapenic respiratory failure likely 2/2 to CHF exacerbation vs COVID pneumonia #Neuro Vented+ sedated neuro checks, fent- 100, versed 10, vaso 1 aspiration precaution #Pulmonary Acute Hypoxic Hypercapneic Respiratory failure likely 2/2 to CHF exacerbation, r/o COVID pneumonia- test pending Stricts Is&O's, daily wts, Dubose inserted COVID test pending s/p Heparin drip- D-dimers elevated but pt too unstable and large for CTA, Wells score 1.5, PE unlikely s/p lovenox, switched to Eliquis 5 BID AC 18/450/100/12 Plat 24 PIP 30 AB.45/58/72/40 CXR: slightly worsened right pleural effusion #Cardio Acute Hypoxic Hypercapneic Respiratory failure likely 2/2 to CHF exacerbation vs COVID pneumonia b/l pitting edema, JVD, BNP elevated CXR: showing b/l pleural effusion, left>right- could also indicate infiltrates- will r/o COVID pt been admitted for CHF exacerbation several times in the past, ECHO 2019 normal, MPI 2017 normal CHADsVASc score 2, Stroke risk was 2.2% per year in >90,000 patients/ 2.9% risk of stroke/TIA/systemic embolism. Moderate-high Troponemia likely 2/2 to demand ischemia Cont Lasix 60, monitor output, if improves New Onset A-fib seen on EKG, s/p lovenox, switched to Eliquis 5 BID Get ECHO once COVID is neg #GI Transamnitis- mild-moderate- improved likely 2/2 to Congestive Hepatopathy/hepatic congestion from CHF exacerbation #Renal THOMAS likely prerenal will monitor for now I- 1800 [id number] #ID covid pending pt afebrile Empiric Levofloxacin D3 for CAP #DVT ppx Eliquis 5 BID #GI ppx protonix FEN fluid restriction promote tube feeds monitor lytes Dispo: cont abx- difficult to r/o infiltrates, cont lasix, f/u COVID, ECHO Visit type - Emergency Visit Emergency Visit: Yes ED Registration Date: 08/19/19 Care time: The patient presented to the Emergency Department on the above date and was hospitalized for further evaluation of their emergent condition. - New Patient This patient is new to me today: Yes Date on this admission: 08/29/19 - Critical Care Critical Care patient: No - Discharge Referral Referred to [facility] Med [facility] No ATTENDING PHYSICIAN STATEMENT I saw and evaluated the patient. I reviewed the resident's note and discussed the case with the resident. I agree with the resident's findings and plan as documented. SUBJECTIVE: OBJECTIVE: ASSESSMENT AND PLAN:
--- NOTE | 2019-08-22 14:58 | PN ---
Progress Note, Physician History of Present Illness: Pt seen and examined at bedside. He remains in the ICU. He remains intubated. He is making urine. - Current Medication List Current Medications: Active Medications Apixaban (Eliquis -) 5 mg PO BID [facility] Chlorhexidine Gluconate (Hibiclens For Decolonization -) 1 applic TP HS [facility] Last Admin: 08/21/19 21:07 Dose: 1 applic Documented by: Furosemide (Lasix Injection -) 60 mg IVPUSH BID@0600,1400 [facility] Last Admin: 08/22/19 05:27 Dose: 60 mg Documented by: Vasopressin 40 units/ Sodium (Chloride) 100 mls @ 5 mls/hr IVPB ASDIR [facility]; Protocol Last Titration: 08/22/19 09:00 Dose: 2.4 units/hr, 6 mls/hr Documented by: Midazolam HCl (Midazolam 100mg/100ml-0.9%Nacl) 100 mg in 100 mls @ 1 mls/hr IVPB TITR [facility]; Protocol Last Admin: 08/22/19 09:33 Dose: 10 mg/hr, 10 mls/hr Documented by: Norepinephrine Bitartrate (Levophed Bag) 8,000 mcg in 500 mls @ 18.75 mls/hr IVPB TITR [facility]; Protocol Last Admin: 08/22/19 05:29 Dose: Not Given Documented by: Fentanyl (Sublimaze Ivpb) 500 mcg in 100 mls @ 33.112 mls/hr IVPB TITR [facility]; Protocol Last Admin: 08/22/19 09:32 Dose: 0.6 mcg/kg/hr, 20 mls/hr Documented by: Levofloxacin (Levaquin 750 Mg Premixed Ivpb -) 750 mg in 150 mls @ 100 mls/hr IVPB DAILY [facility]; Protocol Last Admin: 08/22/19 09:31 Dose: 100 mls/hr Documented by: Insulin Aspart (Novolog Vial Sliding Scale -) 1 vial SQ ACHS [facility]; Protocol Last Admin: 08/22/19 06:20 Dose: 2 units Documented by: Mupirocin (Bactroban Ointment (For Decolonization) -) 1 applic NS BID [facility] Stop: 08/24/19 21:59 Last Admin: 08/22/19 09:32 Dose: 1 applic Documented by: Pantoprazole Sodium (Protonix Iv) 40 mg IVPUSH DAILY [facility] Last Admin: 08/22/19 09:31 Dose: 40 mg Documented by: - Objective Vital Signs: Vital Signs Temperature 98.6 F 08/22/19 05:56 Pulse Rate 83 08/22/19 09:00 Respiratory Rate 19 08/22/19 11:50 Blood Pressure 90/62 08/22/19 09:00 O2 Sat by Pulse Oximetry (%) 96 08/22/19 09:16 Constitutional: Yes: Calm Eyes: Yes: Conjunctiva Clear HENT: Yes: Atraumatic Neck: Yes: Supple Cardiovascular: Yes: S1, S2 Respiratory: Yes: Mechanically Ventilated Gastrointestinal: Yes: Soft Genitourinary: Yes: Dubose Present Musculoskeletal: Yes: WNL Edema: Yes Edema: LLE: Trace, RLE: Trace Neurological: Yes: Lethargy Labs: CBC, BMP 08/22/19 05:00 08/22/19 05:00 INR, PTT INR 1.27 (0.83-1.09) H 08/20/19 05:00 Assessment/Plan Current Medications Generic Name Dose Route Start Last Admin Trade Name Thuan PRN Reason Stop Dose Admin Apixaban 5 mg 08/22/19 22:00 Eliquis - PO BID [facility] Chlorhexidine Gluconate 1 applic 08/19/19 22:00 08/21/19 21:07 Hibiclens For Decolonization - TP 1 applic HS [facility] Administration Furosemide 60 mg 08/20/19 06:00 08/22/19 05:27 Lasix Injection - IVPUSH 60 mg BID@0600,1400 [facility] Administration Vasopressin 40 units/ Sodium 100 mls @ 5 mls/hr 08/19/19 21:45 08/22/19 09:00 Chloride IVPB 2.4 units/hr ASDIR [facility] 6 mls/hr Titration Protocol 2 UNITS/HR Midazolam HCl 100 mg in 100 mls @ 1 mls/hr 08/19/19 21:45 08/22/19 09:33 Midazolam 100mg/100ml-0.9%Nacl IVPB 10 mg/hr TITR [facility] 10 mls/hr Administration Protocol 1 MG/HR Norepinephrine Bitartrate 8,000 mcg in 500 mls @ 18.75 mls/hr 08/20/19 00:15 08/22/19 05:29 Levophed Bag IVPB Not Given TITR [facility] Protocol 5 MCG/MIN Fentanyl 500 mcg in 100 mls @ 33.112 mls/hr 08/20/19 06:30 08/22/19 09:32 Sublimaze Ivpb IVPB 0.6 mcg/kg/hr TITR [facility] 20 mls/hr Administration Protocol 1 MCG/KG/HR Levofloxacin 750 mg in 150 mls @ 100 mls/hr 08/20/19 10:42 08/22/19 09:31 Levaquin 750 Mg Premixed Ivpb - IVPB 100 mls/hr DAILY [facility] Administration Protocol Insulin Aspart 1 vial 08/19/19 22:00 08/22/19 06:20 Novolog Vial Sliding Scale - SQ 2 units ACHS [facility] Administration Protocol Mupirocin 1 applic 08/19/19 22:00 08/22/19 09:32 Bactroban Ointment (For Decolonization) - NS 08/24/19 21:59 1 applic BID [facility] Administration Pantoprazole Sodium 40 mg 08/19/19 20:30 08/22/19 09:31 Protonix Iv IVPUSH 40 mg DAILY [facility] Administration Laboratory Tests 08/19/19 08/20/19 18:00 05:00 Urine Protein Trace Urine Blood 3+ H COVID-19 (NILDA) Pending Impression 1. THOMAS 2. chf 3. resp failure 4. r/p covid 5. a-fib 6. obesity 7. asthma 8. hypotension 9. gerd Plan - renal function improved - etiology of thomas likely cardiorenal 1 - repeat ua - follow covid results - vent support - cont tube feeds - monitor urine output - discussed with ICU team - reviewed chart
[2019-08-22] MEDS: APIXABAN 5 MG TABLET PO SCH (22:18)
[2019-08-22] MEDS: CHLORHEXIDINE GLUCONATE 4% CLEANSER FOR DECOLONIZATION TP SCH (22:18)
[2019-08-22] MEDS ORDERED: ACETAMINOPHEN 325 MG TABLET (FP) PO ONE (22:22)
[2019-08-23] MEDS: FUROSEMIDE 40 MG/4 ML INJECTABLE VIAL IVPUSH SCH (07:00)
[2019-08-23] MEDS: INSULIN SLIDING SCALE (NOVOLOG) 1 VIAL SQ SCH ×4 (07:01→23:12)
[2019-08-23 07:16] LABS: ALBUMIN 2.6 g/dl (3.4-5.0); BILIRUBIN,TOTAL 1.2 mg/dL (0.2-1); BLOOD UREA NITROGEN 31.4 mg/dL (7-18); CALCIUM 8.6 mg/dL (8.5-10.1); CREATININE 1.4 mg/dL (0.55-1.3); MAGNESIUM 2.5 mg/dL (1.8-2.4); PHOSPHOROUS 4.3 mg/dL (2.5-4.9); POTASSIUM 3.7 mmol/L (3.5-5.1); TOT PROT 7.1 g/dl (6.4-8.2)
[2019-08-23] MEDS: NOREPINEPHRINE BITARTRATE 8,000 MCG/500 ML BAG IVPB SCH (10:07)
[2019-08-23] MEDS: MUPIROCIN 2% TOPICAL OINTMENT FOR DECOLONIZATION NS SCH ×2 (10:07→22:32)
[2019-08-23] MEDS: FENTANYL IVPB 500 MCG/100 ML BAG IVPB SCH ×2 (10:07→15:29)
[2019-08-23] MEDS: APIXABAN 5 MG TABLET PO SCH ×2 (10:08→22:32)
[2019-08-23] MEDS: PANTOPRAZOLE SODIUM 40 MG VIAL IVPUSH SCH (10:10)
--- NOTE | 2019-08-23 10:49 | PN ---
Physical Exam: Critical care progress note SUBJECTIVE: Patient seen and examined at bedside. Pt spiked low grade fever overnight tmax 100.5. remains intubated. OBJECTIVE: Vital Signs Period Temp Pulse Resp BP Sys/Ramon Pulse Ox Last 24 Hr 99 F-101.1 F 80-109 18-25 89-112/55-96 93-98 GENERAL: The patient is intubated and sedated. HEAD: Normal with no signs of trauma. LUNGS: distant breath sounds b/l, equal b/l. HEART: Regular rate, irregular rhythm, S1, S2 without murmur, rub or gallop. ABDOMEN: Soft, nontender, obese, normoactive bowel sounds, no guarding, no rebound, no hepatosplenomegaly, no masses. EXTREMITIES: 2+ pulses, warm, well-perfused, no edema. NEUROLOGICAL: unable to obtain as patient sedated. Laboratory Results - last 24 hr 08/19/19 08/22/19 08/22/19 18:00 12:18 17:47 Sodium Potassium Chloride Carbon Dioxide Anion Gap BUN Creatinine Est GFR (CKD-EPI)AfAm Est GFR (CKD-EPI)NonAf POC Glucometer 170 158 Random Glucose Calcium Phosphorus Magnesium Total Bilirubin AST ALT Alkaline Phosphatase Total Protein Albumin COVID-19 (NILDA) Not detected 08/22/19 08/23/19 08/23/19 23:21 05:11 05:36 Sodium 144 Potassium 3.7 Chloride 98 Carbon Dioxide 38 H Anion Gap 7 L BUN 31.4 H Creatinine 1.4 H Est GFR (CKD-EPI)AfAm 68.85 Est GFR (CKD-EPI)NonAf 59.41 POC Glucometer 151 136 Random Glucose 112 H Calcium 8.6 Phosphorus 4.3 Magnesium 2.5 H Total Bilirubin 1.2 H AST 29 ALT 62 H Alkaline Phosphatase 59 Total Protein 7.1 Albumin 2.6 L COVID-19 (NILDA) Active Medications Generic Name Dose Route Start Last Admin Trade Name Freq PRN Reason Stop Dose Admin Apixaban 5 mg 08/22/19 22:00 08/23/19 10:08 Eliquis - PO 5 mg BID [facility] Administration Chlorhexidine Gluconate 1 applic 08/19/19 22:00 08/22/19 22:18 Hibiclens For Decolonization - TP 1 applic HS [facility] Administration Furosemide 60 mg 08/20/19 06:00 08/23/19 07:00 Lasix Injection - IVPUSH 60 mg BID@0600,1400 [facility] Administration Vasopressin 40 units/ Sodium 100 mls @ 5 mls/hr 08/19/19 21:45 08/23/19 10:02 Chloride IVPB 0 units/hr ASDIR [facility] 0 mls/hr Titration Protocol 2 UNITS/HR Midazolam HCl 100 mg in 100 mls @ 1 mls/hr 08/19/19 21:45 08/22/19 19:33 Midazolam 100mg/100ml-0.9%Nacl IVPB 10 mg/hr TITR [facility] 10 mls/hr Titration Protocol 1 MG/HR Norepinephrine Bitartrate 8,000 mcg in 500 mls @ 18.75 mls/hr 08/20/19 00:15 08/23/19 10:07 Levophed Bag IVPB Not Given TITR [facility] Protocol 5 MCG/MIN Fentanyl 500 mcg in 100 mls @ 33.112 mls/hr 08/20/19 06:30 08/23/19 10:07 Sublimaze Ivpb IVPB 0.6 mcg/kg/hr TITR [facility] 20 mls/hr Administration Protocol 1 MCG/KG/HR Levofloxacin 750 mg in 150 mls @ 100 mls/hr 08/20/19 10:42 08/23/19 10:09 Levaquin 750 Mg Premixed Ivpb - IVPB 100 mls/hr DAILY [facility] Administration Protocol Insulin Aspart 1 vial 08/19/19 22:00 08/23/19 07:01 Novolog Vial Sliding Scale - SQ Not Given ACHS [facility] Protocol Mupirocin 1 applic 08/19/19 22:00 08/23/19 10:07 Bactroban Ointment (For Decolonization) - NS 08/24/19 21:59 1 applic BID [facility] Administration Pantoprazole Sodium 40 mg 08/19/19 20:30 08/23/19 10:10 Protonix Iv IVPUSH 40 mg DAILY [facility] Administration ASSESSMENT/PLAN: Patient is a 48 year old male with history of [place], morbid obesity, mild intermittent asthma, hypertension, gastroesophageal reflux presented with difficulty breathing and LE swelling x4 days, ICU consulted due to AMS, somnolence, worsening respiratory status on BiPaP and pt is being admitted to ICU for worsening Acute hypoxic hypercapenic respiratory failure likely 2/2 to CHF exacerbation vs COVID pneumonia #Neuro -Vented+ sedated on fentanyl and versed -aspiration precaution #Pulmonary -Acute Hypoxic Hypercapneic Respiratory failure likely 2/2 to CHF exacerbation -COVID test negative -D-dimers elevated but pt too unstable and large for CTA, Wells score 1.5, PE unlikely -Eliquis 5 BID -CXR unchanged today #Cardio -Acute hypoxic respiratory failure likely 2/2 acute CHF exacerbation -Strict I&O's, daily wts -Troponemia likely 2/2 to demand ischemia -Cont Lasix 60, monitor output, if improves -New Onset A-fib seen on EKG, on AC -COVID is neg, OK to get Echo -f/u cardio reccs #GI -Transamnitis- mild-moderate- improved -likely 2/2 to Congestive Hepatopathy/hepatic congestion from CHF exacerbation -will monitor #Renal -THOMAS likely prerenal -will monitor for now #ID -COVID negative -spiking fevers overnight -patient on levofloxacin monotherapy; coverage broadened to Meropenem as patient still spiking fevers and is PCN allergic -ID consulted #DVT ppx -Eliquis 5 BID #GI ppx -protonix 40mg IV daily FEN -no fluids indicated -promote tube feeds -monitor lytes Dispo: -admit ICU Visit type - Emergency Visit Emergency Visit: Yes ED Registration Date: 08/19/19 Care time: The patient presented to the Emergency Department on the above date and was hospitalized for further evaluation of their emergent condition. - New Patient This patient is new to me today: No - Critical Care Critical Care patient: Yes Total Critical Care Time (in minutes): 40 Critical Care Statement: The care of this patient involved high complexity decision making to prevent further life threatening deterioration of the alexis ent's condition and/or to evaluate & treat vital organ system(s) failure or risk of failure. - Discharge Referral Referred to [facility] No ATTENDING PHYSICIAN STATEMENT I saw and evaluated the patient. I reviewed the resident's note and discussed the case with the resident. I agree with the resident's findings and plan as documented. SUBJECTIVE: OBJECTIVE: ASSESSMENT AND PLAN:
[2019-08-23] MEDS ORDERED: MEROPENEM 1 GM in DEXTROSE 5%-WATER 100 ML IVPB ONE (10:53)
--- NOTE | 2019-08-23 11:04 | PN ---
Progress Note, Physician History of Present Illness: Pt seen and examined at bedside. He remains in the ICU. He remains intubated. - Current Medication List Current Medications: Active Medications Apixaban (Eliquis -) 5 mg PO BID [facility] Last Admin: 08/23/19 10:08 Dose: 5 mg Documented by: Chlorhexidine Gluconate (Hibiclens For Decolonization -) 1 applic TP HS [facility] Last Admin: 08/22/19 22:18 Dose: 1 applic Documented by: Furosemide (Lasix Injection -) 60 mg IVPUSH BID@0600,1400 [facility] Last Admin: 08/23/19 07:00 Dose: 60 mg Documented by: Vasopressin 40 units/ Sodium (Chloride) 100 mls @ 5 mls/hr IVPB ASDIR [facility]; Protocol Last Titration: 08/23/19 10:02 Dose: 0 units/hr, 0 mls/hr Documented by: Midazolam HCl (Midazolam 100mg/100ml-0.9%Nacl) 100 mg in 100 mls @ 1 mls/hr IVPB TITR [facility]; Protocol Last Titration: 08/22/19 19:33 Dose: 10 mg/hr, 10 mls/hr Documented by: Norepinephrine Bitartrate (Levophed Bag) 8,000 mcg in 500 mls @ 18.75 mls/hr IVPB TITR [facility]; Protocol Last Admin: 08/23/19 10:07 Dose: Not Given Documented by: Fentanyl (Sublimaze Ivpb) 500 mcg in 100 mls @ 33.112 mls/hr IVPB TITR [facility]; Protocol Last Admin: 08/23/19 10:07 Dose: 0.6 mcg/kg/hr, 20 mls/hr Documented by: Meropenem 1 gm/ Dextrose 100 mls @ 200 mls/hr IVPB ONCE ONE Stop: 08/23/19 11:22 Insulin Aspart (Novolog Vial Sliding Scale -) 1 vial SQ ACHS [facility]; Protocol Last Admin: 08/23/19 07:01 Dose: Not Given Documented by: Mupirocin (Bactroban Ointment (For Decolonization) -) 1 applic NS BID [facility] Stop: 08/24/19 21:59 Last Admin: 08/23/19 10:07 Dose: 1 applic Documented by: Pantoprazole Sodium (Protonix Iv) 40 mg IVPUSH DAILY [facility] Last Admin: 08/23/19 10:10 Dose: 40 mg Documented by: - Objective Vital Signs: Vital Signs Temperature 99.5 F 08/23/19 06:00 Pulse Rate 109 H 08/23/19 10:02 Respiratory Rate 19 08/23/19 08:25 Blood Pressure 95/55 L 08/23/19 10:02 O2 Sat by Pulse Oximetry (%) 93 L 08/23/19 08:59 Constitutional: Yes: Calm Eyes: Yes: Conjunctiva Clear HENT: Yes: Atraumatic Cardiovascular: Yes: S1, S2 Respiratory: Yes: CTA Bilaterally, Mechanically Ventilated Gastrointestinal: Yes: Soft Genitourinary: Yes: Gracy Present Musculoskeletal: Yes: Muscle Weakness Edema: No Neurological: Yes: Lethargy Labs: CBC, BMP 08/22/19 05:00 08/23/19 05:11 INR, PTT INR 1.27 (0.83-1.09) H 08/20/19 05:00 Assessment/Plan Current Medications Generic Name Dose Route Start Last Admin Trade Name Freq PRN Reason Stop Dose Admin Apixaban 5 mg 08/22/19 22:00 08/23/19 10:08 Eliquis - PO 5 mg BID [facility] Administration Chlorhexidine Gluconate 1 applic 08/19/19 22:00 08/22/19 22:18 Hibiclens For Decolonization - TP 1 applic HS [facility]A Administration Furosemide 60 mg 08/20/19 06:00 08/23/19 07:00 Lasix Injection - IVPUSH 60 mg BID@0600,1400 [facility] Administration Vasopressin 40 units/ Sodium 100 mls @ 5 mls/hr 08/19/19 21:45 08/23/19 10:02 Chloride IVPB 0 units/hr ASDIR [facility] 0 mls/hr Titration Protocol 2 UNITS/HR Midazolam HCl 100 mg in 100 mls @ 1 mls/hr 08/19/19 21:45 08/22/19 19:33 Midazolam 100mg/100ml-0.9%Nacl IVPB 10 mg/hr TITR [facility] 10 mls/hr Titration Protocol 1 MG/HR Norepinephrine Bitartrate 8,000 mcg in 500 mls @ 18.75 mls/hr 08/20/19 00:15 08/23/19 10:07 Levophed Bag IVPB Not Given TITR [facility] Protocol 5 MCG/MIN Fentanyl 500 mcg in 100 mls @ 33.112 mls/hr 08/20/19 06:30 08/23/19 10:07 Sublimaze Ivpb IVPB 0.6 mcg/kg/hr TITR [facility] 20 mls/hr Administration Protocol 1 MCG/KG/HR Meropenem 1 gm/ Dextrose 100 mls @ 200 mls/hr 08/23/19 10:53 IVPB 08/23/19 11:22 ONCE ONE Insulin Aspart 1 vial 08/19/19 22:00 08/23/19 07:01 Novolog Vial Sliding Scale - SQ Not Given ACHS [facility] Protocol Mupirocin 1 applic 08/19/19 22:00 08/23/19 10:07 Bactroban Ointment (For Decolonization) - NS 08/24/19 21:59 1 applic BID [facility]A Administration Pantoprazole Sodium 40 mg 08/19/19 20:30 08/23/19 10:10 Protonix Iv IVPUSH 40 mg DAILY [facility]A Administration Impression 1. THOMAS 2. chf 3. resp failure 4. r/p covid 5. a-fib 6. obesity 7. asthma 8. hypotension 9. gerd Plan - cont to monitor renal function - volume status improving - weaning per pulm - hold afternoon lasix - evaluate for lasix tomorrow - daily cxr - covid negative - vent support - cont tube feeds - monitor urine output - discussed with ICU team
[2019-08-23] MEDS: MIDAZOLAM IN 0.9 % SOD.CHLORID 100 MG/100 ML PLAST..BAG IVPB SCH (11:28)
--- NOTE | 2019-08-23 11:42 | PN ---
Teaching Attending Note Name of Resident: Ernesto Sam ATTENDING PHYSICIAN STATEMENT I saw and evaluated the patient. I reviewed the resident's note and discussed the case with the resident. I agree with the resident's findings and plan as documented. SUBJECTIVE: Pt seen and examined in the ICU. Remains intubated, sedated on vasopressin gtt. Good urine output. No fevers recorded. OBJECTIVE: Vital Signs Period Temp Pulse Resp BP Sys/Ramon Pulse Ox Last 24 Hr 99 F-101.1 F 80-109 18-25 89-112/55-96 93-98 Intake & Output 08/20/19 08/21/19 08/22/19 08/23/19 23:59 23:59 23:59 23:59 Intake Total 1192 1248 2888 360 Output Total 5400 4600 2450 700 Balance -4208 -3352 438 -340 Weight 165.561 kg 165.561 kg 147.962 kg Gen: intubated, sedated Heart: RRR Lung: decreased breath sounds at the bases Abd: soft, nontender Ext: + edema CBC, BMP 08/22/19 05:00 08/23/19 05:11 Active Medications Apixaban (Eliquis -) 5 mg PO BID [facility] Last Admin: 08/23/19 10:08 Dose: 5 mg Documented by: Chlorhexidine Gluconate (Hibiclens For Decolonization -) 1 applic TP HS [facility] Last Admin: 08/22/19 22:18 Dose: 1 applic Documented by: Vasopressin 40 units/ Sodium (Chloride) 100 mls @ 5 mls/hr IVPB ASDIR [facility]; Protocol Last Titration: 08/23/19 10:02 Dose: 0 units/hr, 0 mls/hr Documented by: Midazolam HCl (Midazolam 100mg/100ml-0.9%Nacl) 100 mg in 100 mls @ 1 mls/hr IVPB TITR [facility]; Protocol Last Titration: 08/22/19 19:33 Dose: 10 mg/hr, 10 mls/hr Documented by: Norepinephrine Bitartrate (Levophed Bag) 8,000 mcg in 500 mls @ 18.75 mls/hr IVPB TITR [facility]; Protocol Last Admin: 08/23/19 10:07 Dose: Not Given Documented by: Fentanyl (Sublimaze Ivpb) 500 mcg in 100 mls @ 33.112 mls/hr IVPB TITR [facility]; Protocol Last Admin: 08/23/19 10:07 Dose: 0.6 mcg/kg/hr, 20 mls/hr Documented by: Meropenem 1 gm/ Dextrose 100 mls @ 200 mls/hr IVPB ONCE ONE Stop: 08/23/19 11:22 Insulin Aspart (Novolog Vial Sliding Scale -) 1 vial SQ ACHS [facility]; Protocol Last Admin: 08/23/19 07:01 Dose: Not Given Documented by: Mupirocin (Bactroban Ointment (For Decolonization) -) 1 applic NS BID [facility] Stop: 08/24/19 21:59 Last Admin: 08/23/19 10:07 Dose: 1 applic Documented by: Pantoprazole Sodium (Protonix Iv) 40 mg IVPUSH DAILY [facility] Last Admin: 08/23/19 10:10 Dose: 40 mg Documented by: ASSESSMENT AND PLAN: Acute on Chronic Hypoxic and Hypercapneic Respiratory Failure Acute on Chronic Diastolic Heart Failure r/o Pneumonia +Troponins likely Demand Ischemia New Onset Atrial Fibrillation Acute Kidney Injury [place]/OHS Morbid Obesity Asthma HTN GERD - continue antibiotics - f/u cultures - hold lasix today - monitor urine output, creatinine - titrate pressors to maintain MAP >65 - rate control - continue anticoagulation - sedate for vent synchrony - inhaled bronchodilators - titrate FiO2, PEEP to keep SpO2 >90% - enteral feeds - DVT/GI prophylaxis - continue ICU monitoring critical care time spent in reviewing chart, evaluating patient and formulating plan 35 min
--- NOTE | 2019-08-23 12:29 | PN ---
Progress Note (short form) - Note Progress Note: s: remains intubated on pressors, unable to obtain HPI or ROS Current Medications Generic Name Dose Route Start Last Admin Trade Name Thuan PRN Reason Stop Dose Admin Apixaban 5 mg 08/22/19 22:00 08/23/19 10:08 Eliquis - PO 5 mg BID [facility]ELLA Administration Chlorhexidine Gluconate 1 applic 08/19/19 22:00 08/22/19 22:18 Hibiclens For Decolonization - TP 1 applic HS [facility] Administration Vasopressin 40 units/ Sodium 100 mls @ 5 mls/hr 08/19/19 21:45 08/23/19 10:02 Chloride IVPB 0 units/hr ASDIR [facility]ELLA 0 mls/hr Titration Protocol 2 UNITS/HR Midazolam HCl 100 mg in 100 mls @ 1 mls/hr 08/19/19 21:45 08/22/19 19:33 Midazolam 100mg/100ml-0.9%Nacl IVPB 10 mg/hr TITR [facility] 10 mls/hr Titration Protocol 1 MG/HR Norepinephrine Bitartrate 8,000 mcg in 500 mls @ 18.75 mls/hr 08/20/19 00:15 08/23/19 10:07 Levophed Bag IVPB Not Given TITR [facility] Protocol 5 MCG/MIN Fentanyl 500 mcg in 100 mls @ 33.112 mls/hr 08/20/19 06:30 08/23/19 10:07 Sublimaze Ivpb IVPB 0.6 mcg/kg/hr TITR [facility] 20 mls/hr Administration Protocol 1 MCG/KG/HR Meropenem 1 gm/ Dextrose 100 mls @ 200 mls/hr 08/23/19 10:53 IVPB 08/23/19 11:22 ONCE ONE Insulin Aspart 1 vial 08/19/19 22:00 08/23/19 07:01 Novolog Vial Sliding Scale - SQ Not Given ACHS [facility] Protocol Mupirocin 1 applic 08/19/19 22:00 08/23/19 10:07 Bactroban Ointment (For Decolonization) - NS 08/24/19 21:59 1 applic BID [facility]A Administration Pantoprazole Sodium 40 mg 08/19/19 20:30 08/23/19 10:10 Protonix Iv IVPUSH 40 mg DAILY [facility] Administration Vital Signs Period Temp Pulse Resp BP Sys/Ramon Pulse Ox Last 24 Hr 99 F-101.2 F 84-109 18-25 88-112/55-96 92-98 intubated sedated rrr s1s2 no mrg coarse bs bl vented +le edema no jaundice diaphoresis abd nd not agitated cxr: congestive changes tele: sr echo 09/2016: nl lv/rv, no sig valve path echo 12/2018: nl lvef, lvh, nl rv, mild mr mibi 09/2016: nl mpi ecg: afib, rate ok, no ischemic changes, nl qtc a/p: 49 m hx htn, kylah, asthma, gerd, dchf here with sob, le edema. resp distress, acute diastolic chf: -noncompliant with meds, cpap as outpt -holding diuresis -monitor daily chem7 -recent echo unremarkable, repeat pending -vent management per crit care -hypotensive on pressors, wean as tolerated - covid negative positive trops: -mild trop elevation with flat trend, nl ck mb, no ischemic ecg changes, does not seem like acs, likely demand 2/2 chf, resp failure afib: -new onset here -rate was ok off meds, presently in sr -monitor tele -chadsvasc warrants ac, cont eilquis -check updated echo benny: -possibly cardiorenal, cr improving htn: -holding home meds due to hypotension on pressors now estimated critical care time = 35 min
[2019-08-23] MEDS ORDERED: ACETAMINOPHEN 1000 MG/100 ML VIAL (NON FORMULARY) IVPB ONE ×2 (13:06→22:56)
--- NOTE | 2019-08-23 13:59 | PN ---
Progress Note (short form) - Note Progress Note: ID CONSULT DICTATED + BC GPCCL R/O STAPH BACTEREMIA RESP FAILURE R/O PNEUMONIA CHF AFIB AZOTEMIA MORBID OBESITY PCN ALLERGY AWAIT SEPSIS WORKUP EMPIRIC VANCO/ CEFEPIME CRITICAL CARE TIME 35MIN
--- NOTE | 2019-08-23 14:07 | ECHO ---
Name: RICKEY CUTLER Exam:Adult Echocardiogram Study Date: 08/23/2019 11:24 AM Age: 49 yrs Reason For Study: Evaluate cardiac function. Height: 67 in Weight: 326 lb BSA: 2.5 m2 MMode/2D Measurements & Calculations RVDd: 4.0 cm Ao root diam: 3.5 cm IVSd: 1.2 cm LA dimension: 3.7 cm LVIDd: 4.6 cm ACS: 2.2 cm LVIDs: 3.2 cm LVPWd: 1.2 cm IVSs: 1.6 cm EDV(Mckayla): 99.4 ml LVOT diam: 2.4 cm ESV(Mckayla): 42.4 ml TAPSE: 2.4 cm RV S John: 17.4 cm/sec Doppler Measurements & Calculations MV E max john: 57.8 cm/sec Ao V2 max: 106.6 cm/sec MV A max john: 67.6 cm/sec Ao max P.7 mmHg MV E/A: 0.85 Ao V2 mean: 74.5 cm/sec MV dec time: 0.22 sec Ao mean P.7 mmHg Ao V2 VTI: 16.9 cm JOHN(I,D): 3.4 cm2 JOHN(V,D): 3.2 cm2 LV V1 max P.4 mmHg SV(LVOT): 56.8 ml LV V1 mean P.1 mmHg LV V1 max: 77.2 cm/sec LV V1 mean: 47.3 cm/sec LV V1 VTI: 13.0 cm TR max ojhn: 264.3 cm/sec PA V2 max: 123.5 cm/sec TR max P.1 mmHg PA max P.1 mmHg PA acc slope: 540.0 cm/sec2 PA acc time: 0.10 sec PI end-d john: 59.7 cm/sec Med Peak E' John: 5.2 cm/sec Med E/e': 11.2 Lat Peak E' John: 3.9 cm/sec Lat E/e': 14.8 PA pr(Accel): 36.2 mmHg Tech Comments TDS due to morbid obesity. Patient intubated. Procedure A two-dimensional transthoracic echocardiogram with color flow and Doppler was performed. The patient was in normal sinus rhythm during the exam. Left Ventricle The left ventricle is normal in size. There is mild concentric left ventricular hypertrophy. Left shmuel tricular systolic function is normal. Ejection Fraction = 50-55%. The transmitral spectral Doppler flow patter n is suggestive of impaired LV relaxation. Regional wall motion abnormalities cannot be excluded due to li mited visualization. Right Ventricle The right ventricle is moderately dilated. The right ventricular systolic function is mild to moderat micky reduced. Atria The left atrium is mildly dilated. The right atrium is mild to moderately dilated. Mitral Valve The mitral valve is grossly normal. There is trace mitral regurgitation. Tricuspid Valve The tricuspid valve is not well visualized, but is grossly normal. There is mild tricuspid regurgitat ion. Right ventricular systolic pressure is elevated at 50-60mmHg. If clinically indicated, consider evalu ation for pulmonary embolism. Aortic Valve The aortic valve is not well visualized. No hemodynamically significant valvular aortic stenosis. Pulmonic Valve The pulmonic valve is not well visualized. Great Vessels The aortic root is normal size. Pericardium/Pleura There is no pericardial effusion. Interpretation Summary The left ventricle is normal in size. There is mild concentric left ventricular hypertrophy. Left ventricular systolic function is normal. The transmitral spectral Doppler flow pattern is suggestive of impaired LV relaxation. The left atrium is mildly dilated. The right ventricle is moderately dilated. The right ventricular systolic function is mild to moderately reduced. The right atrium is mild to moderately dilated. There is mild tricuspid regurgitation. Right ventricular systolic pressure is elevated at 50-60mmHg. No hemodynamically significant valvular aortic stenosis. If clinically indicated, consider evaluation for pulmonary embolism MD Kam Flood 08/23/2019 02:06 PM
--- NOTE | 2019-08-23 14:25 | CONS ---
INFECTIOUS DISEASE CONSULTATION DATE OF CONSULTATION: DATE OF DICTATION: 08/23/2019 HISTORY: The patient is a 49-year-old male who was admitted to the hospital on August 19, 2019, with worsening shortness of breath and increasing lower extremity edema for 4 days prior to admission. He was found to be with decompensated congestive heart failure. He was placed on a nonrebreather mask. He had apparently been poorly adherent to his CPAP at home. Patient was noted to be hypoxemic. His course was complicated by acute respiratory failure requiring intubation and transferred to the intensive care unit. His course was further complicated by acute kidney failure. Chest x-ray showed bilateral congestion. There appeared to be a left lower lobe consolidation as well as bilateral interstitial and airspace opacities. He was empirically treated with IV Levaquin. At the present time he is sedated on the ventilator. He is in no acute respiratory distress. His course has been further complicated by fever to 101.1 and elevated white blood cell count. Blood cultures are now positive for gram-positive cocci in clusters. At the present time he is sedated on the ventilator. He is in no acute respiratory distress. PAST MEDICAL HISTORY: Positive for congestive heart failure, morbid obesity, obstructive sleep apnea, acute respiratory failure, hypertension, hyperlipidemia. ALLERGIES: To PENICILLIN, hives reported. SOCIAL HISTORY: He resides at home. He is a former smoker, nondrinker. SYSTEMS REVIEW: Neurologic: No loss of consciousness, seizure activity, focal weakness. Cardiac: Negative chest pain or palpitations. Respiratory: As per HPI. Gastrointestinal: Negative vomiting or diarrhea. Genitourinary: Negative for urinary tract infection. LABORATORY DATA: Chest x-ray shows increased congestion bilaterally with possible right lower lobe infiltrate. White blood cell count 10.1, hematocrit 47.2, platelet count 186, creatinine 1.4, total bilirubin 1.2, alkaline phosphatase 59, AST 29. Urine analysis 35 white cells. COVID-19 non-detected. Blood cultures from August 22, 2019, positive for gram-positive cocci in clusters. PHYSICAL EXAMINATION: General: He is sedated on the ventilator. Vital Signs: Temperature is 101, T-max 101.2, blood pressure 96/68. Pulse is 97 regular, respirations 18 per minute. HEENT: Sclerae are anicteric. Patient is morbidly obese. Heart: Sounds S1, S2. Lungs: Patient is orally intubated. Air entry bilaterally. Abdomen: Obese, soft, nontender. Extremities: Positive for edema. IMPRESSION: 1. Positive blood cultures, rule out staphylococcal bacteremia. 2. Sepsis, rule out septic shock. 3. Acute respiratory failure. 4. Decompensated congestive heart failure. 5. Rule out pneumonia. 6. Atrial fibrillation. 7. Azotemia. 8. Morbid obesity. Await culture results. Empiric antibiotic coverage pending cultures with vancomycin adjusted for renal insufficiency. Will add cefepime for coverage of empiric gram-negative hospital-acquired pathogens. Patient has tolerated cephalosporins in the past. Continue ventilatory support, hemodynamic support. Prognosis is guarded. Critical care time spent 35 minutes. Thank you for the kind referral. ZEINAB THAPA M.D. SHAUN/[id number]
[2019-08-23] MEDS ORDERED: DEXTROSE 5%-WATER - 50 ML IVPB ONE ×2 (14:50→19:35)
[2019-08-23] MEDS ORDERED: CEFEPIME HCL 1 GM VIAL (RESTRICTED TO ID) ONE ×2 (14:50→19:35)
[2019-08-23] MEDS: CEFEPIME 1 GM in DEXTROSE 5%-WATER - 50 ML IVPB SCH ×2 (15:10→19:37)
[2019-08-23] MEDS: VANCOMYCIN 1 GRAM (PRE-DOCKED) 1,000 MG/250 ML BAG IVPB SCH (16:17)
[2019-08-23] MEDS ORDERED: FUROSEMIDE 40 MG/4 ML INJECTABLE VIAL IVPUSH ONE (19:51)
[2019-08-23] MEDS: POLYETHYLENE GLYCOL 3350 119 GM BTL PO SCH (22:32)
[2019-08-23] MEDS: CHLORHEXIDINE GLUCONATE 4% CLEANSER FOR DECOLONIZATION TP SCH (22:32)
[2019-08-24] MEDS: CEFEPIME 1 GM in DEXTROSE 5%-WATER - 50 ML IVPB SCH ×3 (02:28→17:37)
[2019-08-24] MEDS: VANCOMYCIN 1 GRAM (PRE-DOCKED) 1,000 MG/250 ML BAG IVPB SCH ×2 (03:05→14:07)
[2019-08-24] MEDS ORDERED: CEFEPIME HCL 1 GM VIAL (RESTRICTED TO ID) ONE ×3 (03:26→17:32)
[2019-08-24] MEDS ORDERED: DEXTROSE 5%-WATER - 50 ML IVPB ONE ×3 (03:26→17:32)
[2019-08-24] MEDS ORDERED: FUROSEMIDE 40 MG/4 ML INJECTABLE VIAL IVPUSH SCH (06:00)
[2019-08-24] MEDS: INSULIN SLIDING SCALE (NOVOLOG) 1 VIAL SQ SCH ×4 (07:00→23:34)
[2019-08-24 07:30] LABS: ALBUMIN 2.2 g/dl (3.4-5.0); BILIRUBIN,TOTAL 1.3 mg/dL (0.2-1); CALCIUM 8.3 mg/dL (8.5-10.1); CREATININE 1.6 mg/dL (0.55-1.3); MAGNESIUM 2.5 mg/dL (1.8-2.4); PHOSPHOROUS 4.1 mg/dL (2.5-4.9); POTASSIUM 3.9 mmol/L (3.5-5.1); TOT PROT 6.6 g/dl (6.4-8.2)
[2019-08-24] MEDS: NOREPINEPHRINE BITARTRATE 8,000 MCG/500 ML BAG IVPB SCH (07:37)
[2019-08-24 08:13] LABS: BASO % 0.2 % (0-2.0); EOS % 0.4 % (0-4.5); HEMATOCRIT 43.2 % (35.4-49); HEMOGLOBIN 12.6 GM/dL (11.7-16.9); LYMPH % 4.5 % (8-40); MCH 26.2 pg (25.7-33.7); MCHC 29.3 g/dl (32.0-35.9); MEAN CELL VOLUME 89.6 fl (80-96); MEAN PLT VOLUME 8.9 fl (7.5-11.1); MONO % 7.7 % (3.8-10.2); NEUT % 87.2 % (42.8-82.8); PLATELET COUNT 167 K/MM3 (134-434); RBC 4.82 M/mm3 (4.00-5.60); RDW 20.3 % (11.9-15.9); WHITE BLOOD COUNT 12.4 K/mm3 (4.0-10.0)
[2019-08-24] MEDS: MUPIROCIN 2% TOPICAL OINTMENT FOR DECOLONIZATION NS SCH (10:00)
[2019-08-24] MEDS: APIXABAN 5 MG TABLET PO SCH ×2 (10:00→22:50)
[2019-08-24] MEDS: PANTOPRAZOLE SODIUM 40 MG VIAL IVPUSH SCH (10:01)
[2019-08-24] MEDS: POLYETHYLENE GLYCOL 3350 119 GM BTL PO SCH (10:01)
[2019-08-24] MEDS: FENTANYL IVPB 500 MCG/100 ML BAG IVPB SCH (10:02)
[2019-08-24] MEDS: VASOPRESSIN 40 UNITS in SODIUM CHLORIDE 98 ML IVPB SCH (10:02)
--- NOTE | 2019-08-24 10:16 | PN ---
Progress Note, Physician History of Present Illness: SEDATED ON VENTILATOR FEBRILE HYPOTENSIVE ON PRESSORS BC SCN REPEAT BC PENDING CXR BILATERAL CONGESTION ?LLL INFILTRATE - Current Medication List Current Medications: Active Medications Apixaban (Eliquis -) 5 mg PO BID [facility] Last Admin: 08/24/19 10:00 Dose: 5 mg Documented by: Chlorhexidine Gluconate (Hibiclens For Decolonization -) 1 applic TP HS [facility] Last Admin: 08/23/19 22:32 Dose: 1 applic Documented by: Furosemide (Lasix Injection -) 60 mg IVPUSH BID@0600,1400 [facility] Last Admin: 08/24/19 06:35 Dose: 60 mg Documented by: Vasopressin 40 units/ Sodium (Chloride) 100 mls @ 5 mls/hr IVPB ASDIR [facility]; Protocol Last Admin: 08/24/19 10:02 Dose: 2.4 units/hr, 6 mls/hr Documented by: Midazolam HCl (Midazolam 100mg/100ml-0.9%Nacl) 100 mg in 100 mls @ 1 mls/hr IVPB TITR [facility]; Protocol Last Titration: 08/24/19 07:37 Dose: 10 mg/hr, 10 mls/hr Documented by: Norepinephrine Bitartrate (Levophed Bag) 8,000 mcg in 500 mls @ 18.75 mls/hr IVPB TITR [facility]; Protocol Last Admin: 08/24/19 07:37 Dose: Not Given Documented by: Fentanyl (Sublimaze Ivpb) 500 mcg in 100 mls @ 33.112 mls/hr IVPB TITR [facility]; Protocol Last Admin: 08/24/19 10:02 Dose: 0.6 mcg/kg/hr, 20 mls/hr Documented by: Vancomycin HCl (Vancomycin (Pre-Docked)) 1,000 mg in 250 mls @ 166.667 mls/hr IVPB Q12H [facility]; Protocol Last Admin: 08/24/19 03:05 Dose: 166.667 mls/hr Documented by: Cefepime HCl 1 gm/ Dextrose 50 mls @ 100 mls/hr IVPB Q8H-IV [facility]; Protocol Last Admin: 08/24/19 10:01 Dose: 100 mls/hr Documented by: Insulin Aspart (Novolog Vial Sliding Scale -) 1 vial SQ ACHS [facility]; Protocol Last Admin: 08/24/19 07:00 Dose: Not Given Documented by: Mupirocin (Bactroban Ointment (For Decolonization) -) 1 applic NS BID [facility] Stop: 08/24/19 21:59 Last Admin: 08/24/19 10:00 Dose: 1 applic Documented by: Pantoprazole Sodium (Protonix Iv) 40 mg IVPUSH DAILY [facility] Last Admin: 08/24/19 10:01 Dose: 40 mg Documented by: Polyethylene Glycol (Miralax (For Daily Use) -) 17 gm PO DAILY [facility] Last Admin: 08/24/19 10:01 Dose: 17 gm Documented by: - Objective Vital Signs: Vital Signs Temperature 99.6 F 08/24/19 09:26 Pulse Rate 93 H 08/24/19 08:00 Respiratory Rate 18 08/24/19 08:07 Blood Pressure 89/61 L 08/24/19 08:00 O2 Sat by Pulse Oximetry (%) 93 L 08/24/19 08:12 Constitutional: Yes: No Distress, Obese Cardiovascular: Yes: Regular Rate and Rhythm, S1, S2 Respiratory: Yes: Mechanically Ventilated Gastrointestinal: Yes: Normal Bowel Sounds, Soft, Abdomen, Obese. No: Tenderness Edema: Yes Labs: CBC, BMP 08/24/19 05:45 08/24/19 05:45 INR, PTT INR 1.27 (0.83-1.09) H 08/20/19 05:00 Assessment/Plan ACUTE RESP FAILURE CHF R/O PNEUMONIA SEPSIS +BC ? SIGNIFICANCE AZOTEMIA PCN ALLERGY AWAIT REPEAT BC VENTILATORY/ HEMODYNAMIC SUPPORT CONTINUE VANCOMYCIN/ CEFEPIME CHECK VANCOMYCIN LEVEL CRITICAL CARE TIME 35MIN
--- NOTE | 2019-08-24 11:49 | PN ---
Teaching Attending Note Name of Resident: Rambo Sandra ATTENDING PHYSICIAN STATEMENT I saw and evaluated the patient. I reviewed the resident's note and discussed the case with the resident. I agree with the resident's findings and plan as documented. SUBJECTIVE: Pt seen and examined in the ICU. Remains intubated, sedated on vasopressin gtt. Good urine output. Fevers overnight. Blood cultures growing Staph coag negative. OBJECTIVE: Vital Signs Period Temp Pulse Resp BP Sys/Ramon Pulse Ox Last 24 Hr 98.5 F-101.1 F 90-106 18-26 83-101/9-68 91-94 Intake & Output 08/21/19 08/22/19 08/23/19 08/24/19 23:59 23:59 23:59 23:59 Intake Total 1248 2888 1867.2 670 Output Total 4600 2450 1700 700 Balance -3352 438 167.2 -30 Weight 165.561 kg 147.962 kg 148.869 kg Gen: intubated, sedated Heart: RRR Lung: decreased breath sounds at the bases Abd: soft, nontender Ext: + edema CBC, BMP 08/24/19 05:45 08/24/19 05:45 Active Medications Apixaban (Eliquis -) 5 mg PO BID [facility] Last Admin: 08/24/19 10:00 Dose: 5 mg Documented by: Chlorhexidine Gluconate (Hibiclens For Decolonization -) 1 applic TP HS [facility] Last Admin: 08/23/19 22:32 Dose: 1 applic Documented by: Furosemide (Lasix Injection -) 60 mg IVPUSH BID@0600,1400 [facility] Last Admin: 08/24/19 06:35 Dose: 60 mg Documented by: Vasopressin 40 units/ Sodium (Chloride) 100 mls @ 5 mls/hr IVPB ASDIR [facility]; Protocol Last Admin: 08/24/19 10:02 Dose: 2.4 units/hr, 6 mls/hr Documented by: Midazolam HCl (Midazolam 100mg/100ml-0.9%Nacl) 100 mg in 100 mls @ 1 mls/hr IVPB TITR [facility]; Protocol Last Titration: 08/24/19 07:37 Dose: 10 mg/hr, 10 mls/hr Documented by: Fentanyl (Sublimaze Ivpb) 500 mcg in 100 mls @ 33.112 mls/hr IVPB TITR [facility]; Protocol Last Admin: 08/24/19 10:02 Dose: 0.6 mcg/kg/hr, 20 mls/hr Documented by: Vancomycin HCl (Vancomycin (Pre-Docked)) 1,000 mg in 250 mls @ 166.667 mls/hr IVPB Q12H [facility]; Protocol Last Admin: 08/24/19 03:05 Dose: 166.667 mls/hr Documented by: Cefepime HCl 1 gm/ Dextrose 50 mls @ 100 mls/hr IVPB Q8H-IV [facility]; Protocol Last Admin: 08/24/19 10:01 Dose: 100 mls/hr Documented by: Insulin Aspart (Novolog Vial Sliding Scale -) 1 vial SQ ACHS [facility]; Protocol Last Admin: 08/24/19 07:00 Dose: Not Given Documented by: Mupirocin (Bactroban Ointment (For Decolonization) -) 1 applic NS BID [facility] Stop: 08/24/19 21:59 Last Admin: 08/24/19 10:00 Dose: 1 applic Documented by: Pantoprazole Sodium (Protonix Iv) 40 mg IVPUSH DAILY [facility] Last Admin: 08/24/19 10:01 Dose: 40 mg Documented by: Polyethylene Glycol (Miralax (For Daily Use) -) 17 gm PO DAILY [facility] Last Admin: 08/24/19 10:01 Dose: 17 gm Documented by: ASSESSMENT AND PLAN: Acute on Chronic Hypoxic and Hypercapneic Respiratory Failure Acute on Chronic Diastolic Heart Failure Pneumonia ARDS Staph Bacteremia Septic Shock +Troponins likely Demand Ischemia New Onset Atrial Fibrillation Acute Kidney Injury [place] Morbid Obesity Asthma HTN GERD - continue antibiotics - f/u cultures - hold lasix today - monitor urine output, creatinine - titrate pressors to maintain MAP >65 - rate control - continue anticoagulation - sedate for vent synchrony - inhaled bronchodilators - titrate FiO2, PEEP to keep SpO2 >90% - enteral feeds - DVT/GI prophylaxis - continue ICU monitoring critical care time spent in reviewing chart, evaluating patient and formulating plan 35 min
[2019-08-24] MEDS: ACETAMINOPHEN 1000 MG/100 ML VIAL (NON FORMULARY) IVPB PRN ×2 (12:06→18:46)
[2019-08-24 12:17] VITALS: BMI 51.3
--- NOTE | 2019-08-24 13:39 | PN ---
Progress Note, Physician History of Present Illness: Pt seen and examined at bedside. He remains in the ICU. He remains intubated. - Current Medication List Current Medications: Active Medications Acetaminophen (Ofirmev Injection -) 1,000 mg IVPB Q6H PRN PRN Reason: FEVER Stop: 08/25/19 11:48 Last Admin: 08/24/19 12:06 Dose: 1,000 mg Documented by: Apixaban (Eliquis -) 5 mg PO BID [facility] Last Admin: 08/24/19 10:00 Dose: 5 mg Documented by: Chlorhexidine Gluconate (Hibiclens For Decolonization -) 1 applic TP HS [facility] Last Admin: 08/23/19 22:32 Dose: 1 applic Documented by: Furosemide (Lasix Injection -) 60 mg IVPUSH BID@0600,1400 [facility] Last Admin: 08/24/19 06:35 Dose: 60 mg Documented by: Vasopressin 40 units/ Sodium (Chloride) 100 mls @ 5 mls/hr IVPB ASDIR [facility]; Protocol Last Admin: 08/24/19 10:02 Dose: 2.4 units/hr, 6 mls/hr Documented by: Midazolam HCl (Midazolam 100mg/100ml-0.9%Nacl) 100 mg in 100 mls @ 1 mls/hr IVPB TITR [facility]; Protocol Last Titration: 08/24/19 07:37 Dose: 10 mg/hr, 10 mls/hr Documented by: Fentanyl (Sublimaze Ivpb) 500 mcg in 100 mls @ 33.112 mls/hr IVPB TITR [facility]; Protocol Last Admin: 08/24/19 10:02 Dose: 0.6 mcg/kg/hr, 20 mls/hr Documented by: Vancomycin HCl (Vancomycin (Pre-Docked)) 1,000 mg in 250 mls @ 166.667 mls/hr IVPB Q12H [facility]; Protocol Last Admin: 08/24/19 03:05 Dose: 166.667 mls/hr Documented by: Cefepime HCl 1 gm/ Dextrose 50 mls @ 100 mls/hr IVPB Q8H-IV [facility]; Protocol Last Admin: 08/24/19 10:01 Dose: 100 mls/hr Documented by: Insulin Aspart (Novolog Vial Sliding Scale -) 1 vial SQ ACHS [facility]; Protocol Last Admin: 08/24/19 11:50 Dose: 2 units Documented by: Mupirocin (Bactroban Ointment (For Decolonization) -) 1 applic NS BID [facility] Stop: 08/24/19 21:59 Last Admin: 08/24/19 10:00 Dose: 1 applic Documented by: Pantoprazole Sodium (Protonix Iv) 40 mg IVPUSH DAILY [facility] Last Admin: 08/24/19 10:01 Dose: 40 mg Documented by: Polyethylene Glycol (Miralax (For Daily Use) -) 17 gm PO DAILY [facility] Last Admin: 08/24/19 10:01 Dose: 17 gm Documented by: - Objective Vital Signs: Vital Signs Temperature 101.1 F H 08/24/19 12:00 Pulse Rate 96 H 08/24/19 12:00 Respiratory Rate 21 H 08/24/19 12:00 Blood Pressure 97/63 08/24/19 12:00 O2 Sat by Pulse Oximetry (%) 91 L 08/24/19 09:00 Constitutional: Yes: Calm Eyes: Yes: Conjunctiva Clear Cardiovascular: Yes: S1, S2 Respiratory: Yes: Mechanically Ventilated Gastrointestinal: Yes: Soft Genitourinary: Yes: Dubose Present Musculoskeletal: Yes: Muscle Weakness Edema: No Neurological: Yes: Lethargy Labs: CBC, BMP 08/24/19 05:45 08/24/19 05:45 INR, PTT INR 1.27 (0.83-1.09) H 08/20/19 05:00 - ....Imaging Chest X-ray: Report Reviewed Assessment/Plan Current Medications Generic Name Dose Route Start Last Admin Trade Name Freq PRN Reason Stop Dose Admin Acetaminophen 1,000 mg 08/24/19 11:48 08/24/19 12:06 Ofirmev Injection - IVPB 08/25/19 11:48 1,000 mg Q6H PRN Administration FEVER Apixaban 5 mg 08/22/19 22:00 08/24/19 10:00 Eliquis - PO 5 mg BID [facility] Administration Chlorhexidine Gluconate 1 applic 08/19/19 22:00 08/23/19 22:32 Hibiclens For Decolonization - TP 1 applic HS [facility] Administration Furosemide 60 mg 08/24/19 06:00 08/24/19 06:35 Lasix Injection - IVPUSH 60 mg BID@0600,1400 [facility] Administration Vasopressin 40 units/ Sodium 100 mls @ 5 mls/hr 08/19/19 21:45 08/24/19 10:02 Chloride IVPB 2.4 units/hr ASDIR [facility] 6 mls/hr Administration Protocol 2 UNITS/HR Midazolam HCl 100 mg in 100 mls @ 1 mls/hr 08/19/19 21:45 08/24/19 07:37 Midazolam 100mg/100ml-0.9%Nacl IVPB 10 mg/hr TITR [facility] 10 mls/hr Titration Protocol 1 MG/HR Fentanyl 500 mcg in 100 mls @ 33.112 mls/hr 08/20/19 06:30 08/24/19 10:02 Sublimaze Ivpb IVPB 0.6 mcg/kg/hr TITR [facility] 20 mls/hr Administration Protocol 1 MCG/KG/HR Vancomycin HCl 1,000 mg in 250 mls @ 166.667 mls/hr 08/23/19 14:00 08/24/19 03:05 Vancomycin (Pre-Docked) IVPB 166.667 mls/hr Q12H [facility] Administration Protocol Cefepime HCl 1 gm/ Dextrose 50 mls @ 100 mls/hr 08/23/19 14:15 08/24/19 10:01 IVPB 100 mls/hr Q8H-IV [facility] Administration Protocol Insulin Aspart 1 vial 08/19/19 22:00 08/24/19 11:50 Novolog Vial Sliding Scale - SQ 2 units ACHS [facility] Administration Protocol Mupirocin 1 applic 08/19/19 22:00 08/24/19 10:00 Bactroban Ointment (For Decolonization) - NS 08/24/19 21:59 1 applic BID [facility] Administration Pantoprazole Sodium 40 mg 08/19/19 20:30 08/24/19 10:01 Protonix Iv IVPUSH 40 mg DAILY [facility] Administration Polyethylene Glycol 17 gm 08/23/19 21:00 08/24/19 10:01 Miralax (For Daily Use) - PO 17 gm DAILY [facility] Administration Impression 1. THOMAS 2. chf 3. resp failure 4. r/p covid 5. a-fib 6. obesity 7. asthma 8. hypotension 9. gerd Plan - agree with holding lasix - renal function worsening - cont to trend cadd operator - repeat labs in am - weaning per pulm - daily cxr - covid negative - vent support - cont tube feeds - monitor urine output - discussed with ICU team
--- NOTE | 2019-08-24 13:44 | PN ---
Physical Exam: SUBJECTIVE: Patient seen and examined. Pt spiking fevers overnight, 101.1F, new BCx sent, previous BCx growing SCoN. Asymptomatic. OBJECTIVE: Vital Signs Period Temp Pulse Resp BP Sys/Ramon Pulse Ox Last 24 Hr 98.5 F-101.1 F 90-106 18-26 83-101/53-69 91-94 GENERAL: The patient is intubated and sedated. HEAD: Normal with no signs of trauma. LUNGS: distant breath sounds b/l, equal b/l. HEART: Regular rate, irregular rhythm, S1, S2 without murmur, rub or gallop. ABDOMEN: Soft, nontender, obese, normoactive bowel sounds, no guarding, no rebound, no hepatosplenomegaly, no masses. EXTREMITIES: 2+ pulses, warm, well-perfused, no edema. NEUROLOGICAL: unable to obtain as patient sedated. Laboratory Results - last 24 hr 08/23/19 08/23/19 08/24/19 16:09 23:11 05:45 WBC 12.4 H RBC 4.82 Hgb 12.6 Hct 43.2 MCV 89.6 MCH 26.2 MCHC 29.3 L RDW 20.3 H Plt Count 167 MPV 8.9 Absolute Neuts (auto) 10.8 H Neutrophils % 87.2 H Lymphocytes % 4.5 L D Monocytes % 7.7 Eosinophils % 0.4 D Basophils % 0.2 Nucleated RBC % 0 Sodium Potassium Chloride Carbon Dioxide Anion Gap BUN Creatinine Est GFR (CKD-EPI)AfAm Est GFR (CKD-EPI)NonAf POC Glucometer 145 155 Random Glucose Calcium Phosphorus Magnesium Total Bilirubin AST ALT Alkaline Phosphatase Total Protein Albumin 08/24/19 08/24/19 08/24/19 05:45 07:06 11:22 WBC RBC Hgb Hct MCV MCH MCHC RDW Plt Count MPV Absolute Neuts (auto) Neutrophils % Lymphocytes % Monocytes % Eosinophils % Basophils % Nucleated RBC % Sodium 142 Potassium 3.9 Chloride 97 L Carbon Dioxide 43 H Anion Gap 2 L BUN 45.0 H Creatinine 1.6 H Est GFR (CKD-EPI)AfAm 58.59 Est GFR (CKD-EPI)NonAf 50.55 POC Glucometer 137 168 Random Glucose 144 H Calcium 8.3 L Phosphorus 4.1 Magnesium 2.5 H Total Bilirubin 1.3 H AST 24 ALT 41 Alkaline Phosphatase 50 Total Protein 6.6 Albumin 2.2 L Active Medications Generic Name Dose Route Start Last Admin Trade Name Freq PRN Reason Stop Dose Admin Acetaminophen 1,000 mg 08/24/19 11:48 08/24/19 12:06 Ofirmev Injection - IVPB 08/25/19 11:48 1,000 mg Q6H PRN Administration FEVER Apixaban 5 mg 08/22/19 22:00 08/24/19 10:00 Eliquis - PO 5 mg BID ARABELLA Administration Chlorhexidine Gluconate 1 applic 08/19/19 22:00 08/23/19 22:32 Hibiclens For Decolonization - TP 1 applic HS ARABELLA Administration Furosemide 60 mg 08/24/19 06:00 08/24/19 06:35 Lasix Injection - IVPUSH 60 mg BID@0600,1400 ARABELLA Administration Vasopressin 40 units/ Sodium 100 mls @ 5 mls/hr 08/19/19 21:45 08/24/19 10:02 Chloride IVPB 2.4 units/hr ASDIR ARABELLA 6 mls/hr Administration Protocol 2 UNITS/HR Midazolam HCl 100 mg in 100 mls @ 1 mls/hr 08/19/19 21:45 08/24/19 07:37 Midazolam 100mg/100ml-0.9%Nacl IVPB 10 mg/hr TITR ARABELLA 10 mls/hr Titration Protocol 1 MG/HR Fentanyl 500 mcg in 100 mls @ 33.112 mls/hr 08/20/19 06:30 08/24/19 10:02 Sublimaze Ivpb IVPB 0.6 mcg/kg/hr TITR ARABELLA 20 mls/hr Administration Protocol 1 MCG/KG/HR Vancomycin HCl 1,000 mg in 250 mls @ 166.667 mls/hr 08/23/19 14:00 08/24/19 03:05 Vancomycin (Pre-Docked) IVPB 166.667 mls/hr Q12H ARABELLA Administration Protocol Cefepime HCl 1 gm/ Dextrose 50 mls @ 100 mls/hr 08/23/19 14:15 08/24/19 10:01 IVPB 100 mls/hr Q8H-IV ARABELLA Administration Protocol Insulin Aspart 1 vial 08/19/19 22:00 08/24/19 11:50 Novolog Vial Sliding Scale - SQ 2 units ACHS ARABELLA Administration Protocol Mupirocin 1 applic 08/19/19 22:00 08/24/19 10:00 Bactroban Ointment (For Decolonization) - NS 08/24/19 21:59 1 applic BID ARABELLA Administration Pantoprazole Sodium 40 mg 08/19/19 20:30 08/24/19 10:01 Protonix Iv IVPUSH 40 mg DAILY ARABELLA Administration Polyethylene Glycol 17 gm 08/23/19 21:00 08/24/19 10:01 Miralax (For Daily Use) - PO 17 gm DAILY ARABELLA Administration ASSESSMENT/PLAN: Patient is a 48 year old male with history of [place], morbid obesity, mild intermittent asthma, hypertension, gastroesophageal reflux presented with difficulty breathing and LE swelling x4 days, ICU consulted due to AMS, somnolence, worsening respiratory status on BiPaP and pt is being admitted to ICU for worsening Acute hypoxic hypercapenic respiratory failure likely 2/2 to CHF exacerbation vs COVID pneumonia #Neuro Vented+ sedated neuro checks, fent- 100, versed 10, vaso 2.4 aspiration precaution #Pulmonary Acute Hypoxic Hypercapneic Respiratory failure likely 2/2 to CHF exacerbation, r/o COVID pneumonia- test pending Stricts Is&O's, daily wts, Dubose inserted COVID test neg s/p Heparin drip- D-dimers elevated but pt too unstable and large for CTA, Wells score 1.5, PE unlikely s/p lovenox, switched to Eliquis 5 BID AC 18/450/100/12 Plat 25 PIP 32 ABG: pending CXR: slightly worsened right pleural effusion #Cardio Acute Hypoxic Hypercapneic Respiratory failure likely 2/2 to CHF exacerbation vs COVID pneumonia pt been admitted for CHF exacerbation several times in the past, ECHO 2019 normal, MPI 2017 normal CHADsVASc score 2, Stroke risk was 2.2% per year in >90,000 patients/ 2.9% risk of stroke/TIA/systemic embolism. Moderate-high monitor output, if improves Hold Lasix, will reassess each day New Onset A-fib seen on EKG, Eliquis 5 BID Echo: mild LVH concentric, impaired LV relaxation, RV pressure 50-60 mmHg, RV moderately dilated #GI Transamnitis- mild-moderate- improved likely 2/2 to Congestive Hepatopathy/hepatic congestion from CHF exacerbation #Renal THOMAS likely prerenal will monitor for now I- 2100 O-1700 #ID covid neg pt afebrile UCx: SCoN Vanc and Cefepime, check vanc trough levels tomorrow noon #DVT ppx Eliquis 5 BID #GI ppx protonix FEN fluid restriction promote tube feeds monitor lytes Dispo: cont abx, hold lasix, f/u ABG, f/u BCx Visit type - Emergency Visit Emergency Visit: Yes ED Registration Date: 08/19/19 Care time: The patient presented to the Emergency Department on the above date and was hospitalized for further evaluation of their emergent condition. - New Patient This patient is new to me today: Yes Date on this admission: 08/29/19 - Critical Care Critical Care patient: No - Discharge Referral Referred to [facility] No ATTENDING PHYSICIAN STATEMENT I saw and evaluated the patient. I reviewed the resident's note and discussed the case with the resident. I agree with the resident's findings and plan as documented. SUBJECTIVE: OBJECTIVE: ASSESSMENT AND PLAN:
--- NOTE | 2019-08-24 14:06 | PN ---
Progress Note (short form) - Note Progress Note: s: remains intubated on pressors, unable to obtain HPI or ROS Current Medications Generic Name Dose Route Start Last Admin Trade Name Thuan PRN Reason Stop Dose Admin Acetaminophen 1,000 mg 08/24/19 11:48 08/24/19 12:06 Ofirmev Injection - IVPB 08/25/19 11:48 1,000 mg Q6H PRN Administration FEVER Apixaban 5 mg 08/22/19 22:00 08/24/19 10:00 Eliquis - PO 5 mg BID ARABELLA Administration Chlorhexidine Gluconate 1 applic 08/19/19 22:00 08/23/19 22:32 Hibiclens For Decolonization - TP 1 applic HS ARABELLA Administration Furosemide 60 mg 08/24/19 06:00 08/24/19 06:35 Lasix Injection - IVPUSH 60 mg BID@0600,1400 ARABELLA Administration Vasopressin 40 units/ Sodium 100 mls @ 5 mls/hr 08/19/19 21:45 08/24/19 10:02 Chloride IVPB 2.4 units/hr ASDIR ARABELLA 6 mls/hr Administration Protocol 2 UNITS/HR Midazolam HCl 100 mg in 100 mls @ 1 mls/hr 08/19/19 21:45 08/24/19 07:37 Midazolam 100mg/100ml-0.9%Nacl IVPB 10 mg/hr TITR ARABELLA 10 mls/hr Titration Protocol 1 MG/HR Fentanyl 500 mcg in 100 mls @ 33.112 mls/hr 08/20/19 06:30 08/24/19 10:02 Sublimaze Ivpb IVPB 0.6 mcg/kg/hr TITR ARABELLA 20 mls/hr Administration Protocol 1 MCG/KG/HR Vancomycin HCl 1,000 mg in 250 mls @ 166.667 mls/hr 08/23/19 14:00 08/24/19 03:05 Vancomycin (Pre-Docked) IVPB 166.667 mls/hr Q12H ARABELLA Administration Protocol Cefepime HCl 1 gm/ Dextrose 50 mls @ 100 mls/hr 08/23/19 14:15 08/24/19 10:01 IVPB 100 mls/hr Q8H-IV ARABELLA Administration Protocol Insulin Aspart 1 vial 08/19/19 22:00 08/24/19 11:50 Novolog Vial Sliding Scale - SQ 2 units ACHS ARABELLA Administration Protocol Mupirocin 1 applic 08/19/19 22:00 08/24/19 10:00 Bactroban Ointment (For Decolonization) - NS 08/24/19 21:59 1 applic BID ARABELLA Administration Pantoprazole Sodium 40 mg 08/19/19 20:30 08/24/19 10:01 Protonix Iv IVPUSH 40 mg DAILY ARABELLA Administration Polyethylene Glycol 17 gm 08/23/19 21:00 08/24/19 10:01 Miralax (For Daily Use) - PO 17 gm DAILY ARABELLA Administration Vital Signs Period Temp Pulse Resp BP Sys/Ramon Pulse Ox Last 24 Hr 98.5 F-101.1 F 90-106 18-26 83-101/53-69 91-94 intubated sedated rrr s1s2 no mrg coarse bs bl vented +le edema no jaundice diaphoresis abd nd not agitated cxr: congestive changes tele: sr echo 09/2016: nl lv/rv, no sig valve path echo 12/2018: nl lvef, lvh, nl rv, mild mr mibi 09/2016: nl mpi ecg: afib, rate ok, no ischemic changes, nl qtc echo nl LV function, mild conc LVH, RV systolic function mild to mod reduced, mod dilated RV, RVSP elevated at 50-60 mmHG a/p: 49 m hx htn, kylah, asthma, gerd, dchf here with sob, le edema. resp distress, acute diastolic chf: -noncompliant with meds, cpap as outpt -holding diuresis -monitor daily chem7 -recent echo unremarkable, repeat pending -vent management per crit care -hypotensive on pressors, wean as tolerated - covid negative - echo here shows nl LV function, however RV dilated with mild to mod reduced function and elevated RVSP, may be c/w PE or 2/2 underlying pulmonary dz - on eliquis positive trops: -mild trop elevation with flat trend, nl ck mb, no ischemic ecg changes, does not seem like acs, likely demand 2/2 chf, resp failure afib: -new onset here -rate was ok off meds, presently in sr -monitor tele -chadsvasc warrants ac, cont eliquis benny: -possibly cardiorenal, cr improving htn: -holding home meds due to hypotension on pressors now estimated critical care time = 35 min
[2019-08-24] MEDS ORDERED: FENTANYL NS IVPB 500 MCG/100 ML BAG IVPB ONE (16:10)
[2019-08-24] MEDS ORDERED: ALBUTEROL SO4 0.083% IH SOL 2.5 MG/3 ML VIAL.NEB. NEB ONE (19:56)
[2019-08-24] MEDS: CHLORHEXIDINE GLUCONATE 4% CLEANSER FOR DECOLONIZATION TP SCH (22:51)
[2019-08-25] MEDS ORDERED: DEXTROSE 5%-WATER - 50 ML IVPB ONE ×3 (01:04→15:42)
[2019-08-25] MEDS ORDERED: CEFEPIME HCL 1 GM VIAL (RESTRICTED TO ID) ONE ×3 (01:04→15:42)
[2019-08-25] MEDS: CEFEPIME 1 GM in DEXTROSE 5%-WATER - 50 ML IVPB SCH ×3 (02:24→17:11)
[2019-08-25] MEDS: VANCOMYCIN 1 GRAM (PRE-DOCKED) 1,000 MG/250 ML BAG IVPB SCH ×2 (02:58→15:51)
[2019-08-25] MEDS ORDERED: PT OWN MED DRAWER 7, Y5N ONE (04:37)
[2019-08-25 06:22] LABS: ARTERIAL BLD GAS O2 SATURATION 94.8 mmHg (95-98); ARTERIAL BLOOD GAS BASE EXCESS 8.8 mmol/L (-2-2); ARTERIAL BLOOD GAS PO2 77.1 mmHg (80-100); ARTERIAL BLOOD GAS pH 7.382 (7.350-7.450)
[2019-08-25] MEDS: INSULIN SLIDING SCALE (NOVOLOG) 1 VIAL SQ SCH ×4 (06:23→22:34)
[2019-08-25 06:35] LABS: ALLENS TEST POSITIVE
[2019-08-25 06:36] LABS: VENT MODE A/C; VENT RATE 18
[2019-08-25 07:08] LABS: HEMATOCRIT 43.6 % (35.4-49); HEMOGLOBIN 12.8 GM/dL (11.7-16.9); MCH 26.1 pg (25.7-33.7); MCHC 29.5 g/dl (32.0-35.9); MEAN CELL VOLUME 88.4 fl (80-96); MEAN PLT VOLUME 8.8 fl (7.5-11.1); PLATELET COUNT 190 K/MM3 (134-434); RBC 4.93 M/mm3 (4.00-5.60); RDW 20.5 % (11.9-15.9); WHITE BLOOD COUNT 13.4 K/mm3 (4.0-10.0)
[2019-08-25 07:42] LABS: POTASSIUM 4.4 mmol/L (3.5-5.1)
[2019-08-25 07:56] LABS: ALBUMIN 2.3 g/dl (3.4-5.0); BILIRUBIN,TOTAL 1.5 mg/dL (0.2-1); BLOOD UREA NITROGEN 40.5 mg/dL (7-18); CALCIUM 8.6 mg/dL (8.5-10.1); CREATININE 1.2 mg/dL (0.55-1.3); MAGNESIUM 2.9 mg/dL (1.8-2.4); PHOSPHOROUS 3.9 mg/dL (2.5-4.9); TOT PROT 6.6 g/dl (6.4-8.2)
[2019-08-25] MEDS: PANTOPRAZOLE SODIUM 40 MG VIAL IVPUSH SCH (10:08)
[2019-08-25] MEDS: ACETAMINOPHEN 1000 MG/100 ML VIAL (NON FORMULARY) IVPB PRN (10:08)
[2019-08-25] MEDS: APIXABAN 5 MG TABLET PO SCH ×2 (10:09→22:18)
[2019-08-25] MEDS: POLYETHYLENE GLYCOL 3350 119 GM BTL PO SCH (10:09)
--- NOTE | 2019-08-25 11:52 | PN ---
Progress Note (short form) - Note Progress Note: s: remains intubated on pressors Current Medications Generic Name Dose Route Start Last Admin Trade Name Thuan PRN Reason Stop Dose Admin Apixaban 5 mg 08/22/19 22:00 08/25/19 10:09 Eliquis - PO 5 mg BID ARABELLA Administration Chlorhexidine Gluconate 1 applic 08/19/19 22:00 08/24/19 22:51 Hibiclens For Decolonization - TP 1 applic HS ARABELLA Administration Furosemide 60 mg 08/25/19 10:45 Lasix Injection - IVPUSH DAILY ARABELLA Vasopressin 40 units/ Sodium 100 mls @ 5 mls/hr 08/19/19 21:45 08/25/19 08:06 Chloride IVPB 2 units/hr ASDIR ARABELLA 5 mls/hr Titration Protocol 2 UNITS/HR Midazolam HCl 100 mg in 100 mls @ 1 mls/hr 08/19/19 21:45 08/24/19 19:01 Midazolam 100mg/100ml-0.9%Nacl IVPB 10 mg/hr TITR ARABELLA 10 mls/hr Titration Protocol 1 MG/HR Fentanyl 500 mcg in 100 mls @ 33.112 mls/hr 08/20/19 06:30 08/24/19 19:00 Sublimaze Ivpb IVPB 0.6 mcg/kg/hr TITR ARABELLA 20 mls/hr Titration Protocol 1 MCG/KG/HR Vancomycin HCl 1,000 mg in 250 mls @ 166.667 mls/hr 08/23/19 14:00 08/25/19 02:58 Vancomycin (Pre-Docked) IVPB 166.667 mls/hr Q12H ARABELLA Administration Protocol Cefepime HCl 1 gm/ Dextrose 50 mls @ 100 mls/hr 08/23/19 14:15 08/25/19 10:08 IVPB 100 mls/hr Q8H-IV ARABELLA Administration Protocol Insulin Aspart 1 vial 08/19/19 22:00 08/25/19 06:23 Novolog Vial Sliding Scale - SQ Not Given ACHS ARABELLA Protocol Pantoprazole Sodium 40 mg 08/19/19 20:30 08/25/19 10:08 Protonix Iv IVPUSH 40 mg DAILY ARABELLA Administration Polyethylene Glycol 17 gm 08/23/19 21:00 08/25/19 10:09 Miralax (For Daily Use) - PO 17 gm DAILY ARABELLA Administration Vital Signs Temp 99.7 F H 08/25/19 06:00 Pulse 95 H 08/25/19 08:35 Resp 20 08/25/19 08:35 BP 114/80 08/25/19 08:06 Pulse Ox 89 L 08/25/19 09:31 Intake & Output 08/24/19 08/24/19 08/25/19 11:59 23:59 11:59 Intake Total 670 2135 Output Total 700 500 Balance -30 1635 Weight 332 lb 12.8 oz Intake: IV 385 MIDAZOLAM 100MG/100ML-0.9 120 %NACL 100 mg In 100 ml @ 1 MG/HR 1 mls/hr IVPB TITR ARABELLA Rx#:[id number] Pitressin - 40 Units In 25 Normal Saline - 98 ml @ 2 UNITS/HR 5 mls/hr IVPB ASDIR ARABELLA Rx#:[id number] SUBLIMAZE IVPB 500 mcg In 240 100 ml @ 1 MCG/KG/HR 33. 112 mls/hr IVPB TITR ARABELLA Rx#:[id number] IVPB 550 Tube Feeding 550 1000 Tube Irrigant 120 200 Output: Urine 700 500 Dubose 700 500 Other: Voiding Method Indwelling Catheter Indwelling Catheter Indwelling Catheter Bowel Movement No No No Body Mass Index (BMI) 51.3 Weight Measurement Method Built in Bedscale intubated sedated rrr s1s2 no mrg coarse bs bl vented +le edema bl no jaundice diaphoresis abd nd +bs Laboratory Last Values WBC 13.4 K/mm3 (4.0-10.0) H 08/25/19 06:00 RBC 4.93 M/mm3 (4.00-5.60) 08/25/19 06:00 Hgb 12.8 GM/dL (11.7-16.9) 08/25/19 06:00 Hct 43.6 % (35.4-49) 08/25/19 06:00 MCV 88.4 fl (80-96) 08/25/19 06:00 MCH 26.1 pg (25.7-33.7) 08/25/19 06:00 MCHC 29.5 g/dl (32.0-35.9) L 08/25/19 06:00 RDW 20.5 % (11.9-15.9) H 08/25/19 06:00 Plt Count 190 K/MM3 (134-434) 08/25/19 06:00 MPV 8.8 fl (7.5-11.1) 08/25/19 06:00 Absolute Neuts (auto) 10.8 K/mm3 (1.5-8.0) H 08/24/19 05:45 Neutrophils % 87.2 % (42.8-82.8) H 08/24/19 05:45 Neutrophils % (Manual) 90.6 % (42.8-82.8) H 08/20/19 05:00 Band Neutrophils % 5.2 % 08/20/19 05:00 Lymphocytes % 4.5 % (8-40) L D 08/24/19 05:45 Lymphocytes % (Manual) 3.1 % (8-40) L 08/20/19 05:00 Monocytes % 7.7 % (3.8-10.2) 08/24/19 05:45 Monocytes % (Manual) 1 % (3.8-10.2) L D 08/20/19 05:00 Eosinophils % 0.4 % (0-4.5) D 08/24/19 05:45 Eosinophils % (Manual) 0.0 % (0-4.5) 08/20/19 05:00 Basophils % 0.2 % (0-2.0) 08/24/19 05:45 Basophils % (Manual) 0.0 % (0-2.0) 08/20/19 05:00 Myelocytes % (Man) 0 % (0-2) 08/20/19 05:00 Promyelocytes % (Man) 0 % (0-2) 08/20/19 05:00 Blast Cells % (Manual) 0 % (0-0) 08/20/19 05:00 Nucleated RBC % 0 % (0-0) 08/24/19 05:45 Metamyelocytes 0 % (0-2) 08/20/19 05:00 Hypochromia 0 08/20/19 05:00 Platelet Estimate Normal 08/20/19 05:00 Platelet Comment Large platelets 08/19/19 16:35 Polychromasia 2+ 08/20/19 05:00 Poikilocytosis 0 08/20/19 05:00 Anisocytosis 2+ 08/20/19 05:00 Microcytosis 1+ 08/20/19 05:00 Macrocytosis 1+ 08/20/19 05:00 PT with INR 15.00 SEC (9.7-13.0) H 08/20/19 05:00 INR 1.27 (0.83-1.09) H 08/20/19 05:00 PTT (Actin FS) 39.8 SECONDS (25.2-36.5) H 08/20/19 11:30 D-Dimer 2070 ng/ml (0-500) H 08/19/19 18:00 Anticoagulation Therapy No Result Required. 08/25/19 05:50 Puncture Site Right radial 08/25/19 05:50 Patient Temperature No Result Required. 08/25/19 05:50 ABG pH 7.382 (7.350-7.450) 08/25/19 05:50 ABG pCO2 63.10 mmHg (35-45) H 08/25/19 05:50 ABG pO2 77.1 mmHg (80-100) L 08/25/19 05:50 ABG HCO3 36.7 mmol/L (22-27) H 08/25/19 05:50 ABG O2 Sat (Measured) 94.8 mmHg (95-98) L 08/25/19 05:50 ABG O2 Content No Result Required. 08/25/19 05:50 ABG Base Excess 8.8 mmol/L (-2-2) H 08/25/19 05:50 Usman Test Positive 08/25/19 05:50 Patient On Oxygen Yes 08/25/19 05:50 O2 Delivery Device Vent 08/25/19 05:50 Oxygen Flow Rate 100% 08/25/19 05:50 Vent Mode A/c 08/25/19 05:50 Vent Rate 18 08/25/19 05:50 Mechanical Rate Vent 08/25/19 05:50 PEEP 10.0 cmH2O 08/25/19 05:50 Pressure Support Vent 450 08/25/19 05:50 Sodium 141 mmol/L (136-145) 08/25/19 06:00 Potassium 4.4 mmol/L (3.5-5.1) 08/25/19 06:00 Chloride 96 mmol/L (98-107) L 08/25/19 06:00 Carbon Dioxide 39 mmol/L (21-32) H 08/25/19 06:00 Anion Gap 6 MMOL/L (8-16) L 08/25/19 06:00 BUN 40.5 mg/dL (7-18) H 08/25/19 06:00 Creatinine 1.2 mg/dL (0.55-1.3) 08/25/19 06:00 Est GFR (CKD-EPI)AfAm 82.96 08/25/19 06:00 Est GFR (CKD-EPI)NonAf 71.58 08/25/19 06:00 POC Glucometer 130 UNITS (80-120) 08/25/19 06:10 Random Glucose 124 mg/dL (74-106) H 08/25/19 06:00 Calcium 8.6 mg/dL (8.5-10.1) 08/25/19 06:00 Phosphorus 3.9 mg/dL (2.5-4.9) 08/25/19 06:00 Magnesium 2.9 mg/dL (1.8-2.4) H 08/25/19 06:00 Ferritin 112.7 ng/ml (8-388) 08/21/19 05:00 Total Bilirubin 1.5 mg/dL (0.2-1) H 08/25/19 06:00 AST 29 U/L (15-37) 08/25/19 06:00 ALT 30 U/L (13-61) 08/25/19 06:00 Alkaline Phosphatase 60 U/L (45-117) 08/25/19 06:00 LD Total 316 U/L (87-246) H 08/21/19 05:00 Creatine Kinase 253 U/L (26-308) 08/20/19 20:00 Creatine Kinase Index 0.9 % (0.0-5.0) 08/20/19 20:00 CK-MB (CK-2) 2.5 ng/mL (0.5-3.6) 08/20/19 20:00 Troponin I 0.85 ng/ml (0.00-0.05) H* 08/21/19 05:00 C-Reactive Protein 4.8 MG/DL (0.00-0.3) H 08/21/19 05:00 B-Natriuretic Peptide 3662.3 pg/ml (5-125) H 08/20/19 05:00 Total Protein 6.6 g/dl (6.4-8.2) 08/25/19 06:00 Albumin 2.3 g/dl (3.4-5.0) L 08/25/19 06:00 Urine Color Yellow 08/20/19 05:00 Urine Appearance Clear 08/20/19 05:00 Urine pH 5.0 (5.0-8.0) 08/20/19 05:00 Ur Specific [place] 1.014 (1.010-1.035) 08/20/19 05:00 Urine Protein Trace (NEGATIVE) 08/20/19 05:00 Urine Glucose (UA) Negative (NEGATIVE) 08/20/19 05:00 Urine Ketones Negative (NEGATIVE) 08/20/19 05:00 Urine Blood 3+ (NEGATIVE) H 08/20/19 05:00 Urine Nitrite Negative (NEGATIVE) 08/20/19 05:00 Urine Bilirubin Negative (NEGATIVE) 08/20/19 05:00 Urine Urobilinogen 0.2 mg/dL (0.2-1.0) 08/20/19 05:00 Ur Leukocyte Esterase Negative (NEGATIVE) 08/20/19 05:00 Urine WBC (Auto) 35 /uL (0-25.8) 08/20/19 05:00 Urine RBC (Auto) 1011 /uL (0-23.9) 08/20/19 05:00 Urine Casts (Auto) 11 /uL (0-3.1) 08/20/19 05:00 U Epithel Cells (Auto) 24 /uL (0-25.1) 08/20/19 05:00 Urine Bacteria (Auto) 14 /uL (0-1359) 08/20/19 05:00 COVID-19 (NILDA) Not detected (Not Detected) 08/19/19 18:00 Hep A IgM Ab Confirm Negative (Negative) 08/20/19 05:00 Hep Bs Antigen Negative (Negative) 08/20/19 05:00 Hep B Core IgM Ab Negative (Negative) 08/20/19 05:00 Hepatitis C Ab (EIA) 0.2 s/co ratio (0.0-0.9) 08/20/19 05:00 Blood Type O POSITIVE 08/19/19 16:35 Antibody Screen Negative 08/19/19 16:35 cxr: worse congestive changes tele: sr echo 09/2016: nl lv/rv, no sig valve path echo 12/2018: nl lvef, lvh, nl rv, mild mr mibi 09/2016: nl mpi ecg: afib, rate ok, no ischemic changes, nl qtc echo nl LV function, mild conc LVH, RV systolic function mild to mod reduced, mod dilated RV, RVSP elevated at 50-60 mmHG est cct 35 mins a/p: 49 m hx htn, kylah, asthma, gerd, dchf here with sob, le edema. resp distress, acute diastolic chf: -noncompliant with meds, cpap as outpt -will continue iv lasix today, 60 qd to start. -monitor daily chem7 -vent management per crit care -hypotensive on pressors, wean as tolerated - covid negative - echo here shows nl LV function, however RV dilated with mild to mod reduced function and elevated RVSP, may be c/w PE or 2/2 underlying pulmonary dz - on eliquis positive trops: -mild trop elevation with flat trend, nl ck mb, no ischemic ecg changes, does not seem like acs, likely demand 2/2 chf, resp failure afib: -new onset here -rate was ok off meds, presently in sr -monitor tele -chadsvasc warrants ac, cont eliquis benny: -possibly cardiorenal, cr improving htn: -holding home meds due to hypotension on pressors now
[2019-08-25] MEDS ORDERED: FENTANYL NS IVPB 500 MCG/100 ML BAG IVPB ONE ×2 (11:58→16:22)
--- NOTE | 2019-08-25 12:20 | PN ---
Teaching Attending Note Name of Resident: Rambo Sandra ATTENDING PHYSICIAN STATEMENT I saw and evaluated the patient. I reviewed the resident's note and discussed the case with the resident. I agree with the resident's findings and plan as documented. SUBJECTIVE: Pt seen and examined in the ICU. Remains intubated, sedated on vasopressin gtt. Good urine output. Fevers overnight. Vented on volume assist control with 100% FiO2, PEEP 10. Blood cultures growing Staph coag negative. OBJECTIVE: Vital Signs Period Temp Pulse Resp BP Sys/Ramon Pulse Ox Last 24 Hr 99.7 F-101.5 F 88-96 18-113 92-116/66-80 89-93 Intake & Output 08/22/19 08/23/19 08/24/19 08/25/19 23:59 23:59 23:59 23:59 Intake Total 2888 1867.2 2805 Output Total 2450 1700 1200 Balance 438 167.2 1605 Weight 147.962 kg 148.869 kg 150.956 kg Gen: intubated, sedated Heart: RRR Lung: decreased breath sounds at the bases Abd: soft, nontender Ext: + edema CBC, BMP 08/25/19 06:00 08/25/19 06:00 Active Medications Apixaban (Eliquis -) 5 mg PO BID ARABELLA Last Admin: 08/25/19 10:09 Dose: 5 mg Documented by: Chlorhexidine Gluconate (Hibiclens For Decolonization -) 1 applic TP HS ARABELLA Last Admin: 08/24/19 22:51 Dose: 1 applic Documented by: Furosemide (Lasix Injection -) 60 mg IVPUSH DAILY [facility] Vasopressin 40 units/ Sodium (Chloride) 100 mls @ 5 mls/hr IVPB ASDIR ARABELLA; Protocol Last Titration: 08/25/19 08:06 Dose: 2 units/hr, 5 mls/hr Documented by: Midazolam HCl (Midazolam 100mg/100ml-0.9%Nacl) 100 mg in 100 mls @ 1 mls/hr IVPB TITR [facility]; Protocol Last Titration: 08/24/19 19:01 Dose: 10 mg/hr, 10 mls/hr Documented by: Fentanyl (Sublimaze Ivpb) 500 mcg in 100 mls @ 33.112 mls/hr IVPB TITR [facility]; Protocol Last Titration: 06/24/20 19:00 Dose: 0.6 mcg/kg/hr, 20 mls/hr Documented by: Vancomycin HCl (Vancomycin (Pre-Docked)) 1,000 mg in 250 mls @ 166.667 mls/hr IVPB Q12H ARABELLA; Protocol Last Admin: 08/25/19 02:58 Dose: 166.667 mls/hr Documented by: Cefepime HCl 1 gm/ Dextrose 50 mls @ 100 mls/hr IVPB Q8H-IV ARABELLA; Protocol Last Admin: 08/25/19 10:08 Dose: 100 mls/hr Documented by: Insulin Aspart (Novolog Vial Sliding Scale -) 1 vial SQ ACHS ARABELLA; Protocol Last Admin: 08/25/19 06:23 Dose: Not Given Documented by: Pantoprazole Sodium (Protonix Iv) 40 mg IVPUSH DAILY ARABELLA Last Admin: 08/25/19 10:08 Dose: 40 mg Documented by: Polyethylene Glycol (Miralax (For Daily Use) -) 17 gm PO DAILY ARABELLA Last Admin: 08/25/19 10:09 Dose: 17 gm Documented by: ASSESSMENT AND PLAN: Acute on Chronic Hypoxic and Hypercapneic Respiratory Failure Acute on Chronic Diastolic Heart Failure Pneumonia ARDS Staph Bacteremia Septic Shock +Troponins likely [place] Ischemia New Onset Atrial Fibrillation Acute Kidney Injury [place]/OHS Morbid Obesity Asthma HTN GERD - continue antibiotics - f/u cultures - resume lasix today - monitor urine output, creatinine - titrate pressors to maintain MAP >65 - rate control - continue anticoagulation - sedate for vent synchrony - inhaled bronchodilators - titrate FiO2, PEEP to keep SpO2 >90% - enteral feeds - DVT/GI prophylaxis - continue ICU monitoring critical care time spent in reviewing chart, evaluating patient and formulating plan 35 min
[2019-08-25] MEDS: FUROSEMIDE 40 MG/4 ML INJECTABLE VIAL IVPUSH SCH (12:23)
[2019-08-25] MEDS: FENTANYL IVPB 500 MCG/100 ML BAG IVPB SCH ×2 (12:24→17:10)
--- NOTE | 2019-08-25 13:18 | PN ---
Physical Exam: SUBJECTIVE: Patient seen and examined. Pt afebrile overnight. New BCx neg, previous BCx growing SCoN. Asymptomatic. Pt desaturated overnight to high 70s. OBJECTIVE: Vital Signs Period Temp Pulse Resp BP Sys/Ramon Pulse Ox Last 24 Hr 99.7 F-101.5 F 88-98 18-113 92-116/66-80 89-93 GENERAL: The patient is intubated and sedated. HEAD: Normal with no signs of trauma. LUNGS: distant breath sounds b/l, equal b/l. HEART: Regular rate, irregular rhythm, S1, S2 without murmur, rub or gallop. ABDOMEN: Soft, nontender, obese, normoactive bowel sounds, no guarding, no rebound, no hepatosplenomegaly, no masses. EXTREMITIES: 2+ pulses, warm, well-perfused, no edema. NEUROLOGICAL: unable to obtain as patient sedated. Laboratory Results - last 24 hr 08/24/19 08/24/19 08/25/19 16:58 23:30 05:50 WBC RBC Hgb Hct MCV MCH MCHC RDW Plt Count MPV Anticoagulation Therapy No Result Required. Puncture Site Right radial Patient Temperature No Result Required. ABG pH 7.382 ABG pCO2 63.10 H ABG pO2 77.1 L ABG HCO3 36.7 H ABG O2 Sat (Measured) 94.8 L ABG O2 Content No Result Required. ABG Base Excess 8.8 H Usman Test Positive Patient On Oxygen Yes O2 Delivery Device Vent Oxygen Flow Rate 100% Vent Mode A/c Vent Rate 18 Mechanical Rate Vent PEEP 10.0 Pressure Support Vent 450 Sodium Potassium Chloride Carbon Dioxide Anion Gap BUN Creatinine Est GFR (CKD-EPI)AfAm Est GFR (CKD-EPI)NonAf POC Glucometer 134 164 Random Glucose Calcium Phosphorus Magnesium Total Bilirubin AST ALT Alkaline Phosphatase Total Protein Albumin 08/25/19 08/25/19 08/25/19 06:00 06:00 06:10 WBC 13.4 H RBC 4.93 Hgb 12.8 Hct 43.6 MCV 88.4 MCH 26.1 MCHC 29.5 L RDW 20.5 H Plt Count 190 MPV 8.8 Anticoagulation Therapy Puncture Site Patient Temperature ABG pH ABG pCO2 ABG pO2 ABG HCO3 ABG O2 Sat (Measured) ABG O2 Content ABG Base Excess Usman Test Patient On Oxygen O2 Delivery Device Oxygen Flow Rate Vent Mode Vent Rate Mechanical Rate PEEP Pressure Support Vent Sodium 141 Potassium 4.4 Chloride 96 L Carbon Dioxide 39 H Anion Gap 6 L BUN 40.5 H Creatinine 1.2 Est GFR (CKD-EPI)AfAm 82.96 Est GFR (CKD-EPI)NonAf 71.58 POC Glucometer 130 Random Glucose 124 H Calcium 8.6 Phosphorus 3.9 Magnesium 2.9 H Total Bilirubin 1.5 H AST 29 ALT 30 Alkaline Phosphatase 60 Total Protein 6.6 Albumin 2.3 L 08/25/19 12:16 WBC RBC Hgb Hct MCV MCH MCHC RDW Plt Count MPV Anticoagulation Therapy Puncture Site Patient Temperature ABG pH ABG pCO2 ABG pO2 ABG HCO3 ABG O2 Sat (Measured) ABG O2 Content ABG Base Excess Usman Test Patient On Oxygen O2 Delivery Device Oxygen Flow Rate Vent Mode Vent Rate Mechanical Rate PEEP Pressure Support Vent Sodium Potassium Chloride Carbon Dioxide Anion Gap BUN Creatinine Est GFR (CKD-EPI)AfAm Est GFR (CKD-EPI)NonAf POC Glucometer 148 Random Glucose Calcium Phosphorus Magnesium Total Bilirubin AST ALT Alkaline Phosphatase Total Protein Albumin Active Medications Generic Name Dose Route Start Last Admin Trade Name Freq PRN Reason Stop Dose Admin Apixaban 5 mg 08/22/19 22:00 08/25/19 10:09 Eliquis - PO 5 mg BID ARABELLA Administration Chlorhexidine Gluconate 1 applic 08/19/19 22:00 08/24/19 22:51 Hibiclens For Decolonization - TP 1 applic HS ARABELLA Administration Furosemide 60 mg 08/25/19 10:45 08/25/19 12:23 Lasix Injection - IVPUSH 60 mg DAILY ARABELLA Administration Vasopressin 40 units/ Sodium 100 mls @ 5 mls/hr 08/19/19 21:45 08/25/19 08:06 Chloride IVPB 2 units/hr ASDIR ARABELLA 5 mls/hr Titration Protocol 2 UNITS/HR Midazolam HCl 100 mg in 100 mls @ 1 mls/hr 08/19/19 21:45 08/24/19 19:01 Midazolam 100mg/100ml-0.9%Nacl IVPB 10 mg/hr TITR ARABELLA 10 mls/hr Titration Protocol 1 MG/HR Fentanyl 500 mcg in 100 mls @ 33.112 mls/hr 08/20/19 06:30 08/25/19 12:24 Sublimaze Ivpb IVPB 0.6 mcg/kg/hr TITR ARABELLA 20 mls/hr Administration Protocol 1 MCG/KG/HR Vancomycin HCl 1,000 mg in 250 mls @ 166.667 mls/hr 08/23/19 14:00 08/25/19 02:58 Vancomycin (Pre-Docked) IVPB 166.667 mls/hr Q12H ARABELLA Administration Protocol Cefepime HCl 1 gm/ Dextrose 50 mls @ 100 mls/hr 08/23/19 14:15 08/25/19 10:08 IVPB 100 mls/hr Q8H-IV ARABELLA Administration Protocol Insulin Aspart 1 vial 08/19/19 22:00 08/25/19 12:23 Novolog Vial Sliding Scale - SQ 2 units ACHS ARABELLA Administration Protocol Pantoprazole Sodium 40 mg 08/19/19 20:30 08/25/19 10:08 Protonix Iv IVPUSH 40 mg DAILY ARABELLA Administration Polyethylene Glycol 17 gm 08/23/19 21:00 08/25/19 10:09 Miralax (For Daily Use) - PO 17 gm DAILY ARABELLA Administration ASSESSMENT/PLAN: Patient is a 48 year old male with history of [place], morbid obesity, mild intermittent asthma, hypertension, gastroesophageal reflux presented with difficulty breathing and LE swelling x4 days, ICU consulted due to AMS, somnolence, worsening respiratory status on BiPaP and pt is being admitted to ICU for worsening Acute hypoxic hypercapenic respiratory failure likely 2/2 to CHF exacerbation vs COVID pneumonia #Neuro Vented+ sedated neuro checks, fent- 100, versed 10, vaso 2 aspiration precaution #Pulmonary Acute Hypoxic Hypercapneic Respiratory failure likely 2/2 to CHF exacerbation, r/o COVID pneumonia- test pending Stricts Is&O's, daily wts, Dubose inserted COVID test neg s/p Heparin drip- D-dimers elevated but pt too unstable and large for CTA, Wells score 1.5, PE unlikely Eliquis 5 BID AC 18/450/100/10 Plat 27 PIP 35 AB.38/63/77/36 CXR: worsened right pleural effusion #Cardio Acute Hypoxic Hypercapneic Respiratory failure likely 2/2 to CHF exacerbation vs COVID pneumonia pt been admitted for CHF exacerbation several times in the past, ECHO 2018 normal, MPI 2017 normal CHADsVASc score 2, Stroke risk was 2.2% per year in >90,000 patients/ 2.9% risk of stroke/TIA/systemic embolism. monitor output New Onset A-fib seen on EKG, Eliquis 5 BID Echo: mild LVH concentric, impaired LV relaxation, RV pressure 50-60 mmHg, RV moderately dilated Discussed with Cardio, will resume lasix 60 daily #GI Transamnitis- mild-moderate- improved likely 2/2 to Congestive Hepatopathy/hepatic congestion from CHF exacerbation #Renal THOMAS likely prerenal- improved will monitor for now I- 2100 O-1000 #ID covid neg pt afebrile UCx: SCoN Vanc and Cefepime, check vanc trough levels #DVT ppx Eliquis 5 BID #GI ppx protonix FEN fluid restriction promote tube feeds monitor lytes Dispo: cont abx, cont lasix, vent setting remain, will attempt to wean down, maintain sedation, will reassess in am Visit type - Emergency Visit Emergency Visit: Yes ED Registration Date: 08/19/19 Care time: The patient presented to the Emergency Department on the above date and was hospitalized for further evaluation of their emergent condition. - New Patient This patient is new to me today: Yes Date on this admission: 08/29/19 - Critical Care Critical Care patient: No - Discharge Referral Referred to [facility] Med P.C.: No ATTENDING PHYSICIAN STATEMENT I saw and evaluated the patient. I reviewed the resident's note and discussed the case with the resident. I agree with the resident's findings and plan as documented. SUBJECTIVE: OBJECTIVE: ASSESSMENT AND PLAN:
[2019-08-25] MEDS: MIDAZOLAM IN 0.9 % SOD.CHLORID 100 MG/100 ML PLAST..BAG IVPB SCH (14:00)
[2019-08-25] MEDS ORDERED: VECURONIUM BROMIDE 10 MG/10 ML VIAL ONE (14:18)
[2019-08-25] MEDS ORDERED: MIDAZOLAM HCL 5 MG/1 ML Single Dose Vial IVPUSH ONE (14:30)
[2019-08-25] MEDS ORDERED: VECURONIUM BROMIDE 50 MG/50 ML VIAL IVPUSH ONE (14:30)
[2019-08-25] MEDS ORDERED: NOREPINEPHRINE BITARTRATE 4 MG/4 ML ML IV ONE (14:42)
[2019-08-25] MEDS: NOREPINEPHRINE D5W PREMIX 16,000 MCG/500 ML BAG IVPB SCH (15:16)
[2019-08-25 16:54] LABS: ARTERIAL BLOOD GAS BASE EXCESS 10.9 mmol/L (-2-2); ARTERIAL BLOOD GAS PO2 161.8 mmHg (80-100); ARTERIAL BLOOD GAS pH 7.413 (7.350-7.450)
[2019-08-25 16:58] LABS: ALLENS TEST POSITIVE; ARTERIAL BLD GAS O2 SATURATION 99.4 mmHg (95-98)
[2019-08-25 16:59] LABS: VENT MODE A/C; VENT RATE 26
--- NOTE | 2019-08-25 18:17 | PN ---
Progress Note, Physician History of Present Illness: Pt seen and examined at bedside. He remains in the ICU. He remains intubated. - Current Medication List Current Medications: Active Medications Apixaban (Eliquis -) 5 mg PO BID ARABELLA Last Admin: 08/25/19 10:09 Dose: 5 mg Documented by: Chlorhexidine Gluconate (Hibiclens For Decolonization -) 1 applic TP HS ARABELLA Last Admin: 08/24/19 22:51 Dose: 1 applic Documented by: Furosemide (Lasix Injection -) 60 mg IVPUSH DAILY ARABELLA Last Admin: 08/25/19 12:23 Dose: 60 mg Documented by: Vasopressin 40 units/ Sodium (Chloride) 100 mls @ 5 mls/hr IVPB ASDIR ARABELLA; Protocol Last Titration: 08/25/19 08:06 Dose: 2 units/hr, 5 mls/hr Documented by: Midazolam HCl (Midazolam 100mg/100ml-0.9%Nacl) 100 mg in 100 mls @ 1 mls/hr IVPB TITR ARABELLA; Protocol Last Admin: 08/25/19 14:00 Dose: 10 mg/hr, 10 mls/hr Documented by: Fentanyl (Sublimaze Ivpb) 500 mcg in 100 mls @ 33.112 mls/hr IVPB TITR ARABELLA; Protocol Last Admin: 08/25/19 17:10 Dose: 0.6 mcg/kg/hr, 20 mls/hr Documented by: Vancomycin HCl (Vancomycin (Pre-Docked)) 1,000 mg in 250 mls @ 166.667 mls/hr IVPB Q12H ARABELLA; Protocol Last Admin: 08/25/19 15:51 Dose: 166.667 mls/hr Documented by: Cefepime HCl 1 gm/ Dextrose 50 mls @ 100 mls/hr IVPB Q8H-IV ARABELLA; Protocol Last Admin: 08/25/19 17:11 Dose: 100 mls/hr Documented by: Norepinephrine Bitartrate (Levophed Bag) 16,000 mcg in 500 mls @ 9.375 mls/hr IVPB TITR ARABELLA; Protocol Last Admin: 08/25/19 15:16 Dose: 5 mcg/min, 9.375 mls/hr Documented by: Insulin Aspart (Novolog Vial Sliding Scale -) 1 vial SQ ACHS ARABELLA; Protocol Last Admin: 06/25/20 17:21 Dose: Not Given Documented by: Pantoprazole Sodium (Protonix Iv) 40 mg IVPUSH DAILY ARABELLA Last Admin: 08/25/19 10:08 Dose: 40 mg Documented by: Polyethylene Glycol (Miralax (For Daily Use) -) 17 gm PO DAILY ARABELLA Last Admin: 08/25/19 10:09 Dose: 17 gm Documented by: - Objective Vital Signs: Vital Signs Temperature 99.7 F H 08/25/19 06:00 Pulse Rate 98 H 08/25/19 12:30 Respiratory Rate 26 H 08/25/19 15:50 Blood Pressure 114/80 08/25/19 08:06 O2 Sat by Pulse Oximetry (%) 94 L 08/25/19 15:50 Constitutional: Yes: Calm Eyes: Yes: Conjunctiva Clear HENT: Yes: Atraumatic Neck: Yes: Supple Cardiovascular: Yes: S1, S2 Respiratory: Yes: Mechanically Ventilated Gastrointestinal: Yes: Soft, Abdomen, Obese Genitourinary: Yes: Dubose Present Musculoskeletal: Yes: Muscle Weakness Edema: Yes Integumentary: Yes: Venous Stasis Changes Neurological: Yes: Lethargy Labs: CBC, BMP 08/25/19 06:00 08/25/19 06:00 INR, PTT INR 1.27 (0.83-1.09) H 08/20/19 05:00 - ....Imaging Chest X-ray: Report Reviewed Assessment/Plan Current Medications Generic Name Dose Route Start Last Admin Trade Name Sampsonq PRN Reason Stop Dose Admin Apixaban 5 mg 08/22/19 22:00 08/25/19 10:09 Eliquis - PO 5 mg BID ARABELLA Administration Chlorhexidine Gluconate 1 applic 08/19/19 22:00 08/24/19 22:51 Hibiclens For Decolonization - TP 1 applic HS ARABELLA Administration Furosemide 60 mg 08/25/19 10:45 08/25/19 12:23 Lasix Injection - IVPUSH 60 mg DAILY ARABELLA Administration Vasopressin 40 units/ Sodium 100 mls @ 5 mls/hr 08/19/19 21:45 08/25/19 08:06 Chloride IVPB 2 units/hr ASDIR ARABELLA 5 mls/hr Titration Protocol 2 UNITS/HR Midazolam HCl 100 mg in 100 mls @ 1 mls/hr 08/19/19 21:45 08/25/19 14:00 Midazolam 100mg/100ml-0.9%Nacl IVPB 10 mg/hr TITR ARABELLA 10 mls/hr Administration Protocol 1 MG/HR Fentanyl 500 mcg in 100 mls @ 33.112 mls/hr 08/20/19 06:30 08/25/19 17:10 Sublimaze Ivpb IVPB 0.6 mcg/kg/hr TITR ARABELLA 20 mls/hr Administration Protocol 1 MCG/KG/HR Vancomycin HCl 1,000 mg in 250 mls @ 166.667 mls/hr 08/23/19 14:00 08/25/19 15:51 Vancomycin (Pre-Docked) IVPB 166.667 mls/hr Q12H ARAEBLLA Administration Protocol Cefepime HCl 1 gm/ Dextrose 50 mls @ 100 mls/hr 08/23/19 14:15 08/25/19 17:11 IVPB 100 mls/hr Q8H-IV ARABELLA Administration Protocol Norepinephrine Bitartrate 16,000 mcg in 500 mls @ 9.375 mls/hr 08/25/19 14:45 08/25/19 15:16 Levophed Bag IVPB 5 mcg/min TITR ARABELLA 9.375 mls/hr Administration Protocol 5 MCG/MIN Insulin Aspart 1 vial 08/19/19 22:00 08/25/19 17:21 Novolog Vial Sliding Scale - SQ Not Given ACHS ARABELLA Protocol Pantoprazole Sodium 40 mg 08/19/19 20:30 08/25/19 10:08 Protonix Iv IVPUSH 40 mg DAILY ARABELLA Administration Polyethylene Glycol 17 gm 08/23/19 21:00 08/25/19 10:09 Miralax (For Daily Use) - PO 17 gm DAILY ARABELLA Administration Impression 1. THOMAS 2. chf 3. resp failure 4. r/p covid 5. a-fib 6. obesity 7. asthma 8. hypotension 9. gerd Plan - renal function is improving - cont vent support - resume lasix - repeat labs in am - monitor lytes - cont vent support - maintain map 65 - weaning per pulm - daily cxr - covid negative - cont tube feeds - monitor urine output - discussed with ICU team
[2019-08-25] MEDS: CHLORHEXIDINE GLUCONATE 4% CLEANSER FOR DECOLONIZATION TP SCH (22:18)
[2019-08-26] MEDS ORDERED: CEFEPIME HCL 1 GM VIAL (RESTRICTED TO ID) ONE ×3 (01:14→16:27)
[2019-08-26] MEDS ORDERED: DEXTROSE 5%-WATER - 50 ML IVPB ONE ×3 (01:15→16:28)
[2019-08-26] MEDS: CEFEPIME 1 GM in DEXTROSE 5%-WATER - 50 ML IVPB SCH ×3 (01:22→18:39)
[2019-08-26] MEDS: VANCOMYCIN 1 GRAM (PRE-DOCKED) 1,000 MG/250 ML BAG IVPB SCH ×2 (01:25→14:48)
[2019-08-26] MEDS: FENTANYL IVPB 500 MCG/100 ML BAG IVPB SCH (04:30)
--- NOTE | 2019-08-26 05:56 | PN ---
Progress Note, Physician Chief Complaint: intubated Hypotensive Sedated on vent Multiple pressors Low grade fever History of Present Illness: HTN [place] Chronic diastolic CHF Fever Hypotension TELE: NSR with APCs - Current Medication List Current Medications: Active Medications Apixaban (Eliquis -) 5 mg PO BID ARABELLA Last Admin: 08/25/19 22:18 Dose: 5 mg Documented by: Chlorhexidine Gluconate (Hibiclens For Decolonization -) 1 applic TP HS ARABELLA Last Admin: 08/25/19 22:18 Dose: 1 applic Documented by: Furosemide (Lasix Injection -) 60 mg IVPUSH DAILY ARABELLA Last Admin: 08/25/19 12:23 Dose: 60 mg Documented by: Vasopressin 40 units/ Sodium (Chloride) 100 mls @ 5 mls/hr IVPB ASDIR ARABELLA; Protocol Last Titration: 08/25/19 19:15 Dose: 1 units/hr, 2.5 mls/hr Documented by: Midazolam HCl (Midazolam 100mg/100ml-0.9%Nacl) 100 mg in 100 mls @ 1 mls/hr IVPB TITR ARABELLA; Protocol Last Titration: 08/25/19 22:30 Dose: 10 mg/hr, 10 mls/hr Documented by: Fentanyl (Sublimaze Ivpb) 500 mcg in 100 mls @ 33.112 mls/hr IVPB TITR ARABELLA; Protocol Last Titration: 08/26/19 04:30 Dose: 0.6 mcg/kg/hr, 19.867 mls/hr Documented by: Vancomycin HCl (Vancomycin (Pre-Docked)) 1,000 mg in 250 mls @ 166.667 mls/hr IVPB Q12H ARABELLA; Protocol Last Admin: 08/26/19 01:25 Dose: 166.667 mls/hr Documented by: Cefepime HCl 1 gm/ Dextrose 50 mls @ 100 mls/hr IVPB Q8H-IV ARABELLA; Protocol Last Admin: 08/26/19 01:22 Dose: 100 mls/hr Documented by: Norepinephrine Bitartrate (Levophed Bag) 16,000 mcg in 500 mls @ 9.375 mls/hr IVPB TITR ARABELLA; Protocol Last Admin: 08/25/19 15:16 Dose: 5 mcg/min, 9.375 mls/hr Documented by: Insulin Aspart (Novolog Vial Sliding Scale -) 1 vial SQ ACHS ARABELLA; Protocol Last Admin: 08/25/19 22:34 Dose: 2 units Documented by: Pantoprazole Sodium (Protonix Iv) 40 mg IVPUSH DAILY [facility] Last Admin: 08/25/19 10:08 Dose: 40 mg Documented by: Polyethylene Glycol (Miralax (For Daily Use) -) 17 gm PO DAILY ARABELLA Last Admin: 08/25/19 10:09 Dose: 17 gm Documented by: - Objective Vital Signs: Vital Signs Temperature 100.6 F H 08/26/19 02:00 Pulse Rate 100 H 08/26/19 02:00 Respiratory Rate 26 H 08/26/19 05:00 Blood Pressure 106/71 08/26/19 02:00 O2 Sat by Pulse Oximetry (%) 93 L 08/26/19 05:00 Constitutional: Yes: No Distress HENT: Yes: Other ( + ETT) Cardiovascular: Yes: Regular Rate and Rhythm Respiratory: Yes: Other (= breath sounds b/l) Gastrointestinal: Yes: Soft, Abdomen, Obese Edema: No Neurological: Yes: Other (sedated on vent) Labs: CBC, BMP 08/25/19 06:00 08/25/19 06:00 INR, PTT INR 1.27 (0.83-1.09) H 08/20/19 05:00 Microbiology 08/24/19 05:53 Blood - Peripheral Venous Blood Culture - Preliminary NO GROWTH OBTAINED AFTER 48 HOURS, INCUBATION TO CONTINUE FOR 3 DAYS. 08/24/19 05:45 Blood - Peripheral Venous Blood Culture - Preliminary NO GROWTH OBTAINED AFTER 48 HOURS, INCUBATION TO CONTINUE FOR 3 DAYS. 08/22/19 22:20 Blood - Peripheral Venous Blood Culture - Preliminary Staphylococcus Coagulase Neg 08/22/19 22:20 Blood - Peripheral Venous Blood Culture - Preliminary Staphylococcus Coagulase Neg Laboratory Tests 08/19/19 08/26/19 08/26/19 18:00 05:20 05:20 WBC 13.6 H Hgb 12.9 Plt Count 199 Sodium 141 Potassium 4.4 Creatinine 1.3 COVID-19 (NILDA) Not detected - ....Imaging X-ray: Report Reviewed EKG: Image Reviewed Assessment/Plan mibi 09/2016: nl mpi ecg: afib, rate ok, no ischemic changes, nl qtc echo nl LV function, mild conc LVH, RV systolic function mild to mod reduced, mod dilated RV, RVSP elevated at 50-60 mmHG a/p: 49 m hx htn, [place], asthma, gerd, dchf here with sob, le edema. resp distress, acute diastolic chf: -noncompliant with meds, cpap as outpt -now hypotensive on 2 pressors and febrile, hold Lasix -monitor daily chem7 -vent management per crit care - covid negative - echo here shows nl LV function, however RV dilated with mild to mod reduced function and elevated RVSP, may be c/w PE or 2/2 underlying pulmonary dz - on eliquis positive trops: -mild trop elevation with flat trend, nl ck mb, no ischemic ecg changes, does not seem like acs, likely demand 2/2 chf, resp failure afib: -new onset here -rate was ok off meds, presently in sr -monitor tele -chadsvasc warrants ac, cont eliquis benny: -possibly cardiorenal, cr improving htn: -holding home meds due to hypotension on pressors now
[2019-08-26 06:11] LABS: HEMATOCRIT 43.8 % (35.4-49); HEMOGLOBIN 12.9 GM/dL (11.7-16.9); MCH 26.1 pg (25.7-33.7); MCHC 29.5 g/dl (32.0-35.9); MEAN CELL VOLUME 88.7 fl (80-96); MEAN PLT VOLUME 8.7 fl (7.5-11.1); PLATELET COUNT 199 K/MM3 (134-434); RBC 4.94 M/mm3 (4.00-5.60); RDW 20.8 % (11.9-15.9); WHITE BLOOD COUNT 13.6 K/mm3 (4.0-10.0)
[2019-08-26 06:15] LABS: BLOOD UREA NITROGEN 49.1 mg/dL (7-18); CALCIUM 8.7 mg/dL (8.5-10.1); CREATININE 1.3 mg/dL (0.55-1.3); MAGNESIUM 3.1 mg/dL (1.8-2.4); PHOSPHOROUS 3.8 mg/dL (2.5-4.9); POTASSIUM 4.4 mmol/L (3.5-5.1)
[2019-08-26] MEDS ORDERED: VECURONIUM BROMIDE 10 MG/10 ML VIAL ONE (06:33)
[2019-08-26] MEDS ORDERED: VECURONIUM BROMIDE 50 MG/50 ML VIAL IVPUSH ONE ×2 (06:36)
[2019-08-26] MEDS ORDERED: MIDAZOLAM HCL 5 MG/1 ML Single Dose Vial IVPUSH ONE (06:40)
[2019-08-26] MEDS: INSULIN SLIDING SCALE (NOVOLOG) 1 VIAL SQ SCH ×4 (07:58→22:41)
--- NOTE | 2019-08-26 08:15 | PN ---
Physical Exam: SUBJECTIVE: Patient seen and examined at bedside. Patient w/ desaturations yesterday afternoon and evening requiring an increase in his ventilator settings. Patient had another episode this am requiring versed and vecuronium pushes. PEEP currently at 20, FiO2 100% OBJECTIVE: Vital Signs Period Temp Pulse Resp BP Sys/Ramon Pulse Ox Last 24 Hr 100 F-100.8 F 93-108 20-113 97-127/63-80 89-95 GENERAL: The patient is intubated and sedated. NECK: Trachea midline, full range of motion, supple. LUNGS: Breath sounds equal, clear to auscultation bilaterally, no wheezes, no crackles, no accessory muscle use. HEART: Regular rate and rhythm, S1, S2 without murmur, rub or gallop. ABDOMEN: Soft, nontender, nondistended, normoactive bowel sounds, no guarding, no rebound, no hepatosplenomegaly, no masses. EXTREMITIES: 2+ pulses, warm, well-perfused, no edema. NEUROLOGICAL: unable to obtain as patient sedated Laboratory Results - last 24 hr 08/25/19 08/25/19 08/25/19 12:16 15:40 16:28 WBC RBC Hgb Hct MCV MCH MCHC RDW Plt Count MPV Anticoagulation Therapy No Result Required. Puncture Site Left radial Patient Temperature No Result Required. ABG pH 7.413 ABG pCO2 61.00 H ABG pO2 161.8 H ABG HCO3 38.1 H ABG O2 Sat (Measured) 99.4 H ABG O2 Content No Result Required. ABG Base Excess 10.9 H Usman Test Positive Patient On Oxygen Yes O2 Delivery Device Mechanical vent Oxygen Flow Rate 100 Vent Mode A/c Vent Rate 26 Mechanical Rate No Result Required. PEEP 20.0 Pressure Support Vent 400 Sodium Potassium Chloride Carbon Dioxide Anion Gap BUN Creatinine Est GFR (CKD-EPI)AfAm Est GFR (CKD-EPI)NonAf POC Glucometer 148 Random Glucose Calcium Phosphorus Magnesium Vancomycin Pre-Dose 10.4 H 08/25/19 08/25/19 08/26/19 17:15 22:22 05:20 WBC 13.6 H RBC 4.94 Hgb 12.9 Hct 43.8 MCV 88.7 MCH 26.1 MCHC 29.5 L RDW 20.8 H Plt Count 199 MPV 8.7 Anticoagulation Therapy Puncture Site Patient Temperature ABG pH ABG pCO2 ABG pO2 ABG HCO3 ABG O2 Sat (Measured) ABG O2 Content ABG Base Excess Usman Test Patient On Oxygen O2 Delivery Device Oxygen Flow Rate Vent Mode Vent Rate Mechanical Rate PEEP Pressure Support Vent Sodium Potassium Chloride Carbon Dioxide Anion Gap BUN Creatinine Est GFR (CKD-EPI)AfAm Est GFR (CKD-EPI)NonAf POC Glucometer 140 168 Random Glucose Calcium Phosphorus Magnesium Vancomycin Pre-Dose 08/26/19 05:20 WBC RBC Hgb Hct MCV MCH MCHC RDW Plt Count MPV Anticoagulation Therapy Puncture Site Patient Temperature ABG pH ABG pCO2 ABG pO2 ABG HCO3 ABG O2 Sat (Measured) ABG O2 Content ABG Base Excess Usman Test Patient On Oxygen O2 Delivery Device Oxygen Flow Rate Vent Mode Vent Rate Mechanical Rate PEEP Pressure Support Vent Sodium 141 Potassium 4.4 Chloride 99 Carbon Dioxide 38 H Anion Gap 3 L BUN 49.1 H Creatinine 1.3 Est GFR (CKD-EPI)AfAm 75.31 Est GFR (CKD-EPI)NonAf 64.98 POC Glucometer Random Glucose 154 H Calcium 8.7 Phosphorus 3.8 Magnesium 3.1 H Vancomycin Pre-Dose Active Medications Generic Name Dose Route Start Last Admin Trade Name Freq PRN Reason Stop Dose Admin Acetaminophen 650 mg 08/26/19 07:48 Tylenol Oral Solution - PO Q6H PRN FEVER Apixaban 5 mg 08/22/19 22:00 08/25/19 22:18 Eliquis - PO 5 mg BID ARABELLA Administration Chlorhexidine Gluconate 1 applic 08/19/19 22:00 08/25/19 22:18 Hibiclens For Decolonization - TP 1 applic HS ARABELLA Administration Furosemide 60 mg 08/25/19 10:45 08/25/19 12:23 Lasix Injection - IVPUSH 60 mg DAILY ARABELLA Administration Vasopressin 40 units/ Sodium 100 mls @ 5 mls/hr 08/19/19 21:45 08/25/19 19:15 Chloride IVPB 1 units/hr ASDIR ARABELLA 2.5 mls/hr Titration Protocol 2 UNITS/HR Midazolam HCl 100 mg in 100 mls @ 1 mls/hr 08/19/19 21:45 08/26/19 07:02 Midazolam 100mg/100ml-0.9%Nacl IVPB 10 mg/hr TITR ARABELLA 10 mls/hr Titration Protocol 1 MG/HR Fentanyl 500 mcg in 100 mls @ 33.112 mls/hr 08/20/19 06:30 08/26/19 04:30 Sublimaze Ivpb IVPB 0.6 mcg/kg/hr TITR ARABELLA 19.867 mls/hr Administration Protocol 1 MCG/KG/HR Vancomycin HCl 1,000 mg in 250 mls @ 166.667 mls/hr 08/23/19 14:00 08/26/19 01:25 Vancomycin (Pre-Docked) IVPB 166.667 mls/hr Q12H ARABELLA Administration Protocol Cefepime HCl 1 gm/ Dextrose 50 mls @ 100 mls/hr 08/23/19 14:15 08/26/19 01:22 IVPB 100 mls/hr Q8H-IV ARABELLA Administration Protocol Norepinephrine Bitartrate 16,000 mcg in 500 mls @ 9.375 mls/hr 08/25/19 14:45 08/25/19 15:16 Levophed Bag IVPB 5 mcg/min TITR ARABELLA 9.375 mls/hr Administration Protocol 5 MCG/MIN Insulin Aspart 1 vial 08/19/19 22:00 08/26/19 07:58 Novolog Vial Sliding Scale - SQ 2 units ACHS ARABELLA Administration Protocol Pantoprazole Sodium 40 mg 08/19/19 20:30 08/25/19 10:08 Protonix Iv IVPUSH 40 mg DAILY ARABELLA Administration Polyethylene Glycol 17 gm 08/23/19 21:00 08/25/19 10:09 Miralax (For Daily Use) - PO 17 gm DAILY ARABELLA Administration ASSESSMENT/PLAN: Patient is a 48 year old male with history of [place], morbid obesity, mild intermittent asthma, hypertension, gastroesophageal reflux presented with difficulty breathing and LE swelling x4 days. Admitted to ICU for worsening Acute hypoxic hypercapenic respiratory failure likely 2/2 to CHF exacerbation and pneumonia #Neuro -Venteded, sedated -on fentanyl, versed for sedation -aspiration precaution #Pulmonary -Acute Hypoxic Hypercapneic Respiratory failure likely 2/2 to CHF exacerbation and pneumonia -Stricts Is&O's, daily wts, Dubose inserted -COVID test neg -PE unlikely -on Eliquis 5 BID, will continue -patient w/ variable desaturations requiring an increase in PEEP overnight. -possibly 2/2 vent dyssynchrony vs worsening lung mechanics -vent settings decreased to 18/450/100/16 on arrival this AM -plateau pressures 28 on above settings -will attempt to decrease PEEP to minimize risk of barotrauma #Cardio -Acute Hypoxic Hypercapneic Respiratory failure likely 2/2 to CHF exacerbation and pneumonia -monitor output -New Onset A-fib seen on EKG, on Eliquis 5 BID -Echo: mild LVH concentric, impaired LV relaxation, RV pressure 50-60 mmHg, RV moderately dilated -c/w lasix 60 daily as patient gaining weight and pleural effusions worsening. #GI -Transamnitis- mild-moderate- improved -likely 2/2 to Congestive Hepatopathy/hepatic congestion from CHF exacerbation #Renal -THOMAS likely prerenal- improved -will monitor for now #ID -covid neg -pt febrile overnight and this AM (tmax 101) -previous Bcx + coag negative staph, has since been cleared. -on Vanc and Cefepime, check vanc trough levels -ID consulted #prophylaxsis -Eliquis 5 BID -Protonix 40mg IV daily FEN -no fluids indicated -promote tube feeds -monitor lytes Dispo: -admit ICU -discussed the option of tracheostomy with the patient's mother. She states that she would be amenable to this procedure. More conversations to follow as the patient weans into trach range on the ventilator. Visit type - Emergency Visit Emergency Visit: Yes ED Registration Date: 08/19/19 Care time: The patient presented to the Emergency Department on the above date and was hospitalized for further evaluation of their emergent condition. - New Patient This patient is new to me today: No - Critical Care Critical Care patient: Yes Total Critical Care Time (in minutes): 40 Critical Care Statement: The care of this patient involved high complexity decision making to prevent further life threatening deterioration of the patient's condition and/or to evaluate & treat vital organ system(s) failure or risk of failure. - Discharge Referral Referred to [facility] Med P.C.: No ATTENDING PHYSICIAN STATEMENT I saw and evaluated the patient. I reviewed the resident's note and discussed the case with the resident. I agree with the resident's findings and plan as documented. SUBJECTIVE: OBJECTIVE: ASSESSMENT AND PLAN:
[2019-08-26] MEDS ORDERED: METOPROLOL TARTRATE 5 MG/5 ML VIAL IVPUSH PRN (08:43)
[2019-08-26] MEDS: ACETAMINOPHEN 650 MG/20.3 ML ORAL SOLUTION (CUPS) PO PRN (10:15)
--- NOTE | 2019-08-26 10:21 | PN ---
Progress Note, Physician History of Present Illness: Pt seen and examined at bedside. He remains in the ICU. He remains intubated. - Current Medication List Current Medications: Active Medications Acetaminophen (Tylenol Oral Solution -) 650 mg PO Q6H PRN PRN Reason: FEVER Apixaban (Eliquis -) 5 mg PO BID [facility] Last Admin: 08/25/19 22:18 Dose: 5 mg Documented by: Chlorhexidine Gluconate (Hibiclens For Decolonization -) 1 applic TP HS [facility] Last Admin: 08/25/19 22:18 Dose: 1 applic Documented by: Furosemide (Lasix Injection -) 60 mg IVPUSH DAILY [facility] Last Admin: 08/25/19 12:23 Dose: 60 mg Documented by: Vasopressin 40 units/ Sodium (Chloride) 100 mls @ 5 mls/hr IVPB ASDIR [facility]; Protocol Last Titration: 08/25/19 19:15 Dose: 1 units/hr, 2.5 mls/hr Documented by: Midazolam HCl (Midazolam 100mg/100ml-0.9%Nacl) 100 mg in 100 mls @ 1 mls/hr IVPB TITR [facility]; Protocol Last Titration: 08/26/19 07:02 Dose: 10 mg/hr, 10 mls/hr Documented by: Fentanyl (Sublimaze Ivpb) 500 mcg in 100 mls @ 33.112 mls/hr IVPB TITR [facility]; Protocol Last Admin: 08/26/19 04:30 Dose: 0.6 mcg/kg/hr, 19.867 mls/hr Documented by: Vancomycin HCl (Vancomycin (Pre-Docked)) 1,000 mg in 250 mls @ 166.667 mls/hr IVPB Q12H [facility]; Protocol Last Admin: 08/26/19 01:25 Dose: 166.667 mls/hr Documented by: Cefepime HCl 1 gm/ Dextrose 50 mls @ 100 mls/hr IVPB Q8H-IV [facility]; Protocol Last Admin: 08/26/19 01:22 Dose: 100 mls/hr Documented by: Norepinephrine Bitartrate (Levophed Bag) 16,000 mcg in 500 mls @ 9.375 mls/hr IVPB TITR [facility]; Protocol Last Admin: 08/25/19 15:16 Dose: 5 mcg/min, 9.375 mls/hr Documented by: Insulin Aspart (Novolog Vial Sliding Scale -) 1 vial SQ ACHS [facility]; Protocol Last Admin: 08/26/19 07:58 Dose: 2 units Documented by: Pantoprazole Sodium (Protonix Iv) 40 mg IVPUSH DAILY [facility] Last Admin: 08/25/19 10:08 Dose: 40 mg Documented by: Polyethylene Glycol (Miralax (For Daily Use) -) 17 gm PO DAILY [facility] Last Admin: 08/25/19 10:09 Dose: 17 gm Documented by: - Objective Vital Signs: Vital Signs Temperature 101 F H 08/26/19 09:56 Pulse Rate 105 H 08/26/19 09:56 Respiratory Rate 26 H 08/26/19 09:56 Blood Pressure 100/60 08/26/19 09:56 O2 Sat by Pulse Oximetry (%) 88 L 08/26/19 08:48 Constitutional: Yes: Calm Eyes: Yes: Conjunctiva Clear HENT: Yes: Atraumatic Neck: Yes: Supple Cardiovascular: Yes: S1, S2 Respiratory: Yes: Mechanically Ventilated Gastrointestinal: Yes: Soft, Abdomen, Obese Genitourinary: Yes: Dubose Present Musculoskeletal: Yes: Muscle Weakness Extremities: Yes: WNL Edema: Yes Edema: LLE: 1+, RLE: 1+ Neurological: Yes: Lethargy Labs: CBC, BMP 08/26/19 05:20 08/26/19 05:20 INR, PTT INR 1.27 (0.83-1.09) H 08/20/19 05:00 Assessment/Plan Current Medications Generic Name Dose Route Start Last Admin Trade Name Freq PRN Reason Stop Dose Admin Acetaminophen 650 mg 08/26/19 07:48 Tylenol Oral Solution - PO Q6H PRN FEVER Apixaban 5 mg 08/22/19 22:00 08/25/19 22:18 Eliquis - PO 5 mg BID ARABELLA Administration Chlorhexidine Gluconate 1 applic 08/19/19 22:00 08/25/19 22:18 Hibiclens For Decolonization - TP 1 applic HS AR[facility]ELLA Administration Furosemide 60 mg 08/25/19 10:45 08/25/19 12:23 Lasix Injection - IVPUSH 60 mg DAILY ARABELLA Administration Vasopressin 40 units/ Sodium 100 mls @ 5 mls/hr 08/19/19 21:45 08/25/19 19:15 Chloride IVPB 1 units/hr ASDIR ARABELLA 2.5 mls/hr Titration Protocol 2 UNITS/HR Midazolam HCl 100 mg in 100 mls @ 1 mls/hr 08/19/19 21:45 08/26/19 07:02 Midazolam 100mg/100ml-0.9%Nacl IVPB 10 mg/hr TITR [facility]A 10 mls/hr Titration Protocol 1 MG/HR Fentanyl 500 mcg in 100 mls @ 33.112 mls/hr 08/20/19 06:30 08/26/19 04:30 Sublimaze Ivpb IVPB 0.6 mcg/kg/hr TITR [facility]LLA 19.867 mls/hr Administration Protocol 1 MCG/KG/HR Vancomycin HCl 1,000 mg in 250 mls @ 166.667 mls/hr 08/23/19 14:00 08/26/19 01:25 Vancomycin (Pre-Docked) IVPB 166.667 mls/hr Q12H AR[facility]ELLA Administration Protocol Cefepime HCl 1 gm/ Dextrose 50 mls @ 100 mls/hr 08/23/19 14:15 08/26/19 01:22 IVPB 100 mls/hr Q8H-IV [facility]A Administration Protocol Norepinephrine Bitartrate 16,000 mcg in 500 mls @ 9.375 mls/hr 08/25/19 14:45 08/25/19 15:16 Levophed Bag IVPB 5 mcg/min TITR AR[facility]ELLA 9.375 mls/hr Administration Protocol 5 MCG/MIN Insulin Aspart 1 vial 08/19/19 22:00 08/26/19 07:58 Novolog Vial Sliding Scale - SQ 2 units ACHS AR[facility]ELLA Administration Protocol Pantoprazole Sodium 40 mg 08/19/19 20:30 08/25/19 10:08 Protonix Iv IVPUSH 40 mg DAILY ARABELLA Administration Polyethylene Glycol 17 gm 08/23/19 21:00 08/25/19 10:09 Miralax (For Daily Use) - PO 17 gm DAILY ARABELLA Administration Impression 1. THOMAS 2. chf 3. resp failure 4. r/p covid 5. a-fib 6. obesity 7. asthma 8. hypotension 9. gerd Plan - cont to monitor renal function - cont lasix - vent support - maintain map 65 - monitor lytes - weaning per pulm - daily cxr - covid negative - cont tube feeds - monitor urine output - discussed with ICU team
[2019-08-26] MEDS: PANTOPRAZOLE SODIUM 40 MG VIAL IVPUSH SCH (10:31)
[2019-08-26] MEDS: APIXABAN 5 MG TABLET PO SCH ×2 (10:32→21:34)
[2019-08-26] MEDS: POLYETHYLENE GLYCOL 3350 119 GM BTL PO SCH (10:32)
[2019-08-26] MEDS: FUROSEMIDE 40 MG/4 ML INJECTABLE VIAL IVPUSH SCH (12:08)
--- NOTE | 2019-08-26 14:40 | PN ---
Teaching Attending Note Name of Resident: Ernesto Sam ATTENDING PHYSICIAN STATEMENT I saw and evaluated the patient. I reviewed the resident's note and discussed the case with the resident. I agree with the resident's findings and plan as documented. SUBJECTIVE: Patient seen and examined in the ICU. Remains intubated, sedated Vasopressin @ 1 unit & NE @ 5 mcq for hemodynamic support. Vented on volume assist control with 100% FiO2, PEEP 10. OBJECTIVE: Intake & Output 08/23/19 08/24/19 08/25/19 08/26/19 23:59 23:59 23:59 23:59 Intake Total 1867.2 2805 1154 765 Output Total 1700 1200 1050 Balance 167.2 1605 104 765 Weight 328 lb 3.2 oz 332 lb 12.8 oz 335 lb 14.199 oz Last Vital Signs Temp Pulse Resp BP Pulse Ox 99.2 F 101 H 26 H 95/70 86 L 08/26/19 14:00 08/26/19 14:00 08/26/19 14:00 08/26/19 14:00 08/26/19 09:00 Active Medications Acetaminophen (Tylenol Oral Solution -) 650 mg PO Q6H PRN PRN Reason: FEVER Last Admin: 08/26/19 10:15 Dose: 650 mg Documented by: Apixaban (Eliquis -) 5 mg PO BID [facility] Last Admin: 08/26/19 10:32 Dose: 5 mg Documented by: Chlorhexidine Gluconate (Hibiclens For Decolonization -) 1 applic TP HS [facility] Last Admin: 08/25/19 22:18 Dose: 1 applic Documented by: Furosemide (Lasix Injection -) 60 mg IVPUSH DAILY [facility] Last Admin: 08/26/19 12:08 Dose: 60 mg Documented by: Vasopressin 40 units/ Sodium (Chloride) 100 mls @ 5 mls/hr IVPB ASDIR [facility]; Protocol Last Titration: 08/25/19 19:15 Dose: 1 units/hr, 2.5 mls/hr Documented by: Midazolam HCl (Midazolam 100mg/100ml-0.9%Nacl) 100 mg in 100 mls @ 1 mls/hr IVPB TITR [facility]; Protocol Last Titration: 08/26/19 07:02 Dose: 10 mg/hr, 10 mls/hr Documented by: Fentanyl (Sublimaze Ivpb) 500 mcg in 100 mls @ 33.112 mls/hr IVPB TITR [facility]; Protocol Last Admin: 08/26/19 04:30 Dose: 0.6 mcg/kg/hr, 19.867 mls/hr Documented by: Vancomycin HCl (Vancomycin (Pre-Docked)) 1,000 mg in 250 mls @ 166.667 mls/hr IVPB Q12H [facility]; Protocol Last Admin: 08/26/19 01:25 Dose: 166.667 mls/hr Documented by: Cefepime HCl 1 gm/ Dextrose 50 mls @ 100 mls/hr IVPB Q8H-IV [facility]; Protocol Last Admin: 08/26/19 10:33 Dose: 100 mls/hr Documented by: Norepinephrine Bitartrate (Levophed Bag) 16,000 mcg in 500 mls @ 9.375 mls/hr IVPB TITR [facility]; Protocol Last Admin: 08/25/19 15:16 Dose: 5 mcg/min, 9.375 mls/hr Documented by: Insulin Aspart (Novolog Vial Sliding Scale -) 1 vial SQ ACHS [facility]; Protocol Last Admin: 08/26/19 11:12 Dose: 2 units Documented by: Pantoprazole Sodium (Protonix Iv) 40 mg IVPUSH DAILY [facility] Last Admin: 08/26/19 10:31 Dose: 40 mg Documented by: Polyethylene Glycol (Miralax (For Daily Use) -) 17 gm PO DAILY [facility] Last Admin: 08/26/19 10:32 Dose: 17 gm Documented by: Gen: intubated, sedated Heart: RRR Lung: decreased breath sounds at the bases Abd: soft, nontender Ext: + edema Laboratory Results - last 24 hr 08/25/19 08/25/19 08/25/19 15:40 16:28 17:15 WBC RBC Hgb Hct MCV MCH MCHC RDW Plt Count MPV Anticoagulation Therapy No Result Required. Puncture Site Left radial Patient Temperature No Result Required. ABG pH 7.413 ABG pCO2 61.00 H ABG pO2 161.8 H ABG HCO3 38.1 H ABG O2 Sat (Measured) 99.4 H ABG O2 Content No Result Required. ABG Base Excess 10.9 H Usman Test Positive Patient On Oxygen Yes O2 Delivery Device Mechanical vent Oxygen Flow Rate 100 Vent Mode A/c Vent Rate 26 Mechanical Rate No Result Required. PEEP 20.0 Pressure Support Vent 400 Sodium Potassium Chloride Carbon Dioxide Anion Gap BUN Creatinine Est GFR (CKD-EPI)AfAm Est GFR (CKD-EPI)NonAf POC Glucometer 140 Random Glucose Calcium Phosphorus Magnesium Vancomycin Pre-Dose 10.4 H 08/25/19 08/26/19 08/26/19 22:22 05:20 05:20 WBC 13.6 H RBC 4.94 Hgb 12.9 Hct 43.8 MCV 88.7 MCH 26.1 MCHC 29.5 L RDW 20.8 H Plt Count 199 MPV 8.7 Anticoagulation Therapy Puncture Site Patient Temperature ABG pH ABG pCO2 ABG pO2 ABG HCO3 ABG O2 Sat (Measured) ABG O2 Content ABG Base Excess Usman Test Patient On Oxygen O2 Delivery Device Oxygen Flow Rate Vent Mode Vent Rate Mechanical Rate PEEP Pressure Support Vent Sodium 141 Potassium 4.4 Chloride 99 Carbon Dioxide 38 H Anion Gap 3 L BUN 49.1 H Creatinine 1.3 Est GFR (CKD-EPI)AfAm 75.31 Est GFR (CKD-EPI)NonAf 64.98 POC Glucometer 168 Random Glucose 154 H Calcium 8.7 Phosphorus 3.8 Magnesium 3.1 H Vancomycin Pre-Dose 08/26/19 11:06 WBC RBC Hgb Hct MCV MCH MCHC RDW Plt Count MPV Anticoagulation Therapy Puncture Site Patient Temperature ABG pH ABG pCO2 ABG pO2 ABG HCO3 ABG O2 Sat (Measured) ABG O2 Content ABG Base Excess Usman Test Patient On Oxygen O2 Delivery Device Oxygen Flow Rate Vent Mode Vent Rate Mechanical Rate PEEP Pressure Support Vent Sodium Potassium Chloride Carbon Dioxide Anion Gap BUN Creatinine Est GFR (CKD-EPI)AfAm Est GFR (CKD-EPI)NonAf POC Glucometer 167 Random Glucose Calcium Phosphorus Magnesium Vancomycin Pre-Dose ASSESSMENT AND PLAN: Acute on Chronic Hypoxic and Hypercapneic Respiratory Failure Acute on Chronic Diastolic Heart Failure Pneumonia ARDS Staph Bacteremia Septic Shock +Troponins likely Demand Ischemia New Onset Atrial Fibrillation Acute Kidney Injury [place]/[facility] Morbid Obesity Asthma HTN GERD - continue antibiotics - Lasix as tolerated - monitor urine output, creatinine - titrate pressors to maintain MAP >65 - rate control - continue anticoagulation - sedate for vent synchrony - inhaled bronchodilators - titrate FiO2, PEEP to keep SpO2 >90% - enteral feeds - DVT/GI prophylaxis - continue ICU monitoring Overall prognosis at this time appears grave Dr Guzman Critical care time spent in reviewing chart, evaluating patient and formulating plan 35 min
[2019-08-26] MEDS: NOREPINEPHRINE D5W PREMIX 16,000 MCG/500 ML BAG IVPB SCH (14:49)
--- NOTE | 2019-08-26 15:25 | PN ---
Progress Note, Physician History of Present Illness: SEDATED ON VENTILATOR REMAINS FEBRILE HYPOTENSIVE ON PRESSORS BC SCN FINAL C/S PENDING CXR BILATERAL CONGESTION ?LLL INFILTRATE - Current Medication List Current Medications: Active Medications Acetaminophen (Tylenol Oral Solution -) 650 mg PO Q6H PRN PRN Reason: FEVER Last Admin: 08/26/19 10:15 Dose: 650 mg Documented by: Apixaban (Eliquis -) 5 mg PO BID [facility] Last Admin: 08/26/19 10:32 Dose: 5 mg Documented by: Chlorhexidine Gluconate (Hibiclens For Decolonization -) 1 applic TP HS [facility] Last Admin: 08/25/19 22:18 Dose: 1 applic Documented by: Furosemide (Lasix Injection -) 60 mg IVPUSH DAILY [facility] Last Admin: 08/26/19 12:08 Dose: 60 mg Documented by: Vasopressin 40 units/ Sodium (Chloride) 100 mls @ 5 mls/hr IVPB ASDIR [facility]; Protocol Last Titration: 08/25/19 19:15 Dose: 1 units/hr, 2.5 mls/hr Documented by: Midazolam HCl (Midazolam 100mg/100ml-0.9%Nacl) 100 mg in 100 mls @ 1 mls/hr IVPB TITR [facility]; Protocol Last Titration: 08/26/19 07:02 Dose: 10 mg/hr, 10 mls/hr Documented by: Fentanyl (Sublimaze Ivpb) 500 mcg in 100 mls @ 33.112 mls/hr IVPB TITR [facility]; Protocol Last Admin: 08/26/19 04:30 Dose: 0.6 mcg/kg/hr, 19.867 mls/hr Documented by: Vancomycin HCl (Vancomycin (Pre-Docked)) 1,000 mg in 250 mls @ 166.667 mls/hr IVPB Q12H [facility]; Protocol Last Admin: 08/26/19 14:48 Dose: 166.667 mls/hr Documented by: Cefepime HCl 1 gm/ Dextrose 50 mls @ 100 mls/hr IVPB Q8H-IV [facility]; Protocol Last Admin: 08/26/19 10:33 Dose: 100 mls/hr Documented by: Norepinephrine Bitartrate (Levophed Bag) 16,000 mcg in 500 mls @ 9.375 mls/hr IVPB TITR [facility]; Protocol Last Admin: 08/26/19 14:49 Dose: Not Given Documented by: Insulin Aspart (Novolog Vial Sliding Scale -) 1 vial SQ ACHS [facility]; Protocol Last Admin: 08/26/19 11:12 Dose: 2 units Documented by: Pantoprazole Sodium (Protonix Iv) 40 mg IVPUSH DAILY [facility] Last Admin: 08/26/19 10:31 Dose: 40 mg Documented by: Polyethylene Glycol (Miralax (For Daily Use) -) 17 gm PO DAILY [facility] Last Admin: 08/26/19 10:32 Dose: 17 gm Documented by: - Objective Vital Signs: Vital Signs Temperature 99.2 F 08/26/19 14:00 Pulse Rate 101 H 08/26/19 14:00 Respiratory Rate 26 H 08/26/19 14:00 Blood Pressure 95/70 08/26/19 14:00 O2 Sat by Pulse Oximetry (%) 86 L 08/26/19 09:00 Constitutional: Yes: No Distress Eyes: Yes: Conjunctiva Clear Cardiovascular: Yes: Regular Rate and Rhythm, S1, S2 Respiratory: Yes: CTA Bilaterally Gastrointestinal: Yes: Normal Bowel Sounds, Soft, Abdomen, Obese. No: Tenderness Labs: CBC, BMP 08/26/19 05:20 08/26/19 05:20 INR, PTT INR 1.27 (0.83-1.09) H 08/20/19 05:00 Assessment/Plan ACUTE RESP FAILURE CHF R/O PNEUMONIA SEPSIS +BC SCN AZOTEMIA PCN ALLERGY AWAIT REPEAT BC VENTILATORY/ HEMODYNAMIC SUPPORT CONTINUE VANCOMYCIN/ CEFEPIME CHECK VANCOMYCIN LEVEL CRITICAL CARE TIME 35MIN
[2019-08-26] MEDS: CHLORHEXIDINE GLUCONATE 4% CLEANSER FOR DECOLONIZATION TP SCH (21:34)
[2019-08-27] MEDS ORDERED: CEFEPIME HCL 1 GM VIAL (RESTRICTED TO ID) ONE ×2 (01:01→08:09)
[2019-08-27] MEDS ORDERED: DEXTROSE 5%-WATER - 50 ML IVPB ONE ×2 (01:02→08:09)
[2019-08-27] MEDS: CEFEPIME 1 GM in DEXTROSE 5%-WATER - 50 ML IVPB SCH ×2 (01:12→09:42)
[2019-08-27] MEDS: VANCOMYCIN 1 GRAM (PRE-DOCKED) 1,000 MG/250 ML BAG IVPB SCH (01:12)
[2019-08-27 05:48] LABS: HEMATOCRIT 41.1 % (35.4-49); HEMOGLOBIN 12.1 GM/dL (11.7-16.9); MCHC 29.5 g/dl (32.0-35.9); MEAN CELL VOLUME 88.1 fl (80-96); MEAN PLT VOLUME 8.4 fl (7.5-11.1); PLATELET COUNT 206 K/MM3 (134-434); RBC 4.66 M/mm3 (4.00-5.60); RDW 20.6 % (11.9-15.9); WHITE BLOOD COUNT 13.8 K/mm3 (4.0-10.0)
[2019-08-27 06:16] LABS: ALBUMIN 1.7 g/dl (3.4-5.0); BILIRUBIN,TOTAL 0.8 mg/dL (0.2-1); CALCIUM 8.1 mg/dL (8.5-10.1); CREATININE 1.7 mg/dL (0.55-1.3); MAGNESIUM 3.3 mg/dL (1.8-2.4); PHOSPHOROUS 4.9 mg/dL (2.5-4.9); POTASSIUM 4.8 mmol/L (3.5-5.1); TOT PROT 6.1 g/dl (6.4-8.2)
[2019-08-27 06:28] LABS: BLOOD UREA NITROGEN 76.1 mg/dL (7-18)
[2019-08-27] MEDS ORDERED: FENTANYL NS IVPB 500 MCG/100 ML BAG IVPB ONE (06:36)
[2019-08-27] MEDS: FENTANYL IVPB 500 MCG/100 ML BAG IVPB SCH (06:55)
[2019-08-27] MEDS: INSULIN SLIDING SCALE (NOVOLOG) 1 VIAL SQ SCH ×3 (07:27→17:03)
[2019-08-27] MEDS: ACETAMINOPHEN 650 MG/20.3 ML ORAL SOLUTION (CUPS) PO PRN ×2 (08:42→17:14)
[2019-08-27] MEDS ORDERED: VECURONIUM BROMIDE 10 MG/10 ML VIAL IVPUSH STA (09:00)
--- NOTE | 2019-08-27 09:02 | PN ---
Progress Note (short form) - Note Progress Note: PULM/CCM Pt Seen & Examined in the ICU. Intubated & sedated but restless on the Vent. AC/VC/26/400/100%/+16 @ 6 - 7cc/Kg Pplat = 38 Notice Viral Filter is sullied & wet. Ht: 5'7" PBW: 66.1Kg 4cc/K 5cc/k 6cc/K 7cc/K 8cc/K FENT: 100ug/Hr VERSED: 10mg/hr LEVO: 10 PIT: 1 Active Medications Acetaminophen (Tylenol Oral Solution -) 650 mg PO Q6H PRN PRN Reason: FEVER Last Admin: 08/27/19 08:42 Dose: 650 mg Documented by: Apixaban (Eliquis -) 5 mg PO BID [facility] Last Admin: 08/27/19 09:44 Dose: 5 mg Documented by: Chlorhexidine Gluconate (Hibiclens For Decolonization -) 1 applic TP HS [facility] Last Admin: 08/26/19 21:34 Dose: 1 applic Documented by: Furosemide (Lasix Injection -) 60 mg IVPUSH DAILY [facility] Last Admin: 08/27/19 09:43 Dose: 60 mg Documented by: Vasopressin 40 units/ Sodium (Chloride) 100 mls @ 5 mls/hr IVPB ASDIR [facility]; Protocol Last Titration: 08/25/19 19:15 Dose: 1 units/hr, 2.5 mls/hr Documented by: Midazolam HCl (Midazolam 100mg/100ml-0.9%Nacl) 100 mg in 100 mls @ 1 mls/hr IVPB TITR [facility]; Protocol Last Titration: 08/26/19 07:02 Dose: 10 mg/hr, 10 mls/hr Documented by: Fentanyl (Sublimaze Ivpb) 500 mcg in 100 mls @ 33.112 mls/hr IVPB TITR [facility]; Protocol Last Titration: 08/27/19 09:00 Dose: 1.51 mcg/kg/hr, 50 mls/hr Documented by: Vancomycin HCl (Vancomycin (Pre-Docked)) 1,000 mg in 250 mls @ 166.667 mls/hr IVPB Q12H [facility]; Protocol Last Admin: 08/27/19 01:12 Dose: 166.667 mls/hr Documented by: Cefepime HCl 1 gm/ Dextrose 50 mls @ 100 mls/hr IVPB Q8H-IV [facility]; Protocol Last Admin: 08/27/19 09:42 Dose: 100 mls/hr Documented by: Norepinephrine Bitartrate (Levophed Bag) 16,000 mcg in 500 mls @ 9.375 mls/hr IVPB TITR [facility]; Protocol Last Titration: 08/27/19 08:30 Dose: 10 mcg/min, 18.75 mls/hr Documented by: Insulin Aspart (Novolog Vial Sliding Scale -) 1 vial SQ ACHS [facility]; Protocol Last Admin: 08/27/19 07:27 Dose: 2 units Documented by: Pantoprazole Sodium (Protonix Iv) 40 mg IVPUSH DAILY [facility] Last Admin: 08/27/19 09:42 Dose: 40 mg Documented by: Polyethylene Glycol (Miralax (For Daily Use) -) 17 gm PO DAILY [facility] Last Admin: 08/26/19 10:32 Dose: 17 gm Documented by: Vital Signs Period Temp Pulse Resp BP Sys/Ramon Pulse Ox Last 24 Hr 99.2 F-101.1 F 97-105 23-39 87-124/51-73 91-95 Intake & Output 08/24/19 08/25/19 08/26/19 08/27/19 23:59 23:59 23:59 23:59 Intake Total 2805 1154 2192.9 1025 Output Total 1200 1050 1330 500 Balance 1605 104 862.9 525 Weight 150.956 kg 152.356 kg 150.139 kg Gen: intubated, sedated Heart: RRR Lung: diminished breath sounds Abd: soft, nontender Ext: + edema CBC, BMP 08/27/19 05:20 08/27/19 05:20 ABG Results ABG pH 7.413 (7.350-7.450) 08/25/19 16:28 ABG HCO3 38.1 mmol/L (22-27) H 08/25/19 16:28 ABG O2 Sat (Measured) 99.4 mmHg (95-98) H 08/25/19 16:28 ABG O2 Content No Result Required. 08/25/19 16:28 ABG Base Excess 10.9 mmol/L (-2-2) H 08/25/19 16:28 RECENT STUDIES TO NOTE: CXR 08/26: B/L PNA (My Read). CXR 08/24: Since prior chest x-ray dated 08/25/2019 at 07:53 hour, there is interval slightly better aeration of the lung. The cardiac silhouette remains enlarged. Endotracheal tube tip and right internal jugular central venous catheter tip are again seen in satisfactory position. A nasogastric tube is identified with its tip at the level of the jose ASSESS: HAP Acute on Chronic Hypoxic and Hypercapneic Respiratory Failure Acute on Chronic Diastolic Heart Failure ARDS Staph Bacteremia Septic Shock +Troponins likely Demand Ischemia New Onset Atrial Fibrillation Acute Kidney Injury [place]/[facility] Morbid Obesity Asthma HTN GERD PLAN: - maintain LPV - change Viral Filter immediately - check ABG - Deep sedation - NMB prn - inhaled bronchodilators - re-clxr (persistent fevers since 08/21) - escalate antibiotics (no chnage in fever or CXT despite days on this regimen) - Lasix as tolerated - high probability he will need Trach - monitor urine output, creatinine - titrate pressors to maintain MAP >65 - rate control - continue anticoagulation - titrate FiO2, PEEP to keep SpO2 >90% - Cont enteral feeds (Promote @ 45cc/Hr) - DVT/GI prophylaxis - continue ICU monitoring Overall prognosis at this time appears grave [facility] ICU PULM/CCM [id number]
[2019-08-27] MEDS ORDERED: VECURONIUM BROMIDE 10 MG/10 ML VIAL ONE (09:17)
[2019-08-27] MEDS: PANTOPRAZOLE SODIUM 40 MG VIAL IVPUSH SCH (09:42)
[2019-08-27] MEDS: FUROSEMIDE 40 MG/4 ML INJECTABLE VIAL IVPUSH SCH (09:43)
[2019-08-27] MEDS: APIXABAN 5 MG TABLET PO SCH (09:44)
--- NOTE | 2019-08-27 09:51 | PN ---
Progress Note (short form) - Note Progress Note: persistent fevers no skin breakdown on vanco/cefepime since 08/22 remains intubated fio2 100% on levophed and vasopressin sedated Vital Signs Period Temp Pulse Resp BP Sys/Ramon Pulse Ox Last 24 Hr 99.2 F-101.1 F 97-105 23-39 87-124/51-73 91-95 cor-rrr lungs decreased bs at bases +cvp, site no erythema abd soft,nt ext trace edema no skin breakdown +pereira CBC, BMP 08/27/19 05:20 08/27/19 05:20 Microbiology 08/24/19 05:45 Blood - Peripheral Venous Blood Culture - Preliminary NO GROWTH OBTAINED AFTER 72 HOURS, INCUBATION TO CONTINUE FOR 2 DAYS. 08/24/19 05:53 Blood - Peripheral Venous Blood Culture - Preliminary NO GROWTH OBTAINED AFTER 72 HOURS, INCUBATION TO CONTINUE FOR 2 DAYS. 08/22/19 22:20 Blood - Peripheral Venous Blood Culture - Final Staph Hominis Sub Sp Hominis 08/23/19 10:30 Sputum - Endotrachea Suction/Ventilator Gram Stain - Final 08/23/19 10:30 Sputum - Endotrachea Suction/Ventilator Sputum Culture - Final NORMAL RESPIRATORY VEDA 08/22/19 22:20 Blood - Peripheral Venous Blood Culture - Preliminary Staphylococcus Coagulase Neg 08/23/19 20:13 Urine For Antigen Detection Legionella Antigen - Final 08/23/19 20:13 Urine For Antigen Detection Streptococcus pneumoniae Antigen (M - Final 08/20/19 05:00 Urine - Urine - Catheterized Urine Culture - Final NO GROWTH OBTAINED cxray- bilateral infiltrates- right greater then left (my reading) a/p ACUTE RESP FAILURE CHF R/O PNEUMONIA-bilateral infiltrates right greater then left (my read) SEPSIS +BC SCN-on vancomycin, repat cultures negative AZOTEMIA PCN ALLERGY Morbid obesity persistent fevers- despite 72 hours of vanco/cefepime repeat cultures blood, urine, sputum today vancomycin trough escalate to meropenem, d/c cefepime overall prognosis is guarded
[2019-08-27] MEDS ORDERED: VECURONIUM BROMIDE 100 MG/100 ML BAG IVPB SCH (10:15)
[2019-08-27] MEDS ORDERED: FUROSEMIDE INJECTION 100 MG in DEXTROSE 5%-WATER - 90 ML IVPB SCH (10:30)
[2019-08-27 10:42] LABS: ARTERIAL BLD GAS O2 SATURATION 84.9 mmHg (95-98); ARTERIAL BLOOD GAS BASE EXCESS 5.2 mmol/L (-2-2); ARTERIAL BLOOD GAS PO2 53.2 mmHg (80-100); ARTERIAL BLOOD GAS pH 7.344 (7.350-7.450)
--- NOTE | 2019-08-27 10:42 | PN ---
Progress Note, Physician Chief Complaint: resp failure History of Present Illness: intubated, sedate - Current Medication List Current Medications: Active Medications Acetaminophen (Tylenol Oral Solution -) 650 mg PO Q6H PRN PRN Reason: FEVER Last Admin: 08/27/19 08:42 Dose: 650 mg Documented by: Apixaban (Eliquis -) 5 mg PO BID ARABELLA Last Admin: 08/27/19 09:44 Dose: 5 mg Documented by: Chlorhexidine Gluconate (Hibiclens For Decolonization -) 1 applic TP HS ARABELLA Last Admin: 08/26/19 21:34 Dose: 1 applic Documented by: Furosemide (Lasix Injection -) 60 mg IVPUSH DAILY ARABELLA Last Admin: 08/27/19 09:43 Dose: 60 mg Documented by: Vasopressin 40 units/ Sodium (Chloride) 100 mls @ 5 mls/hr IVPB ASDIR ARABELLA; Protocol Last Titration: 08/25/19 19:15 Dose: 1 units/hr, 2.5 mls/hr Documented by: Midazolam HCl (Midazolam 100mg/100ml-0.9%Nacl) 100 mg in 100 mls @ 1 mls/hr IVPB TITR ARABELLA; Protocol Last Titration: 08/26/19 07:02 Dose: 10 mg/hr, 10 mls/hr Documented by: Fentanyl (Sublimaze Ivpb) 500 mcg in 100 mls @ 33.112 mls/hr IVPB TITR ARABELLA; Protocol Last Titration: 08/27/19 09:00 Dose: 1.51 mcg/kg/hr, 50 mls/hr Documented by: Vancomycin HCl (Vancomycin (Pre-Docked)) 1,000 mg in 250 mls @ 166.667 mls/hr IVPB Q12H ARABELLA; Protocol Last Admin: 08/27/19 01:12 Dose: 166.667 mls/hr Documented by: Norepinephrine Bitartrate (Levophed Bag) 16,000 mcg in 500 mls @ 9.375 mls/hr IVPB TITR ARABELLA; Protocol Last Titration: 08/27/19 08:30 Dose: 10 mcg/min, 18.75 mls/hr Documented by: Meropenem 1 gm/ Dextrose 100 mls @ 200 mls/hr IVPB Q8H-IV ARABELLA Vecuronium Barre (Vecuronium Barre) 100 mg in 100 mls @ 9.008 mls/hr IVPB TITR ARABELLA Furosemide 100 mg/ Dextrose 100 mls @ 10 mls/hr IVPB TITR ARABELAL Insulin Aspart (Novolog Vial Sliding Scale -) 1 vial SQ ACHS [facility]; Protocol Last Admin: 08/27/19 07:27 Dose: 2 units Documented by: Metolazone (Zaroxolyn -) 5 mg PO ONCE STA Stop: 08/27/19 10:25 Metolazone (Zaroxolyn -) 7.5 mg PO DAILY ARABELLA Pantoprazole Sodium (Protonix Iv) 40 mg IVPUSH DAILY [facility] Last Admin: 08/27/19 09:42 Dose: 40 mg Documented by: Polyethylene Glycol (Miralax (For Daily Use) -) 17 gm PO DAILY [facility] Last Admin: 08/26/19 10:32 Dose: 17 gm Documented by: - Objective Vital Signs: Vital Signs Temperature 100.7 F H 08/27/19 09:00 Pulse Rate 103 H 08/27/19 09:00 Respiratory Rate 29 H 08/27/19 09:37 Blood Pressure 92/57 L 08/27/19 09:00 O2 Sat by Pulse Oximetry (%) 80 L 08/27/19 09:00 Constitutional: Yes: No Distress, Calm, Obese Cardiovascular: Yes: Regular Rate and Rhythm. No: JVD (tds habitus), Gallop, Murmur Respiratory: Yes: Regular, CTA Bilaterally (anteriorly). No: Accessory Muscle Use Extremities: Yes: Cold Edema: No Neurological: No: Alert, Oriented Psychiatric: No: Agitated Labs: CBC, BMP 08/27/19 05:20 08/27/19 05:20 INR, PTT INR 1.27 (0.83-1.09) H 08/20/19 05:00 Assessment/Plan mibi 09/2016: nl mpi ecg: afib, rate ok, no ischemic changes, nl qtc echo nl LV function, mild conc LVH, RV systolic function mild to mod reduced, mod dilated RV, RVSP elevated at 50-60 mmHG tele: NSR, PAT runs a/p: 49 m hx htn, [place], asthma, gerd, dchf here with sob, le edema. septic shock, persistently febrile, CN staph bacteremia, PNA: -ID following, escalated abx -repeat BCx's remain negative from 08/23 -ARDS suspected by crit care. remains intubated--vent mgmt per crit care -on 2 pressors (levophed, vasopressin)--titrate MAP to > 60 -given LVSF preserved, and RV function not severely impaired, doubt he will respond clinically to inotropic support; if CXR fails to clear, can consider trial of milrinone resp distress, acute HFpEF, mod-severe pulm HTN with RV dysfunction, low album in: -L-->R heart failure with WHO 2 PH, vs WHO 3 (untreated [place]) -Echo images from 01/18 study reviewed--RV size cannot be accurately assessed due to off-axis imaging, however systolic function was already decreased at that time (mild vs mild-mod hypokinesis present), hence this is not an acute find ing--no need for PE w/u suni in setting of marked CXR abnormalities -now with acute resp failure sec to superimposed PNA/sepsis +/- ARDS -noncompliant with meds, cpap as outpt -CXR worsened with diffuse consolidation vs congestion, bilat effusions-->improved yesterday-->worse again today 08/26. no vasc redistribution seen -monitor daily chem7 -vent management per crit care -covid negative THOMAS: -possibly cardiorenal, cr improved now worsened again today positive trops: -mild trop elevation with flat trend, nl ck mb, no ischemic ecg changes, does not seem like acs, likely demand 2/2 chf, resp failure -defer ischemia eval at present afib: -new onset here -rate was ok off meds-->converted to sinus -monitor tele -chadsvasc warrants ac, cont eliquis htn: -holding home meds due to hypotension on pressors now est'd time spent in data review, pt exam, and formulating mgmt plan of potentially life-threatening medical problem = 35 min
[2019-08-27 10:46] LABS: ALLENS TEST POSITIVE; VENT RATE 26
[2019-08-27 10:47] LABS: VENT MODE A/C
[2019-08-27] MEDS ORDERED: METOLAZONE 5 MG TABLET PO STA (10:58)
[2019-08-27] MEDS ORDERED: DEXTROSE 5%-WATER 100 ML IVPB ONE ×2 (11:16→16:47)
[2019-08-27] MEDS ORDERED: MEROPENEM 1 GM VIAL (RESTRICTED TO ID) IVPB ONE ×2 (11:16→16:47)
[2019-08-27] MEDS: POLYETHYLENE GLYCOL 3350 119 GM BTL PO SCH (11:29)
[2019-08-27] MEDS: MEROPENEM 1 GM in DEXTROSE 5%-WATER 100 ML IVPB SCH ×2 (12:00→18:24)
[2019-08-27] MEDS: NOREPINEPHRINE D5W PREMIX 16,000 MCG/500 ML BAG IVPB SCH (14:43)
--- NOTE | 2019-08-27 15:44 | PN ---
Progress Note, Physician History of Present Illness: Pt seen and examined at bedside. He remains in the ICU. He remains intubated. - Current Medication List Current Medications: Active Medications Acetaminophen (Tylenol Oral Solution -) 650 mg PO Q6H PRN PRN Reason: FEVER Last Admin: 08/27/19 08:42 Dose: 650 mg Documented by: Apixaban (Eliquis -) 5 mg PO BID ARABELLA Last Admin: 08/27/19 09:44 Dose: 5 mg Documented by: Chlorhexidine Gluconate (Hibiclens For Decolonization -) 1 applic TP HS ARABELLA Last Admin: 08/26/19 21:34 Dose: 1 applic Documented by: Vasopressin 40 units/ Sodium (Chloride) 100 mls @ 5 mls/hr IVPB ASDIR ARABELLA; Protocol Last Titration: 08/27/19 13:30 Dose: 2 units/hr, 5 mls/hr Documented by: Midazolam HCl (Midazolam 100mg/100ml-0.9%Nacl) 100 mg in 100 mls @ 1 mls/hr IVPB TITR ARABELLA; Protocol Last Titration: 08/26/19 07:02 Dose: 10 mg/hr, 10 mls/hr Documented by: Fentanyl (Sublimaze Ivpb) 500 mcg in 100 mls @ 33.112 mls/hr IVPB TITR ARABELLA; Protocol Last Titration: 08/27/19 09:00 Dose: 1.51 mcg/kg/hr, 50 mls/hr Documented by: Vancomycin HCl (Vancomycin (Pre-Docked)) 1,000 mg in 250 mls @ 166.667 mls/hr IVPB Q12H ARABELLA; Protocol Last Admin: 08/27/19 01:12 Dose: 166.667 mls/hr Documented by: Norepinephrine Bitartrate (Levophed Bag) 16,000 mcg in 500 mls @ 9.375 mls/hr IVPB TITR ARABELLA; Protocol Last Admin: 08/27/19 14:43 Dose: Not Given Documented by: Meropenem 1 gm/ Dextrose 100 mls @ 200 mls/hr IVPB Q8H-IV ARABELLA Last Admin: 08/27/19 12:00 Dose: 200 mls/hr Documented by: Vecuronium [place] (Vecuronium Dwale) 100 mg in 100 mls @ 9.008 mls/hr IVPB TITR ARABELLA; Protocol Last Admin: 08/27/19 11:00 Dose: 1 mcg/kg/min, 9.008 mls/hr Documented by: Furosemide 100 mg/ Dextrose 100 mls @ 10 mls/hr IVPB TITR [facility]; Protocol Last Admin: 08/27/19 11:24 Dose: 10 mg/hr, 10 mls/hr Documented by: Insulin Aspart (Novolog Vial Sliding Scale -) 1 vial SQ ACHS [facility]; Protocol Last Admin: 08/27/19 11:56 Dose: Not Given Documented by: Metolazone (Zaroxolyn -) 7.5 mg PO DAILY [facility] Pantoprazole Sodium (Protonix Iv) 40 mg IVPUSH DAILY [facility] Last Admin: 08/27/19 09:42 Dose: 40 mg Documented by: Polyethylene Glycol (Miralax (For Daily Use) -) 17 gm PO DAILY [facility] Last Admin: 08/27/19 11:29 Dose: 17 gm Documented by: - Objective Vital Signs: Vital Signs Temperature 99.6 F 08/27/19 13:00 Pulse Rate 100 H 08/27/19 15:00 Respiratory Rate 26 H 08/27/19 15:00 Blood Pressure 96/53 L 08/27/19 15:00 O2 Sat by Pulse Oximetry (%) 82 L 08/27/19 15:05 Constitutional: Yes: Calm Eyes: Yes: Conjunctiva Clear HENT: Yes: Atraumatic Cardiovascular: Yes: S1, S2 Respiratory: Yes: Mechanically Ventilated Gastrointestinal: Yes: Soft, Abdomen, Obese Genitourinary: Yes: Dubose Present, Oliguria Musculoskeletal: Yes: Muscle Weakness Edema: Yes Integumentary: Yes: Venous Stasis Changes Neurological: Yes: Lethargy Labs: CBC, BMP 08/27/19 05:20 08/27/19 05:20 INR, PTT INR 1.27 (0.83-1.09) H 08/20/19 05:00 Assessment/Plan Current Medications Generic Name Dose Route Start Last Admin Trade Name Freq PRN Reason Stop Dose Admin Acetaminophen 650 mg 08/26/19 07:48 08/27/19 08:42 Tylenol Oral Solution - PO 650 mg Q6H PRN Administration FEVER Apixaban 5 mg 08/22/19 22:00 08/27/19 09:44 Eliquis - PO 5 mg BID [facility] Administration Chlorhexidine Gluconate 1 applic 08/19/19 22:00 08/26/19 21:34 Hibiclens For Decolonization - TP 1 applic HS ARABELLA Administration Vasopressin 40 units/ Sodium 100 mls @ 5 mls/hr 08/19/19 21:45 08/27/19 13:30 Chloride IVPB 2 units/hr ASDIR ARABELLA 5 mls/hr Titration Protocol 2 UNITS/HR Midazolam HCl 100 mg in 100 mls @ 1 mls/hr 08/19/19 21:45 08/26/19 07:02 Midazolam 100mg/100ml-0.9%Nacl IVPB 10 mg/hr TITR ARABELLA 10 mls/hr Titration Protocol 1 MG/HR Fentanyl 500 mcg in 100 mls @ 33.112 mls/hr 08/20/19 06:30 08/27/19 09:00 Sublimaze Ivpb IVPB 1.51 mcg/kg/hr TITR ARABELLA 50 mls/hr Titration Protocol 1 MCG/KG/HR Vancomycin HCl 1,000 mg in 250 mls @ 166.667 mls/hr 08/23/19 14:00 08/27/19 01:12 Vancomycin (Pre-Docked) IVPB 166.667 mls/hr Q12H ARABELLA Administration Protocol Norepinephrine Bitartrate 16,000 mcg in 500 mls @ 9.375 mls/hr 08/25/19 14:45 08/27/19 14:43 Levophed Bag IVPB Not Given TITR ARABELLA Protocol 5 MCG/MIN Meropenem 1 gm/ Dextrose 100 mls @ 200 mls/hr 08/27/19 11:15 08/27/19 12:00 IVPB 200 mls/hr Q8H-IV ARABELLA Administration Vecuronium [place] 100 mg in 100 mls @ 9.008 mls/hr 08/27/19 10:15 08/27/19 11:00 Vecuronium [place] IVPB 1 mcg/kg/min TITR ARABELLA 9.008 mls/hr Administration Protocol 1 MCG/KG/MIN Furosemide 100 mg/ Dextrose 100 mls @ 10 mls/hr 08/27/19 10:30 08/27/19 11:24 IVPB 10 mg/hr TITR ARABELLA 10 mls/hr Administration Protocol 10 MG/HR Insulin Aspart 1 vial 08/19/19 22:00 08/27/19 11:56 Novolog Vial Sliding Scale - SQ Not Given ACHS ARABELLA Protocol Metolazone 7.5 mg 08/28/19 10:00 Zaroxolyn - PO DAILY ARABELLA Pantoprazole Sodium 40 mg 08/19/19 20:30 08/27/19 09:42 Protonix Iv IVPUSH 40 mg DAILY ARABELLA Administration Polyethylene Glycol 17 gm 08/23/19 21:00 08/27/19 11:29 Miralax (For Daily Use) - PO 17 gm DAILY ARABELLA Administration Impression 1. THOMAS 2. chf 3. resp failure 4. r/p covid 5. a-fib 6. obesity 7. asthma 8. hypotension 9. gerd Plan - cont pressors to map 65 - pt on lasix - will give albumin - monitor urine output - cont to monitor outside solar sales consultant - repeat labs in am - cont vent support - daily cxr - covid negative - cont tube feeds - discussed with ICU team
[2019-08-27] MEDS ORDERED: ALBUMIN HUMAN 25% 12.5 GM/50 ML VIAL IVPB SCH (15:45)
[2019-08-27] MEDS: MIDAZOLAM IN 0.9 % SOD.CHLORID 100 MG/100 ML PLAST..BAG IVPB SCH (17:00)
[2019-08-27] MEDS ORDERED: ACETAMINOPHEN 1000 MG/100 ML VIAL (NON FORMULARY) IVPB ONE (17:35)
[2019-08-27] MEDS ORDERED: MEROPENEM 1 GM in DEXTROSE 5%-WATER 100 ML IVPB SCH (18:00)
[2019-08-27] MEDS ORDERED: PT OWN MED DRAWER 7, Y5N ONE (19:23)
[2019-08-27] MEDS ORDERED: VASOPRESSIN 20 UNITS/ML VIAL IV ONE (19:40)
--- NOTE | 2019-08-27 23:05 | PN ---
Progress Note (short form) - Note Progress Note: PULM/CCM BRIEF ICU NOTE: Mr. Parham is a 49 y/o man w/ [place], [place]/OSH, Asthma, HTN, chronic diastolic heart failure, and GERD, originally admitted on 08/18 w/ SOB 2/2 PNA which progressed to hypoxic/hypercapneic respiratory failure requiring intubation. His course is further c/b: bacteremia, ARDS, new onset A-Fib, THOMAS, cardiogenic as well as septic shock. The pt was specifically notable for worsening refractory hypoxia despite deep sedation, LPV, and NMB. I did have the pt's mother come in earlier today. I did meet with her & I did explain to her that the pt was in MSOF & rapidly deteriorating. Tonight the pt's ICU monitoring and evaluation advisor showed ST elevations and the pt slipped into an asytolic cardiac arrest. The pt remained refractory to ACLS X4 rounds. I did call the pt's mother back in. At 2235Hrs the pt was noted pulseless, apneic (except for Vent), pupils fixed & dilated, Asystole on the monitor. At 2238Hrs the pt was pronounced . Organ Donor was notified, [facility] EDRS CASE#: [id number]. The family was offered certified social workers in health care and pastoral support. All questions were answered. [facility] ICU PULM/CCM [id number]
[2019-08-28 00:33] VITALS: TEMP 101.6
[2019-08-28 00:34] VITALS: BP 77/50; PULSE 63
[2019-08-28] MEDS ORDERED: METOLAZONE 2.5 MG TABLET (FP) PO SCH (10:00)
== END 2019-08-27 22:40 | disposition expired | DRG 130 ==
LOC: JER 16:29 → JERBED 17:17 → JICU 20:04
PROVIDERS: ADMIT Internal Medicine Pulmonary Disease; ATTEND Internal Medicine Pulmonary Disease
PROC: 0BH17EZ Insertion of Endotracheal Airway into Trachea, Via Natural or Artificial Opening (ICD-10-PCS; principal; 2019-08-19)
PROC: 5A1955Z Respiratory Ventilation, Greater than 96 Consecutive Hours (ICD-10-PCS; 2019-08-19)
PROC: 05HM33Z Insertion of Infusion Device into Right Internal Jugular Vein, Percutaneous Approach (ICD-10-PCS; 2019-08-19)
PROC: B543ZZA Ultrasonography of Right Jugular Veins, Guidance (ICD-10-PCS; 2019-08-19)
PROC: 5A12012 Performance of Cardiac Output, Single, Manual (ICD-10-PCS; 2019-08-27)
DX: J96.01 Acute respiratory failure with hypoxia (principal); J96.02 Acute respiratory failure with hypercapnia; G47.33 Obstructive sleep apnea (adult) (pediatric); E78.5 Hyperlipidemia, unspecified; E66.01 Morbid (severe) obesity due to excess calories; Z68.43 Body mass index [BMI] 50.0-59.9, adult; N17.9 Acute kidney failure, unspecified; E87.5 Hyperkalemia; J18.9 Pneumonia, unspecified organism; I11.0 Hypertensive heart disease with heart failure; I50.31 Acute diastolic (congestive) heart failure; R41.82 Altered mental status, unspecified; I24.8 Other forms of acute ischemic heart disease; K21.9 Gastro-esophageal reflux disease without esophagitis; I48.91 Unspecified atrial fibrillation; R74.0 Nonspecific elevation of levels of transaminase and lactic acid dehydrogenase [LDH]; J45.909 Unspecified asthma, uncomplicated; I95.9 Hypotension, unspecified; I27.20 Pulmonary hypertension, unspecified; R50.9 Fever, unspecified; A41.1 Sepsis due to other specified staphylococcus; R65.21 Severe sepsis with septic shock; Z88.0 Allergy status to penicillin; Z20.828 Contact with and (suspected) exposure to other viral communicable diseases; Z86.69 Personal history of other diseases of the nervous system and sense organs
CPT/HCPCS: 36415; 36600; 71045-TC-FY; 80048; 80053; 80074; 81003; 82550; 82553; 82728; 82803; 82962; 83615; 83735; 83880; 84100; 84484; 85025; 85027; 85379; 85610; 85730; 86140; 86850; 86900; 86901; 87040; 87070; 87086; 87186; 87205; 87899; 93005; 93010; 93306-TC; 94002; 94640; 99285-25; G0480; J0131; J1644; P9047; U0003